=== PATIENT | female | born 1960 | race Caucasian/White ===

== ENCOUNTER 2017-03-23 19:52 | Emergency (ER) | payer SELFPAY ==
[~2017-03-23] VITALS: Ht 170.2 cm; Wt 72.6 kg
[2017-03-23] MEDS ORDERED: KETOROLAC 60 MG/2 ML VIAL IM STA (20:57)
[2017-03-23] MEDS ORDERED: HYDROcodone/APAP 10 MG/325 MG (LORTAB) TAB PO STA (20:57)
[2017-03-23] MEDS ORDERED: RX-NAPROXEN (NAPROSYN) 250 MG TAB PPK#4 PO STA (21:01)
[2017-03-23] MEDS ORDERED: HYDR-87 PO (21:01)
[2017-03-23] MEDS ORDERED: RX-HYDROCODONE/APAP 5/325 MG #4 TAB PK PO PRN (21:15)
[2017-03-23 21:26] VITALS: BP 179/90
== END 2017-03-23 21:26 | disposition home or self-care (01) ==
LOC: ER 19:55
DX: S82.102A Unspecified fracture of upper end of left tibia, initial encounter for closed fracture (principal); F17.210 Nicotine dependence, cigarettes, uncomplicated; W18.30XA Fall on same level, unspecified, initial encounter; X50.0XXA Overexertion from strenuous movement or load, initial encounter; Y92.002 Bathroom of unspecified non-institutional (private) residence as the place of occurrence of the external cause
CPT/HCPCS: 73562; 96372; 99284

== ENCOUNTER → 2018-09-17 | Outpatient (CLI) | payer OTHER ==
[~2018-09-17] MED LIST: HYDR-87 PO
[2018-09-17 09:49] LABS: BASOPHILS # (AUTO) 0.1 10^3/uL (0.0-0.1); BASOPHILS % (AUTO) 1 % (0-10); EOSINOPHILS # (AUTO) 0.7 10^3/uL (0.0-0.3); EOSINOPHILS % (AUTO) 9 % (0-10); HEMATOCRIT 43 % (35-52); HEMOGLOBIN 14.5 G/DL (11.5-16.0); LYMPHOCYTES # (AUTO) 2.9 X 10^3 (1.0-4.0); LYMPHOCYTES % (AUTO) 36 % (12-44); MEAN CORPUSCULAR HEMOGLOBIN 31 PG (25-34); MEAN CORPUSCULAR HGB CONC 34 G/DL (32-36); MEAN CORPUSCULAR VOLUME 91 FL (80-99); MEAN PLATELET VOLUME 10.2 FL (7.4-10.4); MONOCYTES # (AUTO) 0.7 X 10^3 (0.0-1.0); MONOCYTES % (AUTO) 8 % (0-12); NEUTROPHILS # (AUTO) 3.7 X 10^3 (1.8-7.8); NEUTROPHILS % (AUTO) 46 % (42-75); PLATELET COUNT 259 10^3/uL (130-400); RED CELL DISTRIBUTION WIDTH 13.3 % (10.0-14.5)
[2018-09-17 10:12] LABS: ALANINE AMINOTRANSFERASE 28 U/L (0-55); ALBUMIN 4.2 GM/DL (3.2-4.5); ALKALINE PHOSPHATASE 60 U/L (40-136); BILIRUBIN,TOTAL 0.4 MG/DL (0.1-1.0); BUN/CREATININE RATIO 19; CALCIUM 9.1 MG/DL (8.5-10.1); CARBON DIOXIDE 21 MMOL/L (21-32); CHLORIDE 107 MMOL/L (98-107); CHOLESTEROL 179 MG/DL (< 200); CREATININE SERUM 0.67 MG/DL (0.60-1.30); GFR ESTIMATED > 60; GLUCOSE 99 MG/DL (70-105); HDL CHOLESTEROL 46 MG/DL (40-60); POTASSIUM 4.3 MMOL/L (3.6-5.0); SODIUM 137 MMOL/L (135-145); TRIGLYCERIDES 119 MG/DL (<150); VLDL CHOLESTEROL 24 MG/DL (5-40)
== END ==
LOC: LAB 09:26
PROVIDERS: ATTEND Family Medicine
DX: Z00.00 Encounter for general adult medical examination without abnormal findings (principal); R53.83 Other fatigue; N95.1 Menopausal and female climacteric states
CPT/HCPCS: 36415; 80053; 80061; 84443; 85025

== ENCOUNTER 2021-05-07 06:18 | Outpatient (CLI) | payer OTHER ==
[~2021-05-07] VITALS: Ht 167.7 cm; Wt 66.8 kg
[2021-05-07] MEDS ORDERED: ZINC220T3 PO (12:54)
[2021-05-07] MEDS ORDERED: MV-M1TAB57 PO (12:54)
[2021-05-07] MEDS ORDERED: VITA1CAP PO (12:54)
[2021-05-07] MEDS ORDERED: CHOL200059 PO (12:54)
[2021-05-07] MEDS ORDERED: [UNRECOGNIZED DRUG - CODE] PO (12:54)
== END 2021-05-07 13:02 | disposition home or self-care (01) ==
LOC: PREOP 06:18
PROVIDERS: ATTEND Specialist
DX: Z01.818 Encounter for other preprocedural examination (principal)

== ENCOUNTER 2021-05-10 08:39 | Day surgery (SDC) | payer OTHER ==
[~2021-05-10] VITALS: Ht 167.7 cm; Wt 66.8 kg
[~2021-05-10 08:39] MED LIST changes: +CHOL200059 PO; +MV-M1TAB57 PO; +VITA1CAP PO; +ZINC220T3 PO; +[UNRECOGNIZED DRUG - CODE] PO
[2021-05-10] MEDS: TETRACAINE 0.5% OPHTH SOLN 4 ML BTL (SINGLE DOSE ONLY) OU PRN ×4 (08:55→09:15)
[2021-05-10] MEDS ORDERED: LIDOCAINE PF 1% 2 ML VIAL IR PRN (09:00)
[2021-05-10] MEDS ORDERED: MOXIFLOXACIN OPHTH SOLN 5 MG/ML 0.3 ML SYRINGE OP ONE (09:00)
[2021-05-10] MEDS ORDERED: POVIDONE (BETADINE) OPHTH SOLN 5% 30 ML OP ONE (09:00)
[2021-05-10] MEDS ORDERED: TIMOLOL MALEATE 0.5% 5 ML (TIMOPTIC) BTL OU PRN (09:00)
[2021-05-10] MEDS: PHENYLEPHRINE 10% OPHTH (NEO-SYN) 5 ML BTL OU SCH ×3 (09:05→09:15)
[2021-05-10] MEDS: TROPICAMIDE 1% OPH SOLN (MYDRIACYL) 15 ML BTL OP SCH ×3 (09:05→09:15)
[2021-05-10 09:06] VITALS: BP 142/97
[2021-05-10] MEDS ORDERED: MIDAZOLAM 2 MG/2 ML (VERSED) VIAL ONE (09:15)
--- NOTE | 2021-05-10 09:23 | Ophthalmologist Pre-Op Note ---
Pre-Operative Progress Note H&P Reviewed The H&P was reviewed, patient examined and no changes noted. Date H&P Reviewed: May 10, 2021 Time H&P Reviewed: 09:22 Pre-Op Dx Cataract, Left Eye NOMI CHAUHAN MD May 10, 2021 09:22
--- NOTE | 2021-05-10 09:44 | Ophthalmology Operative Report ---
Cataract removal/placement IOL PREOPERATIVE DIAGNOSIS: Cataract Left Eye POSTOPERATIVE DIAGNOSIS: Cataract Left Eye PROCEDURE: Cataract removal and placement of posterior chamber implant, left eye SURGEON: Jimmy Chauhan ANESTHESIA: Topical with sedation COMPLICATIONS: None ESTIMATED BLOOD LOSS: Minimal DESCRIPTION OF PROCEDURE: After proper informed consent was obtained, the patient, a 61 female, was taken to the Operating Room and the left eye was anesthetized with tetracaine. The left eye was then prepped and draped in the usual manner. A wire lid speculum was placed. A paracentesis was made at the left hand position. Preservative free lidocaine was injected into the anterior chamber followed by viscoelastic. A clear corneal incision was made in the temporal position. A capsulorrhexis was preformed and the central nuclear and cortical material were removed. The posterior capsule was polished and an Joni 20.0 AU00T0 was placed into the capsular bag. The residual viscoelastic was aspirated and balanced saline solution was injected into the anterior chamber. Moxifloxacin was injected into the anterior chamber. The wound was checked and found to be water tight. The patient tolerated the procedure well without complications. JIMMY CHAUHAN MD May 10, 2021 09:44
[2021-05-10 09:53] VITALS: BP 156/83
[2021-05-10] MEDS ORDERED: acetaZOLAMIDE ER 500 MG CAP (DIAMOX SEQUELS) PO ONE (10:00)
--- NOTE | 2021-05-10 13:58 | Anesthesia-General Post-Op ---
MAC Patient Condition Mental Status/LOC: Same as Preop Cardiovascular: Satisfactory Nausea/Vomiting: Absent Respiratory: Satisfactory Pain: Controlled Complications: Absent Post Op Complications Complications None Follow Up Care/Instructions Patient Instructions None needed. Anesthesiology Discharge Order Discharge Order Patient was seen after the procedure and she was doing well, no complaints, stable vital signs, no apparent adverse anesthesia problems. KARLOS FONSECA DO May 10, 2021 13:58
== END 2021-05-10 09:54 | disposition home or self-care (01) ==
LOC: SDC 08:39
PROVIDERS: ATTEND Specialist
DX: H25.12 Age-related nuclear cataract, left eye (principal); Z79.899 Other long term (current) drug therapy; F17.200 Nicotine dependence, unspecified, uncomplicated
CPT/HCPCS: 66984; V2632

== ENCOUNTER 2021-05-24 06:00 | Day surgery (SDC) | payer OTHER ==
[~2021-05-24] VITALS: Ht 167.7 cm; Wt 66.8 kg
[2021-05-24 06:12] VITALS: BP 119/62
[2021-05-24] MEDS: TETRACAINE 0.5% OPHTH SOLN 4 ML BTL (SINGLE DOSE ONLY) OU PRN ×4 (06:12→06:34)
[2021-05-24] MEDS ORDERED: POVIDONE (BETADINE) OPHTH SOLN 5% 30 ML OP ONE (06:15)
[2021-05-24] MEDS ORDERED: TIMOLOL MALEATE 0.5% 5 ML (TIMOPTIC) BTL OU PRN (06:15)
[2021-05-24] MEDS ORDERED: LIDOCAINE PF 1% 2 ML VIAL IR PRN (06:15)
[2021-05-24] MEDS ORDERED: MOXIFLOXACIN OPHTH SOLN 5 MG/ML 0.3 ML SYRINGE OP ONE (06:15)
[2021-05-24] MEDS: PHENYLEPHRINE 10% OPHTH (NEO-SYN) 5 ML BTL OU SCH ×3 (06:19→06:34)
[2021-05-24] MEDS: TROPICAMIDE 1% OPH SOLN (MYDRIACYL) 15 ML BTL OP SCH ×3 (06:20→06:34)
--- NOTE | 2021-05-24 07:18 | Ophthalmologist Pre-Op Note ---
Pre-Operative Progress Note H&P Reviewed The H&P was reviewed, patient examined and no changes noted. Date H&P Reviewed: May 24, 2021 Time H&P Reviewed: 07:18 Pre-Op Dx Cataract, Right Eye NOMI CHAUHAN MD May 24, 2021 07:18
[2021-05-24] MEDS ORDERED: MIDAZOLAM 2 MG/2 ML (VERSED) VIAL ONE (07:23)
--- NOTE | 2021-05-24 07:38 | Ophthalmology Operative Report ---
Cataract removal/placement IOL PREOPERATIVE DIAGNOSIS: Cataract Right Eye POSTOPERATIVE DIAGNOSIS: Cataract Right Eye PROCEDURE: Cataract removal and placement of posterior chamber implant, right eye SURGEON: Jimmy Chauhan ANESTHESIA: Topical with sedation COMPLICATIONS: None ESTIMATED BLOOD LOSS: Minimal DESCRIPTION OF PROCEDURE: After proper informed consent was obtained, the patient, a 61 female, was taken to the Operating Room and the right eye was anesthetized with tetracaine. The right eye was then prepped and draped in the usual manner. A wire lid speculum was placed. A paracentesis was made at the left hand position. Preservative free lidocaine was injected into the anterior chamber followed by viscoelastic. A clear corneal incision was made in the temporal position. A capsulorrhexis was preformed and the central nuclear and cortical material were removed. The posterior capsule was polished and Joni 20.0 AU00T0 IOL was placed into the capsular bag. The residual viscoelastic was aspirated and balanced saline solution was injected into the anterior chamber. Moxifloxacin was injected into the anterior chamber. The wound was checked and found to be water tight. The patient tolerated the procedure well without complications. JIMMY CHAUHAN MD May 24, 2021 07:38
[2021-05-24 07:55] VITALS: BP 119/62
[2021-05-24] MEDS ORDERED: acetaZOLAMIDE ER 500 MG CAP (DIAMOX SEQUELS) PO ONE (08:00)
--- NOTE | 2021-05-24 12:29 | Anesthesia-General Post-Op ---
MAC Patient Condition Mental Status/LOC: Same as Preop Cardiovascular: Satisfactory Nausea/Vomiting: Absent Respiratory: Satisfactory Pain: Controlled Complications: Absent Post Op Complications Complications None Follow Up Care/Instructions Patient Instructions None needed. Anesthesiology Discharge Order Discharge Order Patient is doing well, no complaints, stable vital signs, no apparent adverse anesthesia problems. No complications reported per nursing. LEONARD MURPHY CRNA May 24, 2021 12:29
== END 2021-05-24 07:57 | disposition home or self-care (01) ==
LOC: SDC 06:00
PROVIDERS: ATTEND Specialist
DX: H25.9 Unspecified age-related cataract (principal); Z72.0 Tobacco use
CPT/HCPCS: 66984; V2632

== ENCOUNTER 2022-08-27 10:58 | Inpatient (IN) | payer SELFPAY ==
[2022-08-27] VITALS (15 sets, daily range): BP systolic 131–167; BP diastolic 65–107
[~2022-08-27] VITALS: Ht 170 cm; Wt 63.2 kg
[~2022-08-27 10:58] MED LIST changes: +HYDR-4085 PO; -HYDR-87 PO
[2022-08-27] MEDS ORDERED: methylPREDNISolone 125 MG (Solu-MEDROL) VIAL IV STA (11:08)
[2022-08-27] MEDS ORDERED: LORazepam INJ 2 MG/ML (ATIVAN) VIAL ONE (11:09)
[2022-08-27] MEDS ORDERED: methylPREDNISolone 125 MG (Solu-MEDROL) VIAL ONE (11:09)
[2022-08-27] MEDS ORDERED: LORazepam INJ 2 MG/ML (ATIVAN) VIAL IVP ONE (11:15)
[2022-08-27] MEDS ORDERED: NS IV 500 ML 500 ML IV ONE (11:15)
[2022-08-27 11:17] LABS: BASOPHILS # (AUTO) 0.1 10^3/uL (0.0-0.1); BASOPHILS % (AUTO) 1 % (0-10); EOSINOPHILS # (AUTO) 0.3 10^3/uL (0.0-0.3); EOSINOPHILS % (AUTO) 2 % (0-10); HEMATOCRIT 45 % (35-52); HEMOGLOBIN 15.2 g/dL (11.5-16.0); LYMPHOCYTES # (AUTO) 3.7 10^3/uL (1.0-4.0); LYMPHOCYTES % (AUTO) 20 % (12-44); MEAN CORPUSCULAR HEMOGLOBIN 31 pg (25-34); MEAN CORPUSCULAR HGB CONC 34 g/dL (32-36); MEAN CORPUSCULAR VOLUME 93 fL (80-99); MONOCYTES # (AUTO) 1.8 10^3/uL (0.0-1.0); MONOCYTES % (AUTO) 10 % (0-12); NEUTROPHILS # (AUTO) 12.3 10^3/uL (1.8-7.8); NEUTROPHILS % (AUTO) 67 % (42-75); PLATELET COUNT 335 10^3/uL (130-400); WHITE BLOOD COUNT 18.3 10^3/uL (4.3-11.0)
[2022-08-27 11:30] LABS: ALBUMIN 4.2 GM/DL (3.2-4.5)
[2022-08-27 11:31] LABS: BAND NEUTROPHILS 3 %; CALCIUM 8.9 MG/DL (8.5-10.1); EOSINOPHILS % (MANUAL) 2 %; LYMPHOCYTES % (MANUAL) 29 %; MONOCYTES % (MANUAL) 6 %; NEUTROPHILS % (MANUAL) 60 %; PLATELET ESTIMATE ADEQUATE; RBC MORPH NORMAL
[2022-08-27 11:32] LABS: TOTAL PROTEIN 8.8 GM/DL (6.4-8.2)
[2022-08-27 11:34] LABS: BILIRUBIN,TOTAL 0.9 MG/DL (0.1-1.0)
[2022-08-27 11:34] LABS: ABG BASE EXCESS -1.3 MMOL/L (-2.5-2.5); ABG OXYGEN SATURATION 99 % (94-100); ABG PCO2 38 MMHG (35-45); ABG PO2 135 MMHG (79-93); ABG TCO2 23.9 MMOL/L (21.0-31.0)
[2022-08-27 11:35] LABS: ALLENS TEST P; INSPIRED O2 10; PATIENT TEMP 37.3; VENTILATOR NO
[2022-08-27 11:36] LABS: CREATININE SERUM 0.72 MG/DL (0.60-1.30)
[2022-08-27 11:39] LABS: INR 0.9 (0.8-1.4); PROTHROMBIN TIME PATIENT 12.7 SEC (12.2-14.7)
--- NOTE | 2022-08-27 11:42 | Diagnostic Imaging Report ---
Clinical indications: Patient with respiratory distress. EXAM: Portable chest x-ray upright view. COMPARISON: None. FINDINGS: There is blunting of the right costophrenic angle region concerning for small pleural effusion. There is amorphous airspace opacification and curvilinear opacities involving the right lower lobe and right perihilar region which may represent interval infiltrate. There is atelectasis or scarring in the left lung base. Emphysematous lung disease is seen. There is no pneumothorax. Pulmonary vasculature and cardiac silhouette is within normal limits. There are degenerative spurs involving the spine. IMPRESSION: 1: There is a small right pleural effusion and concern for right lung base infiltrate. Superimposed bibasilar atelectasis or scarring is also suspected. Comparison to prior chest x-rays would help better evaluate. 2: Emphysematous lung disease. Dictated by: Dictated on workstation # [id number]
--- NOTE | 2022-08-27 11:54 | ED General ---
General Chief Complaint: Respiratory Problems Stated Complaint: SOB | Nursing Triage Note: patient to room 06 w c/o shortness of breath. Patient denies ever experiencing this before. Source of Information: Patient Exam Limitations: No Limitations History of Present Illness Date Seen by Provider: Aug 27, 2022 Time Seen by Provider: 11:05 Initial Comments Here with report of significant shortness of breath that has been worsening over the last couple of days and may have been going on for up to a week. She states that she does smoke but has not been able to smoke much recently. Reports she may have COPD. She is not on oxygen and has some history of high blood pressure. Denies any previous heart problems. Her main concern now is significant shortness of breath and she is anxious with that. Denies fever or chills or nausea or vomiting. Denies chest pain. Timing/Duration: 2-3 Days, Getting Worse Severity: Moderate, Severe Associated Systoms: No Chest Pain; Cough; No Fever/Chills, No Nausea/Vomiting; Shortness of Air, Weakness Allergies and Home Medications Allergies Coded Allergies: No Known Drug Allergies (Unverified , 03/23/17) Patient Home Medication List Home Medication List Reviewed: Yes Cholecalciferol (Vitamin D3) (Vitamin D3) 50 Mcg Tablet, 50 MCG PO DAILY, (Reported) Entered as Reported by: DELPHINE JOHNSON on 05/07/21 1254 Multivits,Stress Formula (Stress-C) 1 Each Tablet, 1 EACH PO DAILY, (Reported) Entered as Reported by: DELPHINE JOHNSON on 05/07/21 1254 Mv-Mn/Folic Acid/Calcium/Vit K (Women's 50 Plus Multivit Tab) 1 Each Tablet, 1 EACH PO DAILY, (Reported) Entered as Reported by: DELPHINE JOHNSON on 05/07/21 1254 Vitamin B Complex (Vitamin B Complex) 1 Each Capsule, 1 EACH PO DAILY, (Reported) Entered as Reported by: DELPHINE JOHNSON on 05/07/21 1254 Zinc Sulfate (Zinc) 50 Mg Tablet, 50 MG PO DAILY, (Reported) Entered as Reported by: DELPHINE JOHNSON on 05/07/21 1254 Review of Systems Review of Systems Constitutional: see HPI; No chills, No fever EENTM: No nose congestion Respiratory: cough, orthopnea, short of breath Cardiovascular: No chest pain, No edema Gastrointestinal: No nausea, No vomiting Genitourinary: no symptoms reported Musculoskeletal: no symptoms reported Psychiatric/Neurological: Anxiety, Weakness Past Qawpruk-Raonmw-Cosjyf Hx Patient Social History Tobacco Use?: Yes Tobacco type used: Cigarettes Smoking Status: Current Everyday Smoker Substance use?: No Alcohol Use?: Yes Alcohol Frequency: Rarely Immunizations Up To Date COVID19 Vaccine 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 Seasonal Allergies Seasonal Allergies: Yes Past Medical History Surgeries: Yes (LEFT ANKLE) Orthopedic Respiratory: No Cardiac: No 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 oz. 72.248789gh; 21.00 BMI Method:Stated General Appearance: Moderate Distress (Respiratory), Thin HEENT: PERRL/EOMI, Pharynx Normal Neck: Non Tender, Supple Respiratory: No Crackles; Decreased Breath Sounds, Respiratory Distress Cardiovascular: No Murmur, Tachycardia Gastrointestinal: Non Tender, Soft Back: Normal Inspection, No CVA Tenderness, No Vertebral Tenderness Extremity: Normal Range of Motion, Non Tender Neurologic/Psychiatric: Alert, Oriented x3 Skin: normal color, warm/dry Focused Exam Lactate Level 08/27/22 11:09: Lactic Acid Level 1.96 Lactic Acid Level Laboratory Tests Test 08/27/22 11:09 Lactic Acid Level 1.96 MMOL/L (0.50-2.00) Progress/Results/Core Measures Suspected Sepsis SIRS Temperature: Pulse: 113 Respiratory Rate: 33 Laboratory Tests 08/27/22 11:09: White Blood Count 18.3H Blood Pressure 167 /107 Mean: 127 08/27/22 11:09: Lactic Acid Level 1.96 Laboratory Tests 08/27/22 11:09: Creatinine 0.72, INR Comment 0.9, Platelet Count 335, Total Bilirubin 0.9 Results/Orders Lab Results Laboratory Tests Test 08/27/22 11:09 08/27/22 11:15 Range/Units White Blood Count 18.3 H 4.3-11.0 10^3/uL Red Blood Count 4.84 3.80-5.11 10^6/uL Hemoglobin 15.2 11.5-16.0 g/dL Hematocrit 45 35-52 % Mean Corpuscular Volume 93 80-99 fL Mean Corpuscular Hemoglobin 31 25-34 pg Mean Corpuscular Hemoglobin Concent 34 32-36 g/dL Red Cell Distribution Width 13.4 10.0-14.5 % Platelet Count 335 130-400 10^3/uL Mean Platelet Volume 11.0 9.0-12.2 fL Immature Granulocyte % (Auto) 0 % Neutrophils (%) (Auto) 67 42-75 % Lymphocytes (%) (Auto) 20 12-44 % Monocytes (%) (Auto) 10 0-12 % Eosinophils (%) (Auto) 2 0-10 % Basophils (%) (Auto) 1 0-10 % Neutrophils # (Auto) 12.3 H 1.8-7.8 10^3/uL Lymphocytes # (Auto) 3.7 1.0-4.0 10^3/uL Monocytes # (Auto) 1.8 H 0.0-1.0 10^3/uL Eosinophils # (Auto) 0.3 0.0-0.3 10^3/uL Basophils # (Auto) 0.1 0.0-0.1 10^3/uL Immature Granulocyte # (Auto) 0.1 0.0-0.1 10^3/uL Neutrophils % (Manual) 60 % Lymphocytes % (Manual) 29 % Monocytes % (Manual) 6 % Eosinophils % (Manual) 2 % Band Neutrophils 3 % Platelet Estimate ADEQUATE Blood Morphology Comment NORMAL Prothrombin Time 12.7 12.2-14.7 SEC INR Comment 0.9 0.8-1.4 Activated Partial Thromboplast Time 30 24-35 SEC Sodium Level 134 L 135-145 MMOL/L Potassium Level 4.6 3.6-5.0 MMOL/L Chloride Level 104 98-107 MMOL/L Carbon Dioxide Level 19 L 21-32 MMOL/L Anion Gap 11 5-14 MMOL/L Blood Urea Nitrogen 10 7-18 MG/DL Creatinine 0.72 0.60-1.30 MG/DL Estimat Glomerular Filtration Rate 94 BUN/Creatinine Ratio 14 Glucose Level 105 70-105 MG/DL Lactic Acid Level 1.96 0.50-2.00 MMOL/L Calcium Level 8.9 8.5-10.1 MG/DL Corrected Calcium 8.7 8.5-10.1 MG/DL Total Bilirubin 0.9 0.1-1.0 MG/DL Aspartate Amino Transf (AST/SGOT) 62 H 5-34 U/L Alanine Aminotransferase (ALT/SGPT) 44 0-55 U/L Alkaline Phosphatase 73 40-136 U/L Troponin I 0.103 H <0.028 NG/ML C-Reactive Protein High Sensitivity 3.33 H 0.00-0.50 MG/DL B-Type Natriuretic Peptide 840.4 H <100.0 PG/ML Total Protein 8.8 H 6.4-8.2 GM/DL Albumin 4.2 3.2-4.5 GM/DL Blood Gas Puncture Site L RAD Blood Gas Patient Temperature 37.3 Arterial Blood pH 7.40 7.37-7.43 Arterial Blood Partial Pressure CO2 38 35-45 MMHG Arterial Blood Partial Pressure O2 135 H 79-93 MMHG Arterial Blood HCO3 23 23-27 MMOL/L Arterial Blood Total CO2 23.9 21.0-31.0 MMOL/L Arterial Blood Oxygen Saturation 99 94-100 % Arterial Blood Base Excess -1.3 -2.5-2.5 MMOL/L Dino Test P Blood Gas Ventilator Setting NO Blood Gas Inspired Oxygen 10 My Orders Orders - LOUISE HELLER MD Cbc With Automated Diff (08/27/22 11:08) Comprehensive Metabolic Panel (08/27/22 11:08) Blood Culture (08/27/22 11:08) Sputum Culture (08/27/22 11:08) Protime With Inr (08/27/22 11:08) Partial Thromboplastin Time (08/27/22 11:08) Chest 1 View, Ap/Pa Only (08/27/22 11:08) Ed Iv/Invasive Line Start (08/27/22 11:08) Ed Iv/Invasive Line Start (08/27/22 11:08) Ekg Tracing (08/27/22 11:08) Troponin I Genesis (08/27/22 11:08) Vital Signs Adult Sepsis Patie Q15M (08/27/22 11:08) O2 (08/27/22 11:08) Remove Rings In Anticipation O (08/27/22 11:08) Lactic Acid Analyzer (08/27/22 11:08) Arterial Blood Gas (08/27/22 11:08) Bnp Grant (08/27/22 11:08) Hs C Reactive Protein (08/27/22 11:08) Lorazepam Injection (Ativan Injection) (08/27/22 11:15) Methylprednisolone Sod Succ (Solu-Medrol (08/27/22 11:08) Methylprednisolone Sod Succ (Solu-Medrol (08/27/22 11:09) Lorazepam Injection (Ativan Injection) (08/27/22 11:09) Ns Iv 500 Ml (Sodium Chloride 0.9%) (08/27/22 11:15) Manual Differential (08/27/22 11:09) Albuterol Pre-Mix Nebs (Rt) (Proventil (08/27/22 12:16) Albuterol/Ipra Inhalation Soln (Duoneb I (08/27/22 12:30) Svn Small Volume Nebulizer (08/27/22 12:16) Svn Small Volume Nebulizer (08/27/22 12:16) Cefepime Injection (Maxipime Injection) (08/27/22 12:30) Code/Resuscitation (08/27/22 12:26) Ed Admission (Communication) (08/27/22 12:26) Aspirin Chewable Tablet (Baby Aspirin Ch (08/27/22 12:45) Medications Given in ED Current Medications Medications Dose Ordered Sig/Loretta Route Start Time Stop Time Status Last Admin Dose Admin Albuterol/ Ipratropium 3 ml ONCE ONCE INH 08/27/22 12:30 08/27/22 12:31 DC 08/27/22 12:20 3 ML Aspirin 324 mg ONCE ONCE PO 08/27/22 12:45 08/27/22 12:46 DC 08/27/22 12:52 324 MG Cefepime HCl 1000 mg/Sodium Chloride 50 ml @ 100 mls/hr ONCE ONCE IV 08/27/22 12:30 08/27/22 12:59 DC 08/27/22 12:29 100 MLS/HR Lorazepam 0.5 mg ONCE ONCE IVP 08/27/22 11:15 08/27/22 11:16 DC 08/27/22 11:12 0.5 MG Sodium Chloride 500 ml @ 0 mls/hr Q0M ONCE IV 08/27/22 11:15 08/27/22 11:16 DC 08/27/22 11:26 500 MLS/HR Vital Signs/I&O 08/27/22 08/27/22 11:02 11:40 Temp 37.3 Pulse 116 113 Resp 28 33 B/P (MAP) 167/107 (127) Pulse Ox 92 99 O2 Delivery Room Air O2 Flow Rate 60.00 Capillary Refill : Less Than 3 Seconds Blood Pressure Mean: 127 Progress Note : Progress Note Seen and evaluated. Rapid assessment done. Patient has O2 sat low 90s upper 80s high flow nasal cannula and then high flow mask. We did elect to move to BiPAP. Patient is very anxious. She is quite tachypneic with increased work of breathing. Given her anxiety and concerns about anxiety with the mask, we did give Ativan 0.5 mg IV. We will initiate sepsis protocol including checks x-ray and labs to include CBC, CMP, CRP, troponin, BNP, blood cultures and lactic acid. Chest x-ray was ordered. BiPAP initiated at 12/6 and RT did ramp up protocol. We will get ABG. Solu-Medrol 125 mg IV ordered. Monitor patient. Differential includes COPD exacerbation, pneumonia, heart failure, electrolyte abnormality 1135: Chest x-ray does show right pleural effusion and there is increased markings at both bases on my interpretation. 1154: EKG results noted as below. CBC reviewed and shows markedly elevated white count at 18.3 with a left shift. Chemistry reviewed and shows slightly low sodium at 134 and slightly elevated potassium of 5.5. Serum creatinine is normal with LFTs normal with some elevation of AST at 62. Troponin is elevated at 0.103 with elevated CRP and elevated BNP. Coags are overall normal. ABG shows normal pH with PCO2 of 35. 1224: We have added albuterol neb as well as DuoNeb and I will initiate antibiotics with cefepime 1 g IV now. I did discuss the case with Dr. Schwarz, on- call for hospitalist service and she is excepted the patient for admission, inpatient status. Patient is full code. 1233: I did discuss the case with Dr Norman, sales development consultant on-call. We will go ahead and initiate dose of aspirin now and then he will follow-up in consult. Patient does have findings of sepsis without findings of severe sepsis and does not require high-volume fluid resuscitation. Patient will be complicated as she does have findings of acute heart failure with elevated BNP. She has had appropriate evaluation including blood cultures and lactic acid and we have first dose of antibiotics ordered to be administered now. ECG Initial ECG Impression Date: Aug 27, 2022 Initial ECG Impression Time: 11:36 Initial ECG Rate: 100 Initial ECG Rhythm: S.Tach Comment Sinus tachycardia with normal axis. Left atrial abnormality. No evidence of ST elevation OR. Interpreted by me. Diagnostic Imaging Diagonstic Imaging: Xray Plain Films/CT/US/NM/MRI: chest Comments [facility] [place] NAME: ADITYA DEL ANGEL [facility] REC#: [id number] PT STATUS: REG ER : 1960 PHYSICIAN: LOUISE HELLER MD ADMIT DATE: 08/27/22/ER Draft Date of Exam:08/27/22 CHEST 1 VIEW, AP/PA ONLY Clinical indications: Patient with respiratory distress. EXAM: Portable chest x-ray upright view. COMPARISON: None. FINDINGS: There is blunting of the right costophrenic angle region concerning for small pleural effusion. There is amorphous airspace opacification and curvilinear opacities involving the right lower lobe and right perihilar region which may represent interval infiltrate. There is atelectasis or scarring in the left lung base. Emphysematous lung disease is seen. There is no pneumothorax. Pulmonary vasculature and cardiac silhouette is within normal limits. There are degenerative spurs involving the spine. IMPRESSION: 1: There is a small right pleural effusion and concern for right lung base infiltrate. Superimposed bibasilar atelectasis or scarring is also suspected. Comparison to prior chest x-rays would help better evaluate. 2: Emphysematous lung disease. Dictated on workstation # [id number] Dict: 08/27/22 1137 Trans: 08/27/22 1142 [facility] [id number] Interpreted by: JUAN SMITH MD Electronically signed by: Departure Communication (Admissions) Time/Spoke to Admitting Phy: 12:23 Time/Spoke to Consulting Phy: 12:33 Impression Primary Impression: RLL pneumonia Qualified Codes: J18.9 - Pneumonia, unspecified organism Additional Impressions: COPD with acute exacerbation Elevated troponin Elevated brain natriuretic peptide (BNP) level Disposition: ADMITTED INPATIENT Condition: Stable Admissions Decision to Admit Reason: Admit from ER (General) Decision to Admit/Date: Aug 27, 2022 Time/Decision to Admit Time: 12:23 Departure-Patient Inst. Referrals: NARCISA ROSARIO MD (PCP/Family) Primary Care Physician LOUISE HELLER MD Aug 27, 2022 11:54
[2022-08-27 12:02] LABS: POTASSIUM 4.6 MMOL/L (3.6-5.0)
[2022-08-27] MEDS ORDERED: RT-ALBUTEROL SULF 2.5 MG/3 ML PRE-MIX VIAL INH STA (12:16)
[2022-08-27] MEDS ORDERED: CEFEPIME INJECTION 1,000 MG in NS (IVPB) 50 ML IV ONE (12:30)
[2022-08-27] MEDS ORDERED: RT-ALBUTEROL/IPRATROPIUM 3 ML (DUONEB) VIAL INH ONE (12:30)
[2022-08-27] MEDS ORDERED: ASPIRIN 81 MG CHEW (CHILDREN'S ASA) PO ONE (12:45)
--- NOTE | 2022-08-27 13:46 | History & Physical-Hospitalist ---
History of Present Illness Date Seen 08/27/22 Time Seen by a Provider: 13:40 Attending Physician Jose Valencia MD PCP Admitting Physician: Deepa Schwarz MD Attending Physician: Deepa Schwarz MD Referring Physician Date of Admission Aug 27, 2022 at 13:11 Home Medications & Allergies Home Medications Reviewed patient Home Medication Reconciliation performed by pharmacy medication reconciliations medical chief technician and/or nursing. Patients Allergies have been reviewed. 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 oz. 72.771186be; 21.00 BMI Method:Stated Results Results/Procedures Labs Laboratory Tests 08/27/22 11:09 Patient resulted labs reviewed. Assessment/Plan Admission Diagnosis COPD Exacerbation Admission Status: Inpatient Order (span 2 midnights) Reason for Inpatient Admission: respiratory failure on bipap Assessment and Plan COPD Exacerbation Acute Hypoxic Respiratory Failure Sepsis due to RLL PNA Type II PR Cardiology consulted, appreciate recs ASA given in ER Trend troponin Diagnosis/Problems Diagnosis/Problems (1) Sepsis Qualifiers: Sepsis type: sepsis due to unspecified organism Sepsis acute organ dysfunction status: without acute organ dysfunction Qualified Codes: A41.9 - Sepsis, unspecified organism (2) Acute respiratory failure Qualifiers: Respiratory failure complication: hypoxia Qualified Codes: J96.01 - Acute respiratory failure with hypoxia (3) COPD with acute exacerbation Status: Acute (4) RLL pneumonia Status: Acute Qualifiers: Pneumonia type: due to unspecified organism Qualified Codes: J18.9 - Pneumonia, unspecified organism (5) Elevated troponin Status: Acute DEEPA SCHWARZ MD Aug 27, 2022 1:46 pm
[2022-08-27] MEDS ORDERED: AZITHROMYCIN 250 MG TAB (ZITHROMAX) PO NR (14:00)
[2022-08-27] MEDS ORDERED: hydrOXYzine (ATARAX) 10 MG TAB PO PRN (14:15)
--- NOTE | 2022-08-27 14:18 | History & Physical-Hospitalist ---
History of Present Illness HPI/Chief Complaint Pt is a 62yoCF with a PMH of restless leg and asthma who presented to the ER due to SOB. She states this started 2 nights ago and continued to worsen. She complains of a persistent cough as well. She denies a history of COPD but thinks she has asthma and mayhave COPD because of her smoking. She presented to the ER with severe shortness of breath and was placed on BiPAP. Imaging revealed a likely RLL pna and she was admitted for further management. She reports feeling much better already. She was incidentally found to have an elevated troponin but denies any chest pain. She is asking to eat. Source: patient Date Seen 08/27/22 Time Seen by a Provider: 13:55 Attending Physician Jose Valencia MD PCP Admitting Physician: Yue Schwarz MD Attending Physician: Yue Schwarz MD Referring Physician Date of Admission Aug 27, 2022 at 1:11 pm Home Medications & Allergies Home Medications Reviewed patient Home Medication Reconciliation performed by pharmacy medication reconciliations body and frame technician and/or nursing. Patients Allergies have been reviewed. Allergies Allergies Coded Allergies No Known Drug Allergies (Vbnpmykhcp10/2/17) Past Dwjdjaj-Hthulh-Tdjacr Hx Patient Social History Tobacco Use?: Yes Tobacco type used: Cigarettes Smoking Status: Current Everyday Smoker Smokeless Tobacco Frequency: Never a User Use of E-Cig and/or Vaping dev: No Substance use?: No Alcohol Use?: No Alcohol Frequency: Rarely Pt feels they are or have been: No Immunizations Up To Date Date of Influenza Vaccine: Mar 31, 2022 Seasonal Allergies Seasonal Allergies: Yes Current Status status: No status: No Advance Directives: No Communicates: Verbally Primary Language: Irish Preferred Spoken Language: Irish Is interpretation needed?: No Implanted or Applied Medical D: None Past Medical History 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 oz. 72.654199ud; 21.79 BMI Method:Stated General Appearance: No Apparent Distress, WD/WN HEENT: Other (obscured by mask fromBiPAP) Respiratory: No Crackles; Other (minimal air movement, scant wheezing, on BiPAP) Cardiovascular: Regular Rate, Rhythm, No Murmur Gastrointestinal: Normal Bowel Sounds, Non Tender, Soft Extremity: No Calf Tenderness, No Pedal Edema Neurologic/Psychiatric: Alert, Oriented x3, Normal Mood/Affect Results Results/Procedures Labs Laboratory Tests 08/27/22 11:09 08/28/22 04:42 Patient resulted labs reviewed. Imaging: Reviewed Imaging Report Imaging [facility], [place] NAME: ADITYA DEL ANGEL [facility] REC#: [id number] PT STATUS: REG ER : 1960 PHYSICIAN: LOUISE HELLER MD ADMIT DATE: 08/27/22/ER Draft Date of Exam:08/27/22 CHEST 1 VIEW, AP/PA ONLY Clinical indications: Patient with respiratory distress. EXAM: Portable chest x-ray upright view. COMPARISON: None. FINDINGS: There is blunting of the right costophrenic angle region concerning for small pleural effusion. There is amorphous airspace opacification and curvilinear opacities involving the right lower lobe and right perihilar region which may represent interval infiltrate. There is atelectasis or scarring in the left lung base. Emphysematous lung disease is seen. There is no pneumothorax. Pulmonary vasculature and cardiac silhouette is within normal limits. There are degenerative spurs involving the spine. IMPRESSION: 1: There is a small right pleural effusion and concern for right lung base infiltrate. Superimposed bibasilar atelectasis or scarring is also suspected. Comparison to prior chest x-rays would help better evaluate. 2: Emphysematous lung disease. Dictated on workstation # [id number] Dict: 08/27/22 1137 Trans: 08/27/22 1142 [facility] [id number] Interpreted by: JUAN SMITH MD Electronically signed by: Assessment/Plan Admission Diagnosis COPD Exacerbation Admission Status: Inpatient Order (span 2 midnights) Reason for Inpatient Admission: see below Assessment and Plan COPD Exacerbation Acute Hypoxic Respiratory Failure Sepsis due to RLL PNA Currently on BiPAP Doing much better, can trial off for lunch Continue steroids Continue abx Await cultures Does not meet severe sepsis criteria Type II RI Cardiology consulted, appreciate recs ASA given in ER Trend troponin Diagnosis/Problems Diagnosis/Problems (1) Sepsis Qualifiers: Sepsis type: sepsis due to unspecified organism Sepsis acute organ dysfunction status: without acute organ dysfunction Qualified Codes: A41.9 - Sepsis, unspecified organism (2) Acute respiratory failure Qualifiers: Respiratory failure complication: hypoxia Qualified Codes: J96.01 - Acute respiratory failure with hypoxia (3) COPD with acute exacerbation Status: Acute (4) RLL pneumonia Status: Acute Qualifiers: Pneumonia type: due to unspecified organism Qualified Codes: J18.9 - Pneumonia, unspecified organism (5) Elevated troponin Status: Acute (6) Tobacco abuse YUE SCHWARZ MD Aug 27, 2022 14:18
--- NOTE | 2022-08-27 14:36 | Consultation-Cardiology ---
HPI-Cardiology Cardiology Consultation: Date of Consultation 08/27/22 Time Seen by a Provider: 14:00 Date of Admission 08-27-22 Attending Physician Jose Valencia MD Admitting Physician Admitting Physician: Deepa Schwarz MD Attending Physician: Deepa Schwarz MD Consulting Physician Yesenia Norman MD HPI: Chief Complaint: Newly dx CHF Elevated troponin Ms. Moreno is a 62 yr old female admitted to 507 from the ED with c/o increasing SOB over the course of the last several days. She reports abd distension over the last couple days as well. She reports she has had some nausea. No c/o vomiting or diarrhea. No c/o CP. She reports occ he will have a feeling of a fast heartbeat that lasts only a few seconds. No c/o LE swelling. She does smoke cigs. No c/o fever or chills. Review of Systems-Cardiology Review of Systems Constitutional: No chills, No fever, No malaise Eyes: No vision change Ears/Nose/Throat: No recent hearing loss Respiratory: As described under HPI Cardiovascular: As described under HPI Gastrointestinal: As described under HPI Genitourinary: No dysuria, No hematuria Musculoskeletal: no symptoms reported Skin: No rash on exposed areas, No ulcerations on exposed areas Psychiatric/Neurological: No anxiety, No depression, No seizure, No focal weakness, No syncope Hematologic: No bleeding abnormalities AJR-Ytynik-Nberpg Hx Patient Social History Smoking Status: Current Everyday Smoker 2nd Hand Smoke Exposure: Yes Alcohol Use?: No Pt feels they are or have been: No Tobacco type used: Cigarettes Immunizations Up To Date Date of Influenza Vaccine: Mar 31, 2022 Past Medical History PMH As described under Assessment. Family Medical History Family Medical History: She reports her father had CAD. She reports a sister with CAD. Allergies and Home Medications Allergies Coded Allergies: No Known Drug Allergies (Unverified , 03/23/17) Patient Home Medication List Cholecalciferol (Vitamin D3) (Vitamin D3) 50 Mcg Tablet, 50 MCG PO DAILY, (Reported) Entered as Reported by: DELPHINE JOHNSON on 05/07/21 1254 Multivits,Stress Formula (Stress-C) 1 Each Tablet, 1 EACH PO DAILY, (Reported) Entered as Reported by: DELPHINE JOHNSON on 05/07/21 1254 Mv-Mn/Folic Acid/Calcium/Vit K (Women's 50 Plus Multivit Tab) 1 Each Tablet, 1 EACH PO DAILY, (Reported) Entered as Reported by: DELPHINE JOHNSON on 05/07/21 1254 Vitamin B Complex (Vitamin B Complex) 1 Each Capsule, 1 EACH PO DAILY, (Reported) Entered as Reported by: DELPHINE JOHNSON on 05/07/21 1254 Zinc Sulfate (Zinc) 50 Mg Tablet, 50 MG PO DAILY, (Reported) Entered as Reported by: DELPHINE JOHNSON on 05/07/21 1254 Physical Exam-Cardiology Physical Exam Vital Signs/I&O 08/27/22 08/27/22 08/28/22 08/28/22 22:34 23:08 01:00 02:17 Temp 36.4 Pulse 76 67 70 Resp 24 20 B/P (MAP) 136/71 (92) Pulse Ox 95 100 96 O2 Delivery NIV Bilevel High Flow N/C O2 Flow Rate 40.00 40.00 3.00 08/28/22 08/28/22 08/28/22 08/28/22 03:45 06:57 07:00 07:11 Temp 36.2 Pulse 63 82 Resp 20 B/P (MAP) 142/76 (98) Pulse Ox 98 94 97 O2 Delivery High Flow N/C High Flow N/C Room Air O2 Flow Rate 6.00 3.00 08/28/22 08/28/22 08:00 08:00 Temp 36.6 Pulse 85 Resp 22 B/P (MAP) 145/83 (103) Pulse Ox 99 100 O2 Delivery High Flow N/C High Flow N/C O2 Flow Rate 6.00 6.00 08/28/22 00:00 Intake Total 800 ml Balance 800 ml Capillary Refill : Less Than 3 Seconds Constitutional: AAO x 3, well-developed, well-nourished HEENT: PERRL, hearing is well preserved, oral hygience is good Neck: No carotid bruit; carotid pulses are 2 + bilaterally Respiratory: accessory muscle use, chest expansion is symmetric, chest is bilaterally symmetric, rhonchi (scattered), other (diminished breath sounds lower lobes) Cardiovascular: No JVD; tachycardia, S1 and S2 Gastrointestinal: No tender; soft, round; No guarding; audible bowel sounds Extremities: no lower extremity edema bilateral Neurologic/Psychiatric: grossly intact (moves all extremities) Skin: No rash on exposed areas, No ulcerations on exposed areas Data Review Labs Laboratory Tests 08/27/22 11:09: White Blood Count 18.3H, Red Blood Count 4.84, Hemoglobin 15.2, Hematocrit 45, Mean Corpuscular Volume 93, Mean Corpuscular Hemoglobin 31, Mean Corpuscular Hemoglobin Concent 34, Red Cell Distribution Width 13.4, Platelet Count 335, Mean Platelet Volume 11.0, Immature Granulocyte % (Auto) 0, Neutrophils (%) (Auto) 67, Lymphocytes (%) (Auto) 20, Monocytes (%) (Auto) 10, Eosinophils (%) (Auto) 2, Basophils (%) (Auto) 1, Neutrophils # (Auto) 12.3H, Lymphocytes # (Auto) 3.7, Monocytes # (Auto) 1.8H, Eosinophils # (Auto) 0.3, Basophils # (Auto) 0.1, Immature Granulocyte # (Auto) 0.1, Neutrophils % (Manual) 60, Lympho cytes % (Manual) 29, Monocytes % (Manual) 6, Eosinophils % (Manual) 2, Band Neutrophils 3, Platelet Estimate ADEQUATE, Blood Morphology Comment NORMAL, Prothrombin Time 12.7, INR Comment 0.9, Activated Partial Thromboplast Time 30, Sodium Level 134L, Potassium Level 4.6, Chloride Level 104, Carbon Dioxide Level 19L, Anion Gap 11, Blood Urea Nitrogen 10, Creatinine 0.72, Estimat Glomerular Filtration Rate 94, BUN/Creatinine Ratio 14, Glucose Level 105, Lactic Acid Le ana 1.96, Calcium Level 8.9, Corrected Calcium 8.7, Total Bilirubin 0.9, Aspartate Amino Transf (AST/SGOT) 62H, Alanine Aminotransferase (ALT/SGPT) 44, Alkaline Phosphatase 73, Troponin I 0.103H, C-Reactive Protein High Sensitivity 3.33H, B-Type Natriuretic Peptide 840.4H, Total Protein 8.8H, Albumin 4.2 08/27/22 11:15: Blood Gas Puncture Site L RAD, Blood Gas Patient Temperature 37.3, Arterial Blood pH 7.40, Arterial Blood Partial Pressure CO2 38, Arterial Blood Partial Pressure O2 135H, Arterial Blood HCO3 23, Arterial Blood Total CO2 23.9, Arterial Blood Oxygen Saturation 99, Arterial Blood Base Excess -1.3, Dino Test P, Blood Gas Ventilator Setting NO, Blood Gas Inspired Oxygen 10 08/28/22 04:42: White Blood Count 15.2H, Red Blood Count 4.46, Hemoglobin 13.9, Hematocrit 41, Mean Corpuscular Volume 92, Mean Corpuscular Hemoglobin 31, Mean Corpuscular Hemoglobin Concent 34, Red Cell Distribution Width 13.1, Platelet Count 304, Mean Platelet Volume 11.0, Sodium Level 135, Potassium Level 4.1, Chloride Level 105, Carbon Dioxide Level 19L, Anion Gap 11, Blood Urea Nitrogen 18, Creatinine 0.73, Estimat Glomerular Filtration Rate 93, BUN/Creatinine Ratio 25, Glucose Level 138H, Calcium Level 9.1, Troponin I 0.068H, Magnesium Level 2.0 Radiology NAME: ADITYA MORENO [facility] REC#: [id number] PT STATUS: REG ER : 1960 PHYSICIAN: LOUISE HELLER MD ADMIT DATE: 08/27/22/ER Draft Date of Exam:08/27/22 CHEST 1 VIEW, AP/PA ONLY Clinical indications: Patient with respiratory distress. EXAM: Portable chest x-ray upright view. COMPARISON: None. FINDINGS: There is blunting of the right costophrenic angle region concerning for small pleural effusion. There is amorphous airspace opacification and curvilinear opacities involving the right lower lobe and right perihilar region which may represent interval infiltrate. There is atelectasis or scarring in the left lung base. Emphysematous lung disease is seen. There is no pneumothorax. Pulmonary vasculature and cardiac silhouette is within normal limits. There are degenerative spurs involving the spine. IMPRESSION: 1: There is a small right pleural effusion and concern for right lung base infiltrate. Superimposed bibasilar atelectasis or scarring is also suspected. Comparison to prior chest x-rays would help better evaluate. 2: Emphysematous lung disease. Dictated on workstation # [id number] Dict: 08/27/22 1137 Trans: 08/27/22 1142 [facility] [id number] Interpreted by: JUAN SMITH MD Electronically signed by: A/P-Cardiology Assessment/Admission Diagnosis Acute exacerbation of COPD with pneumonia - management per medical services Minimal troponin elevation - NSTEMI vs Type 2 PA d/t hypoxia and tachycardia Sinus tachycardia - likely d/t respiratory CHF - newly dx Elevated AST - undetermined etiology Tobaccoism - cessation advised RLS Discussion and Recomendations Acute exacerbation of COPD with pneumonia - management per medical services - currenlty requiring bi-pap tx Elevated troponin - NSTEMI vs Type 2 d/t hypoxia and tachycardia Tachycardia likely d/t resp exertion - low dose BB Elevated AST - undetermined etiology - management per medical services Newly dx CHF - Echocardiogram today - treat with diuretics Tobaccoism - cessation advised Monitor lab closely Further recs will be based on her hospital course We would like to thank medical services for this consult RADHA HURTADO Aug 27, 2022 14:36
[2022-08-27] MEDS ORDERED: FUROSEMIDE 40 MG/4 ML INJ (LASIX) IVP NR (15:00)
[2022-08-27] MEDS ORDERED: meTOprolol TARTRATE 25 MG (LOPRESSOR) TABLET PO NR (15:00)
[2022-08-27] MEDS: cefTRIAXone 1 GM PRE-MIX 50 ML IV SCH (15:07)
--- NOTE | 2022-08-27 15:54 | Occupational Therapy Eval ---
OT Evaluation-General/PLF Medical Diagnosis Admission Date Aug 27, 2022 at 13:11 Medical Diagnosis: SOA, cough LL pneumonia Onset Date: Aug 27, 2022 Therapy Diagnosis Therapy Diagnosis: weakness Height/Weight Height (Feet): 5 Height (Inches): 7.00 Weight (Pounds): 160 Precautions Precautions/Isolations: Standard Precautions Weight Bear Status Weight Bearing Restriction: Full Weight Bearing Referral Referral Reason: Evaluation/Treatment Medical History Pertinent Medical History: COPD Current History Pt is a 62yoCF with a PMH of restless leg and asthma who presented to the ER due to SOB. She states this started 2 nights ago and continued to worsen. She complains of a persistent cough as well. She denies a history of COPD but thinks she has asthma and mayhave COPD because of her smoking. She presented to the ER with severe shortness of breath and was placed on BiPAP. Imaging revealed a likely RLL pna and she was admitted for further managemen Reviewed History: Yes Social History Home: Single Level Current Living Status: Alone Entry Into Home: Stairs With Railing Steps Into Home: 3 ADL-Prior Level of Function SCALE: Activities may be completed with or without assistive devices. 9-Pbdjcydpip-fpeduff completes the activity by him/herself with no assistance from a helper. 5-Set-up or Clean-up Assistance-helper sets up or cleans up; patient completes activity. [place] assists only prior to or following the activity. 4-Supervision or Touching Assistance-helper provides verbal cues and/or touching/steadying and/or contact guard assistance as patient completes activity. Assistance may be provided throughout the activity or intermittently. 3-Partial/Moderate Assistance-helper does LESS THAN HALF the effort. [place] lifts, holds or supports trunk or limbs, but provides less than half the effort. 2-Substantial/Maximal Assistance-helper does MORE THAN HALF the effort. [place] lifts or holds trunk or limbs and provides more than half the effort. 7-Iqkliedsn-docvtt does ALL the effort. Patient does none of the effort to complete the activity. Or, the assistance of 2 or more helpers is required for the patient to complete the activity. If activity was not attempted, code reason: 7-Patient Refused. 9-Not Applicable-not attempted and the patient did not perform the activity before the current illness, exacerbation or injury. 10-Not Attempted due to Environmental Limitations-(lack of equipment, weather restraints, etc.). 88-Not Attempted due to Medical Conditions or Safety Concerns. 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 Current Status Subjective Upright in bed, eating agrees to therapy Pain Numeric Pain Scale: 0-No Pain Mental Status/Objective Patient Orientation: Person, Place, Time, Situation Attachments: IV, Oxygen (3 liters), Telemetry Current Glasses/Contacts: Yes Upper Extremity ROM BUE ROM/stregnth, FMC and sensation WFLs ADL-Treatment Eating (QC): 6 Oral Hygiene (QC): 5 (sitting ) Shower/Bathe Self (QC): 7 (declined at this time) Upper Body Dressing (QC): 4 Lower Body Dressing (QC): 4 On/Off Footwear (QC): 5 Toileting Hygiene (QC): 5 Education OT Patient Education: Disease process, Energy conservation, Modified ADL te chniques, Progress toward Goal/Update tx plan, Purpose of tx/functional activities, Reviewed precautions, Rehab process, Safety issues, Transfer techniques, Use of adapted equipment Teaching Recipient: Patient, Family Teaching Methods: Demonstration, Discussion Response to Teaching: Verbalize Understanding, Reinforcement Needed 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 2=Patient will verbalize/demonstrate understanding of assistive devices/modifications for ADL. 3=Patient will improve strength/tolerance for activity to enable patient to perform ADL's. OT Education/Plan Problem List/Assessment Assessment: Decreased Activ Tolerance, Impaired Funct Balance, Impaired Self- Care Skills Discharge Recommendations Plan/Recommendations: Continue POC Therapy Discharge Recommendati: Home & Family Treatment Plan/Plan of Care Treatment,Training & Education: Yes Patient would benefit from OT for education, treatment and training to promote independence in ADL's, mobility, safety and/or upper extremity function for ADL's. Plan of Care: ADL Retraining, Functional Mobility, Group Exercise/Act as Ind, UE Funct Exercise/Act Comment Remains up in bed w/ family staying close by, all needs met Treatment Duration: Aug 30, 2022 Frequency: 3 times per week (3-5 times per week) Estimated Hrs Per Day: .25 hour per day Agreement: Yes Rehab Potential: Good Time Start Time: 15:40 Stop Time: 15:55 DATE: Aug 27, 2022 Total Time Billed (hr/min): 15 Billed Treatment Time EVM 15 min PIERRE MCKEON OT Aug 27, 2022 15:54
--- NOTE | 2022-08-27 15:55 | Physical Therapy Evaluation ---
PT Evaluation-General Medical Diagnosis Admission Date Aug 27, 2022 at 13:11 Medical Diagnosis: Shortness of breath, cough, RLL pneumonia Onset Date: Aug 26, 2022 Therapy Diagnosis Therapy Diagnosis: Gait deficit, strength deficit Height/Weight Height (Feet): 5 Height (Inches): 7.00 Weight (Pounds): 160 Precautions Precautions/Isolations: Fall Prevention, Standard Precautions Weight Bear Status Right Lower Extremity: Right Full Weight Bearing Left Lower Extremity: Left Full Weight Bearing Referral Physician: Dr. Schwarz Reason for Referral: Evaluation/Treatment Medical History Reviewed History: Yes Social History Home: Single Level Current Living Status: Alone Entry Into Home: Stairs With Railing PT Steps Into Home: 3 Prior Prior Level of Function SCALE: Activities may be completed with or without assistive devices. 3-Vxalxopvxi-zvfsmmn completes the activity by him/herself with no assistance from a helper. 5-Set-up or Clean-up Assistance-helper sets up or cleans up; patient completes activity. [place] assists only prior to or following the activity. 4-Supervision or Touching Assistance-helper provides verbal cues and/or touching/steadying and/or contact guard assistance as patient completes activity. Assistance may be provided throughout the activity or intermittently. 3-Partial/Moderate Assistance-helper does LESS THAN HALF the effort. [place] lifts, holds or supports trunk or limbs, but provides less than half the effort. 2-Substantial/Maximal Assistance-helper does MORE THAN HALF the effort. [place] lifts or holds trunk or limbs and provides more than half the effort. 0-Indzgwlny-cnzkqg does ALL the effort. Patient does none of the effort to complete the activity. Or, the assistance of 2 or more helpers is required for the patient to complete the activity. If activity was not attempted, code reason: 7-Patient Refused. 9-Not Applicable-not attempted and the patient did not perform the activity before the current illness, exacerbation or injury. 10-Not Attempted due to Environmental Limitations-(lack of equipment, weather restraints, etc.). 88-Not Attempted due to Medical Conditions or Safety Concerns. Bed Mobility: 6 Transfers (B,C,W/C): 6 Gait: 6 Stairs: 6 Indoor Mobility (Ambulation): Independent Stairs: Independent Prior Devices Use: None PT Evaluation-Current Subjective Patient sitting upright in bed upon PT arrival, agreeable to treatment. Patient rates pain at 0/10 currently. Objective Patient Orientation: Person, Place, Time, Situation Attachments: Oxygen, IV ROM/Strength ROM Lower Extremities WFLs bilaterally all planes. Strength Lower Extremities 4/5 bilaterally all planes. Sensory Vision: Functional Hearing: Functional Sensation Right Lower Extremit: Intact Sensation Left Lower Extremity: Intact Transfers Roll Left to Right (QC): 6 Sit to Lying (QC): 6 Lying to Sitting/Side of Bed(Q: 6 Sit to Stand (QC): 4 Chair/Ejp-gi-Fkqbv Xfer(QC): 4 Toilet Transfer (QC): 4 Gait Does the Patient Walk?: Yes Mode of Locomotion: Walk Anticipated Mode of Locomotion: Walk Walk 10 feet (QC): 4 Walk 50 ft with 2 Turns(QC): 4 Distance: 100 feet Gait Assistive Device: None Balance Sitting Static: Normal Sitting Dynamic: Normal Standing Static: Good Standing Dynamic: Fair Assessment/Needs Patient tolerated treatment well. Demonstrates Mar[place] with all bed mobility, SBA with all transfers. Patient impulsive at times and demonstrates mild core control deficit. Patient ambulates 100 feet with no AD, with SBA and verbal cues for posture, safety and conservation of energy. Patient in bed post treatment with all needs met, nursing notified, call light in hand. Rehab Potential: Good PT Jail Goals Jail Goals PT Jail Goals Time Frame: Sep 06, 2022 Roll Left & Right (QC): 6 Sit to Lying (QC): 6 Lying-Sitting on Side/Bed(QC): 6 Sit to Stand (QC): 6 Chair/Iue-id-Mgbnp Xfer(QC): 6 Toilet Transfer (QC): 6 Does the Patient Walk: Yes Walk 10 feet (QC): 6 Walk 50ft with 2 Turns (QC): 6 Walk 150 ft (QC): 6 1 Step (curb) (QC): 6 4 Steps (QC): 6 12 Steps (QC): 6 PT Plan Problem List Problem List: Activity Tolerance, Functional Strength, Safety, Balance, Gait, Transfer, Bed Mobility, ROM Treatment/Plan Treatment Plan: Continue Plan of Care Treatment Plan: Bed Mobility, Education, Functional Activity [place], Functional Strength, Group Therapy, Gait, Safety, Therapeutic Exercise, Transfers Treatment Duration: Sep 19, 2022 Frequency: 6 times per week Estimated Hrs Per Day: .25 hour per day Patient and/or Family Agrees t: Yes Safety Risks/Education Patient Education: Gait Training, Transfer Techniques Teaching Recipient: Patient Teaching Methods: Demonstration, Discussion Response to Teaching: Verbalize Understanding, Return Demonstration Time Time In: 1530 Time Out: 1550 DATE: Aug 27, 2022 Total Billed Treatment Time: 20 Total Billed Treatment Visit, MERVIN ESPINAL PT Aug 27, 2022 15:55
[2022-08-27] MEDS: methylPREDNISolone 125 MG (Solu-MEDROL) VIAL IV SCH ×2 (18:13→23:10)
[2022-08-27] MEDS: RT-ALBUTEROL SULF 2.5 MG/3 ML PRE-MIX VIAL INH SCH ×2 (18:44→22:31)
[2022-08-27] MEDS: RT--FLUTICASONE/SALMETEROL 113-14 (AIRDUO RespiCLICK) IH SCH (18:44)
[2022-08-27] MEDS: RT-ALBUTEROL/IPRATROPIUM 3 ML (DUONEB) VIAL IH SCH ×2 (18:44→22:31)
--- NOTE | 2022-08-27 18:48 | Consultation-Cardiology ---
HPI-Cardiology Cardiology Consultation: Date of Consultation 08/27/22 Time Seen by a Provider: 17:15 Date of Admission Attending Physician Jose Valencia MD Admitting Physician Admitting Physician: Deepa Schwarz MD Attending Physician: Deepa Schwarz MD Consulting Physician CHERIE ROJAS MD, MA, FACP, FACC, FSCAI, CCDS Physician requesting consult: Dr Schwarz HPI: Chief Complaint: Reason for consultation: Shortness of breath, elevated BNP, elevated troponin Ms. Moreno is a 62 yr old female admitted to [facility] from the ED with c/o increasing SOB over the course of the last several days. She reports abd distension over the last couple days as well. She reports she has had some nausea. No c/o vomiting or diarrhea. No c/o CP. She reports occ he will have a feeling of a fast heartbeat that lasts only a few seconds. No c/o LE swelling. She does smoke cigs. No c/o fever or chills. Review of Systems-Cardiology Review of Systems Constitutional: No chills, No fever, No malaise Eyes: No vision change Ears/Nose/Throat: No recent hearing loss Respiratory: As described under HPI Cardiovascular: As described under HPI Gastrointestinal: As described under HPI Genitourinary: No dysuria, No hematuria Musculoskeletal: no symptoms reported Skin: No rash on exposed areas, No ulcerations on exposed areas Psychiatric/Neurological: No anxiety, No depression, No seizure, No focal weakness, No syncope Hematologic: No bleeding abnormalities LVE-Ibsptp-Ikquev Hx Patient Social History Smoking Status: Current Everyday Smoker 2nd Hand Smoke Exposure: Yes Alcohol Use?: No Pt feels they are or have been: No Tobacco type used: Cigarettes Immunizations Up To Date Date of Influenza Vaccine: Mar 31, 2022 Past Medical History PMH As described under Assessment. Family Medical History Family Medical History: She reports her father had CAD. She reports a sister with CAD. Allergies and Home Medications Allergies Coded Allergies: No Known Drug Allergies (Unverified , 03/23/17) Patient Home Medication List Home Medication List Reviewed: Yes Cholecalciferol (Vitamin D3) (Vitamin D3) 50 Mcg Tablet, 50 MCG PO DAILY, (Reported) Entered as Reported by: DELPHINE JOHNSON on 05/07/21 1254 Multivits,Stress Formula (Stress-C) 1 Each Tablet, 1 EACH PO DAILY, (Reported) Entered as Reported by: DELPHINE JOHNSON on 05/07/21 1254 Mv-Mn/Folic Acid/Calcium/Vit K (Women's 50 Plus Multivit Tab) 1 Each Tablet, 1 EACH PO DAILY, (Reported) Entered as Reported by: DELPHINE JOHNSON on 05/07/21 1254 Vitamin B Complex (Vitamin B Complex) 1 Each Capsule, 1 EACH PO DAILY, (Reported) Entered as Reported by: DELPHINE JOHNSON on 05/07/21 1254 Zinc Sulfate (Zinc) 50 Mg Tablet, 50 MG PO DAILY, (Reported) Entered as Reported by: DELPHINE JOHNSON on 05/07/21 1254 Physical Exam-Cardiology Physical Exam Vital Signs/I&O 08/27/22 08/27/22 08/27/22 08/27/22 11:02 11:40 13:35 13:45 Temp 37.3 Pulse 116 113 101 99 Resp 28 33 31 24 B/P (MAP) 167/107 (127) 150/68 142/71 (94) Pulse Ox 92 99 100 98 O2 Delivery Room Air Room Air NIV Bilevel O2 Flow Rate 60.00 40.00 08/27/22 08/27/22 08/27/22 08/27/22 13:54 13:55 14:00 14:00 Temp 36.8 Pulse 96 96 96 Resp 26 24 24 B/P (MAP) 142/71 (94) 134/77 (96) 134/77 (96) Pulse Ox 100 100 98 98 O2 Delivery NIV Bilevel NIV Bilevel NIV Bilevel NIV Bilevel O2 Flow Rate 40.00 40.00 40.00 FiO2 40 08/27/22 08/27/22 08/27/22 08/27/22 14:15 14:15 14:15 14:30 Pulse 101 101 101 92 Resp 33 33 20 B/P (MAP) 135/85 (102) 135/85 (102) 133/95 (108) Pulse Ox 100 100 100 O2 Delivery NIV Bilevel NIV Bilevel NIV Bilevel O2 Flow Rate 40.00 40.00 40.00 08/27/22 08/27/22 08/27/22 08/27/22 14:45 15:00 15:15 15:19 Pulse 98 93 105 Resp 19 20 20 B/P (MAP) 135/95 (108) 132/87 (102) 144/77 (99) Pulse Ox 100 100 100 O2 Delivery NIV Bilevel NIV Bilevel NIV Bilevel High Flow N/C O2 Flow Rate 40.00 40.00 40.00 6.00 08/27/22 08/27/22 08/27/22 15:30 15:40 15:45 Temp 36.6 Pulse 96 100 96 Resp 29 47 34 B/P (MAP) 146/73 (97) 146/73 (97) 133/75 (94) Pulse Ox 100 100 98 O2 Delivery NIV Bilevel Nasal Cannula NIV Bilevel O2 Flow Rate 40.00 40.00 Capillary Refill : Less Than 3 Seconds Constitutional: AAO x 3, well-developed, well-nourished HEENT: PERRL, hearing is well preserved, oral hygience is good Neck: No carotid bruit; carotid pulses are 2 + bilaterally Respiratory: accessory muscle use, chest expansion is symmetric, chest is bilaterally symmetric, rhonchi (scattered), other (diminished breath sounds lower lobes) Cardiovascular: No JVD; tachycardia, S1 and S2 Gastrointestinal: No tender; soft, round; No guarding; audible bowel sounds Extremities: no lower extremity edema bilateral Neurologic/Psychiatric: grossly intact (moves all extremities) Skin: No rash on exposed areas, No ulcerations on exposed areas Data Review Labs Laboratory Tests 08/27/22 11:09: White Blood Count 18.3H, Red Blood Count 4.84, Hemoglobin 15.2, Hematocrit 45, Mean Corpuscular Volume 93, Mean Corpuscular Hemoglobin 31, Mean Corpuscular Hemoglobin Concent 34, Red Cell Distribution Width 13.4, Platelet Count 335, Mean Platelet Volume 11.0, Immature Granulocyte % (Auto) 0, Neutrophils (%) (Auto) 67, Lymphocytes (%) (Auto) 20, Monocytes (%) (Auto) 10, Eosinophils (%) (Auto) 2, Basophils (%) (Auto) 1, Neutrophils # (Auto) 12.3H, Lymphocytes # (Auto) 3.7, Monocytes # (Auto) 1.8H, Eosinophils # (Auto) 0.3, Basophils # (Auto) 0.1, Immature Granulocyte # (Auto) 0.1, Neutrophils % (Manual) 60, Lymphocytes % (Manual) 29, Monocytes % (Manual) 6, Eosinophils % (Manual) 2, Band Neutrophils 3, Platelet Estimate ADEQUATE, Blood Morphology Comment NORMAL, Prothrombin Time 12.7, INR Comment 0.9, Activated Partial Thromboplast Time 30, Sodium Level 134L, Potassium Level 4.6, Chloride Level 104, Carbon Dioxide Level 19L, Anion Gap 11, Blood Urea Nitrogen 10, Creatinine 0.72, Estimat Glomerular Filtration Rate 94, BUN/Creatinine Ratio 14, Glucose Level 105, Lactic Acid Level 1.96, Calcium Level 8.9, Corrected Calcium 8.7, Total Bilirubin 0.9, Aspartate Amino Transf (AST/SGOT) 62H, Alanine Aminotransferase (ALT/SGPT) 44, Alkaline Phosphatase 73, Troponin I 0.103H, C-Reactive Protein High Sensitivity 3.33H, B-Type Natriuretic Peptide 840.4H, Total Protein 8.8H, Albumin 4.2 08/27/22 11:15: Blood Gas Puncture Site L RAD, Blood Gas Patient Temperature 37.3, Arterial Blood pH 7.40, Arterial Blood Partial Pressure CO2 38, Arterial Blood Partial Pressure O2 135H, Arterial Blood HCO3 23, Arterial Blood Total CO2 23.9, Arterial Blood Oxygen Saturation 99, Arterial Blood Base Excess -1.3, Dino Test P, Blood Gas Ventilator Setting NO, Blood Gas Inspired Oxygen 10 A/P-Cardiology Assessment/Admission Diagnosis Multifactorial shortness of breath - COPD due to chronic tobacco use - Ac exac of COPD due to pneumonia - 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 (Echo on 08/27/22: LVEF 45-50%, grade 1 diastolic dysfunction of LV) Minimal troponin elevation - Likely Type 2 [place] d/t hypoxia and CHF Sinus tachycardia - likely d/t respiratory insufficiency Abnormal ECG: clockwise rotation vs old ASMI Elevated AST - undetermined etiology Tobaccoism - cessation advised RLS Discussion and Recomendations * ASA * BB * LUCILA-inhib * Diuretics (furosemide + spironolactone) * Advised to cease smoking immediately and completely * Hosp svce treating COPD and pneumonia * Monitor labs closely CHER[facility] ROJAS MD [facility] Aug 27, 2022 18:48
[2022-08-27] MEDS: meTOprolol TARTRATE 25 MG (LOPRESSOR) TABLET PO SCH (19:45)
[2022-08-27] MEDS: ENOXAPARIN 40 MG/0.4 ML (LOVENOX) SYR SC SCH (19:53)
[2022-08-28] MEDS: RT-ALBUTEROL/IPRATROPIUM 3 ML (DUONEB) VIAL IH SCH ×6 (02:15→22:59)
[2022-08-28] MEDS: RT-ALBUTEROL SULF 2.5 MG/3 ML PRE-MIX VIAL INH SCH ×2 (02:30→06:55)
[2022-08-28 03:45] VITALS: BP 142/76
[2022-08-28 05:10] LABS: HEMATOCRIT 41 % (35-52); HEMOGLOBIN 13.9 g/dL (11.5-16.0); MEAN CORPUSCULAR HEMOGLOBIN 31 pg (25-34); MEAN CORPUSCULAR HGB CONC 34 g/dL (32-36); MEAN CORPUSCULAR VOLUME 92 fL (80-99); PLATELET COUNT 304 10^3/uL (130-400); WHITE BLOOD COUNT 15.2 10^3/uL (4.3-11.0)
[2022-08-28 05:23] LABS: POTASSIUM 4.1 MMOL/L (3.6-5.0)
[2022-08-28 05:25] LABS: CALCIUM 9.1 MG/DL (8.5-10.1)
[2022-08-28 05:29] LABS: CREATININE SERUM 0.73 MG/DL (0.60-1.30)
[2022-08-28] MEDS: methylPREDNISolone 125 MG (Solu-MEDROL) VIAL IV SCH (06:13)
[2022-08-28] MEDS: RT--FLUTICASONE/SALMETEROL 113-14 (AIRDUO RespiCLICK) IH SCH (06:57)
[2022-08-28 08:00] VITALS: BP_SYST 126; BP_SYST 145; BP_DIAS 83
[2022-08-28] MEDS: ASPIRIN 81 MG CHEW (CHILDREN'S ASA) PO SCH (08:25)
[2022-08-28] MEDS: SPIRONOLACTONE 25 MG (ALDACTONE) TAB PO SCH (08:25)
[2022-08-28] MEDS: FUROSEMIDE 40 MG (LASIX) TAB PO SCH (08:25)
[2022-08-28] MEDS: meTOprolol TARTRATE 25 MG (LOPRESSOR) TABLET PO SCH ×2 (08:25→20:58)
[2022-08-28] MEDS: lisINopril 5 MG (PRINIVIL) TABLET PO SCH (08:26)
[2022-08-28] MEDS ORDERED: FUROSEMIDE 40 MG/4 ML INJ (LASIX) IVP SCH (09:00)
--- NOTE | 2022-08-28 10:01 | Physical Therapy Daily Note ---
PT Daily Note-Current Subjective Patient agrees to PT. She states she feels back to "normal" today. Pain Section J - Health Conditions 1. Rarely or not at all 2. Occasionally 3. Frequently 4. Almost constantly 8. Unable to answer Pain Effect on Sleep: 1 Pain Interference with Therapy: 1 Pain Interference w/Day-to-Day: 1 Mental Status Patient Orientation: Normal For Age Transfers SCALE: Activities may be completed with or without assistive devices. 8-Eobdymnsog-egzrnux completes the activity by him/herself with no assistance from a helper. 5-Set-up or Clean-up Assistance-helper sets up or cleans up; patient completes activity. [place] assists only prior to or following the activity. 4-Supervision or Touching Assistance-helper provides verbal cues and/or touching/steadying and/or contact guard assistance as patient completes activity. Assistance may be provided throughout the activity or intermittently. 3-Partial/Moderate Assistance-helper does LESS THAN HALF the effort. [place] lifts, holds or supports trunk or limbs, but provides less than half the effort. 2-Substantial/Maximal Assistance-helper does MORE THAN HALF the effort. [place] lifts or holds trunk or limbs and provides more than half the effort. 9-Kyhinysvj-nlyxyw does ALL the effort. Patient does none of the effort to complete the activity. Or, the assistance of 2 or more helpers is required for the patient to complete the activity. If activity was not attempted, code reason: 7-Patient Refused. 9-Not Applicable-not attempted and the patient did not perform the activity before the current illness, exacerbation or injury. 10-Not Attempted due to Environmental Limitations-(lack of equipment, weather restraints, etc.). 88-Not Attempted due to Medical Conditions or Safety Concerns. Lying to Sitting/Side of Bed(Q: 6 Sit to Stand (QC): 6 Chair/Mzs-pg-Ddtpr Xfer(QC): 6 Weight Bearing Right Lower Extremity: Right Full Weight Bearing Left Lower Extremity: Left Full Weight Bearing Gait Training Distance: 225' Walk 10 feet (QC): 6 Walk 50 ft with 2 Turns(QC): 6 Walk 150 ft (QC): 6 Gait Assistive Device: None safe and functional with no deviation Assessment Patient is currently at independent PLOF with all gross motor skills and no longer requires skilled PT intervention. PT Halfway Goals Halfway Goals PT Sign Hanger Goals Time Frame: Sep 06, 2022 Roll Left & Right (QC): 6 Sit to Lying (QC): 6 Lying-Sitting on Side/Bed(QC): 6 Sit to Stand (QC): 6 Chair/Mao-mg-Umrmt Xfer(QC): 6 Toilet Transfer (QC): 6 Does the Patient Walk: Yes Walk 10 feet (QC): 6 Walk 50ft with 2 Turns (QC): 6 Walk 150 ft (QC): 6 1 Step (curb) (QC): 6 4 Steps (QC): 6 12 Steps (QC): 6 PT Plan Treatment/Plan Treatment Plan: Discontinue PT Treatment Plan: Bed Mobility, Education, Functional Activity [place], Functional Strength, Group Therapy, Gait, Safety, Therapeutic Exercise, Transfers Treatment Duration: Sep 19, 2022 Frequency: 6 times per week Estimated Hrs Per Day: .25 hour per day Patient and/or Family Agrees t: Yes Time Time In: 834 Time Out: 843 DATE: Aug 28, 2022 Total Billed Treatment Time: 9 Total Billed Treatment 1 visit FA 9 min MAYTE TYLER PT Aug 28, 2022 10:01
[2022-08-28] MEDS ORDERED: VIT1CAPS4 PO (10:55)
[2022-08-28] MEDS ORDERED: B&C/1TAB2 PO (10:55)
[2022-08-28] MEDS ORDERED: ASCO500T17 PO (10:55)
[2022-08-28] MEDS ORDERED: ACET-2267 PO (10:55)
[2022-08-28] MEDS ORDERED: CHOL200052 PO (10:55)
[2022-08-28] MEDS ORDERED: IBUP-2473 PO (10:55)
--- NOTE | 2022-08-28 11:40 | Progress Note - Hospitalist ---
Subjective HPI/CC On Admission Date Seen by Provider: Aug 28, 2022 Pt is a 62yoCF with a PMH of restless leg and asthma who presented to the ER due to SOB. She states this started 2 nights ago and continued to worsen. She complains of a persistent cough as well. She denies a history of COPD but thinks she has asthma and mayhave COPD because of her smoking. She presented to the ER with severe shortness of breath and was placed on BiPAP. Imaging revealed a likely RLL pna and she was admitted for further management. She reports feeling much better already. She was incidentally found to have an elevated troponin but denies any chest pain. She is asking to eat. Subjective/Events-last exam Pt reports feeling better today. Breathing is much better. I walked in the hallway with her and PT and she did well. Focused Exam Lactate Level 08/27/22 11:09: Lactic Acid Level 1.96 Objective Exam Vital Signs Vital Signs Date Time Temp Pulse Resp B/P (MAP) Pulse Ox O2 Delivery O2 Flow Rate FiO2 08/28/22 10:59 36.6 08/28/22 10:02 98 Room Air 0.00 08/28/22 08:00 85 22 145/83 (103) 08/27/22 13:55 40 Capillary Refill : Less Than 3 Seconds General Appearance: No Apparent Distress, WD/WN Respiratory: Lungs Clear, No Respiratory Distress Cardiovascular: Regular Rate, Rhythm, No Murmur Neurologic/Psychiatric: Alert, Oriented x3 Results/Procedures Lab Laboratory Tests 08/28/22 04:42 Patient resulted labs reviewed. Imaging: Reviewed Imaging Report Assessment/Plan Assessment and Plan Assess & Plan/Chief Complaint COPD Exacerbation Acute Hypoxic Respiratory Failure Sepsis due to RLL PNA Titrate off of oxygne this AM Continue steroids- switch to oral Continue abx Await cultures Type II SC Cardiology consulted, appreciate recs ASA given in ER Troponin trended down Echo shows EF of 45% Continue heart failure meds per Dr Norman Discussed with Dr Norman this morning DVT ppx: Lovenox Diagnosis/Problems Diagnosis/Problems (1) Sepsis Qualifiers: Sepsis type: sepsis due to unspecified organism Sepsis acute organ dysfunction status: without acute organ dysfunction Qualified Codes: A41.9 - Sepsis, unspecified organism (2) Acute respiratory failure Qualifiers: Respiratory failure complication: hypoxia Qualified Codes: J96.01 - Acute respiratory failure with hypoxia (3) COPD with acute exacerbation Status: Acute (4) RLL pneumonia Status: Acute Qualifiers: Pneumonia type: due to unspecified organism Qualified Codes: J18.9 - Pneumonia, unspecified organism (5) Elevated troponin Status: Acute (6) Tobacco abuse YUE OLIVARES MD Aug 28, 2022 11:40
[2022-08-28 12:00] VITALS: BP 116/56
[2022-08-28] MEDS ORDERED: CATHETER FLUSH 10 ML SYR IV PRN (13:45)
[2022-08-28] MEDS: cefTRIAXone 1 GM PRE-MIX 50 ML IV SCH (14:22)
[2022-08-28] MEDS: CATHETER FLUSH 10 ML SYR IV SCH ×2 (14:25→20:58)
[2022-08-28 16:16] VITALS: BP 129/61
[2022-08-28] MEDS: ENOXAPARIN 40 MG/0.4 ML (LOVENOX) SYR SC SCH (19:55)
[2022-08-28 19:57] VITALS: BP 133/67
--- NOTE | 2022-08-28 20:00 | Progress Note - Cardiology ---
Cardiology SOAP Progress Note Subjective: Shortness of breath and gen weakness are slowly improving No n/v/d No cp or palp or syncope Objective: I&O/Vital Signs 08/28/22 08/28/22 08/28/22 08/28/22 08:00 08:00 10:02 10:59 Temp 36.6 36.6 Pulse 85 Resp 22 B/P (MAP) 126/83 (97) Pulse Ox 99 100 98 O2 Delivery High Flow N/C Room Air Room Air O2 Flow Rate 6.00 0.00 0.00 08/28/22 08/28/22 08/28/22 08/28/22 12:00 12:56 14:29 16:16 Temp 36.9 36.8 Pulse 79 86 90 Resp 22 14 B/P (MAP) 116/56 (76) 129/61 (83) Pulse Ox 96 96 97 O2 Delivery Room Air Room Air Room Air O2 Flow Rate 0.00 08/28/22 00:00 Intake Total 800 ml Balance 800 ml Weight (Pounds): 160 Weight (Calculated Kilograms): [id number] Constitutional: AAO x 3, well-developed, well-nourished Respiratory: accessory muscle use, chest expansion is symmetric, chest is bilaterally symmetric, rhonchi (scattered), other (diminished breath sounds lower lobes) Cardiovascular: No JVD; tachycardia, S1 and S2 Gastrointestional: No tender; soft, round; No guarding; audible bowel sounds Extremities: no lower extremity edema bilateral Neurologic/Psychiatric: grossly intact (moves all extremities) Skin: No rash on exposed areas, No ulcerations on exposed areas Results/Procedures: Labs Laboratory Tests 08/28/22 04:42: White Blood Count 15.2H, Red Blood Count 4.46, Hemoglobin 13.9, Hematocrit 41, Mean Corpuscular Volume 92, Mean Corpuscular Hemoglobin 31, Mean Corpuscular Hemoglobin Concent 34, Red Cell Distribution Width 13.1, Platelet Count 304, Mean Platelet Volume 11.0, Sodium Level 135, Potassium Level 4.1, Chloride Level 105, Carbon Dioxide Level 19L, Anion Gap 11, Blood Urea Nitrogen 18, Creatinine 0.73, Estimat Glomerular Filtration Rate 93, BUN/Creatinine Ratio 25, Glucose Level 138H, Calcium Level 9.1, Magnesium Level 2.0, Troponin I 0.068H Microbiology 08/27/22 Blood Culture - Preliminary, Resulted No growth Laboratory Tests 08/27/22 11:09 08/28/22 04:42 A/P: Assessment: Multifactorial shortness of breath - COPD due to chronic tobacco use - Ac exac of COPD due to pneumonia - 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 Questions answered * I also discussed her case with Dr Schwarz this am CHERIE ROJAS MD FACP FAC CCDS Aug 28, 2022 20:00
[2022-08-29 00:24] VITALS: BP 127/53
[2022-08-29] MEDS: RT-ALBUTEROL/IPRATROPIUM 3 ML (DUONEB) VIAL IH SCH ×3 (02:15→11:15)
[2022-08-29 04:13] VITALS: BP 133/70
[2022-08-29 05:40] LABS: HEMATOCRIT 40 % (35-52); HEMOGLOBIN 13.3 g/dL (11.5-16.0); MEAN CORPUSCULAR HEMOGLOBIN 31 pg (25-34); MEAN CORPUSCULAR HGB CONC 33 g/dL (32-36); MEAN CORPUSCULAR VOLUME 94 fL (80-99); MEAN PLATELET VOLUME 10.8 fL (9.0-12.2); PLATELET COUNT 325 10^3/uL (130-400); WHITE BLOOD COUNT 20.8 10^3/uL (4.3-11.0)
[2022-08-29 05:57] LABS: CALCIUM 8.6 MG/DL (8.5-10.1); CREATININE SERUM 0.8 MG/DL (0.60-1.30); POTASSIUM 4.1 MMOL/L (3.6-5.0)
[2022-08-29] MEDS: CATHETER FLUSH 10 ML SYR IV SCH (06:12)
[2022-08-29] MEDS ORDERED: predniSONE 20 MG TAB PO SCH (07:00)
[2022-08-29] MEDS: RT--FLUTICASONE/SALMETEROL 113-14 (AIRDUO RespiCLICK) IH SCH (07:52)
[2022-08-29 08:00] VITALS: BP 100/85
[2022-08-29] MEDS: lisINopril 5 MG (PRINIVIL) TABLET PO SCH (08:27)
[2022-08-29] MEDS: meTOprolol TARTRATE 25 MG (LOPRESSOR) TABLET PO SCH (08:27)
[2022-08-29] MEDS: ASPIRIN 81 MG CHEW (CHILDREN'S ASA) PO SCH (08:27)
[2022-08-29] MEDS: SPIRONOLACTONE 25 MG (ALDACTONE) TAB PO SCH (08:28)
[2022-08-29] MEDS: FUROSEMIDE 40 MG (LASIX) TAB PO SCH (08:28)
[2022-08-29] MEDS ORDERED: AZITHROMYCIN 250 MG TAB (ZITHROMAX) PO SCH (09:00)
--- NOTE | 2022-08-29 10:06 | Occupational Ther Daily Note ---
OT Current Status-Daily Note Subjective Up in bed reports feeling better Mental Status/Objective Patient Orientation: Normal For Age Attachments: IV ADL-Treatment Therapy Code Descriptions/Definitions Functional [place] Measure: 0=Not Assessed/NA 4=Minimal Assistance 1=Total Assistance 5=Supervision or Setup 2=Maximal Assistance 6=Modified [place] 3=Moderate Assistance 7=Complete IndependenceSCALE: Activities may be completed with or without assistive devices. 0-Tobtpinfyt-pigdhjc completes the activity by him/herself with no assistance from a helper. 5-Set-up or Clean-up Assistance-helper sets up or cleans up; patient completes activity. [place] assists only prior to or following the activity. 4-Supervision or Touching Assistance-helper provides verbal cues and/or touching/steadying and/or contact guard assistance as patient completes activity. Assistance may be provided throughout the activity or intermittently. 3-Partial/Moderate Assistance-helper does LESS THAN HALF the effort. [place] lifts, holds or supports trunk or limbs, but provides less than half the effort. 2-Substantial/Maximal Assistance-helper does MORE THAN HALF the effort. [place] lifts or holds trunk or limbs and provides more than half the effort. 4-Ksvvtnrxk-xshvld does ALL the effort. Patient does none of the effort to comp lete the activity. Or, the assistance of 2 or more helpers is required for the patient to complete the activity. If activity was not attempted, code reason: 7-Patient Refused. 9-Not Applicable-not attempted and the patient did not perform the activity before the current illness, exacerbation or injury. 10-Not Attempted due to Environmental Limitations-(lack of equipment, weather restraints, etc.). 88-Not Attempted due to Medical Conditions or Safety Concerns. Eating (QC): 6 Oral Hygiene (QC): 6 (sitting) Shower/Bathe Self (QC): 7 (declined) Upper Body Dressing (QC): 4 (d/t IV, otherwise independent) Lower Body Dressing (QC): 6 (EOB w/ occassional hand to stabilize balance using bedrail. Patient reports sometimes stabilizes balance at home) On/Off Footwear: 6 Toileting Hygiene (QC): 6 Toilet Transfer (QC): 5 (W/ IV pole otherwize independent w/ ADS) Education OT Patient Education: Energy conservation, Reviewed precautions, Rehab process, Safety issues, Transfer techniques, Use of adapted equipment Teaching Recipient: Patient Teaching Methods: Demonstration, Discussion Response to Teaching: Return Demonstration OT Senior Living Goals Poster Goals Oral Hygiene (QC): 6 Toileting Hygiene (QC): 6 Shower/Bathe Self (QC): 6 Upper Body Dressing (QC): 6 Lower Body Dressing (QC): 6 On/Off Footwear (QC): 6 1=Demonstrate adherence to instructed precautions during ADL tasks. 2=Patient will verbalize/demonstrate understanding of assistive devices/modifications for ADL. 3=Patient will improve strength/tolerance for activity to enable patient to perform ADL's. OT Education/Plan Problem List/Assessment Assessment: No Skilled OT Needs ID'd, Decreased Activ Tolerance Discharge Recommendations Plan/Recommendations: Discharge/Goals Met Treatment Plan/Plan of Care Patient would benefit from OT for education, treatment and training to promote independence in ADL's, mobility, safety and/or upper extremity function for ADL's. Plan of Care: ADL Retraining, Functional Mobility, Group Exercise/Act as Ind, UE Funct Exercise/Act Treatment Duration: Aug 30, 2022 Frequency: 3 times per week (3-5 times per week) Estimated Hrs Per Day: .25 hour per day Agreement: Yes Rehab Potential: Good Returned to bed, daughter present in room, all needs met Time Start Time: 12:06 Stop Time: 12:20 DATE: Aug 28, 2022 Total Time Billed (hr/min): 14 Billed Treatment Time 1 ADL PIERRE MCKEON OT Aug 29, 2022 10:06
[2022-08-29] MEDS ORDERED: ASPI81TA64 PO (10:59)
[2022-08-29] MEDS ORDERED: UMEC1BLS IH (10:59)
[2022-08-29] MEDS ORDERED: LISI5TAB20 PO (10:59)
[2022-08-29] MEDS ORDERED: METO-333 PO (10:59)
[2022-08-29] MEDS ORDERED: CEPH500T PO (10:59)
[2022-08-29] MEDS ORDERED: SPIR25TA5 PO (10:59)
[2022-08-29] MEDS ORDERED: AZIT250T12 PO (10:59)
[2022-08-29] MEDS ORDERED: PRD20T PO (10:59)
[2022-08-29] MEDS ORDERED: FURO40TA4 PO (11:00)
--- NOTE | 2022-08-29 11:01 | Discharge Inst-Simple/Standard ---
Discharge Inst-Standard Discharge Medications New, Converted or Re-Newed RX: Transmitted to Pharmacy Patient Instructions/Follow Up Plan of Care/Instructions/FU: Please continue to take your medications as written. Please follow up with your primary care doctor to follow up this hospital stay. Activity as Tolerated: Yes Discharge Diet: Low Sodium Diet Return to The Hospital For: Chest pain, shortness of breath, fever, weakness, if you feel you are getting worse. YUE OLIVARES MD Aug 29, 2022 11:01
[2022-08-29 12:00] VITALS: BP 137/66
--- NOTE | 2022-08-29 14:02 | Discharge Summary ---
Diagnosis/Chief Complaint Date of Admission Aug 27, 2022 at 13:11 Date of Discharge Discharge Date: Aug 29, 2022 Admission Diagnosis COPD Exacerbation Primary Care Jose Valencia MD Discharge Diagnosis (1) Sepsis (2) Acute respiratory failure (3) COPD with acute exacerbation Status: Acute (4) RLL pneumonia Status: Acute (5) Elevated troponin Status: Acute (6) Tobacco abuse Discharge Summary Discharge Physical Exam Allergies: Coded Allergies: No Known Drug Allergies (Unverified , 03/23/17) Vitals & I&Os Vital Signs Date Time Temp Pulse Resp B/P (MAP) Pulse Ox O2 Delivery O2 Flow Rate FiO2 08/29/22 12:39 79 08/29/22 12:00 36.2 15 137/66 (89) 100 Room Air 08/28/22 23:00 0.00 08/27/22 13:55 40 General Appearance: No Apparent Distress, WD/WN Respiratory: Lungs Clear, No Respiratory Distress Cardiovascular: Regular Rate, Rhythm, No Murmur Gastrointestinal: Normal Bowel Sounds Neurologic/Psychiatric: Alert, Oriented x3 Hospital Course Patient was admitted to the hospital due to acute hypoxic respiratory failure secondary to COPD exacerbation and pneumonia. She was treated with IV antibiotics and steroids and did very well. She is able to be transitioned to oral antibiotics and steroids. Upon work-up she was found to have an elevated BNP and elevated troponin and so cardiology was consulted. Echo did reveal an EF of 45%. She was started on multiple heart failure medications as listed below. She improved and was able to be titrated off of oxygen completely. I did update her primary care physician, Dr. Jose Valencia regarding this hospital stay. She was discharged home in stable improved condition to follow-up with her primary care physician and with a impact retail service merchandiser of her choosing. Labs (last 24 hrs) Laboratory Tests 08/29/22 05:05: White Blood Count 20.8H, Red Blood Count 4.28, Hemoglobin 13.3, Hematocrit 40, Mean Corpuscular Volume 94, Mean Corpuscular Hemoglobin 31, Mean Corpuscular Hemoglobin Concent 33, Red Cell Distribution Width 13.5, Platelet Count 325, Mean Platelet Volume 10.8, Sodium Level 139, Potassium Level 4.1, Chloride Level 107, Carbon Dioxide Level 21, Anion Gap 11, Blood Urea Nitrogen 31H, Creatinine 0.80, Estimat Glomerular Filtration Rate 83, BUN/Creatinine Ratio 39, Glucose Level 99, Calcium Level 8.6 Microbiology 08/27/22 Blood Culture - Preliminary, Resulted No growth Patient resulted labs reviewed. Imaging: Reviewed Imaging Report Discussion & Recommendations Discharge Planning: >30 minutes discharge planning Discharge Home Medications: Active Scripts Active Furosemide 40 Mg Tablet 40 Mg PO DAILY Anoro Ellipta 62.5-25 Mcg INH (Umeclidinium Brm/Vilanterol Tr) 62.5 Mcg-25 Mcg/Actuation Blst.w.dev 1 Each IH BID Cephalexin 500 Mg Tablet 500 Mg PO BID Prednisone 20 Mg Tab 40 Mg PO DAILY@0700 Azithromycin 250 Mg Tablet 250 Mg PO DAILY Metoprolol Tartrate 25 Mg Tablet 25 Mg PO BID Lisinopril 5 Mg Tablet 5 Mg PO DAILY Spironolactone 25 Mg Tablet 25 Mg PO DAILY Children's Aspirin (Aspirin) 81 Mg Tab.chew 81 Mg PO DAILY Reported Tylenol Extra Strength (Acetaminophen) 500 Mg Tablet 1,000 Mg PO Q8H PRN Ibuprofen 200 Mg Tablet 600-800 Mg PO Q8H PRN Tart Trujillo Capsule (Vit C/Trujillo & Celery Ex/Grp E) 30 Mg-250 Mg-75 Mg-75 Mg-20 Mg Capsule 1 Each PO BID Vitamin D3 (Cholecalciferol (Vitamin D3)) 50 Mcg (2000 Unit) Tablet 50 Mcg PO DAILY Vitamin C (Ascorbic Acid) 500 Mg Tablet 500 Mg PO DAILY Stress B-Complex Tablet (B&C/FA/Zinc/Copper Oxide/Vit E) 500-0.4 Mg Tablet 1 Each PO DAILY Women's 50 Plus Multivit Tab (Mv-Mn/Folic Acid/Calcium/Vit K) 1 Each Tablet 1 Each PO DAILY Instructions to patient/family Please see electronic discharge instructions given to patient. Problem Qualifiers (1) Sepsis: Sepsis type: sepsis due to unspecified organism Sepsis acute organ dysfunction status: without acute organ dysfunction Qualified Codes: A41.9 - Sepsis, unspecified organism (2) Acute respiratory failure: Respiratory failure complication: hypoxia Qualified Codes: J96.01 - Acute respiratory failure with hypoxia (3) RLL pneumonia: Pneumonia type: due to unspecified organism Qualified Codes: J18.9 - Pneumonia, unspecified organism YUE OLIVARES MD Aug 29, 2022 14:02
--- NOTE | 2022-08-29 14:46 | Cardiology Progress Note ---
Subjective Date Seen by Provider: Aug 29, 2022 Time Seen by Provider: 12:00 Subjective/Events-last exam No acute events overnight. pt was agitated last night and received Attarax; she states she doesnt like how she feels as the medication is wearing off. Denies cp/sob. Focused Exam Lactate Level 08/27/22 11:09: Lactic Acid Level 1.96 Objective-Cardiology Exam Last Set of Vital Signs Vital Signs 08/27/22 08/28/22 08/29/22 08/29/22 13:55 23:00 12:00 12:39 Temp 36.2 Pulse 79 Resp 15 B/P (MAP) 137/66 (89) Pulse Ox 100 O2 Delivery Room Air O2 Flow Rate 0.00 FiO2 40 I&O Intake and Output 08/29/22 00:00 Intake Total 2595 ml Balance 2595 ml Intake Oral 2595 ml # Voids 8 # Bowel Movements 1 Other physical findings Gen: No acute distress, A+O x 3, sitting comfortably in the bed Neck: soft supple, no cervical LAD Luns: CTA-bilaterally, no wheezing, rales or rhonchi CV: nl s1/s2, no m-g-r, RRR Abd: soft nt nd, no HSM, + BS Ext: wwp, no c-c-e; 2+ DP and femoral pulses skin: no lesions rashes or ecchymoses are noted. Results Lab Laboratory Tests 08/29/22 05:05 A/P-Cardiology Assessment/Plan 62F with hx of presents for evaluation of shortness of breath found to have copd exacerbation and pneumonia. ## PNA -plan per hospitalist - cont anti-infectives ## COPD - plan per hospitalist ## Mildly reduced EF of 45-50% - pt encouraged to follow up with Dr. Norman/cardiology as outpatient - cont asa, lisinopril, aldactone, metop, lasix as per Dr. Norman. ## Troponinemia: Minimal troponin elevation; Likely Type 2 NV d/t hypoxia and CHF - workup as outpt- EKG with ant q waves, chronic ## Hx of tobacco use - cessation advised ## Dispo - pt can be discharged and will follow up with Dr. Norman as an outpatient MOHAN GILLESPIE MD Aug 29, 2022 14:46
== END 2022-08-29 15:13 | disposition home or self-care (01) | DRG 871 ==
LOC: EDUNIT# 10:58 → ER 11:01 → CSD 13:11
PROVIDERS: ADMIT Family Medicine; ATTEND Family Medicine
PROC: 5A09357 Assistance with Respiratory Ventilation, Less than 24 Consecutive Hours, Continuous Positive Airway Pressure (ICD-10-PCS; principal; 2022-08-27)
DX: A41.9 Sepsis, unspecified organism (principal); I21.A1 Myocardial infarction type 2; J18.9 Pneumonia, unspecified organism; J96.01 Acute respiratory failure with hypoxia; I50.43 Acute on chronic combined systolic (congestive) and diastolic (congestive) heart failure; J43.9 Emphysema, unspecified; F17.210 Nicotine dependence, cigarettes, uncomplicated; F41.9 Anxiety disorder, unspecified
CPT/HCPCS: 36415; 36600; 71045; 80048; 80053; 82805; 83605; 83735; 83880; 84484; 85007; 85027; 85610; 85730; 86141; 87040; 93005; 93306; 94640; 94660; 94664

== ENCOUNTER 2023-01-28 10:22 | Inpatient (IN) | payer OTHER ==
[~2023-01-28] VITALS: Ht 170 cm; Wt 57.5 kg
--- NOTE | 2023-01-28 10:17 | PM&R Post Admission Assessment ---
PM&R Date of Visit: Jan 28, 2023 Time of Visit: 10:15 History of Present Illness CC: COPD myopathy HPI: This is a 62yoWF clinic patient of Dr Jose Valencia who presents from [facility] in where she has been for the past 4 weeks due to severe COPD induced respiratory failure.Her respiratory failure was multifactorial which included CABG s/p graft stenosis requiring strenotomy redo with sternal plating with post op PTX and pneumomediastinum requiring chest tubes. She has severe COPD with FEV1 of 35% and WPW with cardiomyopathy who she sees Dr Barrett. She has a non-healing wound of her sternum. She was independent without use of AD and now she is max assist gait 35 feet and sit to stand max assist and has issues with problem solving. Currently she has a visitor and he brought her dog "[place]." Her bowels are moving and she is feeling much better. Past Bpysqll-Cbjfbc-Feqfoe Hx Past Med/Social Hx: Reviewed Nursing Past Med/Soc Hx, Reviewed and Corrections made Patient Social History Marrital Status: single Employed/Student: retired Alcohol Use: Denies Use Smoking Status: Former Smoker Type Used: Cigarettes 2nd Hand Smoke Exposure: Yes Recent Hopitalizations: No Immunizations Up To Date Date of Influenza Vaccine: Mar 31, 2022 Seasonal Allergies Seasonal Allergies: Yes Past Medical History Surgeries: CABG, Orthopedic Respiratory: COPD, Emphysema, Pneumonia Cardiac: Cardiomyopathy, Coronary Artery Disease, High Cholesterol, Hypertension Neurological: Neuropathy Menopausal Gastrointestinal: Gastroesophageal Reflux Musculoskeletal: Degenerate Disk Disease, Arthritis History of Blood Disorders: No Family History No Pertinent Family Hx 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&R Allergy/Meds/Data Review Allergies Coded Allergies: No Known Drug Allergies (Unverified , 03/23/17) Home Medications Scheduled Amiodarone HCl (Amiodarone HCl), 200 MG PO DAILY, (Reported) Amlodipine Besylate (Amlodipine Besylate), 5 MG PO DAILY, (Reported) Budesonide (Budesonide), 0.5 MG IH BID, (Reported) Clopidogrel Bisulfate (Clopidogrel), 75 MG PO DAILY, (Reported) Fluticasone Propionate (Flonase Allergy Relief), 2 SPRAY NSEACH BID, (Reported) Ipratropium/Albuterol Sulfate (Iprat-Albut 0.5-3(2.5) mg/3 ml), 3 ML IH QID, (Reported) Polyethylene Glycol 3350 (Miralax), 17 GM PO DAILY, (Reported) Silver Sulfadiazine (Silver Sulfadiazine), 1 APPLIC TP DAILY, (Reported) Sodium Hypochlorite (Dakin's), 1 APPLIC BID, (Reported) Scheduled PRN Acetaminophen (Tylenol Extra Strength), 1,000 MG PO Q8H PRN for PAIN-MILD (1-4), (Reported) Benzonatate (Tessalon Perles), 100 MG PO TID PRN for COUGH, (Reported) Bisacodyl (Bisacodyl), 10 MG RC DAILY PRN for CONSTIPATION-4TH LINE, (Reported) Calcium Carbonate (Calcium Carbonate), 500 MG PO Q6H PRN for HEARTBURN, (Reported) Cyclobenzaprine HCl (Cyclobenzaprine HCl), 10 MG PO TID PRN for MUSCLE SPASMS, (Reported) Diphenhydramine HCl (Benadryl), 25 MG PO Q6H PRN for RASH/ITCHING, (Reported) Diphenhydramine HCl/Zinc Acet (Benadryl Itch Stopping Crm), 1 APPLIC TP Q6H PRN for ITCHING, (Reported) Ipratropium/Albuterol Sulfate (Iprat-Albut 0.5-3(2.5) mg/3 ml), 3 ML IH Q6H PRN for SHORTNESS OF BREATH, (Reported) Lorazepam (Ativan), 0.5 MG PO Q8H PRN for ANXIETY, (Reported) Meclizine HCl (Meclizine HCl), 25 MG PO TID PRN for DIZZINESS, (Reported) Ondansetron (Ondansetron Odt), 4 MG SL Q4H PRN for NAUSEA/VOMITING-1ST LINE, (Reported) Silver Sulfadiazine (Silver Sulfadiazine), 1 APPLIC TP UD PRN for CLEANSING, (Reported) Sodium Hypochlorite (Dakin's), 1 APPLIC UD PRN for CLEANSING, (Reported) Tramadol HCl (Tramadol HCl), 50 MG PO Q4H PRN for PAIN-MODERATE (5-7), (Reported ) Discontinued Medications Ascorbic Acid (Vitamin C), 500 MG PO DAILY, (Reported) Discontinued Reason: No Longer Taking Aspirin (Children's Aspirin), 81 MG PO DAILY Discontinued Reason: No Longer Taking Azithromycin (Azithromycin), 250 MG PO DAILY Discontinued Reason: No Longer Taking B&C/FA/Zinc/Copper Oxide/Vit E (Stress B-Complex Tablet), 1 EACH PO DAILY, (Reported) Discontinued Reason: No Longer Taking Cephalexin (Cephalexin), 500 MG PO BID Discontinued Reason: No Longer Taking Cholecalciferol (Vitamin D3) (Vitamin D3), 50 MCG PO DAILY, (Reported) Discontinued Reason: No Longer Taking Furosemide (Furosemide), 40 MG PO DAILY Discontinued Reason: No Longer Taking Ibuprofen (Ibuprofen), 600-800 MG PO Q8H PRN for PAIN-MILD (1-4), (Reported) Discontinued Reason: No Longer Taking Lisinopril (Lisinopril), 5 MG PO DAILY Discontinued Reason: No Longer Taking Metoprolol Tartrate (Metoprolol Tartrate), 25 MG PO BID Discontinued Reason: No Longer Taking Mv-Mn/Folic Acid/Calcium/Vit K (Women's 50 Plus Multivit Tab), 1 EACH PO DAILY, (Reported) Discontinued Reason: No Longer Taking Prednisone (Prednisone), 40 MG PO DAILY@0700 Discontinued Reason: No Longer Taking Spironolactone (Spironolactone), 25 MG PO DAILY Discontinued Reason: No Longer Taking Umeclidinium Brm/Vilanterol Tr (Anoro Ellipta 62.5-25 Mcg INH), 1 EACH IH BID Discontinued Reason: No Longer Taking Vit C/Trujillo & Celery Ex/Grp E (Tart Trujillo Capsule), 1 EACH PO BID, (Reported) Discontinued Reason: No Longer Taking Current Medications Current Medications Reviewed Review of Systems Constitutional: see HPI, malaise, weakness EENTM: no symptoms reported Respiratory: dyspnea on exertion, short of breath Cardiovascular: no symptoms reported Gastrointestinal: no symptoms reported Genitourinary: no symptoms reported Musculoskeletal: back pain, joint pain Skin: no symptoms reported Psychiatric/Neurological: Anxiety, Depressed All Other Systems Reviewed Negative Unless Noted: Yes Physical Exam Physical Exam Vital Signs Capillary Refill : Height, Weight, BMI Height: 5'7.00" Weight: 160lbs. oz. [id number]; 21.73 BMI Method:Stated General Appearance: No Apparent Distress, WD/WN, Chronically ill, Thin, Other (frail) Eyes: Bilateral Eye Normal Inspection, Bilateral Eye PERRL HEENT: PERRL/EOMI, Normal ENT Inspection, Pharynx Normal Neck: Full Range of Motion, Normal Inspection, Non Tender, Supple, Carotid Bruit Respiratory: Chest Non Tender, Lungs Clear, No Accessory Muscle Use, No Respiratory Distress, Decreased Breath Sounds Cardiovascular: Regular Rate, Rhythm, No Edema, No Gallop, No JVD, No Murmur, Normal Peripheral Pulses Gastrointestinal: Normal Bowel Sounds, No Organomegaly, No Pulsatile Mass, Non Tender, Soft Back: Normal Inspection, No CVA Tenderness, No Vertebral Tenderness Extremity: Normal Capillary Refill, Normal Inspection, Normal Range of Motion, Non Tender, No Calf Tenderness, No Pedal Edema Neurologic/Psychiatric: Alert, Oriented x3, No Motor/Sensory Deficits, home performance consultant II- XII Norm as Tested, Abnormal Gait, Depressed Affect, Motor Weakness (generalized 3/5) Skin: Normal Color, Warm/Dry Lymphatic: No Adenopathy PM&R Medical Assessment & Plan REHAB/MEDICAL ASSESSMENT AND PLAN: 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 The comorbidities that impact the patients function and/or functional outcome by: severe COPD, recent CABG, frail status, weight loss, O2 dependence REHAB PLAN: The patient is being admitted to our comprehensive inpatient rehabilitation facility and can tolerate the intensity of service consisting of at least: 180 minutes of therapy a day, 5 out of 7 days a week Rehab treatment will consist of: PT OT will focus on regaining function in order to return home to live independently and will use AD to prevent falls and increase stamina The patient/family has a good understanding of our discharge process and will benefit from an interdisciplinary inpatient rehabilitation program. The patient has potential to make improvement and is in need of at least two of the following multidisciplinary therapies including but not limited to physical, occupational, speech, and prosthetics and orthotics. Additionally the patient will need services from respiratory, nutritional services, wound care, psychology, etc. (Customize this to each patient). Given the patients complex condition and risk of further medical complications, rehabilitation services cannot be safely or effectively provided at a lower level of care such as a group home facility. BARRIERS TO DISCHARGE: Severe weakness and O2 dependence ESTIMATED LOS: 10 days DISPOSITION: Home RELEVANT CHANGES SINCE PREADMISSION SCREENING: I have compared the patients medical and functional status at the time of the preadmission screening and there are: no changes PROGNOSIS: Fair to good REHABILITATION GOALS: 1. PT OT will focus on regaining function in order to return home to live independently and will use AD to prevent falls and increase stamina All the above goals were reviewed with the patient and he/she is in agreement. By signing this document, I acknowledge that I have personally performed a full physical examination on this patient within 24 hours of admission to this inpatient rehabilitation facility and have determined the patient to be able to tolerate the above course of treatment at an intensive level for a reasonable period of time. I will be completing a detailed individualized Plan of Care for this patient by day #4 of the patients stay based upon the Preadmission Screen, the Post-Admission Evaluation, and the therapy evaluations. Admission Dx/Comorbidities: (1) Myopathy ICD Codes: G72.9 - Myopathy, unspecified Assessment/Plan Assessment and Plan Assess & Plan/Chief Complaint Assessment: COPD myopathy New O2 dependence CAD recent CABG Sternal and flank pressure wounds Smoker HTN AF? Anemia HLP Plan: Wound care Dietary consult Aggressive PT OT Wean O2 MELIA DAVID DO Jan 28, 2023 10:17
[~2023-01-28 10:22] MED LIST changes: +ACET-2267 PO; +ACETAMINOPHEN 325 MG TABLET PO PRN; +ALPRAZolam 0.25 MG TABLET PO PRN; +AMIO200T65 PO; +AMLO-250 PO; +ASCO500T17 PO; +ASPI81TA64 PO; +AZIT250T12 PO; +B&C/1TAB2 PO; +BENZ100C18 PO; +BISA10SU8 RC; +BISACODYL 10 MG SUPPOSITORY PR PRN; +BUDE0.5A IH; +CALC500T47 PO; +CALCIUM CARBONATE 500 MG CHEW TABLET PO PRN; +CEPH500T PO; +CHOL200052 PO; +CLOP75TA28 PO; +CYCL10TA25 PO; +DEXT37.54 PO; +DEXT4TAB PO; +DEXT50DI2 IV; +DIPH25CA79 PO; +DIPH28.34 TP; +DOCUSATE SODIUM 100 MG CAPSULE PO PRN; +FLUT9.9S NSEACH; +FURO40TA4 PO; +IBUP-2473 PO; +IPRA3AMP31 IH; +LISI5TAB20 PO; +LOPERAMIDE 2 MG CAPSULE PO PRN; +LORA-404 PO; +MECL-149 PO; +MELATONIN 3 MG TABLET PO PRN; +METO-333 PO; +ONDA4TAB11 SL; +ONDANSETRON 4 MG ORAL DISSOLVE TABLET PO PRN; +POLY17PO6 PO; +PRD20T PO; +SILV50CR28 TP; +SODI473S7; +SPIR25TA5 PO; +Sodium Phosphate/Sodium Biphosphate ADULT enema PR PRN; +TRM50T PO; +UMEC1BLS IH; +VIT1CAPS4 PO; +guaiFENesin/CODEINE 10ML UDC PO PRN
[2023-01-28] MEDS ORDERED: NON-FORMULARY MEDICATION 1 EA EA (Diphenhydramine HCl (Benadryl) 25 MG) PO PRN (11:45)
[2023-01-28] MEDS ORDERED: MECLIZINE 25 MG TABLET PO PRN (11:45)
[2023-01-28] MEDS ORDERED: RT-Ipratropium/Albuterol NEB 3 ML VIAL IH PRN (11:45)
[2023-01-28] MEDS ORDERED: CALCIUM CARBONATE 500 MG CHEW TABLET PO PRN (11:45)
[2023-01-28] MEDS ORDERED: DAKIN'S 1/4 STRENGTH (0.125%) 237 ML BTL TOP PRN (11:45)
[2023-01-28] MEDS ORDERED: BISACODYL 10 MG SUPPOSITORY RC PRN (11:45)
[2023-01-28] MEDS ORDERED: BENZONATATE 100 MG CAPSULE PO PRN (11:45)
[2023-01-28] MEDS ORDERED: diphenhydrAMINE 2% CREAM 30 GM TP PRN (11:45)
[2023-01-28] MEDS ORDERED: ACETAMINOPHEN 500 MG TABLET PO PRN (11:45)
[2023-01-28] MEDS: CYCLOBENZAPRINE 10 MG TABLET PO PRN ×2 (11:54→19:55)
[2023-01-28 12:00] VITALS: BP 120/70
--- NOTE | 2023-01-28 12:52 | Occupational Therapy Eval ---
OT Evaluation-General/PLF Medical Diagnosis Admission Date Jan 28, 2023 at 11:23 Medical Diagnosis: COPD, myopathy Onset Date: Dec 01, 2022 Therapy Diagnosis Therapy Diagnosis: debility, weakness, instability Height/Weight Height (Feet): 5 Height (Inches): 7.00 Weight (Pounds): 160 Precautions Precautions/Isolations: Fall Prevention, Standard Precautions Weight Bear Status sternal; precautions Referral Physician: JOANN Referral Reason: Activity Tolerance, Self Care, Evaluation/Treatment Referral Comments admitting diagnosis of debility/post cabg, on 01/28/23 from [facility] in via w/c, accompanied by karan carmichael Medical History Pertinent Medical History: COPD [facility], 3 LNC, s/p CABGx3 w/ sternotomy and plating, pneomothorax/pneumomediastinum w/ resolution and removal of Left Chest tube, COPD, Znxpa-Jaatuxvva-Gezax, tachycardia, cardiomyopathy, left pleural effusion. Current History no repetitive abduction of BUE, no flexion over 90 degrees, no lifting over 5 pounds Reviewed History: Yes Social History Home: Apartment (1 bedroom) Current Living Status: Alone Entry Into Home: Level Entry ADL-Prior Level of Function SCALE: Activities may be completed with or without assistive devices. 0-Tuxrkoqobb-mskkxhn completes the activity by him/herself with no assistance from a helper. 5-Set-up or Clean-up Assistance-helper sets up or cleans up; patient completes activity. [place] assists only prior to or following the activity. 4-Supervision or Touching Assistance-helper provides verbal cues and/or touching/steadying and/or contact guard assistance as patient completes activity. Assistance may be provided throughout the activity or intermittently. 3-Partial/Moderate Assistance-helper does LESS THAN HALF the effort. [place] lifts, holds or supports trunk or limbs, but provides less than half the effort. 2-Substantial/Maximal Assistance-helper does MORE THAN HALF the effort. [place] lifts or holds trunk or limbs and provides more than half the effort. 1-Njvnynhyy-nbfphd does ALL the effort. Patient does none of the effort to complete the activity. Or, the assistance of 2 or more helpers is required for the patient to complete the activity. If activity was not attempted, code reason: 7-Patient Refused. 9-Not Applicable-not attempted and the patient did not perform the activity before the current illness, exacerbation or injury. 10-Not Attempted due to Environmental Limitations-(lack of equipment, weather restraints, etc.). 88-Not Attempted due to Medical Conditions or Safety Concerns. 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 Drive Self: Yes OT Current Status Pain Numeric Pain Scale: 4 Mental Status/Objective Patient Orientation: Person, Place ([facility]), Time (Thu, 2022, Jan), Situation (CABG) Attachments: Oxygen (3NC) Current Glasses/Contacts: Yes Hearing Aids: No Dentures/Partials: Yes Hand Dominance: Right Upper Extremity ROM LIMITED ROM S/P CABG Upper Extremity Coordination INTACT, mild tremors w/ FMC Upper Extremity Sensation INTACT Upper Extremity Strength LIMITED LIFTING, PUSHING, PULLING 5 POUNDS Please cover sternal and left flank wound for bathing ADL-Treatment ADL-Current Min assist transfer on/off recliner w/ "3 count rock forward and stand". moderate assist to sit on commode. Instruction for transfer w/ limited 5 pound WB BUE Eating (QC): 6 Oral Hygiene (QC): 5 Shower/Bathe Self (QC): 88 Upper Body Dressing (QC): 4 Lower Body Dressing (QC): 88 On/Off Footwear (QC): 88 Toileting Hygiene (QC): 4 Education OT Patient Education: Correct positioning, Energy conservation, Exercise program, Modified ADL techniques, Progress toward Goal/Update tx plan, Purpose of tx/functional activities, Reviewed precautions, Rehab process, Safety issues, Transfer techniques, Use of adapted equipment Teaching Recipient: Patient, Family Teaching Methods: Demonstration, Discussion Response to Teaching: Verbalize Understanding, Reinforcement Needed BIMS CAM BIMS Expression of Ideas and Wants: Without Difficulty Understanding Verbal Content: Understands Brief Interview/Mental Status: Yes IRF MITCHELL BIMS: IRF MITCHELL BIMS Response (Comments) Value Recalls Socks Yes, No Cue Required 2 Recalls Blue Yes, No Cue Required 2 Recalls Bed Yes, No Cue Required 2 Year Correct 3 Month Accurate Within 5 Days 2 Day Correct 1 Total 12 Patient Normally Able to Recal: Current Session, Location of own room, Staff Names and faces, That he/she in a hsp Should Staff Asses. Mental St.: No CAM Mental Status Change/Baseline: 0 Inattention: 0 Disorganized thinkin Altered level of consciousness: 0 OT Short Term Goals Short Term Goals Time Frame: Feb 02, 2023 Eatin Oral hygiene: 6 (standing) Toileting hygiene: 6 OT Prison Goals Audit Clerk Goals Time Frame: Feb 06, 2023 Eating (QC): 6 Oral Hygiene (QC): 6 Toileting Hygiene (QC): 6 Shower/Bathe Self (QC): 5 Upper Body Dressing (QC): 6 Lower Body Dressing (QC): 6 On/Off Footwear (QC): 6 1=Demonstrate adherence to instructed precautions during ADL tasks. 2=Patient will verbalize/demonstrate understanding of assistive devices/modifications for ADL. 3=Patient will improve strength/tolerance for activity to enable patient to perform ADL's. OT Education/Plan Problem List/Assessment Assessment: Decreased Activ Tolerance, Decreased UE Strength, Impaired Self- Care Skills, Restricted Funct UE ROM Discharge Recommendations Plan/Recommendations: Continue POC Patient/Family Goals Wanting home health at [place] Treatment Plan/Plan of Care Treatment,Training & Education: Yes Patient would benefit from OT for education, treatment and training to promote independence in ADL's, mobility, safety and/or upper extremity function for ADL's. Plan of Care: ADL Retraining, Concurrent Therapy, Functional Mobility, Group Exercise/Act as Ind, UE Funct Exercise/Act Treatment Duration: Feb 06, 2023 Frequency: At least 5 of 7 days/Wk (IRF) Estimated Hrs Per Day: 1 hour per day Agreement: Yes Rehab Potential: Good Time Start Time: 12:45 Stop Time: 13:15 DATE: Jan 28, 2023 Total Time Billed (hr/min): 30 Billed Treatment Time EVM 30 min PIERRE MCKEON OT Jan 28, 2023 12:52
[2023-01-28] MEDS ORDERED: RT-Ipratropium/Albuterol NEB 3 ML VIAL IH SCH (13:00)
--- NOTE | 2023-01-28 13:12 | Wound Care Assessment ---
Wound Care Assessment Date Seen by Provider: Jan 28, 2023 Time Seen by Provider: 13:04 Chief Complaint Incision care HPI This pleasant 62 year old is admitted to our facility in transfer following CABG. Request for incisional care. She comes with instructions from her surgeon which we will implement. She does continue with cable tie closure devices in place. She was to follow up with surgeon tomorrow which has been post-poned due to admission for rehab. We will need to clarify on removal of these ties with the surgeon. She does also have chest tube wound as well. No signs of obvious infection on exam. Past Medical History: Admits Heart Disease COPD/emphysema, recent RLL pneumonia with sepsis Smoking Status: Current Everyday Smoker Recreational Drug Use: No Exam Vital Signs Date Time Temp Pulse Resp B/P (MAP) Pulse Ox O2 Delivery O2 Flow Rate FiO2 01/28/23 12:46 93 Nasal Cannula 3.00 Capillary Refill : General Appearance: WD/WN, no apparent distress, thin HEENT: other (normal hearing) Neck: full range of motion Cardiovascular: no edema Respiratory: no respiratory distress, no accessory muscle use Extremities: no pedal edema Neurologic/Psychiatric: alert, normal mood/affect, oriented x 3 Skin: normal color, warm/dry Wound assessment: 1. Sternotomy incision: Clean, Dry, intact with cable-tie cutaneous closure. No surrounding erythema or dehiscence 2. Chest tube incision: The epithelialization is none. There is no tunneling or undermining. Drainage is large and serous. Granulation is none. Necrotic is large and slough. Margins flat Assessment/Plan/Dx Assessment: 1. S/p CABG with need for sternotomy care 2. Chest tube wound 3. COPD 4. Tobaccoism Plan: 1. Cleanse daily with vashe and leave open to air. Cover when showering. Clarify with surgeon on tie removal and follow up 2. Cleanse daily with vashe. Apply silvadene to wound, xeroform atop and bordered foam daily 3. Defer to primary 4. Defer to primary NASREEN YA MD Jan 28, 2023 13:12
--- NOTE | 2023-01-28 14:54 | Occupational Ther Daily Note ---
OT Current Status-Daily Note Subjective Pt alert, sitting in w/c. Pt working with PT. Co-treat with PT([id number]), skills of 2 clinicians required to decrease fall risk, monitor O2 levels, maintain sternal and O2 precautions throughout treatment and modify treatments based on precautions and increase activity tolerance for daily functional tasks. PT focusing on ambulation, transfers, increasing activity tolerance while OT focusing on ADLs, functional mobility and increasing activity tolerance. Mental Status/Objective Patient Orientation: Person, Place, Time, Situation Attachments: IV, Oxygen (2L) ADL-Treatment Pt agrees to shower. Pt takes increased time to complete all tasks due to significantly decreased activity tolerance requiring multiple lengthy recovery breaks. Pt requires modification to B UE tasks and exercises due to sternal precautions and modifications to functional tasks due to O2 precautions. Pt will need AE for some lower body tasks for energy conservation. Min A for bathing to dry B lower legs/feet due to decreased stamina. Min A for UBD due to assist for sternal precautions and education. Mod A for LBD and footwear due to decreased stamina. Independent with oral care. SBA for EOB to supine. After therapy, pt lying in bed with call light/phone in reach. All needs met in room. Therapy Code Descriptions/Definitions Functional [place] Measure: 0=Not Assessed/NA 4=Minimal Assistance 1=Total Assistance 5=Supervision or Setup 2=Maximal Assistance 6=Modified [place] 3=Moderate Assistance 7=Complete IndependenceSCALE: Activities may be completed with or without assistive devices. 5-Dvrxtyfnam-oeulqgl completes the activity by him/herself with no assistance from a helper. 5-Set-up or Clean-up Assistance-helper sets up or cleans up; patient completes activity. [place] assists only prior to or following the activity. 4-Supervision or Touching Assistance-helper provides verbal cues and/or touching/steadying and/or contact guard assistance as patient completes activity. Assistance may be provided throughout the activity or intermittently. 3-Partial/Moderate Assistance-helper does LESS THAN HALF the effort. [place] lifts, holds or supports trunk or limbs, but provides less than half the effort. 2-Substantial/Maximal Assistance-helper does MORE THAN HALF the effort. [place] lifts or holds trunk or limbs and provides more than half the effort. 3-Nkbjzkgqz-eltysh does ALL the effort. Patient does none of the effort to complete the activity. Or, the assistance of 2 or more helpers is required for the patient to complete the activity. If activity was not attempted, code reason: 7-Patient Refused. 9-Not Applicable-not attempted and the patient did not perform the activity before the current illness, exacerbation or injury. 10-Not Attempted due to Environmental Limitations-(lack of equipment, weather restraints, etc.). 88-Not Attempted due to Medical Conditions or Safety Concerns. Oral Hygiene (QC): 6 Shower/Bathe Self (QC): 3 Upper Body Dressing (QC): 3 Lower Body Dressing (QC): 3 On/Off Footwear: 3 Education OT Patient Education: Modified ADL techniques Teaching Recipient: Patient Teaching Methods: Demonstration, Discussion Response to Teaching: Verbalize Understanding, Return Demonstration, Rein forcement Needed OT Short Term Goals Short Term Goals Time Frame: Feb 02, 2023 Eatin Oral hygiene: 6 (standing) Toileting hygiene: 6 OT Long-Term Goals Long-Term Goals Time Frame: Feb 06, 2023 Acute change in mental status: 0 Inattention: 0 Disorganized thinkin Altered level of consciousness: 0 Eating (QC): 6 Oral Hygiene (QC): 6 Toileting Hygiene (QC): 6 Shower/Bathe Self (QC): 5 Upper Body Dressing (QC): 6 Lower Body Dressing (QC): 6 On/Off Footwear (QC): 6 1=Demonstrate adherence to instructed precautions during ADL tasks. 2=Patient will verbalize/demonstrate understanding of assistive devices/modifications for ADL. 3=Patient will improve strength/tolerance for activity to enable patient to perform ADL's. OT Education/Plan Problem List/Assessment Assessment: Decreased Activ Tolerance, Decreased UE Strength, Impaired Bed Mobility, Impaired Funct Balance, Impaired Self-Care Skills, Restricted Funct UE ROM Discharge Recommendations Plan/Recommendations: Continue POC Treatment Plan/Plan of Care Patient would benefit from OT for education, treatment and training to promote independence in ADL's, mobility, safety and/or upper extremity function for ADL's. Plan of Care: ADL Retraining, Concurrent Therapy, Functional Mobility, Group Exercise/Act as Ind, UE Funct Exercise/Act Treatment Duration: Feb 06, 2023 Frequency: At least 5 of 7 days/Wk (IRF) Estimated Hrs Per Day: 1 hour per day Agreement: Yes Rehab Potential: Good Time Start Time: 13:30 Stop Time: 14:38 DATE: Jan 28, 2023 Total Time Billed (hr/min): 68 Billed Treatment Time 1 visit-ADL 5 (68 min) co-treat with PT 68 min ANETA ORELLANA Jan 28, 2023 14:54
[2023-01-28] MEDS: RT-Ipratropium/Albuterol NEB 3 ML VIAL IH SCH ×2 (15:30→19:10)
--- NOTE | 2023-01-28 15:30 | Physical Therapy Evaluation ---
PT Evaluation-General Medical Diagnosis Admission Date Jan 28, 2023 at 11:23 Medical Diagnosis: COPD Myopathy Onset Date: Dec 01, 2022 Therapy Diagnosis Therapy Diagnosis: Proximal weakness; Decreased functional activity tolerance Height/Weight Height (Feet): 5 Height (Inches): 6 Weight (Pounds): 128 Weight (Ounces): 8 Precautions Precautions/Isolations: Fall Prevention, Standard Precautions, Pressure Ulcer Sternal precautions; No repetitive abduction of BUE, no flexion over 90 degrees, no lifting over 5 pounds Weight Bear Status Right Lower Extremity: Right Full Weight Bearing Left Lower Extremity: Left Full Weight Bearing Referral Physician: Violeta Reason for Referral: Evaluation/Treatment Medical History Pertinent Medical History: CAD, COPD, HTN Additional Medical History Acute on chronic respiratory failure, [place] Parkinson White Syndrome, COPD, Cardiomegaly, CAD, HTN Current History 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 Handicap accessible walk-in shower, GB, regular toilet Prior Prior Level of Function SCALE: Activities may be completed with or without assistive devices. 8-Yayvqwybeh-ghvofjc completes the activity by him/herself with no assistance from a helper. 5-Set-up or Clean-up Assistance-helper sets up or cleans up; patient completes activity. [place] assists only prior to or following the activity. 4-Supervision or Touching Assistance-helper provides verbal cues and/or touching/steadying and/or contact guard assistance as patient completes activity. Assistance may be provided throughout the activity or intermittently. 3-Partial/Moderate Assistance-helper does LESS THAN HALF the effort. [place] lifts, holds or supports trunk or limbs, but provides less than half the effort. 2-Substantial/Maximal Assistance-helper does MORE THAN HALF the effort. [place] lifts or holds trunk or limbs and provides more than half the effort. 7-Twgbsuqga-xsmenh does ALL the effort. Patient does none of the effort to complete the activity. Or, the assistance of 2 or more helpers is required for the patient to complete the activity. If activity was not attempted, code reason: 7-Patient Refused. 9-Not Applicable-not attempted and the patient did not perform the activity before the current illness, exacerbation or injury. 10-Not Attempted due to Environmental Limitations-(lack of equipment, weather restraints, etc.). 88-Not Attempted due to Medical Conditions or Safety Concerns. 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 PT Evaluation-Current Subjective Pt is agreeable to PT. Pt reported sternal pain at 4/10. Pain Numeric Pain Scale: 4 Location: Incisional (Sternum ) Section J - Health Conditions 1. Rarely or not at all 2. Occasionally 3. Frequently 4. Almost constantly 8. Unable to answer Pain Effect on Sleep: 3 Pain Interference with Therapy: 3 Pain Interference w/Day-to-Day: 3 Pt/Family Goals Safely return home Objective Patient Orientation: Person, Place, Time, Situation Attachments: Oxygen (2L ), IV ROM/Strength ROM Upper Extremities See OT eval ROM Lower Extremities WFL Strength Upper Extremities See OT eval Strength Lower Extremities B LE MMT = 3+/5 grossly Integumentary/Posture Integumentary See nurses note Bowel Incontinence: No Bladder Incontinence: No Sensory Vision: contacts Hearing: Functional Hand Dominance: Right Sensation Right Upper Extremit: Intact Sensation Left Upper Extremity: Intact Sensation Right Lower Extremit: Intact Sensation Left Lower Extremity: Intact Transfers Roll Left & Right (QC): 4 (SBA ) Sit to Lying (QC): 4 (SBA ) Lying to Sitting/Side of Bed(Q: 4 (SBA ) Sit to Stand (QC): 3 (Min A ) Chair/Sok-ld-Comrv Xfer(QC): 3 (Min A ) Toilet Transfer (QC): 3 (Min A ) Car Transfer (QC): 3 (Min A ) Gait Does the Patient Walk?: Yes Mode of Locomotion: Both Anticipated Mode of Locomotion: Walk Walk 10 feet (QC): 3 (Min A ) Walk 50 ft with 2 Turns(QC): 3 (Min A ) Walk 150 ft (QC): 88 (SOB) Walking 10ft/uneven surface-QC: 3 (Min A ) Distance: 50ft Gait Assistive Device: FWW Wheelchair Training Does the Pt Use a Wheelchair?: Yes Distance: 150ft Wheel 50 ft with 2 turns (QC): 4 (SBA ) Wheel 150 ft (QC): 4 (SBA ) Type of Wheelchair: Manual Stairs 1 Step (curb) (QC): 88 (SOB) 4 Steps (QC): 88 (SOB) 12 Steps (QC): 88 (SOB ) Walking Assistive Device: Walker Balance Sitting Static: Good Sitting Dynamic: Good Standing Static: Fair Standing Dynamic: Fair Picking up an Object (QC): 3 (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 Co-tx with OT from [id number], skills of 2 clinicians required to decrease fall risk, monitor O2 levels, maintain sternal and O2 precautions throughout treatment and modify treatments based on precautions and increase activity tolerance for daily functional tasks. PT focusing on ambulation, transfers, increasing activity tolerance, while OT focusing on ADLs, functional mobility and increasing activity tolerance. Pt agrees to shower. Pt takes increased time to complete all tasks due to significantly decreased activity tolerance requiring multiple lengthy recovery breaks. Pt requires modification to B UE tasks and exercises due to sternal precautions and modifications to functional tasks due to O2 precautions. Pt will need AE for some lower body tasks for energy conservation. Min A for bathing to dry B lower legs/feet due to decreased stamina. Min A for UBD due to assist for sternal precautions and education. Mod A for LBD and footwear due to decreased stamina. Independent with oral care. Min A for functional transfers. SBA for sit to supine. After therapy, pt lying in bed with call light/phone in reach. All needs met in room. Assessment/Needs Pt tolerated PT well with good effort; O2 levels stayed above 95% on 2L throughout treatment session Rehab Potential: Good Post Rehab Potential-Barriers: SOB; Pain Equipment Needs FWW PT Correction Goals Correction Goals PT Director Of Event Sales Goals Time Frame: Feb 11, 2023 Roll Left to Right (QC): 6 (Pt will be Mod I with all aspects of functional mobility, with the least restrictive AD, in order to safely d/c home. ) Sit to Lying (QC): 6 (Pt will be Mod I with all aspects of functional mobility, with the least restrictive AD, in order to safely d/c home. ) Lying-Sitting on Side/Bed(QC): 6 (Pt will be Mod I with all aspects of fu nctional mobility, with the least restrictive AD, in order to safely d/c home. ) Sit to Stand (QC): 6 (Pt will be Mod I with all aspects of functional mobility, with the least restrictive AD, in order to safely d/c home. ) Chair/Dne-he-Uncix Xfer(QC): 6 (Pt will be Mod I with all aspects of functional mobility, with the least restrictive AD, in order to safely d/c home. ) Toilet/Commode Transfer (QC): 6 (Pt will be Mod I with all aspects of f unctional mobility, with the least restrictive AD, in order to safely d/c home. ) Car Transfer (QC): 6 (Pt will be Mod I with all aspects of functional mobility, with the least restrictive AD, in order to safely d/c home. ) Does the Patient Walk: Yes Walk 10 feet (QC): 6 (Pt will be Mod I with all aspects of functional mobility, with the least restrictive AD, in order to safely d/c home. ) Walk 10ft-Uneven Surface(QC): 6 (Pt will be Mod I with all aspects of functional mobility, with the least restrictive AD, in order to safely d/c home. ) Walk 50ft with 2 Turns (QC): 6 (Pt will be Mod I with all aspects of functional mobility, with the least restrictive AD, in order to safely d/c home. ) Walk 150 ft (QC): 6 (Pt will be Mod I with all aspects of functional mobility, with the least restrictive AD, in order to safely d/c home. ) Does the Pt use WC or Scooter?: Yes Wheel 50 feet with 2 turns (QC: 6 (Pt will be Mod I with all aspects of functional mobility, with the least restrictive AD, in order to safely d/c home. ) Type: Manual Wheel 150 feet: 6 (Pt will be Mod I with all aspects of functional mobility, with the least restrictive AD, in order to safely d/c home. ) Type: Manual 1 Step (curb) (QC): 6 (Pt will be Mod I with all aspects of functional mobili ty, with the least restrictive AD, in order to safely d/c home. ) 4 Steps (QC): 6 (Pt will be Mod I with all aspects of functional mobility, with the least restrictive AD, in order to safely d/c home. ) 12 Steps (QC): 6 (Pt will be Mod I with all aspects of functional mobility, with the least restrictive AD, in order to safely d/c home. ) Picking up an Object (QC): 6 (Pt will be Mod I with all aspects of functional mobility, with the least restrictive AD, in order to safely d/c home. ) KU standing balance goal = 4+/5 PT Plan Problem List Problem List: Activity Tolerance, Functional Strength, Safety, Balance, Gait, Transfer, Bed Mobility Treatment/Plan Treatment Plan: Continue Plan of Care Treatment Plan: Bed Mobility, Concurrent Therapy, Education, Functional Activity [place], Functional Strength, Group Therapy, Gait, Safety, Therapeutic Exercise, Transfers Treatment Duration: Feb 11, 2023 Frequency: At least 5 of 7 days/Wk (IRF) Estimated Hrs Per Day: 2 hours per day Patient and/or Family Agrees t: Yes Safety Risks/Education Patient Education: Gait Training, Transfer Techniques, Reviewed Precautions, C orrect Positioning, W/C Management, Safety Issues Teaching Recipient: Patient Teaching Methods: Demonstration Response to Teaching: Verbalize Understanding, Return Demonstration, Reinforcement Needed Discharge Recommendations Therapy Discharge Recommendati: Home & Family Equpiment Recommendations-D/C: Front Wheeled Walker Discharge Status/Home Program Cont per POC Barriers to Progress Proximal weakness, core weakness, SOB/endurance Target Placement Home with family assistance Time Time In: 1314 Time Out: 1438 DATE: Jan 28, 2023 Total Billed Treatment Time: 83 Total Billed Treatment 83 min total from 2439-8120; 15 min indivicual time from [id number] (eval); co-tx for 68 min from [id number] 1 visit EVM GT x 2 FA X 3 CHNIA ZAFAR PT Jan 28, 2023 15:30
[2023-01-28] MEDS: ONDANSETRON 4 MG ORAL DISSOLVE TABLET SL PRN (18:54)
[2023-01-28] MEDS: RT-BUDESONIDE NEBS 0.5 MG/2ML VIAL IH SCH (19:09)
[2023-01-28] MEDS: LORazepam 0.5 MG TABLET PO PRN (19:55)
[2023-01-28] MEDS: SENNA W/DOCUSATE (SENOKOT S) TABLET PO SCH (19:55)
[2023-01-28] MEDS: diphenhydrAMINE 25 MG TABLET PO PRN (19:55)
[2023-01-28] MEDS: FLUTICASONE NASAL SPRAY (120 SPRAYS) NS SCH (19:56)
[2023-01-28 20:00] VITALS: BP 112/59
[2023-01-28] MEDS: DOCUSATE SODIUM 100 MG CAPSULE PO SCH (20:00)
[2023-01-28] MEDS: DAKIN'S 1/4 STRENGTH (0.125%) 237 ML BTL TOP SCH (20:16)
[2023-01-28] MEDS ORDERED: polyethylene glycoL POWDER 17 GM (MIRALAX) PACK PO SCH (21:00)
[2023-01-29 05:35] LABS: BASOPHILS # (AUTO) 0.2 10^3/uL (0.0-0.1); BASOPHILS % (AUTO) 2 % (0-10); EOSINOPHILS # (AUTO) 0.6 10^3/uL (0.0-0.3); EOSINOPHILS % (AUTO) 6 % (0-10); HEMATOCRIT 33 % (35-52); HEMOGLOBIN 10.4 g/dL (11.5-16.0); LYMPHOCYTES # (AUTO) 2.9 10^3/uL (1.0-4.0); LYMPHOCYTES % (AUTO) 28 % (12-44); MEAN CORPUSCULAR HEMOGLOBIN 30 pg (25-34); MEAN CORPUSCULAR HGB CONC 32 g/dL (32-36); MEAN CORPUSCULAR VOLUME 95 fL (80-99); MEAN PLATELET VOLUME 9.3 fL (9.0-12.2); MONOCYTES # (AUTO) 1.3 10^3/uL (0.0-1.0); MONOCYTES % (AUTO) 13 % (0-12); NEUTROPHILS % (AUTO) 48 % (42-75); PLATELET COUNT 445 10^3/uL (130-400); WHITE BLOOD COUNT 10.3 10^3/uL (4.3-11.0)
--- NOTE | 2023-01-29 05:48 | Individualized Plan of Care ---
Individualized Plan of Care Rehab Nursing IPOC Order Admission Date Jan 28, 2023 at 11:23 Current Orders Orders Dietary Consult (01/28/23 09:52) Sodium 2g (2000 Mg) (01/28/23 Lunch) Code/Resuscitation (01/28/23 09:52) Oxygen Delivery Set Up (01/28/23 09:52) Oxygen-Administer 07,19 (01/28/23 09:52) Admission Order(Inpt,Obs,Sdc) (01/28/23 10:11) Vital Signs: Per Unit Policy ( 08,16,00 (01/28/23 10:11) Hnuter Gerarde , (01/28/23 10:11) Sequential Compression Device [id number] (01/28/23 10:11) General Assignment Reporter-Inpt Rehab Con (01/28/23 10:11) Rehab Nursing Orders-Ipoc (01/28/23 10:11) Physical Therapy Rehab Orders (01/28/23 10:11) Occupational Therapy Rehab Ord (01/28/23 10:11) Speech Therapy Rehab Orders (01/28/23 10:11) Cbc With Automated Diff (01/29/23 06:00) Comprehensive Metabolic Panel (01/29/23 06:00) Precautions (Aru) (01/28/23 10:11) Weekly Weight WEEK (01/28/23 10:11) Rehab-Intensity Of Therapy (01/28/23 10:11) Initiate Admission Nursing Pro .admission (01/28/23 10:11) Alprazolam Tablet (Alprazolam Tablet) (01/28/23 10:15) Calcium Carbonate Chew Tablet (Calcium C (01/28/23 10:15) Diphenhydramine Tablet (Diphenhydramine (01/28/23 10:15) Docusate Sodium Capsule (Docusate Sodium (01/28/23 21:00) Docusate Sodium Capsule (Docusate Sodium (01/28/23 10:15) Bisacodyl Suppository (Bisacodyl Supposi (01/28/23 10:15) Lactulose Oral Solution (Lactulose Oral (01/28/23 10:15) Na Phos/Na Biphos Adult Enema (Na Phos/N (01/28/23 10:15) Guaifenesin/Codeine Syrup (Guaifenesin/C (01/28/23 10:15) Loperamide Tablet (Imodium Tablet) (01/28/23 10:15) Melatonin Tablet (Melatonin Tablet) (01/28/23 10:15) Polyethylene Glycol Powder Pkt (Miralax (01/28/23 21:00) Ondansetron Oral Dissolve Tab (Zofran (01/28/23 10:15) Senna S Tablet (Senokot S Tablet) (01/28/23 21:00) Acetaminophen Tablet (Acetaminophen Ta (01/28/23 10:15) Initiate Admission Nursing Pro .admission (01/28/23 10:11) Admission Arrival Bed Request (01/28/23 11:23) Acetaminophen Tablet (Acetaminophen Ta (01/28/23 11:45) Amiodarone Tablet (Amiodarone Tablet) (01/29/23 09:00) Amlodipine Tablet (Amlodipine Tablet) (01/29/23 09:00) Benzonatate Capsule (Benzonatate Capsule (01/28/23 11:45) Bisacodyl Suppository (Bisacodyl Supposi (01/28/23 11:45) Budesonide Inhalation Solution (Budesoni (01/28/23 21:00) Calcium Carbonate Chew Tablet (Calcium C (01/28/23 11:45) Clopidogrel Tablet (Clopidogrel Tablet) (01/29/23 09:00) Diphenhydramine 2% Cream (Diphenhydramin (01/28/23 11:45) Ipratropium/Albuterol Inh Soln (Ipratrop (01/28/23 11:45) Ipratropium/Albuterol Inh Soln (Ipratrop (01/28/23 13:00) Lorazepam Tablet (Ativan Tablet) (01/28/23 11:45) Meclizine Tablet (Antivert Tablet) (01/28/23 11:45) Ondansetron Oral Dissolve Tab (Zofran (01/28/23 11:45) Polyethylene Glycol Powder Pkt (Miralax (01/29/23 09:00) Silver Sulfadiazine 400 Gm (Ssd 1% 400 G (01/29/23 09:00) Silver Sulfadiazine 400 Gm (Ssd 1% 400 G (01/28/23 11:45) Sod Hypochlorite 0.125% 237 Ml (Dakin's (01/28/23 21:00) Sod Hypochlorite 0.125% 237 Ml (Dakin's (01/28/23 11:45) Tramadol Tablet (Ultram Tablet) (01/28/23 11:45) (Nf) Diphenhydramine Hcl (Benadryl) (01/28/23 11:45) Fluticasone Nasal [place] (Fluticasone Will (01/28/23 21:00) Ipratropium/Albuterol Inh Soln (Ipratrop (01/28/23 13:00) Cyclobenzaprine Tablet (Cyclobenzaprine (01/28/23 12:00) Consult Wound Care Physician (01/28/23 12:27) Pet Pass (01/28/23 12:27) Dressing Order (Intervention) DAILY (01/28/23 12:59) Dressing Order (Intervention) DAILY (01/28/23 12:59) Nursing Communication (Order) ONCE (01/28/23 12:59) Hypochlorous Acid/Sod Chloride (Vashe Wo (01/28/23 13:00) Silver Sulfadiazine 50 Gm (Ssd 1% 50 Gm) (01/29/23 09:00) Bipap (Bilevel) Set Up (01/28/23 13:53) Patient Visit (01/28/23 ) Pt Eval Moderate Complexity (01/28/23 ) Patient Visit (01/28/23 ) Functional Activities, Ea 15 (01/28/23 ) Gait Training, Ea 15 Min (01/28/23 ) Chest 1 View, Ap/Pa Only (01/29/23 08:00) Consult Cardiology (01/29/23 05:42) Ekg Tracing (01/29/23 07:30) Patient Visit (01/29/23 ) Functional Activities, Ea 15 (01/29/23 ) Gait Training, Ea 15 Min (01/29/23 ) Exercise Therap, Ea 15 Min (01/29/23 ) Apixaban Tablet (Apixaban Tablet) (01/29/23 12:30) Oxycodone Immediate Rel Tablet (Oxycodon (01/29/23 12:30) Ensure Hi Pro Vanilla BID (01/29/23 13:50) Telemetry (01/29/23 17:46) Telemetry Nursing Assessment ( (01/29/23 17:46) Obtain Records From (Order) (01/29/23 17:46) Rehab Nursing Orders: Ongoing Assess. of Function Status, Bladder Management, Bladder Scan, Bladder Training, Bowel Management, Bowel Training, Disease Management & Educaiton, DVT Prophylaxis, Fall Prevention, Fluid/Electrolyte/Nutrition Mgmt, Infection Prevention, Medication Management & Education, Management of Risks & Complications, Management of Skin Intergrity, Nutrition Management, Pain Management, Patient/Family Support, Safety Management, Weight Bearing Precaution, Wound Management Intensity of Therapy to be met Patient to be seen: Min.3h per day/5 of 7d PT IPOC Problem List: Activity Tolerance, Functional Strength, Safety, Balance, Gait, Transfer, Bed Mobility Treatment Plan: Continue Plan of Care Bed Mobility, Concurrent Therapy, Education, Functional Activity [place], Functional Strength, Group Therapy, Gait, Safety, Therapeutic Exercise, Transfers Treatment Duration: Feb 11, 2023 Frequency: At least 5 of 7 days/Wk (IRF) Estimated Hrs Per Day: 2 hours per day OT IPOC Problems: Decreased Activ Tolerance, Decreased UE Strength, Impaired Bed Mobility, Impaired Funct Balance, Impaired Self-Care Skills, Restricted Funct UE ROM OT Treatment, Training and Edu: Yes Plan of Care: ADL Retraining, Concurrent Therapy, Functional Mobility, Group Exercise/Act as Ind, UE Funct Exercise/Act Treatment Duration: Feb 06, 2023 Frequency: At least 5 of 7 days/Wk (IRF) Estimated Hrs Per Day: [address] IPOC Speech Therapy Treatment Plan: Discontinue ST Treatment Duration: Jan 29, 2023 Frequency: Modified Program (IRF) Estimated Hrs Per Day: Other General Assignment Reporter/Case Mgmt General Assignment Reporter/Case Managemen: Discharge Planning Dietitian/V Belt Builder Dietitian/V Belt Builder to monitor nutritional status and make changes and/or recommendations as needed and work with speech pathology on dietary upgrades as the occur. Physician IPOC Medical Issues being managed closely and that require the 24 hour availability of a physician: Recent bypass surgery with significant complications with acute respiratory failure now oxygen dependent due to severe COPD with FEV1 of less than 35%. Patient will require close monitoring for any respiratory decompensation and maintain BiPAP at night. Medical Issues: Bowel/Bladder Function, DVT Prophylaxis, Falls Precautions, Fluid/Electrolyte/Nutrition Balance, Infection Protection, Pain Management Brief Synthesis of Preadmission Screen, Post-Admission Evaluation, and Therapy Evaluations: PT and OT will focus on regaining function with use of assistive devices in order to wean oxygen and increase stamina of ambulation along with prevention of fall risk in order to return back home to independent living Medical Prognosis: Good Anticipated Length of Stay: 10 days MELIA DAVID DO Jan 29, 2023 05:48
--- NOTE | 2023-01-29 05:48 | PM&R Progress Note ---
Subjective HPI/CC On Admission Date Seen by Provider: Jan 29, 2023 Time Seen by Provider: 12:00 Subjective/Events-last exam 01/29/2023: Patient doing pretty well Working with therapy Oxygen is maintained BiPAP maintained at night Daughter at the bedside Labs remained stable Cardiology consult Review of Systems General: Fatigue, Malaise Objective Exam Vital Signs Vital Signs Date Time Temp Pulse Resp B/P (MAP) Pulse Ox O2 Delivery O2 Flow Rate FiO2 01/29/23 19:29 36.3 95 22 114/68 (83) 92 Nasal Cannula 2.00 Capillary Refill : General Appearance: No Apparent Distress, WD/WN, Chronically ill, Thin, Other (frail) HEENT: PERRL/EOMI, Normal ENT Inspection, Pharynx Normal Neck: Full Range of Motion, Normal Inspection, Non Tender, Supple, Carotid Bruit Respiratory: Chest Non Tender, Lungs Clear, No Accessory Muscle Use, No Respiratory Distress, Decreased Breath Sounds Cardiovascular: Regular Rate, Rhythm, No Edema, No Gallop, No JVD, No Murmur, Normal Peripheral Pulses Gastrointestinal: Normal Bowel Sounds, No Organomegaly, No Pulsatile Mass, Non Tender, Soft Back: Normal Inspection, No CVA Tenderness, No Vertebral Tenderness Extremity: Normal Capillary Refill, Normal Inspection, Normal Range of Motion, Non Tender, No Calf Tenderness, No Pedal Edema Neurologic/Psychiatric: Alert, Oriented x3, No Motor/Sensory Deficits, customer service technician II- XII Norm as Tested, Abnormal Gait, Depressed Affect, Motor Weakness (generalized 3/5) Skin: Normal Color, Warm/Dry Lymphatic: No Adenopathy Results/Procedures Lab Laboratory Tests 01/29/23 05:20 Patient resulted labs reviewed. FIM Transfers Therapy Code Descriptions/Definitions Functional [place] Measure: 0=Not Assessed/NA 4=Minimal Assistance 1=Total Assistance 5=Supervision or Setup 2=Maximal Assistance 6=Modified [place] 3=Moderate Assistance 7=Complete IndependenceSCALE: Activities may be completed with or without assistive devices. 2-Ttzhgauifw-beqfuls completes the activity by him/herself with no assistance from a helper. 5-Set-up or Clean-up Assistance-helper sets up or cleans up; patient completes activity. [place] assists only prior to or following the activity. 4-Supervision or Touching Assistance-helper provides verbal cues and/or touching/steadying and/or contact guard assistance as patient completes activity. Assistance may be provided throughout the activity or intermittently. 3-Partial/Moderate Assistance-helper does LESS THAN HALF the effort. [place] lifts, holds or supports trunk or limbs, but provides less than half the effort. 2-Substantial/Maximal Assistance-helper does MORE THAN HALF the effort. [place] lifts or holds trunk or limbs and provides more than half the effort. 8-Tijwgyzwc-kaxcii does ALL the effort. Patient does none of the effort to complete the activity. Or, the assistance of 2 or more helpers is required for the patient to complete the activity. If activity was not attempted, code reason: 7-Patient Refused. 9-Not Applicable-not attempted and the patient did not perform the activity before the current illness, exacerbation or injury. 10-Not Attempted due to Environmental Limitations-(lack of equipment, weather restraints, etc.). 88-Not Attempted due to Medical Conditions or Safety Concerns. Roll Left to Right (QC): 4 (SBA ) Sit to Lying (QC): 4 (SBA ) Sit to Stand (QC): 3 (Min A ) Chair/Vre-hi-Eydoh Xfer(QC): 3 (Min A ) Car Transfer (QC): 3 (Min A ) Gait Training Does the Patient Walk?: Yes Walk 10 feet (QC): 3 (Min A ) Walk 50 ft with 2 Turns(QC): 3 (Min A ) Walk 150 ft (QC): 88 (SOB) Walking 10ft/uneven surface-QC: 3 (Min A ) Gait Assistive Device: FWW Wheelchair Training Does the Pt Use a Wheelchair?: Yes Distance: 150ft Wheel 50 ft with 2 turns (QC): 4 (SBA ) Wheel 150 ft (QC): 4 (SBA ) Type of Wheelchair: Manual Stair Training 1 Step (curb) (QC): 88 (SOB) 4 Steps (QC): 88 (SOB) 12 Steps (QC): 88 (SOB ) Balance Picking up an Object (QC): 3 (Min A with vertical mill operator ) ADL-Treatment Eating (QC): 6 Oral Hygiene (QC): 6 Shower/Bathe Self (QC): 3 Upper Body Dressing (QC): 3 Lower Body Dressing (QC): 3 On/Off Footwear (QC): 3 Toileting Hygiene (QC): 4 Assessment/Plan Assessment and Plan Assess & Plan/Chief Complaint Assessment: COPD myopathy New O2 dependence CAD recent CABG Sternal and flank pressure wounds Smoker HTN AF? Anemia HLP Plan: Wound care Dietary consult Aggressive PT OT Wean O2 01/29/2023: Placed back on oral anticoagulation Supportive care (1) Myopathy MELIA DAVID DO Jan 29, 2023 05:48
[2023-01-29 05:52] LABS: ALBUMIN 3.1 GM/DL (3.2-4.5); BILIRUBIN,TOTAL 0.2 MG/DL (0.1-1.0); CALCIUM 8.9 MG/DL (8.5-10.1); CREATININE SERUM 0.74 MG/DL (0.60-1.30); POTASSIUM 4.5 MMOL/L (3.6-5.0); TOTAL PROTEIN 6.4 GM/DL (6.4-8.2)
[2023-01-29] MEDS: CYCLOBENZAPRINE 10 MG TABLET PO PRN ×2 (06:24→20:55)
[2023-01-29] MEDS: LORazepam 0.5 MG TABLET PO PRN ×2 (06:24→20:55)
[2023-01-29] MEDS: RT-Ipratropium/Albuterol NEB 3 ML VIAL IH SCH ×4 (07:02→19:19)
[2023-01-29] MEDS: RT-BUDESONIDE NEBS 0.5 MG/2ML VIAL IH SCH ×2 (07:02→23:05)
[2023-01-29 07:19] VITALS: BP 126/63
[2023-01-29] MEDS: CLOPIDOGREL 75 MG TABLET PO SCH (08:18)
[2023-01-29] MEDS: SENNA W/DOCUSATE (SENOKOT S) TABLET PO SCH ×2 (08:18→20:43)
[2023-01-29] MEDS: amLODIPine 5 MG TABLET PO SCH (08:18)
[2023-01-29] MEDS: FLUTICASONE NASAL SPRAY (120 SPRAYS) NS SCH ×2 (08:18→20:42)
[2023-01-29] MEDS: DOCUSATE SODIUM 100 MG CAPSULE PO SCH ×2 (08:18→20:43)
[2023-01-29] MEDS: AMIODARONE 200 MG TABLET PO SCH (08:19)
[2023-01-29] MEDS: polyethylene glycoL POWDER 17 GM (MIRALAX) PACK PO SCH (08:21)
[2023-01-29] MEDS ORDERED: SILVER SULFADIAZINE 50 GM CREAM TOP SCH (09:00)
[2023-01-29] MEDS: DAKIN'S 1/4 STRENGTH (0.125%) 237 ML BTL TOP SCH ×2 (09:00→21:00)
--- NOTE | 2023-01-29 09:52 | Occupational Ther Daily Note ---
OT Current Status-Daily Note Subjective Pt alert, lying in bed. Pt agrees to therapy. No c/o pain. Mental Status/Objective Patient Orientation: Person, Place, Time, Situation Attachments: IV, Oxygen (3L) ADL-Treatment Pt declines shower or sponge bath. Education on donning/doffing pullover shirt to maintain sternal precautions. CGA for UBD. Set up for footwear. SBA for LBD. SBA for toileting/toilet transfer. Independent with oral care sitting at sink. Pt takes increased time to complete all tasks due to decreased activity tolerance and frequent recovery breaks. Pt sitting in w/c with call light in reach. Visitors present in room. All needs met. Therapy Code Descriptions/Definitions Functional [place] Measure: 0=Not Assessed/NA 4=Minimal Assistance 1=Total Assistance 5=Supervision or Setup 2=Maximal Assistance 6=Modified [place] 3=Moderate Assistance 7=Complete IndependenceSCALE: Activities may be completed with or without assistive devices. 6-Jayhsuxyad-ngzckyd completes the activity by him/herself with no assistance from a helper. 5-Set-up or Clean-up Assistance-helper sets up or cleans up; patient completes activity. [place] assists only prior to or following the activity. 4-Supervision or Touching Assistance-helper provides verbal cues and/or touching/steadying and/or contact guard assistance as patient completes activity. Assistance may be provided throughout the activity or intermittently. 3-Partial/Moderate Assistance-helper does LESS THAN HALF the effort. [place] lifts, holds or supports trunk or limbs, but provides less than half the effort. 2-Substantial/Maximal Assistance-helper does MORE THAN HALF the effort. [place] lifts or holds trunk or limbs and provides more than half the effort. 0-Ctfcbrtea-fdgcuj does ALL the effort. Patient does none of the effort to comp lete the activity. Or, the assistance of 2 or more helpers is required for the patient to complete the activity. If activity was not attempted, code reason: 7-Patient Refused. 9-Not Applicable-not attempted and the patient did not perform the activity before the current illness, exacerbation or injury. 10-Not Attempted due to Environmental Limitations-(lack of equipment, weather restraints, etc.). 88-Not Attempted due to Medical Conditions or Safety Concerns. Oral Hygiene (QC): 6 Upper Body Dressing (QC): 4 Lower Body Dressing (QC): 4 On/Off Footwear: 5 Toileting Hygiene (QC): 4 Toilet Transfer (QC): 4 Education OT Patient Education: Modified ADL techniques Teaching Recipient: Patient Teaching Methods: Demonstration, Discussion Response to Teaching: Verbalize Understanding, Return Demonstration OT Short Term Goals Short Term Goals Time Frame: Feb 02, 2023 Eatin Oral hygiene: 6 (standing) Toileting hygiene: 6 OT Automobile Service Station Manager Goals Automobile Service Station Manager Goals Time Frame: Feb 06, 2023 Acute change in mental status: 0 Inattention: 0 Disorganized thinkin Altered level of consciousness: 0 Eating (QC): 6 Oral Hygiene (QC): 6 Toileting Hygiene (QC): 6 Shower/Bathe Self (QC): 5 Upper Body Dressing (QC): 6 Lower Body Dressing (QC): 6 On/Off Footwear (QC): 6 1=Demonstrate adherence to instructed precautions during ADL tasks. 2=Patient will verbalize/demonstrate understanding of assistive devices/modifications for ADL. 3=Patient will improve strength/tolerance for activity to enable patient to perform ADL's. OT Education/Plan Problem List/Assessment Assessment: Decreased Activ Tolerance, Decreased UE Strength, Impaired Funct Balance, Impaired Self-Care Skills, Restricted Funct UE ROM Discharge Recommendations Plan/Recommendations: Continue POC Treatment Plan/Plan of Care Patient would benefit from OT for education, treatment and training to promote independence in ADL's, mobility, safety and/or upper extremity function for ADL's. Plan of Care: ADL Retraining, Concurrent Therapy, Functional Mobility, Group Exercise/Act as Ind, UE Funct Exercise/Act Treatment Duration: Feb 06, 2023 Frequency: At least 5 of 7 days/Wk (IRF) Estimated Hrs Per Day: 1 hour per day Agreement: Yes Rehab Potential: Good Time Start Time: 09:00 Stop Time: 09:40 DATE: Jan 29, 2023 Total Time Billed (hr/min): 40 Billed Treatment Time 1 visit-ADL 3 (40 min) ANETA ORELLANA Jan 29, 2023 09:52
--- NOTE | 2023-01-29 10:21 | Diagnostic Imaging Report ---
CHEST 1 VIEW, AP/PA ONLY Indication: PICC placement. Comparison: 08/27/2022 Findings: Left PICC has tip terminating in the region of the right atrium. Unchanged hyperinflated lungs with chronic scar and architectural distortion associated with the severe emphysema. No pneumothorax. There is now a left-sided pleural effusion with left basilar heterogeneous consolidations. Sternotomy has been performed since prior examination CABG. Impression: 1. Left PICC has tip terminating in the region of the upper right atrium. 2. New left-sided pleural effusion and associated pulmonary consolidations that may be due to atelectasis. Superimposed infection or aspiration could be present. Dictated by: Dictated on workstation # [id number]
[2023-01-29] MEDS: ONDANSETRON 4 MG ORAL DISSOLVE TABLET SL PRN (10:56)
--- NOTE | 2023-01-29 11:11 | Occupational Ther Daily Note ---
OT Current Status-Daily Note Subjective Pt alert, sitting in w/c. Pt agrees to therapy. C/o fatigue. Co-treat with PT([id number]), skills of 2 clinicians required to decrease fall risk, monitor O2 levels, maintain sternal and O2 precautions throughout treatment and modify treatments based on precautions and increase activity tolerance for daily fu nctional tasks. PT focusing on ambulation, transfers, increasing activity tolerance while OT focusing on ADLs, functional mobility and increasing activity tolerance. Mental Status/Objective Patient Orientation: Person, Place, Time, Situation Attachments: IV, Oxygen (3L) ADL-Treatment Therapy Code Descriptions/Definitions Functional [place] Measure: 0=Not Assessed/NA 4=Minimal Assistance 1=Total Assistance 5=Supervision or Setup 2=Maximal Assistance 6=Modified [place] 3=Moderate Assistance 7=Complete IndependenceSCALE: Activities may be completed with or without assistive devices. 7-Layfrhejgb-ryrwvsl completes the activity by him/herself with no assistance from a helper. 5-Set-up or Clean-up Assistance-helper sets up or cleans up; patient completes activity. [place] assists only prior to or following the activity. 4-Supervision or Touching Assistance-helper provides verbal cues and/or touching/steadying and/or contact guard assistance as patient completes activity. Assistance may be provided throughout the activity or intermittently. 3-Partial/Moderate Assistance-helper does LESS THAN HALF the effort. [place] lifts, holds or supports trunk or limbs, but provides less than half the effort. 2-Substantial/Maximal Assistance-helper does MORE THAN HALF the effort. [place] lifts or holds trunk or limbs and provides more than half the effort. 8-Xeomvqktk-xlmxtn does ALL the effort. Patient does none of the effort to complete the activity. Or, the assistance of 2 or more helpers is required for the patient to complete the activity. If activity was not attempted, code reason: 7-Patient Refused. 9-Not Applicable-not attempted and the patient did not perform the activity before the current illness, exacerbation or injury. 10-Not Attempted due to Environmental Limitations-(lack of equipment, weather restraints, etc.). 88-Not Attempted due to Medical Conditions or Safety Concerns. Other Treatment Pt able to maintain 95% and above throughout co-treat session. Pt working on increasing activity tolerance in standing while completing fine/gross motor tasks for 2-4 min standing then lengthy recovery break between each stand. Pt tolerated activities with B UE while adhering to precautions. See PT notes for ambulation distance and amount of assistance, [place] assist with w/c behind for safety. After session, pt left in care of PT. All needs met. OT Short Term Goals Short Term Goals Time Frame: Feb 02, 2023 Eatin Oral hygiene: 6 (standing) Toileting hygiene: 6 OT Senior Market Research Analyst Goals Senior Living Goals Time Frame: Feb 06, 2023 Acute change in mental status: 0 Inattention: 0 Disorganized thinkin Altered level of consciousness: 0 Eating (QC): 6 Oral Hygiene (QC): 6 Toileting Hygiene (QC): 6 Shower/Bathe Self (QC): 5 Upper Body Dressing (QC): 6 Lower Body Dressing (QC): 6 On/Off Footwear (QC): 6 1=Demonstrate adherence to instructed precautions during ADL tasks. 2=Patient will verbalize/demonstrate understanding of assistive devices/m odifications for ADL. 3=Patient will improve strength/tolerance for activity to enable patient to perform ADL's. OT Education/Plan Problem List/Assessment Assessment: Decreased Activ Tolerance, Decreased UE Strength, Impaired Self- Care Skills Discharge Recommendations Plan/Recommendations: Continue POC Treatment Plan/Plan of Care Patient would benefit from OT for education, treatment and training to promote independence in ADL's, mobility, safety and/or upper extremity function for ADL's. Plan of Care: ADL Retraining, Concurrent Therapy, Functional Mobility, Group Exercise/Act as Ind, UE Funct Exercise/Act Treatment Duration: Feb 06, 2023 Frequency: At least 5 of 7 days/Wk (IRF) Estimated Hrs Per Day: 1 hour per day Agreement: Yes Rehab Potential: Good Time Start Time: 10:00 Stop Time: 11:00 DATE: Jan 29, 2023 Total Time Billed (hr/min): 60 Billed Treatment Time 1 visit-FA 4 (60 min) co-treat with PT 60 min ANETA ORELLANA Jan 29, 2023 11:11
--- NOTE | 2023-01-29 11:53 | Physical Therapy Daily Note ---
PT Daily Note-Current Subjective Pt alert, sitting in w/c. Pt agrees to therapy. C/o fatigue and sternal pain at 6/10. Co-tx with OT ([id number]), skills of 2 clinicians required to decrease fall risk, monitor O2 levels, maintain sternal and O2 precautions throughout treatment and modify treatments based on precautions and increase activity malathi champion for daily functional tasks. PT focusing on ambulation, transfers, increasing activity tolerance, and balance, while OT focusing on ADLs, functional mobility and increasing activity tolerance. Pain Numeric Pain Scale: 6 Location: Incisional (Sternum ) Section J - Health Conditions 1. Rarely or not at all 2. Occasionally 3. Frequently 4. Almost constantly 8. Unable to answer Pain Effect on Sleep: 2 Pain Interference with Therapy: 3 Pain Interference w/Day-to-Day: 2 Mental Status Attachments: Oxygen (2L ), IV Transfers SCALE: Activities may be completed with or without assistive devices. 5-Hucnnyqxje-wpykluj completes the activity by him/herself with no assistance from a helper. 5-Set-up or Clean-up Assistance-helper sets up or cleans up; patient completes activity. [place] assists only prior to or following the activity. 4-Supervision or Touching Assistance-helper provides verbal cues and/or touching/steadying and/or contact guard assistance as patient completes activity. Assistance may be provided throughout the activity or intermittently. 3-Partial/Moderate Assistance-helper does LESS THAN HALF the effort. [place] lifts, holds or supports trunk or limbs, but provides less than half the effort. 2-Substantial/Maximal Assistance-helper does MORE THAN HALF the effort. [place] lifts or holds trunk or limbs and provides more than half the effort. 4-Wjcmzcvoe-wtkorl does ALL the effort. Patient does none of the effort to co mplete the activity. Or, the assistance of 2 or more helpers is required for the patient to complete the activity. If activity was not attempted, code reason: 7-Patient Refused. 9-Not Applicable-not attempted and the patient did not perform the activity before the current illness, exacerbation or injury. 10-Not Attempted due to Environmental Limitations-(lack of equipment, weather restraints, etc.). 88-Not Attempted due to Medical Conditions or Safety Concerns. Sit to Lying (QC): 4 Sit to Stand (QC): 3 Chair/Hlu-sl-Tuwkw Xfer(QC): 3 Weight Bearing Right Lower Extremity: Right Full Weight Bearing Left Lower Extremity: Left Full Weight Bearing Gait Training Does the Patient Walk?: Yes Distance: 90ft Walk 10 feet (QC): 4 Walk 50 ft with 2 Turns(QC): 4 Walk 150 ft (QC): 88 Walking 10ft/uneven surface-QC: 88 Gait Persons Needed: 1 Gait Assistive Device: FWW Wheelchair Training Does the Pt Use a Wheelchair?: Yes Wheel 50 ft with 2 turns (QC): 4 Wheel 150 ft (QC): 4 Type of Wheelchair: Manual Treatments Co-tx with OT ([id number]), skills of 2 clinicians required to decrease fall risk, monitor O2 levels, maintain sternal and O2 precautions throughout treatment and modify treatments based on precautions and increase activity tolerance for daily functional tasks. PT focusing on ambulation, transfers, increasing activity tolerance, and balance, while OT focusing on ADLs, functional mobility and increasing activity tolerance. Pt able to maintain O2 at 95% and above throughout treatment session, on 2L. Pt working on increasing activity tolerance in standing while completing fine/gross motor tasks for 2-4 min standing then lengthy recovery break between each stand. Pt tolerated activities with B UE while adhering to precautions. Pt completed functional transfers with Min A and Min v/c. Pt completed w/c mobility x 200ft with SBA. Pt ambulated 90ft and 75ft with the FWW and CGA (w/c follow and assistance for O2 tank). Pt completed seated B LE Ther Ex x 15 reps each with the red Tband. Pt pushed back to room. Min A sit to stand from w/c; pt ambulated 5ft to the bed with the FWW and CGA. Pt completed sit to supine with SBA. Wound care in room taking care of pts incision. Pt supine in bed after treatment session with call light in hand, all needs met, and daughter present. Assessment Current Status: Good Progress Pt tolerated PT well with good effort; Pt required extended seated RBs throughout entire treatment session, secondary to low endurance, proximal weakness, and exhaustion PT Assistant Printer Floor Covering Goals Assistant Printer Floor Covering Goals PT Group Home Goals Time Frame: Feb 11, 2023 Roll Left & Right (QC): 6 (Pt will be Mod I with all aspects of functional mobility, with the least restrictive AD, in order to safely d/c home. ) Sit to Lying (QC): 6 (Pt will be Mod I with all aspects of functional mobility, with the least restrictive AD, in order to safely d/c home. ) Lying-Sitting on Side/Bed(QC): 6 (Pt will be Mod I with all aspects of functional mobility, with the least restrictive AD, in order to safely d/c home. ) Sit to Stand (QC): 6 (Pt will be Mod I with all aspects of functional mobility, with the least restrictive AD, in order to safely d/c home. ) Chair/Fbl-kb-Wixcd Xfer(QC): 6 (Pt will be Mod I with all aspects of functional mobility, with the least restrictive AD, in order to safely d/c home. ) Toilet Transfer (QC): 6 (Pt will be Mod I with all aspects of functional mobility, with the least restrictive AD, in order to safely d/c home. ) Car Transfer (QC): 6 (Pt will be Mod I with all aspects of functional mobility, with the least restrictive AD, in order to safely d/c home. ) Does the Patient Walk: Yes Walk 10 feet (QC): 6 (Pt will be Mod I with all aspects of functional mobility, with the least restrictive AD, in order to safely d/c home. ) Walk 50ft with 2 Turns (QC): 6 (Pt will be Mod I with all aspects of functional mobility, with the least restrictive AD, in order to safely d/c home. ) Walk 150 ft (QC): 6 (Pt will be Mod I with all aspects of functional mobility, with the least restrictive AD, in order to safely d/c home. ) Walking 10ft on Uneven Surface: 6 (Pt will be Mod I with all aspects of functional mobility, with the least restrictive AD, in order to safely d/c home. ) 1 Step (curb) (QC): 6 (Pt will be Mod I with all aspects of functional mobility, with the least restrictive AD, in order to safely d/c home. ) 4 Steps (QC): 6 (Pt will be Mod I with all aspects of functional mobility, with the least restrictive AD, in order to safely d/c home. ) 12 Steps (QC): 6 (Pt will be Mod I with all aspects of functional mobility, with the least restrictive AD, in order to safely d/c home. ) Picking up an Object (QC): 6 (Pt will be Mod I with all aspects of functional mobility, with the least restrictive AD, in order to safely d/c home. ) Does the Pt use WC or Scooter?: Yes Wheel 50 feet with 2 turns (QC: 6 (Pt will be Mod I with all aspects of functional mobility, with the least restrictive AD, in order to safely d/c home. ) Type: Manual Wheel 150 feet: 6 (Pt will be Mod I with all aspects of functional mobility, with the least restrictive AD, in order to safely d/c home. ) Type: Manual PT Plan Problem List Problem List: Activity Tolerance, Functional Strength, Safety, Balance, Gait, Transfer, Bed Mobility Treatment/Plan Treatment Plan: Continue Plan of Care Treatment Plan: Bed Mobility, Concurrent Therapy, Education, Functional Activity [place], Functional Strength, Group Therapy, Gait, Safety, Therapeutic Exercise, Transfers Treatment Duration: Feb 11, 2023 Frequency: At least 5 of 7 days/Wk (IRF) Estimated Hrs Per Day: 2 hours per day Patient and/or Family Agrees t: Yes Safety Risks/Education Patient Education: Gait Training, Transfer Techniques, Reviewed Precautions, Correct Positioning, W/C Management, Safety Issues Teaching Recipient: Patient Teaching Methods: Demonstration, Discussion Response to Teaching: Verbalize Understanding, Return Demonstration, Reinforcement Needed Discharge Recommendations Therapy Discharge Recommendati: Home & Family Equpiment Recommendations-D/C: Front Wheeled Walker Discharge Status/Home Program Cont per POC Barriers to Progress Proximal weakness, core weakness, SOB/endurance Target Placement Home with family assistance Time Time In: 1000 Time Out: 1130 DATE: Jan 29, 2023 Total Billed Treatment Time: 90 Total Billed Treatment 90 min total from [id number]; 60 min co-tx from [id number] 1 visit FA x 3 GT x 2 EX x 1 CHINA ZAFAR PT Jan 29, 2023 11:53
[2023-01-29] MEDS: APIXABAN 5 MG TABLET PO SCH ×2 (12:44→20:42)
[2023-01-29] MEDS: SILVER SULFADIAZINE 400 GM CREAM TP SCH (13:39)
[2023-01-29] MEDS: HYPOCHLOROUS ACID/NaCl WOUND SOLN 250 ML IR SCH (13:39)
[2023-01-29] MEDS: oxyCODONE IMMEDIATE RELEASE 5 MG TABLET PO PRN (13:42)
--- NOTE | 2023-01-29 17:33 | Consultation-Cardiology ---
HPI-Cardiology Cardiology Consultation: Date of Consultation 01/29/23 Time Seen by a Provider: 17:15 Date of Admission Attending Physician Jose Valencia MD Admitting Physician Admitting Physician: Beryl Mcdaniel DO Attending Physician: Beryl Mcdaniel DO Consulting Physician CHERIE ROJAS MD, MA, FACP, FACC, [facility], CCDS Physician requesting consult: Dr Mcdaniel HPI: Chief Complaint: Reason for consultation. CABG in November 2022 associated with complications 62 yo woman with CABG x 3 in mid November 2022 at [facility]. Needed resternotomy of a graft failure a few days later. A few days after that she needed repeat sternal surgery for wound dehiscence. During these procedures, she also ended up with a chest tube on the left side that remained in place for several weeks. This information is gathered from patient's daughter who is by patient's bedside. The patient spent a month at [facility] and was then transferred to a fdc care facility at [place] where she spent nearly another month. The patient's daughter report some rhythm issues but is not sure if they were during hosp at [place] or during the one in . She was apparently placed on blood thinners and amiodarone. Shas now been admitted by Dr Mcdnaiel to her rehab service at this hospital. The patient does not currently report cp or palp or syncope. She has chronic shortness of breath with mild activity. She does not report shortness of breath at rest. She does not report leg swelling. Review of Systems-Cardiology Review of Systems Constitutional: malaise, tiredness; No weight loss, No weight gain Eyes: No vision change Ears/Nose/Throat: No ear discharge, No nasal drainage, No recent hearing loss Respiratory: As described under HPI Cardiovascular: As described under HPI Gastrointestinal: No diarrhea, No nausea, No vomiting Genitourinary: No dysuria, No hematuria Musculoskeletal: No back pain, No joint pain Skin: No rash, No ulcerations Psychiatric/Neurological: No seizure, No focal weakness Hematologic: No bleeding abnormalities All Other Systems Reviewed Negative Unless Noted: Yes DAW-Jnnsgd-Safgyx Hx Patient Social History Marrital Status: single Employed/Student: retired Smoking Status: Former Smoker 2nd Hand Smoke Exposure: Yes Alcohol Use?: No Pt feels they are or have been: No Tobacco type used: Cigarettes Immunizations Up To Date Date of Influenza Vaccine: Mar 31, 2022 Past Medical History PMH As described under Assessment. Family Medical History Family Medical History: She reports her father had CAD. She reports a sister with CAD. Allergies and Home Medications Allergies Coded Allergies: No Known Drug Allergies (Unverified , 03/23/17) Patient Home Medication List Home Medication List Reviewed: Yes Acetaminophen (Tylenol Extra Strength) 500 Mg Tablet, 1,000 MG PO Q8H PRN for PAIN-MILD (1-4), (Reported) Entered as Reported by: EMILIE HENRIQUEZ on 08/28/22 105 Last Action: Continued Amiodarone HCl (Amiodarone HCl) 200 Mg Tablet, 200 MG PO DAILY, (Reported) Entered as Reported by: EMILIE HENRIQUEZ on 01/27/231428 Last Action: Continued Amlodipine Besylate (Amlodipine Besylate) 5 Mg Tablet, 5 MG PO DAILY, (Reported) Entered as Reported by: EMILIE HENRIQUEZ on 01/27/231428 Last Action: Continued Benzonatate (Tessalon Perles) 100 Mg Capsule, 100 MG PO TID PRN for COUGH, (Reported) Entered as Reported by: EMILIE HENRIQUEZ on 01/27/231428 Last Action: Continued Bisacodyl (Bisacodyl) 10 Mg Supp.rect, 10 MG RC DAILY PRN for CONSTIPATION-4TH LINE, (Reported) Entered as Reported by: EMILIE HENRIQUEZ on 01/27/231428 Last Action: Continued Budesonide (Budesonide) 0.5 Mg/2 Ml Ampul.neb, 0.5 MG IH BID, (Reported) Entered as Reported by: EMILIE HENRIQUEZ on 01/27/231428 Last Action: Continued Calcium Carbonate (Calcium Carbonate) 200 Mg Calcium (500 Mg) Tab.chew, 500 MG P O Q6H PRN for HEARTBURN, (Reported) Entered as Reported by: EMILIE HENRIQUEZ on 01/27/231428 Last Action: Continued Clopidogrel Bisulfate (Clopidogrel) 75 Mg Tablet, 75 MG PO DAILY, (Reported) Entered as Reported by: EMILIE HENRIQUEZ on 01/27/231428 Last Action: Continued Cyclobenzaprine HCl (Cyclobenzaprine HCl) 10 Mg Tablet, 10 MG PO TID PRN for MUSCLE SPASMS, (Reported) Entered as Reported by: EMILIE HENRIQUEZ on 01/27/231428 Last Action: Continued Diphenhydramine HCl (Benadryl) 25 Mg Capsule, 25 MG PO Q6H PRN for RASH/ITCHING, (Reported) Entered as Reported by: EMILIE HENRIQUEZ on 01/27/231428 Last Action: Converted Diphenhydramine HCl/Zinc Acet (Benadryl Itch Stopping Crm) 2 %-0.1 % Cream..g., 1 APPLIC TP Q6H PRN for ITCHING, (Reported) Entered as Reported by: EMILIE HENRIQUEZ on 01/27/231428 Last Action: Continued Fluticasone Propionate (Flonase Allergy Relief) 50 Mcg/Actuation [place].susp, 2 SPRAY NSEACH BID, (Reported) Entered as Reported by: EMILIE HENRIQUEZ on 01/27/231428 Last Action: Converted Ipratropium/Albuterol Sulfate (Iprat-Albut 0.5-3(2.5) mg/3 ml) 0.5 Mg-3 Mg (2.5 Mg Base)/3 Ml Ampul.neb, 3 ML IH Q6H PRN for SHORTNESS OF BREATH, (Reported) Entered as Reported by: EMILIE HENRIQUEZ on 01/27/231428 Last Action: Continued Ipratropium/Albuterol Sulfate (Iprat-Albut 0.5-3(2.5) mg/3 ml) 0.5 Mg-3 Mg (2.5 Mg Base)/3 Ml Ampul.neb, 3 ML IH QID, (Reported) Entered as Reported by: EMILIE HENRIQUEZ on 01/27/231428 Last Action: Continued Lorazepam (Ativan) 0.5 Mg Tablet, 0.5 MG PO Q8H PRN for ANXIETY, (Reported) Entered as Reported by: EMILIE HENRIQUEZ on 01/27/231428 Last Action: Continued Meclizine HCl (Meclizine HCl) 25 Mg Tablet, 25 MG PO TID PRN for DIZZINESS, (Reported) Entered as Reported by: EMILIE HENRIQUEZ on 01/27/231428 Last Action: Continued Ondansetron (Ondansetron Odt) 4 Mg Tab.rapdis, 4 MG SL Q4H PRN for NAUSEA/VOMITING-1ST LINE, (Reported) Entered as Reported by: EMILIE HENRIQUEZ on 01/27/231428 Last Action: Continued Polyethylene Glycol 3350 (Miralax) 17 Gram Powd.pack, 17 GM PO DAILY, (Reported) Entered as Reported by: EMILIE HENRIQUEZ on 01/27/231428 Last Action: Continued Silver Sulfadiazine (Silver Sulfadiazine) 1 % Cream..g., 1 APPLIC TP UD PRN for CLEANSING, (Reported) Entered as Reported by: EMILIE HENRIQUEZ on 01/27/231428 Last Action: Continued Silver Sulfadiazine (Silver Sulfadiazine) 1 % Cream..g., 1 APPLIC TP DAILY, (Reported) Entered as Reported by: EMILIE HENRIQUEZ on 01/27/231428 Last Action: Continued Sodium Hypochlorite (Dakin's) 0.125 % Solution, 1 APPLIC UD PRN for CLEANSING, (Reported) Entered as Reported by: EMILIE HENRIQUEZ on 01/27/231428 Last Action: Continued Sodium Hypochlorite (Dakin's) 0.125 % Solution, 1 APPLIC BID, (Reported) Entered as Reported by: EMILIE HENRIQUEZ on 01/27/231428 Last Action: Continued Tramadol HCl (Tramadol HCl) 50 Mg Tablet, 50 MG PO Q4H PRN for PAIN-MODERATE (5- 7), (Reported) Entered as Reported by: EMILIE HENRIQUEZ on 01/27/231428 Last Action: Continued Discontinued Medications Ascorbic Acid (Vitamin C) 500 Mg Tablet, 500 MG PO DAILY, (Reported) Discontinued Reason: No Longer Taking Entered as Reported by: EMILIE HNERIQUEZ on 08/28/221054 Last Action: Discontinued Aspirin (Children's Aspirin) 81 Mg Tab.chew, 81 MG PO DAILY Discontinued Reason: No Longer Taking Prescribed by: YUE OLIVARES on 08/29/221058 Last Action: Discontinued Azithromycin (Azithromycin) 250 Mg Tablet, 250 MG PO DAILY Discontinued Reason: No Longer Taking Prescribed by: YUE OLIVARES on 08/29/221058 Last Action: Discontinued B&C/FA/Zinc/Copper Oxide/Vit E (Stress B-Complex Tablet) 500-0.4 Mg Tablet, 1 EACH PO DAILY, (Reported) Discontinued Reason: No Longer Taking Entered as Reported by: EMILIE HENRIQUEZ on 08/28/221054 Last Action: Discontinued Cephalexin (Cephalexin) 500 Mg Tablet, 500 MG PO BID Discontinued Reason: No Longer Taking Prescribed by: YUE OLIVARES on 08/29/221058 Last Action: Discontinued Cholecalciferol (Vitamin D3) (Vitamin D3) 50 Mcg (2000 Unit) Tablet, 50 MCG PO DAILY, (Reported) Discontinued Reason: No Longer Taking Entered as Reported by: EMILIE HENRIQUEZ on 08/28/221054 Last Action: Discontinued Furosemide (Furosemide) 40 Mg Tablet, 40 MG PO DAILY Discontinued Reason: No Longer Taking Prescribed by: YUE OLIVARES on 08/29/22 1100 Last Action: Discontinued Ibuprofen (Ibuprofen) 200 Mg Tablet, 600-800 MG PO Q8H PRN for PAIN-MILD (1-4), (Reported) Discontinued Reason: No Longer Taking Entered as Reported by: EMILIE HENRIQUEZ on 08/28/221054 Last Action: Discontinued Lisinopril (Lisinopril) 5 Mg Tablet, 5 MG PO DAILY Discontinued Reason: No Longer Taking Prescribed by: YUE OLIVARES on 08/29/221058 Last Action: Discontinued Metoprolol Tartrate (Metoprolol Tartrate) 25 Mg Tablet, 25 MG PO BID Discontinued Reason: No Longer Taking Prescribed by: YUE OLIVARES on 08/29/221058 Last Action: Discontinued Mv-Mn/Folic Acid/Calcium/Vit K (Women's 50 Plus Multivit Tab) 1 Each Tablet, 1 EACH PO DAILY, (Reported) Discontinued Reason: No Longer Taking Entered as Reported by: DELPHINE JOHNSON on 05/07/21 1254 Last Action: Discontinued Prednisone (Prednisone) 20 Mg Tab, 40 MG PO DAILY@0700 Discontinued Reason: No Longer Taking Prescribed by: YUE OLIVARES on 08/29/221058 Last Action: Discontinued Spironolactone (Spironolactone) 25 Mg Tablet, 25 MG PO DAILY Discontinued Reason: No Longer Taking Prescribed by: YUE OLIVARES on 08/29/221058 Last Action: Discontinued Umeclidinium Brm/Vilanterol Tr (Anoro Ellipta 62.5-25 Mcg INH) 62.5 Mcg-25 Mcg/Actuation Blst.w.dev, 1 EACH IH BID Discontinued Reason: No Longer Taking Prescribed by: YUE OLIVARES on 08/29/22 1059 Last Action: Discontinued Vit C/[place] & Celery Ex/Grp E (Tart [place] Capsule) 30 Mg-250 Mg-75 Mg-75 Mg-20 Mg Capsule, 1 EACH PO BID, (Reported) Discontinued Reason: No Longer Taking Entered as Reported by: EMILIE HENRIQUEZ on 08/28/22 1055 Last Action: Discontinued Physical Exam-Cardiology Physical Exam Vital Signs/I&O 01/29/23 01/29/23 01/29/23 01/29/23 07:02 07:19 08:50 14:59 Temp 35.8 Pulse 88 Resp 18 B/P (MAP) 126/63 (84) Pulse Ox 96 96 96 O2 Delivery Nasal Cannula Nasal Cannula Nasal Cannula Nasal Cannula O2 Flow Rate 3.00 3.00 3.00 2.00 01/29/23 18:03 Pulse 92 01/28/23 23:59 Intake Total 500 ml Balance 500 ml Capillary Refill : Constitutional: AAO x 3, well-developed, well-nourished HEENT: PERRL, EOMI; No xanthelasmas are seen Neck: carotid pulses are 2 + bilaterally Respiratory: No accessory muscle use; chest expansion is symmetric, chest is bilaterally symmetric, other (diminished air entry at the bases, more so on the L side; prolonged exp) Cardiovascular: regular rate-rhythm, S1 and S2, systolic murmur (soft JOSÉ at card base) Gastrointestinal: No tender; soft; No guarding, No rebound; audible bowel sounds Extremities: No clubbing, No cyanosis, No significant edema Neurologic/Psychiatric: oriented x 3, other (moves all limbs equally) Skin: normal color, warm/dry; No cyanosis, No cool; diaphoresis; No rash on exposed areas, No ulcerations on exposed areas; other (part of L lateral chest under dressing that was not removed) Data Review Labs Laboratory Tests 01/29/23 05:20: White Blood Count 10.3, Red Blood Count 3.46L, Hemoglobin 10.4L, Hematocrit 33L, Mean Corpuscular Volume 95, Mean Corpuscular Hemoglobin 30, Mean Corpuscular Hemoglobin Concent 32, Red Cell Distribution Width 16.4H, Platelet Count 445H, Mean Platelet Volume 9.3, Immature Granulocyte % (Auto) 3, Neutrophils (%) (Auto) 48, Lymphocytes (%) (Auto) 28, Monocytes (%) (Auto) 13H, Eosinophils (%) (Auto) 6, Basophils (%) (Auto) 2, Neutrophils # (Auto) 5.0, Lymphocytes # (Auto) 2.9, Monocytes # (Auto) 1.3H, Eosinophils # (Auto) 0.6H, Basophils # (Auto) 0.2H , Immature Granulocyte # (Auto) 0.3H, Sodium Level 134L, Potassium Level 4.5, Chloride Level 100, Carbon Dioxide Level 28, Anion Gap 6, Blood Urea Nitrogen 11, Creatinine 0.74, Estimat Glomerular Filtration Rate 91, BUN/Creatinine Ratio 15, Glucose Level 97, Calcium Level 8.9, Corrected Calcium 9.6, Total Bilirubin 0.2, Aspartate Amino Transf (AST/SGOT) 15, Alanine Aminotransferase (ALT/SGPT) 13, Alkaline Phosphatase 91, Total Protein 6.4, Albumin 3.1L A/P-Cardiology Assessment/Admission Diagnosis CAD - s/p CABG at [facility] in November 2022 complicated by graft closure requiring another sternotomy and wound dehiscence requiring yet another sternotomy - s/p L-sided chest tube for several week following above surgery COPD ?A Fib sindy-op (following CABG) Tobaccoism - cessation advised Discussion and Recomendations * Given probable periop PAF, continue amiodarone and OAC * Try to obtain records from [facility] * Records from [facility] reviewed * Keep on tele * Monitor labs HCERIE ROJAS MD FACP [facility] Jan 29, 2023 17:32
[2023-01-29 19:29] VITALS: BP 114/68
[2023-01-30] MEDS: CYCLOBENZAPRINE 10 MG TABLET PO PRN ×3 (05:24→19:29)
[2023-01-30 07:19] VITALS: BP 138/78
[2023-01-30] MEDS: AMIODARONE 200 MG TABLET PO SCH (07:25)
[2023-01-30] MEDS: CLOPIDOGREL 75 MG TABLET PO SCH (07:25)
[2023-01-30] MEDS: APIXABAN 5 MG TABLET PO SCH ×2 (07:25→19:29)
[2023-01-30] MEDS: amLODIPine 5 MG TABLET PO SCH (07:25)
[2023-01-30] MEDS: FLUTICASONE NASAL SPRAY (120 SPRAYS) NS SCH ×2 (07:26→19:29)
[2023-01-30] MEDS: HYPOCHLOROUS ACID/NaCl WOUND SOLN 250 ML IR SCH (07:26)
[2023-01-30] MEDS: SILVER SULFADIAZINE 400 GM CREAM TP PRN (07:27)
[2023-01-30] MEDS: RT-BUDESONIDE NEBS 0.5 MG/2ML VIAL IH SCH ×2 (07:30→20:40)
[2023-01-30] MEDS: RT-Ipratropium/Albuterol NEB 3 ML VIAL IH SCH ×4 (07:30→20:39)
[2023-01-30] MEDS: LORazepam 0.5 MG TABLET PO PRN ×2 (07:31→22:30)
[2023-01-30] MEDS: DOCUSATE SODIUM 100 MG CAPSULE PO SCH ×2 (09:10→19:29)
[2023-01-30] MEDS: SENNA W/DOCUSATE (SENOKOT S) TABLET PO SCH ×2 (09:10→19:29)
[2023-01-30] MEDS: polyethylene glycoL POWDER 17 GM (MIRALAX) PACK PO SCH (09:11)
[2023-01-30] MEDS: SILVER SULFADIAZINE 400 GM CREAM TP SCH (09:12)
[2023-01-30] MEDS: DAKIN'S 1/4 STRENGTH (0.125%) 237 ML BTL TOP SCH ×2 (09:13→19:14)
--- NOTE | 2023-01-30 10:26 | PM&R Progress Note ---
Subjective HPI/CC On Admission Date Seen by Provider: Jan 30, 2023 Time Seen by Provider: 11:00 Subjective/Events-last exam 01/30/2023: No pain reported Improved ambulation Weaning O2 to 2L/min No falls 01/29/2023: Patient doing pretty well Working with therapy Oxygen is maintained BiPAP maintained at night Daughter at the bedside Labs remained stable Cardiology consult Review of Systems General: Fatigue, Malaise Objective Exam Vital Signs Vital Signs Date Time Temp Pulse Resp B/P (MAP) Pulse Ox O2 Delivery O2 Flow Rate FiO2 01/30/23 12:34 98 01/30/23 09:17 Nasal Cannula 2.00 01/30/23 07:30 95 01/30/23 07:19 36.2 16 138/78 (98) Capillary Refill : General Appearance: No Apparent Distress, WD/WN, Chronically ill, Thin, Other (frail) HEENT: PERRL/EOMI, Normal ENT Inspection, Pharynx Normal Neck: Full Range of Motion, Normal Inspection, Non Tender, Supple, Carotid Bruit Respiratory: Chest Non Tender, Lungs Clear, No Accessory Muscle Use, No Respiratory Distress, Decreased Breath Sounds Cardiovascular: Regular Rate, Rhythm, No Edema, No Gallop, No JVD, No Murmur, Normal Peripheral Pulses Gastrointestinal: Normal Bowel Sounds, No Organomegaly, No Pulsatile Mass, Non Tender, Soft Back: Normal Inspection, No CVA Tenderness, No Vertebral Tenderness Extremity: Normal Capillary Refill, Normal Inspection, Normal Range of Motion, Non Tender, No Calf Tenderness, No Pedal Edema Neurologic/Psychiatric: Alert, Oriented x3, No Motor/Sensory Deficits, coil cutter II- XII Norm as Tested, Abnormal Gait, Depressed Affect, Motor Weakness (generalized 3/5) Skin: Normal Color, Warm/Dry Lymphatic: No Adenopathy Results/Procedures Lab Patient resulted labs reviewed. FIM Transfers Therapy Code Descriptions/Definitions Functional [place] Measure: 0=Not Assessed/NA 4=Minimal Assistance 1=Total Assistance 5=Supervision or Setup 2=Maximal Assistance 6=Modified [place] 3=Moderate Assistance 7=Complete IndependenceSCALE: Activities may be completed with or without assistive devices. 7-Xtvturidel-ojaabsg completes the activity by him/herself with no assistance from a helper. 5-Set-up or Clean-up Assistance-helper sets up or cleans up; patient completes activity. [place] assists only prior to or following the activity. 4-Supervision or Touching Assistance-helper provides verbal cues and/or touching/steadying and/or contact guard assistance as patient completes activity. Assistance may be provided throughout the activity or intermittently. 3-Partial/Moderate Assistance-helper does LESS THAN HALF the effort. [place] lifts, holds or supports trunk or limbs, but provides less than half the effort. 2-Substantial/Maximal Assistance-helper does MORE THAN HALF the effort. [place] lifts or holds trunk or limbs and provides more than half the effort. 7-Sdqleatcp-vnntoi does ALL the effort. Patient does none of the effort to complete the activity. Or, the assistance of 2 or more helpers is required for the patient to complete the activity. If activity was not attempted, code reason: 7-Patient Refused. 9-Not Applicable-not attempted and the patient did not perform the activity before the current illness, exacerbation or injury. 10-Not Attempted due to Environmental Limitations-(lack of equipment, weather restraints, etc.). 88-Not Attempted due to Medical Conditions or Safety Concerns. Roll Left to Right (QC): 4 (SBA ) Sit to Lying (QC): 4 Sit to Stand (QC): 3 Chair/Ufp-le-Amrtv Xfer(QC): 3 Car Transfer (QC): 3 (Min A ) Gait Training Does the Patient Walk?: Yes Distance: 90ft Walk 10 feet (QC): 4 Walk 50 ft with 2 Turns(QC): 4 Walk 150 ft (QC): 88 Walking 10ft/uneven surface-QC: 88 Gait Persons Needed: 1 Gait Assistive Device: FWW Wheelchair Training Does the Pt Use a Wheelchair?: Yes Distance: 150ft Wheel 50 ft with 2 turns (QC): 4 Wheel 150 ft (QC): 4 Type of Wheelchair: Manual Stair Training 1 Step (curb) (QC): 88 (SOB) 4 Steps (QC): 88 (SOB) 12 Steps (QC): 88 (SOB ) Balance Picking up an Object (QC): 3 (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 Anemia HLP Plan: Wound care Dietary consult Aggressive PT OT Wean O2 01/29/2023: Placed back on oral anticoagulation Supportive care 01/30/2023: Monitor O2 (1) Myopathy MELIA DAVID DO Jan 30, 2023 10:26
--- NOTE | 2023-01-30 10:58 | Occupational Ther Daily Note ---
OT Current Status-Daily Note Subjective Pt alert, sitting in recliner. Pt agrees to therapy. No c/o pain at this time. Mental Status/Objective Patient Orientation: Person, Place, Time, Situation Attachments: IV, Oxygen (2L), Telemetry ADL-Treatment Pt agrees to shower. Pt takes increased time to complete tasks due to significant decrease in activity tolerance that requires frequent and lengthy r ecovery breaks. Pt is able to maintain sternal precautions independently. Supervision for toileting. Independent oral care in sitting. Using grabbars, hand held shower and shower bench, pt able to complete shower after set up due to covering wound sites and IV. Pt fatigued quickly during shower and required lengthy recovery break. Min A for UBD. SBA for LBD. Set up for footwear (socks). Independent for EOB to supine. After session, pt lying in bed with call light/phone in reach. Nrsg present in room. All needs met in room. Therapy Code Descriptions/Definitions Functional [place] Measure: 0=Not Assessed/NA 4=Minimal Assistance 1=Total Assistance 5=Supervision or Setup 2=Maximal Assistance 6=Modified [place] 3=Moderate Assistance 7=Complete IndependenceSCALE: Activities may be completed with or without assistive devices. 2-Aoksuretsv-pttzrne completes the activity by him/herself with no assistance from a helper. 5-Set-up or Clean-up Assistance-helper sets up or cleans up; patient completes activity. [place] assists only prior to or following the activity. 4-Supervision or Touching Assistance-helper provides verbal cues and/or touching/steadying and/or contact guard assistance as patient completes activity. Assistance may be provided throughout the activity or intermittently. 3-Partial/Moderate Assistance-helper does LESS THAN HALF the effort. [place] lifts, holds or supports trunk or limbs, but provides less than half the effort. 2-Substantial/Maximal Assistance-helper does MORE THAN HALF the effort. [place] lifts or holds trunk or limbs and provides more than half the effort. 1-Jveunscsl-bdezha does ALL the effort. Patient does none of the effort to complete the activity. Or, the assistance of 2 or more helpers is required for the patient to complete the activity. If activity was not attempted, code reason: 7-Patient Refused. 9-Not Applicable-not attempted and the patient did not perform the activity before the current illness, exacerbation or injury. 10-Not Attempted due to Environmental Limitations-(lack of equipment, weather restraints, etc.). 88-Not Attempted due to Medical Conditions or Safety Concerns. Oral Hygiene (QC): 6 Shower/Bathe Self (QC): 5 Upper Body Dressing (QC): 5 Lower Body Dressing (QC): 4 On/Off Footwear: 5 Toileting Hygiene (QC): 4 Toilet Transfer (QC): 4 OT Short Term Goals Short Term Goals Time Frame: Feb 02, 2023 Eatin Oral hygiene: 6 (standing) Toileting hygiene: 6 OT Longterm Goals [employer] Engineer Goals Time Frame: Feb 06, 2023 Acute change in mental status: 0 Inattention: 0 Disorganized thinkin Altered level of consciousness: 0 Eating (QC): 6 Oral Hygiene (QC): 6 Toileting Hygiene (QC): 6 Shower/Bathe Self (QC): 5 Upper Body Dressing (QC): 6 Lower Body Dressing (QC): 6 On/Off Footwear (QC): 6 1=Demonstrate adherence to instructed precautions during ADL tasks. 2=Patient will verbalize/demonstrate understanding of assistive devices/modifications for ADL. 3=Patient will improve strength/tolerance for activity to enable patient to perform ADL's. OT Education/Plan Problem List/Assessment Assessment: Decreased Activ Tolerance, Decreased UE Strength, Impaired Self- Care Skills Discharge Recommendations Plan/Recommendations: Continue POC Treatment Plan/Plan of Care Patient would benefit from OT for education, treatment and training to promote independence in ADL's, mobility, safety and/or upper extremity function for ADL's. Plan of Care: ADL Retraining, Concurrent Therapy, Functional Mobility, Group Exercise/Act as Ind, UE Funct Exercise/Act Treatment Duration: Feb 06, 2023 Frequency: At least 5 of 7 days/Wk (IRF) Estimated Hrs Per Day: 1 hour per day Agreement: Yes Rehab Potential: Good Time Start Time: 10:30 Stop Time: 12:00 DATE: Jan 30, 2023 Total Time Billed (hr/min): 90 Billed Treatment Time 1 visit-ADL 6 (90 min) ANETA ORELLANA Jan 30, 2023 10:58
[2023-01-30] MEDS: oxyCODONE IMMEDIATE RELEASE 5 MG TABLET PO PRN (11:24)
--- NOTE | 2023-01-30 13:44 | Physical Therapy Daily Note ---
PT Daily Note-Current Subjective Pt reports she is doing well this morning and agreeable to PT. Pt reported sternal pain at 5/10. Pain Numeric Pain Scale: 5-Moderate Pain Location: Incisional (Sternum ) Section J - Health Conditions 1. Rarely or not at all 2. Occasionally 3. Frequently 4. Almost constantly 8. Unable to answer Pain Effect on Sleep: 2 Pain Interference with Therapy: 3 Pain Interference w/Day-to-Day: 2 Mental Status Attachments: Oxygen (2L ), IV Transfers SCALE: Activities may be completed with or without assistive devices. 3-Ozybdqzidd-zkeqvkn completes the activity by him/herself with no assistance from a helper. 5-Set-up or Clean-up Assistance-helper sets up or cleans up; patient completes activity. [place] assists only prior to or following the activity. 4-Supervision or Touching Assistance-helper provides verbal cues and/or touching/steadying and/or contact guard assistance as patient completes activity. Assistance may be provided throughout the activity or intermittently. 3-Partial/Moderate Assistance-helper does LESS THAN HALF the effort. [place] lifts, holds or supports trunk or limbs, but provides less than half the effort. 2-Substantial/Maximal Assistance-helper does MORE THAN HALF the effort. [place] lifts or holds trunk or limbs and provides more than half the effort. 9-Cdxiktoyd-xdwsuz does ALL the effort. Patient does none of the effort to complete the activity. Or, the assistance of 2 or more helpers is required for the patient to complete the activity. If activity was not attempted, code reason: 7-Patient Refused. 9-Not Applicable-not attempted and the patient did not perform the activity before the current illness, exacerbation or injury. 10-Not Attempted due to Environmental Limitations-(lack of equipment, weather restraints, etc.). 88-Not Attempted due to Medical Conditions or Safety Concerns. Sit to Stand (QC): 3 Chair/Jkh-yo-Uyfau Xfer(QC): 3 Toilet Transfer (QC): 3 Weight Bearing Right Lower Extremity: Right Full Weight Bearing Left Lower Extremity: Left Full Weight Bearing Gait Training Does the Patient Walk?: Yes Distance: 80ft x 2 Walk 10 feet (QC): 4 Walk 50 ft with 2 Turns(QC): 4 Walk 150 ft (QC): 88 Walking 10ft/uneven surface-QC: 88 Gait Persons Needed: 1 Gait Assistive Device: FWW Wheelchair Training Does the Pt Use a Wheelchair?: Yes Wheel 50 ft with 2 turns (QC): 4 Wheel 150 ft (QC): 4 Type of Wheelchair: Manual Treatments Pt edu on HEP, with handouts provided. Pt completed long-sitting B LE Ther Ex x 15 reps each. Pt completed functional transfers, including toilet transfer, with Min A. Pt ambulated 80ft x 2 with the FWW and CGA (pts O2 dropped to 88% after first bout of walking (pt reports holding her breath), and rebounded quickly after seated rest). Pt edu about proper breathing techniques. Pts O2 stayed above 95% throughout the rest of treatment session. Pt completed seated B LE Ther Ex x 15 reps each with the red Tband. Pt completed 10 min on the nu-step on level 1. Pt completed w/c mobility with SBA. Pt sitting in the recliner upon completion of PT, with call light in reach, all needs met, and family present. Assessment Current Status: Good Progress Pt tolerated PT well with good effort PT Diplomatic Interpreter Goals Diplomatic Interpreter Goals PT Senior Care Goals Time Frame: Feb 11, 2023 Roll Left & Right (QC): 6 (Pt will be Mod I with all aspects of functional mobility, with the least restrictive AD, in order to safely d/c home. ) Sit to Lying (QC): 6 (Pt will be Mod I with all aspects of functional mobility, with the least restrictive AD, in order to safely d/c home. ) Lying-Sitting on Side/Bed(QC): 6 (Pt will be Mod I with all aspects of functional mobility, with the least restrictive AD, in order to safely d/c home. ) Sit to Stand (QC): 6 (Pt will be Mod I with all aspects of functional mobility, with the least restrictive AD, in order to safely d/c home. ) Chair/Lcv-md-Dsriy Xfer(QC): 6 (Pt will be Mod I with all aspects of functional mobility, with the least restrictive AD, in order to safely d/c home. ) Toilet Transfer (QC): 6 (Pt will be Mod I with all aspects of functional mobili ty, with the least restrictive AD, in order to safely d/c home. ) Car Transfer (QC): 6 (Pt will be Mod I with all aspects of functional mobility, with the least restrictive AD, in order to safely d/c home. ) Does the Patient Walk: Yes Walk 10 feet (QC): 6 (Pt will be Mod I with all aspects of functional mobility, with the least restrictive AD, in order to safely d/c home. ) Walk 50ft with 2 Turns (QC): 6 (Pt will be Mod I with all aspects of functional mobility, with the least restrictive AD, in order to safely d/c home. ) Walk 150 ft (QC): 6 (Pt will be Mod I with all aspects of functional mobility, with the least restrictive AD, in order to safely d/c home. ) Walking 10ft on Uneven Surface: 6 (Pt will be Mod I with all aspects of functional mobility, with the least restrictive AD, in order to safely d/c home. ) 1 Step (curb) (QC): 6 (Pt will be Mod I with all aspects of functional mobility, with the least restrictive AD, in order to safely d/c home. ) 4 Steps (QC): 6 (Pt will be Mod I with all aspects of functional mobility, with the least restrictive AD, in order to safely d/c home. ) 12 Steps (QC): 6 (Pt will be Mod I with all aspects of functional mobility, with the least restrictive AD, in order to safely d/c home. ) Picking up an Object (QC): 6 (Pt will be Mod I with all aspects of functional mobility, with the least restrictive AD, in order to safely d/c home. ) Does the Pt use WC or Scooter?: Yes Wheel 50 feet with 2 turns (QC: 6 (Pt will be Mod I with all aspects of functional mobility, with the least restrictive AD, in order to safely d/c home. ) Type: Manual Wheel 150 feet: 6 (Pt will be Mod I with all aspects of functional mobility, with the least restrictive AD, in order to safely d/c home. ) Type: Manual PT Plan Problem List Problem List: Activity Tolerance, Functional Strength, Safety, Balance, Gait, Transfer, Bed Mobility Treatment/Plan Treatment Plan: Continue Plan of Care Treatment Plan: Bed Mobility, Concurrent Therapy, Education, Functional Acti vity [place], Functional Strength, Group Therapy, Gait, Safety, Therapeutic Exercise, Transfers Treatment Duration: Feb 11, 2023 Frequency: At least 5 of 7 days/Wk (IRF) Estimated Hrs Per Day: 2 hours per day Patient and/or Family Agrees t: Yes Safety Risks/Education Patient Education: Gait Training, Transfer Techniques, Issued Written HEP, Reviewed Precautions, W/C Management, Safety Issues Teaching Recipient: Patient Teaching Methods: Demonstration, Discussion Response to Teaching: Verbalize Understanding, Return Demonstration, Reinforcement Needed Discharge Recommendations Therapy Discharge Recommendati: Home & Family Equpiment Recommendations-D/C: Front Wheeled Walker Discharge Status/Home Program Cont per POC Barriers to Progress Weakness; SOB/endurance Target Placement Home with family assistance Time Time In: 830 Time Out: 1000 DATE: Jan 30, 2023 Total Billed Treatment Time: 90 Total Billed Treatment 90 min 1 visit EX x 2 GT x 2 FA x 2 CHINA ZAFAR PT Jan 30, 2023 13:44
--- NOTE | 2023-01-30 16:03 | Progress Note - Cardiology ---
Cardiology SOAP Progress Note Subjective: No cp or palp or syncope Gen weakness No focal weakness Shortness of breath with mild activity (chronic) No swelling No n/v/d Objective: I&O/Vital Signs 01/30/23 01/30/23 01/30/23 01/30/23 07:00 07:19 07:30 07:30 Temp 36.2 Pulse 94 91 Resp 16 B/P (MAP) 138/78 (98) Pulse Ox 95 95 O2 Delivery Nasal Cannula Nasal Cannula Nasal Cannula O2 Flow Rate 3.00 2.00 2.00 01/30/23 01/30/23 09:17 12:34 Pulse 98 O2 Delivery Nasal Cannula O2 Flow Rate 2.00 01/30/23 00:00 Intake Total 810 ml Balance 810 ml Weight (Pounds): 128 Weight (Ounces): 8 Weight (Calculated Kilograms): [id number] Constitutional: AAO x 3, well-developed, well-nourished Respiratory: No accessory muscle use; chest expansion is symmetric, chest is bilaterally symmetric, other (diminished air entry at the bases, more so on the L side; prolonged exp) Cardiovascular: regular rate-rhythm, S1 and S2, systolic murmur (soft JOSÉ at card base) Gastrointestional: No tender; soft; No guarding, No rebound; audible bowel sounds Extremities: No clubbing, No cyanosis, No significant edema Neurologic/Psychiatric: oriented x 3, other (moves all limbs equally) Skin: normal color, warm/dry; No cyanosis, No cool; diaphoresis; No rash on exposed areas, No ulcerations on exposed areas; other (part of L lateral chest under dressing that was not removed) A/P: Assessment: CAD - s/p CABG (ANN to LAD, SVG to OM1, SVG to PDA) at [facility] in November 2022. Post-operative complications noted below - CABG complicated by ANN closure at anastomotic site during the same hospitalization: treated with PCI consisting of Papyrus 2.5 x 20 covered stent to cover perf at anastomotic site and Papyrus 3.0 x 20 in prox/mid LAD to cover another perf. Yet another perp in a diagonal treated with balloon tamponade and requiring another sternotomy - Subsequently, during the same hospitalization wound dehiscence required yet another sternotomy - s/p L-sided chest tube for several weeks following above surgery COPD ?A Fib sindy-op (following CABG) Tobaccoism - cessation advised Plan: * Complex management due to multiple comorbidities. We obtained and reviewed r ecords from [facility] and the LTC facility in [place] * Given CABG and coronary stenting, Plavix needs to be continued * Also continue apixaban. It could not be determined from the records when and why apixaban was initiated but patient was on it at the time of transfer to the [facility] and we are continuing it. Same is the reason for continuation of amiodarone * Keep on tele * Monitor labs CHERIE ROJAS [facility] Jan 30, 2023 16:03
[2023-01-30 19:33] VITALS: BP 127/75
[2023-01-30] MEDS: diphenhydrAMINE 25 MG TABLET PO PRN (22:30)
[2023-01-31] MEDS: oxyCODONE IMMEDIATE RELEASE 5 MG TABLET PO PRN ×2 (01:11→21:00)
--- NOTE | 2023-01-31 06:41 | PM&R Progress Note ---
Subjective HPI/CC On Admission Date Seen by Provider: Jan 31, 2023 Time Seen by Provider: 11:00 Subjective/Events-last exam 01/31/2023: Patient having no new problems Reviewed meds Slept pretty well last night Maintain on oxygen 01/30/2023: No pain reported Improved ambulation Weaning O2 to 2L/min No falls 01/29/2023: Patient doing pretty well Working with therapy Oxygen is maintained BiPAP maintained at night Daughter at the bedside Labs remained stable Cardiology consult Review of Systems General: Fatigue, Malaise Objective Exam Vital Signs Vital Signs Date Time Temp Pulse Resp B/P (MAP) Pulse Ox O2 Delivery O2 Flow Rate FiO2 01/31/23 13:00 96 01/31/23 08:16 94 Nasal Cannula 2.00 01/31/23 07:18 36.3 20 131/71 (91) Capillary Refill : General Appearance: No Apparent Distress, WD/WN, Chronically ill, Thin, Other (frail) HEENT: PERRL/EOMI, Normal ENT Inspection, Pharynx Normal Neck: Full Range of Motion, Normal Inspection, Non Tender, Supple, Carotid Bruit Respiratory: Chest Non Tender, Lungs Clear, No Accessory Muscle Use, No Respiratory Distress, Decreased Breath Sounds Cardiovascular: Regular Rate, Rhythm, No Edema, No Gallop, No JVD, No Murmur, Normal Peripheral Pulses Gastrointestinal: Normal Bowel Sounds, No Organomegaly, No Pulsatile Mass, Non Tender, Soft Back: Normal Inspection, No CVA Tenderness, No Vertebral Tenderness Extremity: Normal Capillary Refill, Normal Inspection, Normal Range of Motion, Non Tender, No Calf Tenderness, No Pedal Edema Neurologic/Psychiatric: Alert, Oriented x3, No Motor/Sensory Deficits, shake splitter II- XII Norm as Tested, Abnormal Gait, Depressed Affect, Motor Weakness (generalized 3/5) Skin: Normal Color, Warm/Dry Lymphatic: No Adenopathy Results/Procedures Lab Patient resulted labs reviewed. FIM Transfers Therapy Code Descriptions/Definitions Functional [place] Measure: 0=Not Assessed/NA 4=Minimal Assistance 1=Total Assistance 5=Supervision or Setup 2=Maximal Assistance 6=Modified [place] 3=Moderate Assistance 7=Complete IndependenceSCALE: Activities may be completed with or without assistive devices. 7-Afkbymzint-gjsxbqy completes the activity by him/herself with no assistance from a helper. 5-Set-up or Clean-up Assistance-helper sets up or cleans up; patient completes activity. [place] assists only prior to or following the activity. 4-Supervision or Touching Assistance-helper provides verbal cues and/or touching/steadying and/or contact guard assistance as patient completes a ctivity. Assistance may be provided throughout the activity or intermittently. 3-Partial/Moderate Assistance-helper does LESS THAN HALF the effort. [place] lifts, holds or supports trunk or limbs, but provides less than half the effort. 2-Substantial/Maximal Assistance-helper does MORE THAN HALF the effort. [place] lifts or holds trunk or limbs and provides more than half the effort. 6-Hdeuvsqeh-ojjnxv does ALL the effort. Patient does none of the effort to complete the activity. Or, the assistance of 2 or more helpers is required for the patient to complete the activity. If activity was not attempted, code reason: 7-Patient Refused. 9-Not Applicable-not attempted and the patient did not perform the activity before the current illness, exacerbation or injury. 10-Not Attempted due to Environmental Limitations-(lack of equipment, weather restraints, etc.). 88-Not Attempted due to Medical Conditions or Safety Concerns. Roll Left to Right (QC): 4 (SBA ) Sit to Lying (QC): 4 Sit to Stand (QC): 3 Chair/Otk-xr-Ojnrf Xfer(QC): 3 Car Transfer (QC): 3 (Min A ) Gait Training Does the Patient Walk?: Yes Distance: 80ft x 2 Walk 10 feet (QC): 4 Walk 50 ft with 2 Turns(QC): 4 Walk 150 ft (QC): 88 Walking 10ft/uneven surface-QC: 88 Gait Persons Needed: 1 Gait Assistive Device: FWW Wheelchair Training Does the Pt Use a Wheelchair?: Yes Distance: 150ft Wheel 50 ft with 2 turns (QC): 4 Wheel 150 ft (QC): 4 Type of Wheelchair: Manual Stair Training 1 Step (curb) (QC): 88 (SOB) 4 Steps (QC): 88 (SOB) 12 Steps (QC): 88 (SOB ) Balance Picking up an Object (QC): 3 (Min A with senior receptionist ) ADL-Treatment Eating (QC): 6 Oral Hygiene (QC): 6 Shower/Bathe Self (QC): 5 Upper Body Dressing (QC): 5 Lower Body Dressing (QC): 4 On/Off Footwear (QC): 5 Toileting Hygiene (QC): 4 Toilet Transfer (QC): 4 Assessment/Plan Assessment and Plan Assess & Plan/Chief Complaint Assessment: COPD myopathy New O2 dependence CAD recent CABG Sternal and flank pressure wounds Smoker HTN AF? Anemia HLP Plan: Wound care Dietary consult Aggressive PT OT Wean O2 01/29/2023: Placed back on oral anticoagulation Supportive care 01/30/2023: Monitor O2 01/31/2023: Supportive care (1) Myopathy MELIA DAVID DO Jan 31, 2023 06:41
[2023-01-31 07:18] VITALS: BP 131/71
[2023-01-31] MEDS: CYCLOBENZAPRINE 10 MG TABLET PO PRN ×2 (07:25→15:17)
[2023-01-31] MEDS: RT-Ipratropium/Albuterol NEB 3 ML VIAL IH SCH ×4 (07:51→21:25)
[2023-01-31] MEDS: RT-BUDESONIDE NEBS 0.5 MG/2ML VIAL IH SCH ×2 (07:51→21:25)
[2023-01-31] MEDS: LORazepam 0.5 MG TABLET PO PRN ×2 (07:55→20:59)
[2023-01-31] MEDS: amLODIPine 5 MG TABLET PO SCH (07:56)
[2023-01-31] MEDS: CLOPIDOGREL 75 MG TABLET PO SCH (07:56)
[2023-01-31] MEDS: polyethylene glycoL POWDER 17 GM (MIRALAX) PACK PO SCH (07:56)
[2023-01-31] MEDS: AMIODARONE 200 MG TABLET PO SCH (07:56)
[2023-01-31] MEDS: SENNA W/DOCUSATE (SENOKOT S) TABLET PO SCH ×2 (07:56→20:59)
[2023-01-31] MEDS: DOCUSATE SODIUM 100 MG CAPSULE PO SCH ×2 (07:56→20:59)
[2023-01-31] MEDS: APIXABAN 5 MG TABLET PO SCH ×2 (07:56→21:00)
[2023-01-31] MEDS: FLUTICASONE NASAL SPRAY (120 SPRAYS) NS SCH ×2 (07:58→21:00)
[2023-01-31] MEDS: SILVER SULFADIAZINE 400 GM CREAM TP PRN (08:00)
[2023-01-31] MEDS: HYPOCHLOROUS ACID/NaCl WOUND SOLN 250 ML IR SCH (08:00)
[2023-01-31] MEDS: DAKIN'S 1/4 STRENGTH (0.125%) 237 ML BTL TOP SCH ×2 (08:01→20:48)
[2023-01-31] MEDS: SILVER SULFADIAZINE 400 GM CREAM TP SCH (08:02)
[2023-01-31] MEDS: ONDANSETRON 4 MG ORAL DISSOLVE TABLET SL PRN (10:08)
[2023-01-31] MEDS: LACTULOSE SYRUP 10GM/15ML 30ML UDC PO PRN (10:12)
[2023-01-31 19:31] VITALS: BP 101/59
[2023-02-01 07:16] VITALS: BP 114/62
[2023-02-01] MEDS: RT-BUDESONIDE NEBS 0.5 MG/2ML VIAL IH SCH ×2 (07:59→20:14)
[2023-02-01] MEDS: RT-Ipratropium/Albuterol NEB 3 ML VIAL IH SCH ×4 (07:59→20:14)
--- NOTE | 2023-02-01 08:01 | PM&R Progress Note ---
Subjective HPI/CC On Admission Date Seen by Provider: Feb 01, 2023 Time Seen by Provider: 12:00 Subjective/Events-last exam 02/01/2023: Improved overall No BM yet so giving more laxatives No pain reported O2 maintained 01/31/2023: Patient having no new problems Reviewed meds Slept pretty well last night Maintain on oxygen 01/30/2023: No pain reported Improved ambulation Weaning O2 to 2L/min No falls 01/29/2023: Patient doing pretty well Working with therapy Oxygen is maintained BiPAP maintained at night Daughter at the bedside Labs remained stable Cardiology consult Review of Systems General: Fatigue, Malaise Objective Exam Vital Signs Vital Signs Date Time Temp Pulse Resp B/P (MAP) Pulse Ox O2 Delivery O2 Flow Rate FiO2 02/01/23 12:22 98 02/01/23 11:10 94 Nasal Cannula 2.00 02/01/23 07:16 36.1 18 114/62 (79) Capillary Refill : General Appearance: No Apparent Distress, WD/WN, Chronically ill, Thin, Other (frail) HEENT: PERRL/EOMI, Normal ENT Inspection, Pharynx Normal Neck: Full Range of Motion, Normal Inspection, Non Tender, Supple, Carotid Bruit Respiratory: Chest Non Tender, Lungs Clear, No Accessory Muscle Use, No Respiratory Distress, Decreased Breath Sounds Cardiovascular: Regular Rate, Rhythm, No Edema, No Gallop, No JVD, No Murmur, Normal Peripheral Pulses Gastrointestinal: Normal Bowel Sounds, No Organomegaly, No Pulsatile Mass, Non Tender, Soft Back: Normal Inspection, No CVA Tenderness, No Vertebral Tenderness Extremity: Normal Capillary Refill, Normal Inspection, Normal Range of Motion, Non Tender, No Calf Tenderness, No Pedal Edema Neurologic/Psychiatric: Alert, Oriented x3, No Motor/Sensory Deficits, log preparer II- XII Norm as Tested, Abnormal Gait, Depressed Affect, Motor Weakness (generalized 3/5) Skin: Normal Color, Warm/Dry Lymphatic: No Adenopathy Results/Procedures Lab Patient resulted labs reviewed. FIM Transfers Therapy Code Descriptions/Definitions Functional [place] Measure: 0=Not Assessed/NA 4=Minimal Assistance 1=Total Assistance 5=Supervision or Setup 2=Maximal Assistance 6=Modified [place] 3=Moderate Assistance 7=Complete IndependenceSCALE: Activities may be completed with or without assistive devices. 2-Dtxnjsgpdi-eyccmbb completes the activity by him/herself with no assistance from a helper. 5-Set-up or Clean-up Assistance-helper sets up or cleans up; patient completes activity. [place] assists only prior to or following the activity. 4-Supervision or Touching Assistance-helper provides verbal cues and/or touching/steadying and/or contact guard assistance as patient completes activity. Assistance may be provided throughout the activity or intermittently. 3-Partial/Moderate Assistance-helper does LESS THAN HALF the effort. [place] lifts, holds or supports trunk or limbs, but provides less than half the effort. 2-Substantial/Maximal Assistance-helper does MORE THAN HALF the effort. [place] lifts or holds trunk or limbs and provides more than half the effort. 7-Nmadodknz-dornni does ALL the effort. Patient does none of the effort to complete the activity. Or, the assistance of 2 or more helpers is required for the patient to complete the activity. If activity was not attempted, code reason: 7-Patient Refused. 9-Not Applicable-not attempted and the patient did not perform the activity before the current illness, exacerbation or injury. 10-Not Attempted due to Environmental Limitations-(lack of equipment, weather restraints, etc.). 88-Not Attempted due to Medical Conditions or Safety Concerns. Roll Left to Right (QC): 4 (SBA ) Sit to Lying (QC): 4 Sit to Stand (QC): 3 Chair/Wma-hj-Uxnzf Xfer(QC): 3 Car Transfer (QC): 3 (Min A ) Gait Training Does the Patient Walk?: Yes Distance: 80ft x 2 Walk 10 feet (QC): 4 Walk 50 ft with 2 Turns(QC): 4 Walk 150 ft (QC): 88 Walking 10ft/uneven surface-QC: 88 Gait Persons Needed: 1 Gait Assistive Device: FWW Wheelchair Training Does the Pt Use a Wheelchair?: Yes Distance: 150ft Wheel 50 ft with 2 turns (QC): 4 Wheel 150 ft (QC): 4 Type of Wheelchair: Manual Stair Training 1 Step (curb) (QC): 88 (SOB) 4 Steps (QC): 88 (SOB) 12 Steps (QC): 88 (SOB ) Balance Picking up an Object (QC): 3 (Min A with purse framer ) ADL-Treatment Eating (QC): 6 Oral Hygiene (QC): 6 Shower/Bathe Self (QC): 5 Upper Body Dressing (QC): 5 Lower Body Dressing (QC): 4 On/Off Footwear (QC): 5 Toileting Hygiene (QC): 4 Toilet Transfer (QC): 4 Assessment/Plan Assessment and Plan Assess & Plan/Chief Complaint Assessment: COPD myopathy New O2 dependence CAD recent CABG Sternal and flank pressure wounds Smoker HTN AF? Anemia HLP Plan: Wound care Dietary consult Aggressive PT OT Wean O2 01/29/2023: Placed back on oral anticoagulation Supportive care 01/30/2023: Monitor O2 01/31/2023: Supportive care 02/01/2023: Monitor O2 (1) Myopathy MELIA DAVID DO Feb 01, 2023 08:01
[2023-02-01] MEDS: DOCUSATE SODIUM 100 MG CAPSULE PO SCH ×2 (09:00→20:39)
[2023-02-01] MEDS: FLUTICASONE NASAL SPRAY (120 SPRAYS) NS SCH ×2 (09:00→20:34)
[2023-02-01] MEDS: CLOPIDOGREL 75 MG TABLET PO SCH (09:00)
[2023-02-01] MEDS: polyethylene glycoL POWDER 17 GM (MIRALAX) PACK PO SCH (09:00)
[2023-02-01] MEDS: APIXABAN 5 MG TABLET PO SCH ×2 (09:00→20:33)
[2023-02-01] MEDS: amLODIPine 5 MG TABLET PO SCH (09:00)
[2023-02-01] MEDS: AMIODARONE 200 MG TABLET PO SCH (09:00)
[2023-02-01] MEDS: SILVER SULFADIAZINE 400 GM CREAM TP SCH (09:02)
[2023-02-01] MEDS: DAKIN'S 1/4 STRENGTH (0.125%) 237 ML BTL TOP SCH ×2 (09:02→19:28)
[2023-02-01] MEDS: HYPOCHLOROUS ACID/NaCl WOUND SOLN 250 ML IR SCH (09:02)
[2023-02-01] MEDS: LACTULOSE SYRUP 10GM/15ML 30ML UDC PO PRN (09:06)
[2023-02-01] MEDS: SENNA W/DOCUSATE (SENOKOT S) TABLET PO SCH ×2 (09:06→20:39)
[2023-02-01] MEDS: LORazepam 0.5 MG TABLET PO PRN ×2 (09:21→20:33)
[2023-02-01] MEDS: CYCLOBENZAPRINE 10 MG TABLET PO PRN (17:34)
[2023-02-01 19:29] VITALS: BP 129/62
[2023-02-01] MEDS: oxyCODONE IMMEDIATE RELEASE 5 MG TABLET PO PRN (20:33)
[2023-02-02] MEDS: CYCLOBENZAPRINE 10 MG TABLET PO PRN ×2 (02:19→16:04)
[2023-02-02] MEDS: LORazepam 0.5 MG TABLET PO PRN ×2 (05:35→22:31)
--- NOTE | 2023-02-02 06:01 | PM&R Progress Note ---
Subjective HPI/CC On Admission Date Seen by Provider: Feb 02, 2023 Time Seen by Provider: 09:00 Subjective/Events-last exam 02/02/2023: No major issues Breathing well No falls Improved strength 02/01/2023: Improved overall No BM yet so giving more laxatives No pain reported O2 maintained 01/31/2023: Patient having no new problems Reviewed meds Slept pretty well last night Maintain on oxygen 01/30/2023: No pain reported Improved ambulation Weaning O2 to 2L/min No falls 01/29/2023: Patient doing pretty well Working with therapy Oxygen is maintained BiPAP maintained at night Daughter at the bedside Labs remained stable Cardiology consult Review of Systems General: Fatigue, Malaise Objective Exam Vital Signs Vital Signs Date Time Temp Pulse Resp B/P (MAP) Pulse Ox O2 Delivery O2 Flow Rate FiO2 02/02/23 19:55 36.5 98 16 111/59 (76) 94 Nasal Cannula 2.00 Capillary Refill : General Appearance: No Apparent Distress, WD/WN, Chronically ill, Thin, Other (frail) HEENT: PERRL/EOMI, Normal ENT Inspection, Pharynx Normal Neck: Full Range of Motion, Normal Inspection, Non Tender, Supple, Carotid Bruit Respiratory: Chest Non Tender, Lungs Clear, No Accessory Muscle Use, No Respiratory Distress, Decreased Breath Sounds Cardiovascular: Regular Rate, Rhythm, No Edema, No Gallop, No JVD, No Murmur, Normal Peripheral Pulses Gastrointestinal: Normal Bowel Sounds, No Organomegaly, No Pulsatile Mass, Non Tender, Soft Back: Normal Inspection, No CVA Tenderness, No Vertebral Tenderness Extremity: Normal Capillary Refill, Normal Inspection, Normal Range of Motion, Non Tender, No Calf Tenderness, No Pedal Edema Neurologic/Psychiatric: Alert, Oriented x3, No Motor/Sensory Deficits, 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 FIM Transfers Therapy Code Descriptions/Definitions Functional [place] Measure: 0=Not Assessed/NA 4=Minimal Assistance 1=Total Assistance 5=Supervision or Setup 2=Maximal Assistance 6=Modified [place] 3=Moderate Assistance 7=Complete IndependenceSCALE: Activities may be completed with or without assistive devices. 3-Yslfgeqjwn-hrqwbjc completes the activity by him/herself with no assistance from a helper. 5-Set-up or Clean-up Assistance-helper sets up or cleans up; patient completes activity. [place] assists only prior to or following the activity. 4-Supervision or Touching Assistance-helper provides verbal cues and/or touching/steadying and/or contact guard assistance as patient completes activity. Assistance may be provided throughout the activity or intermittently. 3-Partial/Moderate Assistance-helper does LESS THAN HALF the effort. [place] lifts, holds or supports trunk or limbs, but provides less than half the effort. 2-Substantial/Maximal Assistance-helper does MORE THAN HALF the effort. [place] lifts or holds trunk or limbs and provides more than half the effort. 0-Qccvssdek-mymqiw does ALL the effort. Patient does none of the effort to complete the activity. Or, the assistance of 2 or more helpers is required for the patient to complete the activity. If activity was not attempted, code reason: 7-Patient Refused. 9-Not Applicable-not attempted and the patient did not perform the activity before the current illness, exacerbation or injury. 10-Not Attempted due to Environmental Limitations-(lack of equipment, weather restraints, etc.). 88-Not Attempted due to Medical Conditions or Safety Concerns. Roll Left to Right (QC): 4 (SBA ) Sit to Lying (QC): 4 Sit to Stand (QC): 3 Chair/Jxh-pa-Fjoxd Xfer(QC): 3 Car Transfer (QC): 3 (Min A ) Gait Training Does the Patient Walk?: Yes Distance: 80ft x 2 Walk 10 feet (QC): 4 Walk 50 ft with 2 Turns(QC): 4 Walk 150 ft (QC): 88 Walking 10ft/uneven surface-QC: 88 Gait Persons Needed: 1 Gait Assistive Device: FWW Wheelchair Training Does the Pt Use a Wheelchair?: Yes Distance: 150ft Wheel 50 ft with 2 turns (QC): 4 Wheel 150 ft (QC): 4 Type of Wheelchair: Manual Stair Training 1 Step (curb) (QC): 88 (SOB) 4 Steps (QC): 88 (SOB) 12 Steps (QC): 88 (SOB ) Balance Picking up an Object (QC): 3 (Min A with arnp ) ADL-Treatment Eating (QC): 6 Oral Hygiene (QC): 6 Shower/Bathe Self (QC): 5 Upper Body Dressing (QC): 5 Lower Body Dressing (QC): 4 On/Off Footwear (QC): 5 Toileting Hygiene (QC): 4 Toilet Transfer (QC): 4 Assessment/Plan Assessment and Plan Assess & Plan/Chief Complaint Assessment: COPD myopathy New O2 dependence CAD recent CABG Sternal and flank pressure wounds Smoker HTN AF? Anemia HLP Plan: Wound care Dietary consult Aggressive PT OT Wean O2 01/29/2023: Placed back on oral anticoagulation Supportive care 01/30/2023: Monitor O2 01/31/2023: Supportive care 02/01/2023: Monitor O2 02/02/2023: Aggressive therapy (1) Myopathy MELIA DAVID DO Feb 02, 2023 06:01
[2023-02-02 06:29] VITALS: BP 131/62
[2023-02-02] MEDS: RT-BUDESONIDE NEBS 0.5 MG/2ML VIAL IH SCH ×2 (07:20→18:29)
[2023-02-02] MEDS: RT-Ipratropium/Albuterol NEB 3 ML VIAL IH SCH ×4 (07:20→18:29)
[2023-02-02 07:44] VITALS: BP 131/62
[2023-02-02] MEDS: AMIODARONE 200 MG TABLET PO SCH (07:51)
[2023-02-02] MEDS: APIXABAN 5 MG TABLET PO SCH ×2 (07:51→20:07)
[2023-02-02] MEDS: CLOPIDOGREL 75 MG TABLET PO SCH (07:51)
[2023-02-02] MEDS: amLODIPine 5 MG TABLET PO SCH (07:51)
[2023-02-02] MEDS: DOCUSATE SODIUM 100 MG CAPSULE PO SCH ×2 (07:51→20:07)
[2023-02-02] MEDS: FLUTICASONE NASAL SPRAY (120 SPRAYS) NS SCH (07:52)
[2023-02-02] MEDS: polyethylene glycoL POWDER 17 GM (MIRALAX) PACK PO SCH (07:52)
[2023-02-02] MEDS: SENNA W/DOCUSATE (SENOKOT S) TABLET PO SCH ×2 (07:52→20:07)
[2023-02-02] MEDS: DAKIN'S 1/4 STRENGTH (0.125%) 237 ML BTL TOP SCH ×2 (07:53→20:08)
[2023-02-02] MEDS: ONDANSETRON 4 MG ORAL DISSOLVE TABLET SL PRN ×2 (09:38→21:44)
--- NOTE | 2023-02-02 10:01 | Occupational Ther Daily Note ---
OT Current Status-Daily Note Subjective Pt dozing lying in bed, woke easily to name. Pt agrees to therapy. Pt does not c/o pain only discomfort. Co-treat with PT ([id number]), skills of 2 clinicians required to decrease fall risk, significantly decreased activity tolerance, increase stamina and overall strength for daily functional tasks. PT focusing on transfers, ambulation and increasing activity tolerance for daily functional tasks while OT focusing on functional mobility, ADLs and increasing activity tolerance for daily functional tasks. OT able to complete 30 minutes more this date to equal 90 min overall. Mental Status/Objective Patient Orientation: Person, Place, Time, Situation Attachments: IV (midline), Oxygen (2L) ADL-Treatment Therapy Code Descriptions/Definitions Functional [place] Measure: 0=Not Assessed/NA 4=Minimal Assistance 1=Total Assistance 5=Supervision or Setup 2=Maximal Assistance 6=Modified [place] 3=Moderate Assistance 7=Complete IndependenceSCALE: Activities may be completed with or without assistive devices. 4-Lloqwvrxwf-nztkjxt completes the activity by him/herself with no assistance from a helper. 5-Set-up or Clean-up Assistance-helper sets up or cleans up; patient completes activity. [place] assists only prior to or following the activity. 4-Supervision or Touching Assistance-helper provides verbal cues and/or touching/steadying and/or contact guard assistance as patient completes activity. Assistance may be provided throughout the activity or intermittently. 3-Partial/Moderate Assistance-helper does LESS THAN HALF the effort. [place] lifts, holds or supports trunk or limbs, but provides less than half the effort. 2-Substantial/Maximal Assistance-helper does MORE THAN HALF the effort. [place] lifts or holds trunk or limbs and provides more than half the effort. 4-Lyfdujbhj-vaxkxf does ALL the effort. Patient does none of the effort to complete the activity. Or, the assistance of 2 or more helpers is required for the patient to complete the activity. If activity was not attempted, code reason: 7-Patient Refused. 9-Not Applicable-not attempted and the patient did not perform the activity before the current illness, exacerbation or injury. 10-Not Attempted due to Environmental Limitations-(lack of equipment, weather restraints, etc.). 88-Not Attempted due to Medical Conditions or Safety Concerns. Oral Hygiene (QC): 6 (Completed in shower while sitting on shower bench, indepedently.) Bathing Location: L Arm, R Arm, L Upper Leg, R Upper Leg, L Lower Leg (including foot), R Lower Leg (including foot), Chest, Abdomen, Buttocks, Perineal Area Shower/Bathe Self (QC): 5 (Set up to cover IV and surgical site. Sitting 100% of the time, pt completes showering using grabbars, hand held shower, LH sponge by self.) Upper Body Dressing (QC): 3 (Verbal cue to adhere to sternal precaution then assist to chain puller shoulder due to fatigue.) Lower Body Dressing (QC): 4 (Pt able to complete dressing, SBA while standing to hike pants over hips.) On/Off Footwear: 5 (Set up, pt donned/doffed socks by self.) Toileting Hygiene (QC): 6 (Using grabbars, BSC and FWW to complete toileting independently.) Toilet Transfer (QC): 6 (Using grabbars, BSC and FWW to complete toileting independently.) Monitored O2 sat levels during session, 94% and up throughout session. Pt took increased time to complete tasks due to decreased activity tolerance requiring frequent and lengthy recovery breaks. Pt left in care of PT. All needs met. Other Treatment Pt completed standing balance activity to increase dynamic balance and activity tolerance for daily functional tasks. Pt stood ~2 min 3x's each then required lengthy recovery break between each stance. OT Short Term Goals Short Term Goals Time Frame: Feb 02, 2023 Eatin Oral hygiene: 6 (standing) Toileting hygiene: 6 OT Salesperson Meats Goals Care Home Goals Time Frame: Feb 06, 2023 Acute change in mental status: 0 Inattention: 0 Disorganized thinkin Altered level of consciousness: 0 Eating (QC): 6 Oral Hygiene (QC): 6 Toileting Hygiene (QC): 6 Shower/Bathe Self (QC): 5 Upper Body Dressing (QC): 6 Lower Body Dressing (QC): 6 On/Off Footwear (QC): 6 1=Demonstrate adherence to instructed precautions during ADL tasks. 2=Patient will verbalize/demonstrate understanding of assistive devices/modifications for ADL. 3=Patient will improve strength/tolerance for activity to enable patient to perform ADL's. OT Education/Plan Problem List/Assessment Assessment: Decreased Activ Tolerance, Decreased UE Strength, Impaired Self- Care Skills Discharge Recommendations Plan/Recommendations: Continue POC Treatment Plan/Plan of Care Patient would benefit from OT for education, treatment and training to promote independence in ADL's, mobility, safety and/or upper extremity function for ADL's. Plan of Care: ADL Retraining, Concurrent Therapy, Functional Mobility, Group Exercise/Act as Ind, UE Funct Exercise/Act Treatment Duration: Feb 06, 2023 Frequency: At least 5 of 7 days/Wk (IRF) Estimated Hrs Per Day: 1 hour per day Agreement: Yes Rehab Potential: Good Time Start Time: 08:15 Stop Time: 09:45 DATE: Feb 02, 2023 Total Time Billed (hr/min): 90 Billed Treatment Time 1 visit-ADL 4 (60 min) FA 2 (30 min) co-treat with PT [id number], individual [id number] ANETA ORELLANA Feb 02, 2023 10:01
[2023-02-02] MEDS: oxyCODONE IMMEDIATE RELEASE 5 MG TABLET PO PRN ×2 (10:51→22:31)
--- NOTE | 2023-02-02 11:28 | Physical Therapy Daily Note ---
PT Daily Note-Current Subjective Pt finishing up a shower with OT upon arrival. Pt reports she is doing fine this morning and is agreeable to PT. Pt reported sternal pain at 4-5/10. Co-tx with OT ([id number]), skills of 2 clinicians required to decrease fall risk, for significantly decreased activity tolerance, to increase stamina and overall strength for daily functional tasks. PT focusing on transfers, ambulation, standing, endurance, and w/c mobility, while OT focusing on functional mobility, ADLs, and increasing activity tolerance for daily functional tasks. OT able to complete 30 minutes more this date to equal 90 min overall. Pain Numeric Pain Scale: 5-Moderate Pain Location: Incisional Section J - Health Conditions 1. Rarely or not at all 2. Occasionally 3. Frequently 4. Almost constantly 8. Unable to answer Pain Effect on Sleep: 2 Pain Interference with Therapy: 3 Pain Interference w/Day-to-Day: 2 Mental Status Attachments: Oxygen (2L ), IV Transfers SCALE: Activities may be completed with or without assistive devices. 0-Onwtxqneos-tfkiliq completes the activity by him/herself with no assistance from a helper. 5-Set-up or Clean-up Assistance-helper sets up or cleans up; patient completes activity. [place] assists only prior to or following the activity. 4-Supervision or Touching Assistance-helper provides verbal cues and/or touching/steadying and/or contact guard assistance as patient completes activity. Assistance may be provided throughout the activity or intermittently. 3-Partial/Moderate Assistance-helper does LESS THAN HALF the effort. [place] lifts, holds or supports trunk or limbs, but provides less than half the effort. 2-Substantial/Maximal Assistance-helper does MORE THAN HALF the effort. [place] lifts or holds trunk or limbs and provides more than half the effort. 9-Efbplgdrz-xvqfbj does ALL the effort. Patient does none of the effort to complete the activity. Or, the assistance of 2 or more helpers is required for the patient to complete the activity. If activity was not attempted, code reason: 7-Patient Refused. 9-Not Applicable-not attempted and the patient did not perform the activity before the current illness, exacerbation or injury. 10-Not Attempted due to Environmental Limitations-(lack of equipment, weather restraints, etc.). 88-Not Attempted due to Medical Conditions or Safety Concerns. Sit to Lying (QC): 4 Sit to Stand (QC): 4 Chair/Alo-hi-Cplzm Xfer(QC): 4 Weight Bearing Right Lower Extremity: Right Full Weight Bearing Left Lower Extremity: Left Full Weight Bearing Gait Training Does the Patient Walk?: Yes Distance: 70ft Walk 10 feet (QC): 4 Walk 50 ft with 2 Turns(QC): 4 Walk 150 ft (QC): 88 Walking 10ft/uneven surface-QC: 88 Gait Persons Needed: 1 Gait Assistive Device: FWW Wheelchair Training Does the Pt Use a Wheelchair?: Yes Wheel 50 ft with 2 turns (QC): 4 Wheel 150 ft (QC): 4 Type of Wheelchair: Manual Treatments Pt completed functional transfers with CGA/SBA. Pt ambulated 70ft and 60ft with the FWW and CGA (w/c follow for decreased endurance). Pt completed standing balance activity to increase dynamic balance and activity tolerance for daily functional tasks. Pt stood ~2 min 4x's each then required lengthy recovery break between each stance. Pt completed seated B LE Ther Ex x 15 reps each with the red Tband. Pt completed w/c mobility x 150ft with SBA. Pt completed sit to supine with SBA. Pt lying in bed upon completion of PT with call light in reach and all needs met. Assessment Current Status: Good Progress Pt tolerated PT well with good effort; O2 stayed above 95% during the entire treatment session on 2L PT Residential Goals Residential Goals PT Residential Goals Time Frame: Feb 11, 2023 Roll Left & Right (QC): 6 (Pt will be Mod I with all aspects of functional mobility, with the least restrictive AD, in order to safely d/c home. ) Sit to Lying (QC): 6 (Pt will be Mod I with all aspects of functional mobility, with the least restrictive AD, in order to safely d/c home. ) Lying-Sitting on Side/Bed(QC): 6 (Pt will be Mod I with all aspects of functional mobility, with the least restrictive AD, in order to safely d/c home. ) Sit to Stand (QC): 6 (Pt will be Mod I with all aspects of functional mobility, with the least restrictive AD, in order to safely d/c home. ) Chair/Erp-ev-Tzrxo Xfer(QC): 6 (Pt will be Mod I with all aspects of functional mobility, with the least restrictive AD, in order to safely d/c home. ) Toilet Transfer (QC): 6 (Pt will be Mod I with all aspects of functional mobility, with the least restrictive AD, in order to safely d/c home. ) Car Transfer (QC): 6 (Pt will be Mod I with all aspects of functional mobility, with the least restrictive AD, in order to safely d/c home. ) Does the Patient Walk: Yes Walk 10 feet (QC): 6 (Pt will be Mod I with all aspects of functional mobility, with the least restrictive AD, in order to safely d/c home. ) Walk 50ft with 2 Turns (QC): 6 (Pt will be Mod I with all aspects of functional mobility, with the least restrictive AD, in order to safely d/c home. ) Walk 150 ft (QC): 6 (Pt will be Mod I with all aspects of functional mobility, with the least restrictive AD, in order to safely d/c home. ) Walking 10ft on Uneven Surface: 6 (Pt will be Mod I with all aspects of functional mobility, with the least restrictive AD, in order to safely d/c home. ) 1 Step (curb) (QC): 6 (Pt will be Mod I with all aspects of functional mobility, with the least restrictive AD, in order to safely d/c home. ) 4 Steps (QC): 6 (Pt will be Mod I with all aspects of functional mobility, with the least restrictive AD, in order to safely d/c home. ) 12 Steps (QC): 6 (Pt will be Mod I with all aspects of functional mobility, with the least restrictive AD, in order to safely d/c home. ) Picking up an Object (QC): 6 (Pt will be Mod I with all aspects of functional mobility, with the least restrictive AD, in order to safely d/c home. ) Does the Pt use WC or Scooter?: Yes Wheel 50 feet with 2 turns (QC: 6 (Pt will be Mod I with all aspects of functional mobility, with the least restrictive AD, in order to safely d/c home. ) Type: Manual Wheel 150 feet: 6 (Pt will be Mod I with all aspects of functional mobility, with the least restrictive AD, in order to safely d/c home. ) Type: Manual PT Plan Problem List Problem List: Activity Tolerance, Functional Strength, Safety, Balance, Gait, Transfer, Bed Mobility Treatment/Plan Treatment Plan: Continue Plan of Care Treatment Plan: Bed Mobility, Concurrent Therapy, Education, Functional Activity [place], Functional Strength, Group Therapy, Gait, Safety, Therapeutic Exercise, Transfers Treatment Duration: Feb 11, 2023 Frequency: At least 5 of 7 days/Wk (IRF) Estimated Hrs Per Day: 2 hours per day Patient and/or Family Agrees t: Yes Safety Risks/Education Patient Education: Gait Training, Transfer Techniques, Reviewed Precautions, W/C Management, Safety Issues Teaching Recipient: Patient Teaching Methods: Demonstration, Discussion Response to Teaching: Verbalize Understanding, Return Demonstration, Reinforcem ent Needed Discharge Recommendations Therapy Discharge Recommendati: Home & Family Equpiment Recommendations-D/C: Front Wheeled Walker Discharge Status/Home Program Cont per POC Barriers to Progress Weakness; endurance Target Placement Home with family assistance Time Time In: 845 Time Out: 1015 DATE: Feb 02, 2023 Total Billed Treatment Time: 90 Total Billed Treatment 90 min total from [id number]; 60 min co-tx with OT from [id number] 1 visit GT x 1 EX x 1 FA x 4 [place] ZAFAR PT Feb 02, 2023 11:28
[2023-02-02] MEDS: SILVER SULFADIAZINE 400 GM CREAM TP SCH (11:36)
[2023-02-02 19:55] VITALS: BP 111/59
[2023-02-03] MEDS: RT-BUDESONIDE NEBS 0.5 MG/2ML VIAL IH SCH ×2 (06:58→22:13)
[2023-02-03] MEDS: RT-Ipratropium/Albuterol NEB 3 ML VIAL IH SCH ×3 (06:58→22:13)
[2023-02-03 07:00] VITALS: BP 123/63
[2023-02-03] MEDS: SENNA W/DOCUSATE (SENOKOT S) TABLET PO SCH ×2 (08:17→20:51)
[2023-02-03] MEDS: APIXABAN 5 MG TABLET PO SCH ×2 (08:17→20:51)
[2023-02-03] MEDS: CLOPIDOGREL 75 MG TABLET PO SCH (08:17)
[2023-02-03] MEDS: amLODIPine 5 MG TABLET PO SCH (08:17)
[2023-02-03] MEDS: DOCUSATE SODIUM 100 MG CAPSULE PO SCH ×2 (08:17→20:51)
[2023-02-03] MEDS: AMIODARONE 200 MG TABLET PO SCH (08:17)
[2023-02-03] MEDS: CYCLOBENZAPRINE 10 MG TABLET PO PRN ×2 (08:17→18:44)
[2023-02-03] MEDS: polyethylene glycoL POWDER 17 GM (MIRALAX) PACK PO SCH (08:17)
[2023-02-03] MEDS: DAKIN'S 1/4 STRENGTH (0.125%) 237 ML BTL TOP SCH ×2 (09:15→19:43)
--- NOTE | 2023-02-03 09:24 | Occupational Ther Daily Note ---
OT Current Status-Daily Note Subjective Pt alert and lying in bed upon arrival, Pt refused shower on this date. No pain mentioned at this time. Mental Status/Objective Patient Orientation: Person, Place, Time, Situation ADL-Treatment Pt sat EOB independently, as well as sit to stand independently. Pt ambulated to toilet in bathroom, using FWW, supervision, for safety. Pt completes toileting independently. Pt then completes upper and lower body dressing with set up assist while seated on toilet. Pt educated on ways to stay within sternal precautions during dressing. Pt able to doff and gege socks on her own with set up assist. Pt then ambulated to sink in bathroom using FWW, supervision for safety. Pt demonstrates ability to manipulate oxygen tubing during ambulation. pt completed grooming and oral care at sink, independently. Pt required multiple recovery breaks, fatigues easily. CAMPA checked o2 states throughout session, pt stated above 95% o2 during session. Pt sat in recliner and took a lengthy recovery break before completing functional standing activity. Pt working on increasing activity tolerance in standing while completing fine/gross motor tasks for 2-4 min standing then lengthy recovery break between each stand. Pt tolerated activities with B UE while adhering to precautions. Pt was left s itting in recliner, call light in hand, all needs met at this time. Therapy Code Descriptions/Definitions Functional [place] Measure: 0=Not Assessed/NA 4=Minimal Assistance 1=Total Assistance 5=Supervision or Setup 2=Maximal Assistance 6=Modified [place] 3=Moderate Assistance 7=Complete IndependenceSCALE: Activities may be completed with or without assistive devices. 5-Gymxtqznrl-qzqnmww completes the activity by him/herself with no assistance from a helper. 5-Set-up or Clean-up Assistance-helper sets up or cleans up; patient completes activity. [place] assists only prior to or following the activity. 4-Supervision or Touching Assistance-helper provides verbal cues and/or touching/steadying and/or contact guard assistance as patient completes activity. Assistance may be provided throughout the activity or intermittently. 3-Partial/Moderate Assistance-helper does LESS THAN HALF the effort. [place] lifts, holds or supports trunk or limbs, but provides less than half the effort. 2-Substantial/Maximal Assistance-helper does MORE THAN HALF the effort. [place] lifts or holds trunk or limbs and provides more than half the effort. 2-Htlrcvvti-uhydad does ALL the effort. Patient does none of the effort to complete the activity. Or, the assistance of 2 or more helpers is required for the patient to complete the activity. If activity was not attempted, code reason: 7-Patient Refused. 9-Not Applicable-not attempted and the patient did not perform the activity before the current illness, exacerbation or injury. 10-Not Attempted due to Environmental Limitations-(lack of equipment, weather restraints, etc.). 88-Not Attempted due to Medical Conditions or Safety Concerns. Eating (QC): 6 Oral Hygiene (QC): 6 Upper Body Dressing (QC): 5 Lower Body Dressing (QC): 5 On/Off Footwear: 5 Toileting Hygiene (QC): 6 Education OT Patient Education: Correct positioning, Energy conservation, Home exercise program, Progress toward Goal/Update tx plan, Purpose of tx/functional activities, Reviewed precautions, Transfer techniques Teaching Recipient: Patient Teaching Methods: Demonstration Response to Teaching: Verbalize Understanding OT Short Term Goals Short Term Goals Time Frame: Feb 02, 2023 Eatin Oral hygiene: 6 (standing) Toileting hygiene: 6 OT Half-Way Goals Half-Way Goals Time Frame: Feb 06, 2023 Acute change in mental status: 0 Inattention: 0 Disorganized thinkin Altered level of consciousness: 0 Eating (QC): 6 Oral Hygiene (QC): 6 Toileting Hygiene (QC): 6 Shower/Bathe Self (QC): 5 Upper Body Dressing (QC): 6 Lower Body Dressing (QC): 6 On/Off Footwear (QC): 6 1=Demonstrate adherence to instructed precautions during ADL tasks. 2=Patient will verbalize/demonstrate understanding of assistive devices/modifications for ADL. 3=Patient will improve strength/tolerance for activity to enable patient to perform ADL's. OT Education/Plan Problem List/Assessment Assessment: Decreased Activ Tolerance, Decreased UE Strength Discharge Recommendations Plan/Recommendations: Continue POC Treatment Plan/Plan of Care Patient would benefit from OT for education, treatment and training to promote independence in ADL's, mobility, safety and/or upper extremity function for ADL's. Plan of Care: ADL Retraining, Concurrent Therapy, Functional Mobility, Group Exercise/Act as Ind, UE Funct Exercise/Act Treatment Duration: Feb 06, 2023 Frequency: At least 5 of 7 days/Wk (IRF) Estimated Hrs Per Day: 1 hour per day Agreement: Yes Rehab Potential: Good Time Start Time: 08:00 Stop Time: 09:30 DATE: Feb 03, 2023 Total Time Billed (hr/min): 90 Billed Treatment Time 1 visit ADL 3 (40) FA 2 (30) Ex 1 (20) Celia Ann COTA Feb 03, 2023 09:24
[2023-02-03] MEDS: SILVER SULFADIAZINE 400 GM CREAM TP PRN (09:44)
[2023-02-03] MEDS: SILVER SULFADIAZINE 400 GM CREAM TP SCH (09:45)
--- NOTE | 2023-02-03 10:34 | Progress Note - Cardiology ---
Cardiology SOAP Progress Note Subjective: Gen weakness STEVENSON No c/o CP, palpitations, syncope or near syncope Objective: I&O/Vital Signs 02/04/23 02/05/23 02/05/23 02/05/23 21:00 01:00 06:55 07:34 Pulse 85 86 Pulse Ox 93 98 O2 Delivery Nasal Cannula Nasal Cannula O2 Flow Rate 3.00 3.00 02/05/23 02/05/23 08:00 08:40 Temp 35.6 Pulse 86 Resp 16 B/P (MAP) 146/79 (101) Pulse Ox 98 98 O2 Delivery Nasal Cannula Nasal Cannula O2 Flow Rate 2.00 3.00 02/05/23 00:00 Intake Total 1262 ml Balance 1262 ml Weight (Pounds): 128 Weight (Ounces): 8 Weight (Calculated Kilograms): 72.819381 Constitutional: AAO x 3, well-developed, well-nourished Respiratory: No accessory muscle use; chest expansion is symmetric, chest is bilaterally symmetric, other (diminished air entry at the bases, more so on the L side; prolonged exp) Cardiovascular: regular rate-rhythm, S1 and S2, systolic murmur (soft JOSÉ at card base) Gastrointestional: No tender; soft; No guarding, No rebound; audible bowel sounds Extremities: No clubbing, No cyanosis, No significant edema Neurologic/Psychiatric: oriented x 3, other (moves all limbs equally) Skin: normal color, warm/dry; No cyanosis, No cool, No diaphoresis, No rash on exposed areas, No ulcerations on exposed areas; other (part of L lateral chest under dressing that was not removed) A/P: Assessment: CAD - s/p CABG (ANN to LAD, SVG to OM1, SVG to PDA) at [facility] in November 2022. Post-operative complications noted below - CABG complicated by ANN closure at anastomotic site during the same hospitalization: treated with PCI consisting of Papyrus 2.5 x 20 covered stent to cover perf at anastomotic site and Papyrus 3.0 x 20 in prox/mid LAD to cover another perf. Yet another perp in a diagonal treated with balloon tamponade and requiring another sternotomy - Subsequently, during the same hospitalization wound dehiscence required yet another sternotomy - s/p L-sided chest tube for several weeks following above surgery COPD ?A Fib sindy-op (following CABG) Tobaccoism - cessation advised Plan: * Complex management due to multiple comorbidities. We obtained and reviewed records from [facility] and the LTC facility in [place] * Given CABG and coronary stenting, Plavix needs to be continued * Continue apixaban. It could not be determined from the records when and why apixaban was initiated but patient was on it at the time of transfer to the [facility] and we are continuing it. Same is the reason for continuation of amiodarone * Keep on tele * Monitor labs RADHA HURTADO Feb 03, 2023 10:34
[2023-02-03] MEDS: LORazepam 0.5 MG TABLET PO PRN ×2 (11:55→20:56)
[2023-02-03] MEDS: oxyCODONE IMMEDIATE RELEASE 5 MG TABLET PO PRN (11:55)
--- NOTE | 2023-02-03 12:19 | Physical Therapy Daily Note ---
PT Daily Note-Current Subjective Pt sitting in recliner upon arrival. Pt agrees to PT. Pt is teary when discussing w/[employer] MANAGER ARCHITECT about frustration of progress. [employer] MANAGER ARCHITECT reassured pt that progress is being made & only need to keep working hard. Pain Section J - Health Conditions 1. Rarely or not at all 2. Occasionally 3. Frequently 4. Almost constantly 8. Unable to answer Pain Effect on Sleep: 2 Pain Interference with Therapy: 2 Pain Interference w/Day-to-Day: 2 Mental Status Patient Orientation: Person, Place, Time, Situation Attachments: Oxygen (2L) Transfers SCALE: Activities may be completed with or without assistive devices. 8-Gwabwiwuya-kspikbe completes the activity by him/herself with no assistance from a helper. 5-Set-up or Clean-up Assistance-helper sets up or cleans up; patient completes activity. [place] assists only prior to or following the activity. 4-Supervision or Touching Assistance-helper provides verbal cues and/or touching/steadying and/or contact guard assistance as patient completes activity. Assistance may be provided throughout the activity or intermittently. 3-Partial/Moderate Assistance-helper does LESS THAN HALF the effort. [place] lifts, holds or supports trunk or limbs, but provides less than half the effort. 2-Substantial/Maximal Assistance-helper does MORE THAN HALF the effort. [place] lifts or holds trunk or limbs and provides more than half the effort. 5-Nzrngmoii-wmqpgf does ALL the effort. Patient does none of the effort to complete the activity. Or, the assistance of 2 or more helpers is required for the patient to complete the activity. If activity was not attempted, code reason: 7-Patient Refused. 9-Not Applicable-not attempted and the patient did not perform the activity before the current illness, exacerbation or injury. 10-Not Attempted due to Environmental Limitations-(lack of equipment, weather restraints, etc.). 88-Not Attempted due to Medical Conditions or Safety Concerns. Sit to Stand (QC): 5 Toilet Transfer (QC): 5 Weight Bearing Right Lower Extremity: Right Full Weight Bearing Left Lower Extremity: Left Full Weight Bearing Gait Training Does the Patient Walk?: Yes Distance: 110', 50' x2, 75' Walk 10 feet (QC): 4 Walk 50 ft with 2 Turns(QC): 4 Gait Persons Needed: 1 Gait Assistive Device: FWW Exercises Seated Therapy Exercises: Ankle pumps, Long arc quads, Hip flexion, Hamstring Curls, Hip abd/add, Glut set Seated Reps: 10 (Red Tband used in all but Glut set for resistance) Treatments TF to standing and amb to BR. Pt is able to toilet and complete pericare then wash hands before resting in w/c. Tara w/Dr Norman's Office visited w/pt upon resting. Pt becomes teary after visit. Pt & [employer] MANAGER ARCHITECT discuss progress then pt TF to standing. Pt amb in hallway, resting in w/c as needed. Pt completes Se ated Ex at EOM using red Tband for resistance. After RB, pt amb in hallway and returns to room. Pt rests in recliner w/O2 on, all needs met, call light in hand. Assessment Current Status: Fair Progress Pt fatigues easily and needs frequent rest breaks although pt walked farther today before needing rest break. O2 is monitored during tx. Only one time briefly did O2 drop below 90 and then it was only 89%. PT Director Of Restaurants Goals Custodial Goals PT Director Of Restaurants Goals Time Frame: Feb 11, 2023 Roll Left & Right (QC): 6 (Pt will be Mod I with all aspects of functional mobility, with the least restrictive AD, in order to safely d/c home. ) Sit to Lying (QC): 6 (Pt will be Mod I with all aspects of functional mobility, with the least restrictive AD, in order to safely d/c home. ) Lying-Sitting on Side/Bed(QC): 6 (Pt will be Mod I with all aspects of functional mobility, with the least restrictive AD, in order to safely d/c home. ) Sit to Stand (QC): 6 (Pt will be Mod I with all aspects of functional mobility, with the least restrictive AD, in order to safely d/c home. ) Chair/Zyx-ok-Vbgyn Xfer(QC): 6 (Pt will be Mod I with all aspects of functional mobility, with the least restrictive AD, in order to safely d/c home. ) Toilet Transfer (QC): 6 (Pt will be Mod I with all aspects of functional mobility, with the least restrictive AD, in order to safely d/c home. ) Car Transfer (QC): 6 (Pt will be Mod I with all aspects of functional mobility, with the least restrictive AD, in order to safely d/c home. ) Does the Patient Walk: Yes Walk 10 feet (QC): 6 (Pt will be Mod I with all aspects of functional mobility, with the least restrictive AD, in order to safely d/c home. ) Walk 50ft with 2 Turns (QC): 6 (Pt will be Mod I with all aspects of functional mobility, with the least restrictive AD, in order to safely d/c home. ) Walk 150 ft (QC): 6 (Pt will be Mod I with all aspects of functional mobility, with the least restrictive AD, in order to safely d/c home. ) Walking 10ft on Uneven Surface: 6 (Pt will be Mod I with all aspects of functional mobility, with the least restrictive AD, in order to safely d/c home. ) 1 Step (curb) (QC): 6 (Pt will be Mod I with all aspects of functional mobility, with the least restrictive AD, in order to safely d/c home. ) 4 Steps (QC): 6 (Pt will be Mod I with all aspects of functional mobility, with the least restrictive AD, in order to safely d/c home. ) 12 Steps (QC): 6 (Pt will be Mod I with all aspects of functional mobility, with the least restrictive AD, in order to safely d/c home. ) Picking up an Object (QC): 6 (Pt will be Mod I with all aspects of functional mobility, with the least restrictive AD, in order to safely d/c home. ) Does the Pt use WC or Scooter?: Yes Wheel 50 feet with 2 turns (QC: 6 (Pt will be Mod I with all aspects of functional mobility, with the least restrictive AD, in order to safely d/c home. ) Type: Manual Wheel 150 feet: 6 (Pt will be Mod I with all aspects of functional mobility, with the least restrictive AD, in order to safely d/c home. ) Type: Manual PT Plan Problem List Problem List: Activity Tolerance Treatment/Plan Treatment Plan: Continue Plan of Care Treatment Plan: Bed Mobility, Concurrent Therapy, Education, Functional Activity [place], Functional Strength, Group Therapy, Gait, Safety, Therapeutic Exercise, Transfers Treatment Duration: Feb 11, 2023 Frequency: At least 5 of 7 days/Wk (IRF) Estimated Hrs Per Day: 2 hours per day Patient and/or Family Agrees t: Yes Time Time In: 1030 Time Out: 1200 DATE: Feb 03, 2023 Total Billed Treatment Time: 90 Total Billed Treatment 1, Ex x2 (30m), GT x2 (30m) & FA x2 (30m) JENNIFER HENDERSON [employer] MANAGER ARCHITECT Feb 03, 2023 12:18
--- NOTE | 2023-02-03 13:38 | Diagnostic Imaging Report ---
EXAMINATION: Chest 2 view HISTORY: Dyspnea on exertion. COMPARISON: 01/29/2023. FINDINGS: Lungs are severely emphysematous with scarring in the lung bases. Median sternotomy wires are aligned. Left upper extremity peripherally inserted central venous catheter tip terminates in the superior vena cava. Left hemidiaphragm is elevated. IMPRESSION: 1. Severely emphysematous lungs with scarring in the lung bases. Dictated by: Dictated on workstation # [id number]
--- NOTE | 2023-02-03 15:56 | Progress Note - Cardiology ---
Cardiology SOAP Progress Note Subjective: No cp or palp or syncope Chronic exertional shortness of breath, unchanged Gen weakness No focal weakness No n/v/d Objective: I&O/Vital Signs 02/03/23 02/03/23 02/03/23 02/03/23 06:58 07:00 07:26 09:29 Temp 36.4 Pulse 91 96 Resp 18 B/P (MAP) 123/63 (83) Pulse Ox 93 95 O2 Delivery Nasal Cannula Nasal Cannula Nasal Cannula O2 Flow Rate 2.00 3.00 2.00 02/03/23 12:28 Pulse 91 02/03/23 00:00 Intake Total 500 ml Balance 500 ml Weight (Pounds): 128 Weight (Ounces): 8 Weight (Calculated Kilograms): 72.758291 Constitutional: AAO x 3, well-developed, well-nourished Respiratory: No accessory muscle use; chest expansion is symmetric, chest is bilaterally symmetric, other (diminished air entry at the bases, more so on the L side; prolonged exp) Cardiovascular: regular rate-rhythm, S1 and S2, systolic murmur (soft JOSÉ at card base) Gastrointestional: No tender; soft; No guarding, No rebound; audible bowel sounds Extremities: No clubbing, No cyanosis, No significant edema Neurologic/Psychiatric: oriented x 3, other (moves all limbs equally) Skin: normal color, warm/dry; No cyanosis, No cool, No diaphoresis, No rash on exposed areas, No ulcerations on exposed areas; other (part of L lateral chest under dressing that was not removed) A/P: Assessment: CAD - s/p CABG (ANN to LAD, SVG to OM1, SVG to PDA) at [facility] in November 2022. Post-operative complications noted below - CABG complicated by ANN closure at anastomotic site during the same hospitalization: treated with PCI consisting of Papyrus 2.5 x 20 covered stent to cover perf at anastomotic site and Papyrus 3.0 x 20 in prox/mid LAD to cover another perf. Yet another perf in a diagonal treated with balloon tamponade and requiring another sternotomy Subsequently, during the same hospitalization wound dehiscence required yet another sternotomy - s/p L-sided chest tube for several weeks following above surgery Advanced COPD ?A Fib sindy-op (following CABG) Tobaccoism - cessation advised Plan: * Complex management due to multiple comorbidities. We obtained and reviewed records from [facility] and the LTC facility in [place] * Given CABG and coronary stenting, Plavix needs to be continued * Continue apixaban. It could not be determined from the records when and why apixaban was initiated but patient was on it at the time of transfer to the [facility] and we are continuing it. Same is the reason for continuation of amiodarone * Keep on tele * Monitor labs CHERIE ROJAS MD FACP FAC CCDS Feb 03, 2023 15:56
[2023-02-03 19:41] VITALS: BP 119/66
--- NOTE | 2023-02-03 19:59 | PM&R Progress Note ---
Subjective HPI/CC On Admission Date Seen by Provider: Feb 03, 2023 Time Seen by Provider: 11:00 Subjective/Events-last exam 02/03/2023: Patient doing a lot better Bowels are moving slowly Maintaining oxygen We will wean off BiPAP tonight 02/02/2023: No major issues Breathing well No falls Improved strength 02/01/2023: Improved overall No BM yet so giving more laxatives No pain reported O2 maintained 01/31/2023: Patient having no new problems Reviewed meds Slept pretty well last night Maintain on oxygen 01/30/2023: No pain reported Improved ambulation Weaning O2 to 2L/min No falls 01/29/2023: Patient doing pretty well Working with therapy Oxygen is maintained BiPAP maintained at night Daughter at the bedside Labs remained stable Cardiology consult Review of Systems General: Fatigue, Malaise Objective Exam Vital Signs Vital Signs Date Time Temp Pulse Resp B/P (MAP) Pulse Ox O2 Delivery O2 Flow Rate FiO2 02/04/23 01:00 90 02/03/23 22:13 95 Nasal Cannula 2.00 02/03/23 19:41 36.3 20 119/66 (83) Capillary Refill : General Appearance: No Apparent Distress, WD/WN, Chronically ill, Thin, Other (frail) HEENT: PERRL/EOMI, Normal ENT Inspection, Pharynx Normal Neck: Full Range of Motion, Normal Inspection, Non Tender, Supple, Carotid Bruit Respiratory: Chest Non Tender, Lungs Clear, No Accessory Muscle Use, No Respiratory Distress, Decreased Breath Sounds Cardiovascular: Regular Rate, Rhythm, No Edema, No Gallop, No JVD, No Murmur, Normal Peripheral Pulses Gastrointestinal: Normal Bowel Sounds, No Organomegaly, No Pulsatile Mass, Non Tender, Soft Back: Normal Inspection, No CVA Tenderness, No Vertebral Tenderness Extremity: Normal Capillary Refill, Normal Inspection, Normal Range of Motion, Non Tender, No Calf Tenderness, No Pedal Edema Neurologic/Psychiatric: Alert, Oriented x3, No Motor/Sensory Deficits, guitar maker hand II- XII Norm as Tested, Abnormal Gait, Depressed Affect, Motor Weakness (generalized 3/5) Skin: Normal Color, Warm/Dry Lymphatic: No Adenopathy Results/Procedures Lab Patient resulted labs reviewed. FIM Transfers Therapy Code Descriptions/Definitions Functional [place] Measure: 0=Not Assessed/NA 4=Minimal Assistance 1=Total Assistance 5=Supervision or Setup 2=Maximal Assistance 6=Modified [place] 3=Moderate Assistance 7=Complete IndependenceSCALE: Activities may be completed with or without assistive devices. 0-Dgqavknmgq-vihwlur completes the activity by him/herself with no assistance from a helper. 5-Set-up or Clean-up Assistance-helper sets up or cleans up; patient completes activity. [place] assists only prior to or following the activity. 4-Supervision or Touching Assistance-helper provides verbal cues and/or touching/steadying and/or contact guard assistance as patient completes activity. Assistance may be provided throughout the activity or intermittently. 3-Partial/Moderate Assistance-helper does LESS THAN HALF the effort. [place] lifts, holds or supports trunk or limbs, but provides less than half the effort. 2-Substantial/Maximal Assistance-helper does MORE THAN HALF the effort. [place] lifts or holds trunk or limbs and provides more than half the effort. 7-Bncksddtq-bewvcp does ALL the effort. Patient does none of the effort to complete the activity. Or, the assistance of 2 or more helpers is required for the patient to complete the activity. If activity was not attempted, code reason: 7-Patient Refused. 9-Not Applicable-not attempted and the patient did not perform the activity before the current illness, exacerbation or injury. 10-Not Attempted due to Environmental Limitations-(lack of equipment, weather restraints, etc.). 88-Not Attempted due to Medical Conditions or Safety Concerns. Roll Left to Right (QC): 4 (SBA ) Sit to Lying (QC): 4 Sit to Stand (QC): 5 Chair/Ale-ye-Guqwz Xfer(QC): 4 Car Transfer (QC): 3 (Min A ) Gait Training Does the Patient Walk?: Yes Distance: 110', 50' x2, 75' Walk 10 feet (QC): 4 Walk 50 ft with 2 Turns(QC): 4 Walk 150 ft (QC): 88 Walking 10ft/uneven surface-QC: 88 Gait Persons Needed: 1 Gait Assistive Device: FWW Wheelchair Training Does the Pt Use a Wheelchair?: Yes Distance: 150ft Wheel 50 ft with 2 turns (QC): 4 Wheel 150 ft (QC): 4 Type of Wheelchair: Manual Stair Training 1 Step (curb) (QC): 88 (SOB) 4 Steps (QC): 88 (SOB) 12 Steps (QC): 88 (SOB ) Balance Picking up an Object (QC): 3 (Min A with vegetable washing machine operator ) ADL-Treatment Eating (QC): 6 Oral Hygiene (QC): 6 Bathing Location: L Arm, R Arm, L Upper Leg, R Upper Leg, L Lower Leg (including foot), R Lower Leg (including foot), Chest, Abdomen, Buttocks, Perineal Area Shower/Bathe Self (QC): 5 (Set up to cover IV and surgical site. Sitting 100% of the time, pt completes showering using grabbars, hand held shower, LH sponge by self.) Upper Body Dressing (QC): 5 Lower Body Dressing (QC): 5 On/Off Footwear (QC): 5 Toileting Hygiene (QC): 6 Toilet Transfer (QC): 6 (Using grabbars, BSC and FWW to complete toileting independently.) Assessment/Plan Assessment and Plan Assess & Plan/Chief Complaint Assessment: COPD myopathy New O2 dependence CAD recent CABG Sternal and flank pressure wounds Smoker HTN AF? Anemia HLP Plan: Wound care Dietary consult Aggressive PT OT Wean O2 01/29/2023: Placed back on oral anticoagulation Supportive care 01/30/2023: Monitor O2 01/31/2023: Supportive care 02/01/2023: Monitor O2 02/02/2023: Aggressive therapy 02/03/2023: DC BiPAP (1) Myopathy MELIA DAVID DO Feb 03, 2023 19:59
[2023-02-03] MEDS: LACTULOSE SYRUP 10GM/15ML 30ML UDC PO PRN (20:52)
[2023-02-03] MEDS: diphenhydrAMINE 25 MG TABLET PO PRN (20:57)
[2023-02-03] MEDS: ONDANSETRON 4 MG ORAL DISSOLVE TABLET SL PRN (22:05)
[2023-02-04 07:01] LABS: BASOPHILS # (AUTO) 0.1 10^3/uL (0.0-0.1); BASOPHILS % (AUTO) 1 % (0-10); EOSINOPHILS # (AUTO) 0.7 10^3/uL (0.0-0.3); EOSINOPHILS % (AUTO) 7 % (0-10); HEMATOCRIT 32 % (35-52); HEMOGLOBIN 9.9 g/dL (11.5-16.0); LYMPHOCYTES % (AUTO) 22 % (12-44); MEAN CORPUSCULAR HEMOGLOBIN 30 pg (25-34); MEAN CORPUSCULAR HGB CONC 31 g/dL (32-36); MEAN CORPUSCULAR VOLUME 96 fL (80-99); MEAN PLATELET VOLUME 9.3 fL (9.0-12.2); MONOCYTES # (AUTO) 1.1 10^3/uL (0.0-1.0); MONOCYTES % (AUTO) 13 % (0-12); NEUTROPHILS # (AUTO) 5.1 10^3/uL (1.8-7.8); NEUTROPHILS % (AUTO) 56 % (42-75); PLATELET COUNT 451 10^3/uL (130-400); WHITE BLOOD COUNT 9.2 10^3/uL (4.3-11.0)
[2023-02-04 07:04] LABS: ALBUMIN 3.1 GM/DL (3.2-4.5); POTASSIUM 4.1 MMOL/L (3.6-5.0)
[2023-02-04 07:05] LABS: CALCIUM 8.7 MG/DL (8.5-10.1)
[2023-02-04 07:07] LABS: TOTAL PROTEIN 6.6 GM/DL (6.4-8.2)
[2023-02-04 07:08] LABS: BILIRUBIN,TOTAL 0.3 MG/DL (0.1-1.0)
[2023-02-04 07:10] LABS: CREATININE SERUM 0.77 MG/DL (0.60-1.30)
[2023-02-04] MEDS: RT-BUDESONIDE NEBS 0.5 MG/2ML VIAL IH SCH ×2 (07:30→19:42)
[2023-02-04] MEDS: RT-Ipratropium/Albuterol NEB 3 ML VIAL IH SCH ×3 (07:30→19:42)
[2023-02-04] MEDS: LORazepam 0.5 MG TABLET PO PRN ×2 (07:36→21:06)
[2023-02-04] MEDS: ONDANSETRON 4 MG ORAL DISSOLVE TABLET SL PRN ×2 (07:36→19:00)
[2023-02-04] MEDS: CYCLOBENZAPRINE 10 MG TABLET PO PRN ×2 (07:36→17:47)
[2023-02-04 08:00] VITALS: BP 128/59
--- NOTE | 2023-02-04 08:11 | PM&R Progress Note ---
Subjective HPI/CC On Admission Date Seen by Provider: Feb 04, 2023 Time Seen by Provider: 12:00 Subjective/Events-last exam 02/04/2023: Patient doing really well Did fine without the BiPAP last night No concerns at this point Plans to go home soon 02/03/2023: Patient doing a lot better Bowels are moving slowly Maintaining oxygen We will wean off BiPAP tonight 02/02/2023: No major issues Breathing well No falls Improved strength 02/01/2023: Improved overall No BM yet so giving more laxatives No pain reported O2 maintained 01/31/2023: Patient having no new problems Reviewed meds Slept pretty well last night Maintain on oxygen 01/30/2023: No pain reported Improved ambulation Weaning O2 to 2L/min No falls 01/29/2023: Patient doing pretty well Working with therapy Oxygen is maintained BiPAP maintained at night Daughter at the bedside Labs remained stable Cardiology consult Review of Systems General: Fatigue, Malaise Objective Exam Vital Signs Vital Signs Date Time Temp Pulse Resp B/P (MAP) Pulse Ox O2 Delivery O2 Flow Rate FiO2 02/04/23 19:43 89 Nasal Cannula 4.00 02/04/23 12:58 89 02/04/23 08:00 36.2 18 128/59 (82) Capillary Refill : General Appearance: No Apparent Distress, WD/WN, Chronically ill, Thin, Other (frail) HEENT: PERRL/EOMI, Normal ENT Inspection, Pharynx Normal Neck: Full Range of Motion, Normal Inspection, Non Tender, Supple, Carotid Bruit Respiratory: Chest Non Tender, Lungs Clear, No Accessory Muscle Use, No Respiratory Distress, Decreased Breath Sounds Cardiovascular: Regular Rate, Rhythm, No Edema, No Gallop, No JVD, No Murmur, Normal Peripheral Pulses Gastrointestinal: Normal Bowel Sounds, No Organomegaly, No Pulsatile Mass, Non Tender, Soft Back: Normal Inspection, No CVA Tenderness, No Vertebral Tenderness Extremity: Normal Capillary Refill, Normal Inspection, Normal Range of Motion, Non Tender, No Calf Tenderness, No Pedal Edema Neurologic/Psychiatric: Alert, Oriented x3, No Motor/Sensory Deficits, dust box tender II- XII Norm as Tested, Abnormal Gait, Depressed Affect, Motor Weakness (generalized 3/5) Skin: Normal Color, Warm/Dry Lymphatic: No Adenopathy Results/Procedures Lab Laboratory Tests 02/04/23 06:42 Patient resulted labs reviewed. FIM Transfers Therapy Code Descriptions/Definitions Functional [place] Measure: 0=Not Assessed/NA 4=Minimal Assistance 1=Total Assistance 5=Supervision or Setup 2=Maximal Assistance 6=Modified [place] 3=Moderate Assistance 7=Complete IndependenceSCALE: Activities may be completed with or without assistive devices. 5-Rmcqwarybc-gytlczp completes the activity by him/herself with no assistance from a helper. 5-Set-up or Clean-up Assistance-helper sets up or cleans up; patient completes activity. [place] assists only prior to or following the activity. 4-Supervision or Touching Assistance-helper provides verbal cues and/or touching/steadying and/or contact guard assistance as patient completes activity. Assistance may be provided throughout the activity or intermittently. 3-Partial/Moderate Assistance-helper does LESS THAN HALF the effort. [place] lifts, holds or supports trunk or limbs, but provides less than half the effort. 2-Substantial/Maximal Assistance-helper does MORE THAN HALF the effort. [place] lifts or holds trunk or limbs and provides more than half the effort. 1-Hdhsuklmh-wrzbha does ALL the effort. Patient does none of the effort to complete the activity. Or, the assistance of 2 or more helpers is required for the patient to complete the activity. If activity was not attempted, code reason: 7-Patient Refused. 9-Not Applicable-not attempted and the patient did not perform the activity before the current illness, exacerbation or injury. 10-Not Attempted due to Environmental Limitations-(lack of equipment, weather restraints, etc.). 88-Not Attempted due to Medical Conditions or Safety Concerns. Roll Left to Right (QC): 4 (SBA ) Sit to Lying (QC): 4 Sit to Stand (QC): 5 Chair/Zrd-xj-Njmmc Xfer(QC): 4 Car Transfer (QC): 3 (Min A ) Gait Training Does the Patient Walk?: Yes Distance: 110', 50' x2, 75' Walk 10 feet (QC): 4 Walk 50 ft with 2 Turns(QC): 4 Walk 150 ft (QC): 88 Walking 10ft/uneven surface-QC: 88 Gait Persons Needed: 1 Gait Assistive Device: FWW Wheelchair Training Does the Pt Use a Wheelchair?: Yes Distance: 150ft Wheel 50 ft with 2 turns (QC): 4 Wheel 150 ft (QC): 4 Type of Wheelchair: Manual Stair Training 1 Step (curb) (QC): 88 (SOB) 4 Steps (QC): 88 (SOB) 12 Steps (QC): 88 (SOB ) Balance Picking up an Object (QC): 3 (Min A with spray gunner ) ADL-Treatment Eating (QC): 6 Oral Hygiene (QC): 6 Bathing Location: L Arm, R Arm, L Upper Leg, R Upper Leg, L Lower Leg (including foot), R Lower Leg (including foot), Chest, Abdomen, Buttocks, Perineal Area Shower/Bathe Self (QC): 5 (Set up to cover IV and surgical site. Sitting 100% of the time, pt completes showering using grabbars, hand held shower, LH sponge by self.) Upper Body Dressing (QC): 5 Lower Body Dressing (QC): 5 On/Off Footwear (QC): 5 Toileting Hygiene (QC): 6 Toilet Transfer (QC): 6 (Using grabbars, BSC and FWW to complete toileting independently.) Assessment/Plan Assessment and Plan Assess & Plan/Chief Complaint Assessment: COPD myopathy New O2 dependence CAD recent CABG Sternal and flank pressure wounds Smoker HTN AF? Anemia chronic disease HLP Plan: Wound care Dietary consult Aggressive PT OT Wean O2 01/29/2023: Placed back on oral anticoagulation Supportive care 01/30/2023: Monitor O2 01/31/2023: Supportive care 02/01/2023: Monitor O2 02/02/2023: Aggressive therapy 02/03/2023: DC BiPAP 02/04/2023: Supportive care Monitor closely (1) Myopathy MELIA DAVID DO Feb 04, 2023 08:11
[2023-02-04] MEDS: APIXABAN 5 MG TABLET PO SCH ×2 (09:21→21:06)
[2023-02-04] MEDS: polyethylene glycoL POWDER 17 GM (MIRALAX) PACK PO SCH (09:21)
[2023-02-04] MEDS: DOCUSATE SODIUM 100 MG CAPSULE PO SCH ×2 (09:21→21:00)
[2023-02-04] MEDS: amLODIPine 5 MG TABLET PO SCH (09:22)
[2023-02-04] MEDS: AMIODARONE 200 MG TABLET PO SCH (09:22)
[2023-02-04] MEDS: CLOPIDOGREL 75 MG TABLET PO SCH (09:22)
[2023-02-04] MEDS: SENNA W/DOCUSATE (SENOKOT S) TABLET PO SCH ×2 (09:22→21:00)
[2023-02-04] MEDS: HYPOCHLOROUS ACID/NaCl WOUND SOLN 250 ML IR SCH (09:24)
[2023-02-04] MEDS: DAKIN'S 1/4 STRENGTH (0.125%) 237 ML BTL TOP SCH ×2 (09:25→21:00)
[2023-02-04] MEDS: SILVER SULFADIAZINE 400 GM CREAM TP PRN (09:25)
[2023-02-04] MEDS: SILVER SULFADIAZINE 400 GM CREAM TP SCH (09:25)
--- NOTE | 2023-02-04 09:55 | Occupational Ther Daily Note ---
OT Current Status-Daily Note Subjective Pt alert, lying in bed. Pt agrees to therapy. No c/o pain though nrsg stated that she had pain meds prior to therapy. Mental Status/Objective Patient Orientation: Person, Place, Time, Situation Attachments: IV, Oxygen (2L), Telemetry ADL-Treatment Pt agrees shower. Pt utilizes FWW to ambulate to toilet. Independent for toilet transfer and toileting. Using shower bench, grabbars and hand held shower pt able to complete shower by self, set up for covering IV and surgical site. Set up for UBD, LBD and footwear due to low activity tolerance which hinders the amount of ambulation pt completes during one task. Independent with oral care in sitting. Therapy Code Descriptions/Definitions Functional [place] Measure: 0=Not Assessed/NA 4=Minimal Assistance 1=Total Assistance 5=Supervision or Setup 2=Maximal Assistance 6=Modified [place] 3=Moderate Assistance 7=Complete IndependenceSCALE: Activities may be completed with or without assistive devices. 2-Smfiiwtczn-nyoeaoi completes the activity by him/herself with no assistance from a helper. 5-Set-up or Clean-up Assistance-helper sets up or cleans up; patient completes activity. [place] assists only prior to or following the activity. 4-Supervision or Touching Assistance-helper provides verbal cues and/or touching/steadying and/or contact guard assistance as patient completes activity. Assistance may be provided throughout the activity or intermittently. 3-Partial/Moderate Assistance-helper does LESS THAN HALF the effort. [place] lifts, holds or supports trunk or limbs, but provides less than half the effort. 2-Substantial/Maximal Assistance-helper does MORE THAN HALF the effort. [place] lifts or holds trunk or limbs and provides more than half the effort. 2-Bovzdhwyc-gkvblf does ALL the effort. Patient does none of the effort to complete the activity. Or, the assistance of 2 or more helpers is required for the patient to complete the activity. If activity was not attempted, code reason: 7-Patient Refused. 9-Not Applicable-not attempted and the patient did not perform the activity before the current illness, exacerbation or injury. 10-Not Attempted due to Environmental Limitations-(lack of equipment, weather restraints, etc.). 88-Not Attempted due to Medical Conditions or Safety Concerns. Eating (QC): 6 Oral Hygiene (QC): 6 Shower/Bathe Self (QC): 5 Upper Body Dressing (QC): 5 Lower Body Dressing (QC): 5 On/Off Footwear: 5 Toileting Hygiene (QC): 6 Toilet Transfer (QC): 6 Pt takes increased time to complete all tasks due to requiring lengthy recovery breaks. Other Treatment Pt completed bed mobility independently. Pt transported to therapy gym via w/c. Completed arm bike for 6 min without resistance with 1 recovery break to incre ase activity tolerance for daily functional tasks. Monitored O2 levels during session and remained 96% and above with 2L of O2. Pt then propelled w/c back to room by self. After session, pt lying in bed with call light/phone in reach. All needs met in room. OT Short Term Goals Short Term Goals Time Frame: Feb 02, 2023 Eatin Oral hygiene: 6 (standing) Toileting hygiene: 6 OT Activity Therapy Teacher Goals Activity Therapy Teacher Goals Time Frame: Feb 06, 2023 Acute change in mental status: 0 Inattention: 0 Disorganized thinkin Altered level of consciousness: 0 Eating (QC): 6 Oral Hygiene (QC): 6 Toileting Hygiene (QC): 6 Shower/Bathe Self (QC): 5 Upper Body Dressing (QC): 6 Lower Body Dressing (QC): 6 On/Off Footwear (QC): 6 1=Demonstrate adherence to instructed precautions during ADL tasks. 2=Patient will verbalize/demonstrate understanding of assistive devices/modifications for ADL. 3=Patient will improve strength/tolerance for activity to enable patient to perform ADL's. OT Education/Plan Problem List/Assessment Assessment: Decreased Activ Tolerance, Decreased UE Strength Discharge Recommendations Plan/Recommendations: Continue POC Treatment Plan/Plan of Care Patient would benefit from OT for education, treatment and training to promote independence in ADL's, mobility, safety and/or upper extremity function for ADL's. Plan of Care: ADL Retraining, Concurrent Therapy, Functional Mobility, Group Exercise/Act as Ind, UE Funct Exercise/Act Treatment Duration: Feb 06, 2023 Frequency: At least 5 of 7 days/Wk (IRF) Estimated Hrs Per Day: 1 hour per day Agreement: Yes Rehab Potential: Good Time Start Time: 08:30 Stop Time: 10:00 DATE: Feb 04, 2023 Total Time Billed (hr/min): 90 Billed Treatment Time 1 visit-ADL 4 (60 min) FA 1 (20 min) EX 1 (10 min) ANETA ORELLANA Feb 04, 2023 09:55
--- NOTE | 2023-02-04 12:23 | Physical Therapy Daily Note ---
PT Daily Note-Current Subjective Pt laying supine in bed upon arrival. Pt agrees to PT but reports abd. discomfort. Pt reports receiving med. already. Pain Numeric Pain Scale: 4 Location Body Site: Abdomen Pain Description: Cramping Section J - Health Conditions 1. Rarely or not at all 2. Occasionally 3. Frequently 4. Almost constantly 8. Unable to answer Pain Effect on Sleep: 2 Pain Interference with Therapy: 2 Pain Interference w/Day-to-Day: 2 Mental Status Patient Orientation: Person, Place, Situation Attachments: Oxygen (2L) Transfers SCALE: Activities may be completed with or without assistive devices. 2-Uxxwoydpql-agvhbgf completes the activity by him/herself with no assistance from a helper. 5-Set-up or Clean-up Assistance-helper sets up or cleans up; patient completes activity. [place] assists only prior to or following the activity. 4-Supervision or Touching Assistance-helper provides verbal cues and/or touching/steadying and/or contact guard assistance as patient completes activity. Assistance may be provided throughout the activity or intermittently. 3-Partial/Moderate Assistance-helper does LESS THAN HALF the effort. [place] lifts, holds or supports trunk or limbs, but provides less than half the effort. 2-Substantial/Maximal Assistance-helper does MORE THAN HALF the effort. [place] lifts or holds trunk or limbs and provides more than half the effort. 4-Erevljiik-wniqyg does ALL the effort. Patient does none of the effort to complete the activity. Or, the assistance of 2 or more helpers is required for the patient to complete the activity. If activity was not attempted, code reason: 7-Patient Refused. 9-Not Applicable-not attempted and the patient did not perform the activity before the current illness, exacerbation or injury. 10-Not Attempted due to Environmental Limitations-(lack of equipment, weather restraints, etc.). 88-Not Attempted due to Medical Conditions or Safety Concerns. Sit to Stand (QC): 4 Toilet Transfer (QC): 4 Weight Bearing Right Lower Extremity: Right Full Weight Bearing Left Lower Extremity: Left Full Weight Bearing Gait Training Does the Patient Walk?: Yes Distance: 100', 75' Walk 10 feet (QC): 4 Walk 50 ft with 2 Turns(QC): 4 Gait Persons Needed: 1 Gait Assistive Device: FWW Wheelchair Training Does the Pt Use a Wheelchair?: Yes Type of Wheelchair: Manual Exercises Supine Ex: Ankle pumps, Quad Set, Glut sets, Heel Slides, Short Arc Quads, Straight leg raise, Hip abd/add Supine Reps: 15 Seated Therapy Exercises: Ankle pumps, Long arc quads, Hip flexion, Hamstring Curls, Hip abd/add, Glut set Seated Reps: 15 Treatments Pt TF to EOB and reports discomfort abd. and asks to use BR. Pt amb to BR. Pt is not able to have BM and rests in recliner. Pt completes Seated & Supine EX at recliner then family arrives. Pt demonstrates improved health after family arrives. NEW PRODUCT TRAINER takes pt via w/c & family to outside hospital garden area to work on varying surface that pt will have to maneuver at home. Pt returns to room at end of tx via w/c to rest in recliner via SPT as lunch arrives. All needs needs met, call light in hand. Assessment Current Status: Fair Progress Pt's O2 is monitored during tx and stays above 90% during tx. Pt is limited by abdominal discomfort today. Fatigue also limits distance of amb. PT Nursing Home Goals Projection Printer Goals PT Projection Printer Goals Time Frame: Feb 11, 2023 Roll Left & Right (QC): 6 (Pt will be Mod I with all aspects of functional mobility, with the least restrictive AD, in order to safely d/c home. ) Sit to Lying (QC): 6 (Pt will be Mod I with all aspects of functional mobility, with the least restrictive AD, in order to safely d/c home. ) Lying-Sitting on Side/Bed(QC): 6 (Pt will be Mod I with all aspects of functio nal mobility, with the least restrictive AD, in order to safely d/c home. ) Sit to Stand (QC): 6 (Pt will be Mod I with all aspects of functional mobility, with the least restrictive AD, in order to safely d/c home. ) Chair/Kmu-gi-Yybst Xfer(QC): 6 (Pt will be Mod I with all aspects of functional mobility, with the least restrictive AD, in order to safely d/c home. ) Toilet Transfer (QC): 6 (Pt will be Mod I with all aspects of functional mob ility, with the least restrictive AD, in order to safely d/c home. ) Car Transfer (QC): 6 (Pt will be Mod I with all aspects of functional mobility, with the least restrictive AD, in order to safely d/c home. ) Does the Patient Walk: Yes Walk 10 feet (QC): 6 (Pt will be Mod I with all aspects of functional mobility, with the least restrictive AD, in order to safely d/c home. ) Walk 50ft with 2 Turns (QC): 6 (Pt will be Mod I with all aspects of functional mobility, with the least restrictive AD, in order to safely d/c home. ) Walk 150 ft (QC): 6 (Pt will be Mod I with all aspects of functional mobility, with the least restrictive AD, in order to safely d/c home. ) Walking 10ft on Uneven Surface: 6 (Pt will be Mod I with all aspects of functional mobility, with the least restrictive AD, in order to safely d/c home. ) 1 Step (curb) (QC): 6 (Pt will be Mod I with all aspects of functional mobility, with the least restrictive AD, in order to safely d/c home. ) 4 Steps (QC): 6 (Pt will be Mod I with all aspects of functional mobility, with the least restrictive AD, in order to safely d/c home. ) 12 Steps (QC): 6 (Pt will be Mod I with all aspects of functional mobility, with the least restrictive AD, in order to safely d/c home. ) Picking up an Object (QC): 6 (Pt will be Mod I with all aspects of functional mobility, with the least restrictive AD, in order to safely d/c home. ) Does the Pt use WC or Scooter?: Yes Wheel 50 feet with 2 turns (QC: 6 (Pt will be Mod I with all aspects of functional mobility, with the least restrictive AD, in order to safely d/c home. ) Type: Manual Wheel 150 feet: 6 (Pt will be Mod I with all aspects of functional mobility, with the least restrictive AD, in order to safely d/c home. ) Type: Manual PT Plan Problem List Problem List: Activity Tolerance Treatment/Plan Treatment Plan: Continue Plan of Care Treatment Plan: Bed Mobility, Concurrent Therapy, Education, Functional Activity [place], Functional Strength, Group Therapy, Gait, Safety, Therapeutic Exercise, Transfers Treatment Duration: Feb 11, 2023 Frequency: At least 5 of 7 days/Wk (IRF) Estimated Hrs Per Day: 2 hours per day Patient and/or Family Agrees t: Yes Safety Risks/Education Patient Education: Gait Training, Correct Positioning, Safety Issues Teaching Recipient: Patient, Family Teaching Methods: Discussion Response to Teaching: Verbalize Understanding Time Time In: 1030 Time Out: 1200 DATE: Feb 04, 2023 Total Billed Treatment Time: 90 Total Billed Treatment 1, [facility] (20m), EX x2 (30m), FA x2 (25m) & GT (15m) JENNIFER HENDERSON NEW PRODUCT TRAINER Feb 04, 2023 12:23
[2023-02-04 20:20] VITALS: BP 123/58
[2023-02-04] MEDS: diphenhydrAMINE 25 MG TABLET PO PRN (21:06)
[2023-02-04] MEDS: oxyCODONE IMMEDIATE RELEASE 5 MG TABLET PO PRN (21:07)
--- NOTE | 2023-02-05 05:17 | PM&R Progress Note ---
Subjective HPI/CC On Admission Date Seen by Provider: Feb 05, 2023 Time Seen by Provider: 12:00 Subjective/Events-last exam 02/05/2023: Improved overall No pain Home O2 study to be performed 02/04/2023: Patient doing really well Did fine without the BiPAP last night No concerns at this point Plans to go home soon 02/03/2023: Patient doing a lot better Bowels are moving slowly Maintaining oxygen We will wean off BiPAP tonight 02/02/2023: No major issues Breathing well No falls Improved strength 02/01/2023: Improved overall No BM yet so giving more laxatives No pain reported O2 maintained 01/31/2023: Patient having no new problems Reviewed meds Slept pretty well last night Maintain on oxygen 01/30/2023: No pain reported Improved ambulation Weaning O2 to 2L/min No falls 01/29/2023: Patient doing pretty well Working with therapy Oxygen is maintained BiPAP maintained at night Daughter at the bedside Labs remained stable Cardiology consult Review of Systems General: Fatigue, Malaise Objective Exam Vital Signs Vital Signs Date Time Temp Pulse Resp B/P (MAP) Pulse Ox O2 Delivery O2 Flow Rate FiO2 02/05/23 20:19 Nasal Cannula 3.00 5 02/05/23 19:00 90 02/05/23 09:07 35.6 98 02/05/23 08:00 16 146/79 (101) Capillary Refill : General Appearance: No Apparent Distress, WD/WN, Chronically ill, Thin, Other (frail) HEENT: PERRL/EOMI, Normal ENT Inspection, Pharynx Normal Neck: Full Range of Motion, Normal Inspection, Non Tender, Supple, Carotid Bruit Respiratory: Chest Non Tender, Lungs Clear, No Accessory Muscle Use, No Respiratory Distress, Decreased Breath Sounds Cardiovascular: Regular Rate, Rhythm, No Edema, No Gallop, No JVD, No Murmur, Normal Peripheral Pulses Gastrointestinal: Normal Bowel Sounds, No Organomegaly, No Pulsatile Mass, Non Tender, Soft Back: Normal Inspection, No CVA Tenderness, No Vertebral Tenderness Extremity: Normal Capillary Refill, Normal Inspection, Normal Range of Motion, Non Tender, No Calf Tenderness, No Pedal Edema Neurologic/Psychiatric: Alert, Oriented x3, No Motor/Sensory Deficits, interior paneler II- XII Norm as Tested, Abnormal Gait, Depressed Affect, Motor Weakness (generalized 3/5) Skin: Normal Color, Warm/Dry Lymphatic: No Adenopathy Results/Procedures Lab Patient resulted labs reviewed. FIM Transfers Therapy Code Descriptions/Definitions Functional [place] Measure: 0=Not Assessed/NA 4=Minimal Assistance 1=Total Assistance 5=Supervision or Setup 2=Maximal Assistance 6=Modified [place] 3=Moderate Assistance 7=Complete IndependenceSCALE: Activities may be completed with or without assistive devices. 9-Onlxyokxmw-udhjhgf completes the activity by him/herself with no assistance from a helper. 5-Set-up or Clean-up Assistance-helper sets up or cleans up; patient completes activity. [place] assists only prior to or following the activity. 4-Supervision or Touching Assistance-helper provides verbal cues and/or touching/steadying and/or contact guard assistance as patient completes activity. Assistance may be provided throughout the activity or intermittently. 3-Partial/Moderate Assistance-helper does LESS THAN HALF the effort. [place] lifts, holds or supports trunk or limbs, but provides less than half the effort. 2-Substantial/Maximal Assistance-helper does MORE THAN HALF the effort. [place] lifts or holds trunk or limbs and provides more than half the effort. 5-Tuxefqwwd-vraocv does ALL the effort. Patient does none of the effort to complete the activity. Or, the assistance of 2 or more helpers is required for the patient to complete the activity. If activity was not attempted, code reason: 7-Patient Refused. 9-Not Applicable-not attempted and the patient did not perform the activity before the current illness, exacerbation or injury. 10-Not Attempted due to Environmental Limitations-(lack of equipment, weather restraints, etc.). 88-Not Attempted due to Medical Conditions or Safety Concerns. Roll Left to Right (QC): 4 (SBA ) Sit to Lying (QC): 4 Sit to Stand (QC): 4 Chair/Eiw-kx-Ewqmh Xfer(QC): 4 Car Transfer (QC): 3 (Min A ) Gait Training Does the Patient Walk?: Yes Distance: 100', 75' Walk 10 feet (QC): 4 Walk 50 ft with 2 Turns(QC): 4 Walk 150 ft (QC): 88 Walking 10ft/uneven surface-QC: 88 Gait Persons Needed: 1 Gait Assistive Device: FWW Wheelchair Training Does the Pt Use a Wheelchair?: Yes Distance: 150ft Wheel 50 ft with 2 turns (QC): 4 Wheel 150 ft (QC): 4 Type of Wheelchair: Manual Stair Training 1 Step (curb) (QC): 88 (SOB) 4 Steps (QC): 88 (SOB) 12 Steps (QC): 88 (SOB ) Balance Picking up an Object (QC): 3 (Min A with primary care provider ) ADL-Treatment Eating (QC): 6 Oral Hygiene (QC): 6 Bathing Location: L Arm, R Arm, L Upper Leg, R Upper Leg, L Lower Leg (including foot), R Lower Leg (including foot), Chest, Abdomen, Buttocks, Perineal Area Shower/Bathe Self (QC): 5 Upper Body Dressing (QC): 5 Lower Body Dressing (QC): 5 On/Off Footwear (QC): 5 Toileting Hygiene (QC): 6 Toilet Transfer (QC): 6 Assessment/Plan Assessment and Plan Assess & Plan/Chief Complaint Assessment: COPD myopathy New O2 dependence CAD recent CABG Sternal and flank pressure wounds Smoker HTN AF? Anemia chronic disease HLP Plan: Wound care Dietary consult Aggressive PT OT Wean O2 01/29/2023: Placed back on oral anticoagulation Supportive care 01/30/2023: Monitor O2 01/31/2023: Supportive care 02/01/2023: Monitor O2 02/02/2023: Aggressive therapy 02/03/2023: DC BiPAP 02/04/2023: Supportive care Monitor closely 02/05/2023: DC Sat Home O2 study (1) MELIA Ptety DO Feb 05, 2023 05:17
[2023-02-05] MEDS: RT-Ipratropium/Albuterol NEB 3 ML VIAL IH SCH ×2 (07:34→20:19)
[2023-02-05] MEDS: RT-BUDESONIDE NEBS 0.5 MG/2ML VIAL IH SCH ×2 (07:34→20:19)
[2023-02-05] MEDS: SENNA W/DOCUSATE (SENOKOT S) TABLET PO SCH ×2 (07:56→21:00)
[2023-02-05] MEDS: DOCUSATE SODIUM 100 MG CAPSULE PO SCH ×2 (07:56→20:55)
[2023-02-05] MEDS: APIXABAN 5 MG TABLET PO SCH ×2 (07:57→20:55)
[2023-02-05] MEDS: CLOPIDOGREL 75 MG TABLET PO SCH (07:57)
[2023-02-05] MEDS: AMIODARONE 200 MG TABLET PO SCH (07:57)
[2023-02-05] MEDS: CYCLOBENZAPRINE 10 MG TABLET PO PRN ×2 (07:58→20:55)
[2023-02-05] MEDS: amLODIPine 5 MG TABLET PO SCH (07:58)
[2023-02-05 08:00] VITALS: BP 146/79
[2023-02-05] MEDS: LORazepam 0.5 MG TABLET PO PRN ×2 (08:02→20:55)
--- NOTE | 2023-02-05 08:55 | Occupational Ther Daily Note ---
OT Current Status-Daily Note Subjective Pt alert and cooperative, lying in bed upon arrival. Pain about 4/10 on this date, requested nurse for medication. Mental Status/Objective Patient Orientation: Person, Place, Time, Situation ADL-Treatment Pt completed bed mobility independently, and donned socks, and ambulated to toilet in bathroom, independently, and completed toilet hygiene, and grooming at sink using FWW, independently. Pt transferred to wheelchair to conserve energy, therapist propelled self to therapy gym. Pt competed 6 minutes on arm bike with no resistance, and required multiple recovery breaks during that time. Pt also participated in a functional endurance/ functional balance activity requiring pt to stand for a few minutes at a time, involving BUE reaching and fine motor coordination as well. Pt required recovery breaks every 2-3 mins. Pt was propelled back to room in wheelchair and transferred to recliner in room using fww. CAMPA monitored o2 during session on 2L continuously, pts o2 was 95-99% throughout session. Pt was left sitting in recliner in room, all needs met at this time, call light in hand. Therapy Code Descriptions/Definitions Functional [place] Measure: 0=Not Assessed/NA 4=Minimal Assistance 1=Total Assistance 5=Supervision or Setup 2=Maximal Assistance 6=Modified [place] 3=Moderate Assistance 7=Complete IndependenceSCALE: Activities may be completed with or without assistive devices. 5-Vajyceiqle-xgxdfiu completes the activity by him/herself with no assistance from a helper. 5-Set-up or Clean-up Assistance-helper sets up or cleans up; patient completes activity. [place] assists only prior to or following the activity. 4-Supervision or Touching Assistance-helper provides verbal cues and/or touching/steadying and/or contact guard assistance as patient completes activity. Assistance may be provided throughout the activity or intermittently. 3-Partial/Moderate Assistance-helper does LESS THAN HALF the effort. [place] lifts, holds or supports trunk or limbs, but provides less than half the effort. 2-Substantial/Maximal Assistance-helper does MORE THAN HALF the effort. [place] lifts or holds trunk or limbs and provides more than half the effort. 1-Nbuvcwtva-rdbptv does ALL the effort. Patient does none of the effort to complete the activity. Or, the assistance of 2 or more helpers is required for the patient to complete the activity. If activity was not attempted, code reason: 7-Patient Refused. 9-Not Applicable-not attempted and the patient did not perform the activity before the current illness, exacerbation or injury. 10-Not Attempted due to Environmental Limitations-(lack of equipment, weather restraints, etc.). 88-Not Attempted due to Medical Conditions or Safety Concerns. Education OT Patient Education: Energy conservation, Progress toward Goal/Update tx plan, Purpose of tx/functional activities Teaching Recipient: Patient Teaching Methods: Discussion Response to Teaching: Verbalize Understanding OT Short Term Goals Short Term Goals Time Frame: Feb 02, 2023 Eatin Oral hygiene: 6 (standing) Toileting hygiene: 6 OT Senior Care Goals Senior Care Goals Time Frame: Feb 06, 2023 Acute change in mental status: 0 Inattention: 0 Disorganized thinkin Altered level of consciousness: 0 Eating (QC): 6 Oral Hygiene (QC): 6 Toileting Hygiene (QC): 6 Shower/Bathe Self (QC): 5 Upper Body Dressing (QC): 6 Lower Body Dressing (QC): 6 On/Off Footwear (QC): 6 1=Demonstrate adherence to instructed precautions during ADL tasks. 2=Patient will verbalize/demonstrate understanding of assistive devices/modifications for ADL. 3=Patient will improve strength/tolerance for activity to enable patient to perform ADL's. OT Education/Plan Problem List/Assessment Assessment: Decreased Activ Tolerance, Decreased Safety Aware, Decreased UE Strength Discharge Recommendations Plan/Recommendations: Continue POC Treatment Plan/Plan of Care Patient would benefit from OT for education, treatment and training to promote independence in ADL's, mobility, safety and/or upper extremity function for ADL's. Plan of Care: ADL Retraining, Concurrent Therapy, Functional Mobility, Group Exercise/Act as Ind, UE Funct Exercise/Act Treatment Duration: Feb 06, 2023 Frequency: At least 5 of 7 days/Wk (IRF) Estimated Hrs Per Day: 1 hour per day Agreement: Yes Rehab Potential: Good Time Start Time: 07:45 Stop Time: 09:15 DATE: Feb 05, 2023 Total Time Billed (hr/min): 90 Billed Treatment Time 1 visit ADL 2 (30) Ex 2 (30) FA 2 (30) Celia Ann COTA Feb 05, 2023 08:55
[2023-02-05] MEDS: polyethylene glycoL POWDER 17 GM (MIRALAX) PACK PO SCH (09:00)
[2023-02-05] MEDS: DAKIN'S 1/4 STRENGTH (0.125%) 237 ML BTL TOP SCH ×2 (09:00→21:00)
[2023-02-05 09:07] VITALS: BP 146/79
[2023-02-05] MEDS: SILVER SULFADIAZINE 400 GM CREAM TP SCH (10:38)
--- NOTE | 2023-02-05 11:46 | Progress Note - Cardiology ---
Cardiology SOAP Progress Note Subjective: No new c/o Objective: I&O/Vital Signs 02/05/23 02/06/23 02/06/23 21:00 01:00 07:00 Pulse 90 88 Pulse Ox 93 O2 Delivery Nasal Cannula O2 Flow Rate 2.00 02/06/23 00:00 Intake Total 360 ml Balance 360 ml Weight (Pounds): 128 Weight (Ounces): 8 Weight (Calculated Kilograms): [id number] Constitutional: AAO x 3, well-developed, well-nourished Respiratory: No accessory muscle use; chest expansion is symmetric, chest is bilaterally symmetric, other (diminished air entry at the bases, more so on the L side; prolonged exp) Cardiovascular: regular rate-rhythm, S1 and S2, systolic murmur (soft JOSÉ at card base) Gastrointestional: No tender; soft; No guarding, No rebound; audible bowel sounds Extremities: No clubbing, No cyanosis, No significant edema Neurologic/Psychiatric: oriented x 3, other (moves all limbs equally) Skin: normal color, warm/dry; No cyanosis, No cool, No diaphoresis, No rash on exposed areas, No ulcerations on exposed areas; other (part of L lateral chest under dressing that was not removed) A/P: Assessment: CAD - s/p CABG (ANN to LAD, SVG to OM1, SVG to PDA) at [facility] in November 2022. Post-operative complications noted below - CABG complicated by ANN closure at anastomotic site during the same hospitalization: treated with PCI consisting of Papyrus 2.5 x 20 covered stent to cover perf at anastomotic site and Papyrus 3.0 x 20 in prox/mid LAD to cover another perf. Yet another perf in a diagonal treated with balloon tamponade and requiring another sternotomy Subsequently, during the same hospitalization wound dehiscence required yet another sternotomy - s/p L-sided chest tube for several weeks following above surgery Advanced COPD ?A Fib sindy-op (following CABG) Tobaccoism - cessation advised Plan: * Complex management due to multiple comorbidities * Continue current medication regimen * Keep on tele * Monitor labs RADHA HURTADO Feb 05, 2023 11:46
[2023-02-05] MEDS ORDERED: FURO40TA4 PO (15:20)
[2023-02-05] MEDS ORDERED: B&C/1TAB2 PO (15:20)
[2023-02-05] MEDS ORDERED: UMEC1BLS IH (15:20)
[2023-02-05] MEDS ORDERED: IBUP-2473 PO (15:20)
[2023-02-05] MEDS ORDERED: METO-333 PO (15:20)
[2023-02-05] MEDS ORDERED: ASCO-262 PO (15:20)
[2023-02-05] MEDS ORDERED: VIT1CAPS4 PO (15:20)
[2023-02-05] MEDS ORDERED: ASPI-999 PO (15:20)
[2023-02-05] MEDS ORDERED: THIA100T68 PO (15:20)
[2023-02-05] MEDS ORDERED: LISI5TAB20 PO (15:20)
[2023-02-05] MEDS ORDERED: SPIR25TA5 PO (15:20)
[2023-02-05] MEDS ORDERED: CHOL20002 PO (15:20)
[2023-02-05] MEDS ORDERED: MV-M1TAB57 PO (15:20)
--- NOTE | 2023-02-05 16:08 | Physical Therapy Daily Note ---
PT Daily Note-Current Subjective Pt laying Supine in bed upon arrival. Pt agrees to PT. Pain Location: No Pain Reported Section J - Health Conditions 1. Rarely or not at all 2. Occasionally 3. Frequently 4. Almost constantly 8. Unable to answer Pain Effect on Sleep: 2 Pain Interference with Therapy: 2 Pain Interference w/Day-to-Day: 2 Transfers SCALE: Activities may be completed with or without assistive devices. 0-Wufwpusthp-jgiyxal completes the activity by him/herself with no assistance from a helper. 5-Set-up or Clean-up Assistance-helper sets up or cleans up; patient completes activity. [place] assists only prior to or following the activity. 4-Supervision or Touching Assistance-helper provides verbal cues and/or touching/steadying and/or contact guard assistance as patient completes activity. Assistance may be provided throughout the activity or intermittently. 3-Partial/Moderate Assistance-helper does LESS THAN HALF the effort. [place] li fts, holds or supports trunk or limbs, but provides less than half the effort. 2-Substantial/Maximal Assistance-helper does MORE THAN HALF the effort. [place] lifts or holds trunk or limbs and provides more than half the effort. 5-Tgfakcgfb-xpeuyt does ALL the effort. Patient does none of the effort to complete the activity. Or, the assistance of 2 or more helpers is required for the patient to complete the activity. If activity was not attempted, code reason: 7-Patient Refused. 9-Not Applicable-not attempted and the patient did not perform the activity before the current illness, exacerbation or injury. 10-Not Attempted due to Environmental Limitations-(lack of equipment, weather restraints, etc.). 88-Not Attempted due to Medical Conditions or Safety Concerns. Lying to Sitting/Side of Bed(Q: 5 Sit to Stand (QC): 5 Toilet Transfer (QC): 5 Weight Bearing Right Lower Extremity: Right Full Weight Bearing Left Lower Extremity: Left Full Weight Bearing Gait Training Does the Patient Walk?: Yes Distance: 150' Walk 10 feet (QC): 5 Walk 50 ft with 2 Turns(QC): 5 Walk 150 ft (QC): 5 Gait Assistive Device: FWW Wheelchair Training Does the Pt Use a Wheelchair?: No Exercises Supine Ex: Ankle pumps, Quad Set, Heel Slides, Hip abd/add Supine Reps: 15 Seated Therapy Exercises: Ankle pumps, Long arc quads, Hip flexion, Hamstring Curls (Red Tband ), Hip abd/add, Glut set Seated Reps: 15 Treatments Pt completes Supine EX in bed before TF to EOB then stands. Pt toilets, completes pericare and washes hands before amb in hallway. Pt completes Seated Ex in Therapy Gym and takes short RB before amb back to room. Pt resting in recliner w/all needs met, call light in hand & lunch tray in front of her at end of tx. Assessment Current Status: Good Progress Pt takes a couple short RB to recover feeling SOA. O2 stayed at or above 90% th roughout tx. PT Fdc Goals Fdc Goals PT Inspector Returned Materials Goals Time Frame: Feb 11, 2023 Roll Left & Right (QC): 6 (Pt will be Mod I with all aspects of functional mobility, with the least restrictive AD, in order to safely d/c home. ) Sit to Lying (QC): 6 (Pt will be Mod I with all aspects of functional mobility, with the least restrictive AD, in order to safely d/c home. ) Lying-Sitting on Side/Bed(QC): 6 (Pt will be Mod I with all aspects of functional mobility, with the least restrictive AD, in order to safely d/c home. ) Sit to Stand (QC): 6 (Pt will be Mod I with all aspects of functional mobility, with the least restrictive AD, in order to safely d/c home. ) Chair/Als-nz-Rgoyq Xfer(QC): 6 (Pt will be Mod I with all aspects of functional mobility, with the least restrictive AD, in order to safely d/c home. ) Toilet Transfer (QC): 6 (Pt will be Mod I with all aspects of functional mobility, with the least restrictive AD, in order to safely d/c home. ) Car Transfer (QC): 6 (Pt will be Mod I with all aspects of functional mobility, with the least restrictive AD, in order to safely d/c home. ) Does the Patient Walk: Yes Walk 10 feet (QC): 6 (Pt will be Mod I with all aspects of functional mobility, with the least restrictive AD, in order to safely d/c home. ) Walk 50ft with 2 Turns (QC): 6 (Pt will be Mod I with all aspects of functional mobility, with the least restrictive AD, in order to safely d/c home. ) Walk 150 ft (QC): 6 (Pt will be Mod I with all aspects of functional mobility, with the least restrictive AD, in order to safely d/c home. ) Walking 10ft on Uneven Surface: 6 (Pt will be Mod I with all aspects of functional mobility, with the least restrictive AD, in order to safely d/c home. ) 1 Step (curb) (QC): 6 (Pt will be Mod I with all aspects of functional mobility, with the least restrictive AD, in order to safely d/c home. ) 4 Steps (QC): 6 (Pt will be Mod I with all aspects of functional mobility, with the least restrictive AD, in order to safely d/c home. ) 12 Steps (QC): 6 (Pt will be Mod I with all aspects of functional mobility, with the least restrictive AD, in order to safely d/c home. ) Picking up an Object (QC): 6 (Pt will be Mod I with all aspects of functional mobility, with the least restrictive AD, in order to safely d/c home. ) Does the Pt use WC or Scooter?: Yes Wheel 50 feet with 2 turns (QC: 6 (Pt will be Mod I with all aspects of functional mobility, with the least restrictive AD, in order to safely d/c home. ) Type: Manual Wheel 150 feet: 6 (Pt will be Mod I with all aspects of functional mobility, with the least restrictive AD, in order to safely d/c home. ) Type: Manual PT Plan Problem List Problem List: Activity Tolerance Treatment/Plan Treatment Plan: Continue Plan of Care Treatment Plan: Bed Mobility, Concurrent Therapy, Education, Functional Activity [place], Functional Strength, Group Therapy, Gait, Safety, Therapeutic Exercise, Transfers Treatment Duration: Feb 11, 2023 Frequency: At least 5 of 7 days/Wk (IRF) Estimated Hrs Per Day: 2 hours per day Patient and/or Family Agrees t: Yes Time Time In: 1100 Time Out: 1200 DATE: Feb 05, 2023 Total Billed Treatment Time: 60 Total Billed Treatment 1,GT (20m), FA (15m) & EX x2 (25m) JENNIFER HENDERSON HAND ROUTER OPERATOR Feb 05, 2023 16:08
--- NOTE | 2023-02-05 16:22 | Physical Therapy Daily Note ---
PT Daily Note-Current Subjective Pt laying Supine in bed upon arrival. Pt agrees to PT but more reluctantly than previous tx to start after tx. Pt reports just wanting to d/c. Pain Location: No Pain Reported Section J - Health Conditions 1. Rarely or not at all 2. Occasionally 3. Frequently 4. Almost constantly 8. Unable to answer Pain Effect on Sleep: 2 Pain Interference with Therapy: 2 Pain Interference w/Day-to-Day: 2 Mental Status Patient Orientation: Person, Place, Time, Situation Attachments: Oxygen (2L) Transfers SCALE: Activities may be completed with or without assistive devices. 5-Hcpdggojhi-bxvteye completes the activity by him/herself with no assistance from a helper. 5-Set-up or Clean-up Assistance-helper sets up or cleans up; patient completes activity. [place] assists only prior to or following the activity. 4-Supervision or Touching Assistance-helper provides verbal cues and/or t ouching/steadying and/or contact guard assistance as patient completes activity. Assistance may be provided throughout the activity or intermittently. 3-Partial/Moderate Assistance-helper does LESS THAN HALF the effort. [place] lifts, holds or supports trunk or limbs, but provides less than half the effort. 2-Substantial/Maximal Assistance-helper does MORE THAN HALF the effort. [place] lifts or holds trunk or limbs and provides more than half the effort. 4-Ovpsfudka-bgyriy does ALL the effort. Patient does none of the effort to complete the activity. Or, the assistance of 2 or more helpers is required for the patient to complete the activity. If activity was not attempted, code reason: 7-Patient Refused. 9-Not Applicable-not attempted and the patient did not perform the activity before the current illness, exacerbation or injury. 10-Not Attempted due to Environmental Limitations-(lack of equipment, weather restraints, etc.). 88-Not Attempted due to Medical Conditions or Safety Concerns. Weight Bearing Right Lower Extremity: Right Full Weight Bearing Left Lower Extremity: Left Full Weight Bearing Exercises Supine Ex: Ankle pumps, Quad Set, Glut sets, Heel Slides, Short Arc Quads, Straight leg raise (10 reps), Hip abd/add Supine Reps: 15 Treatments Pt completes Supine EX then asks to use BR so TF to EOB and stands. Pt amb to BR using FWW. Pt toilets and completes pericare. Assessment Current Status: Good Progress Pt demonstrates good ROM and improved strength. PT Usp Goals Operating System Programmer Goals PT Operating System Programmer Goals Time Frame: Feb 11, 2023 Roll Left & Right (QC): 6 (Pt will be Mod I with all aspects of functional mobility, with the least restrictive AD, in order to safely d/c home. ) Sit to Lying (QC): 6 (Pt will be Mod I with all aspects of functional mobility, with the least restrictive AD, in order to safely d/c home. ) Lying-Sitting on Side/Bed(QC): 6 (Pt will be Mod I with all aspects of functional mobility, with the least restrictive AD, in order to safely d/c home. ) Sit to Stand (QC): 6 (Pt will be Mod I with all aspects of functional mobility, with the least restrictive AD, in order to safely d/c home. ) Chair/Avb-gc-Quatz Xfer(QC): 6 (Pt will be Mod I with all aspects of functional mobility, with the least restrictive AD, in order to safely d/c home. ) Toilet Transfer (QC): 6 (Pt will be Mod I with all aspects of functional mobility, with the least restrictive AD, in order to safely d/c home. ) Car Transfer (QC): 6 (Pt will be Mod I with all aspects of functional mobility, with the least restrictive AD, in order to safely d/c home. ) Does the Patient Walk: Yes Walk 10 feet (QC): 6 (Pt will be Mod I with all aspects of functional mobility, with the least restrictive AD, in order to safely d/c home. ) Walk 50ft with 2 Turns (QC): 6 (Pt will be Mod I with all aspects of functional mobility, with the least restrictive AD, in order to safely d/c home. ) Walk 150 ft (QC): 6 (Pt will be Mod I with all aspects of functional mobility, with the least restrictive AD, in order to safely d/c home. ) Walking 10ft on Uneven Surface: 6 (Pt will be Mod I with all aspects of functional mobility, with the least restrictive AD, in order to safely d/c home. ) 1 Step (curb) (QC): 6 (Pt will be Mod I with all aspects of functional mobility, with the least restrictive AD, in order to safely d/c home. ) 4 Steps (QC): 6 (Pt will be Mod I with all aspects of functional mobility, with the least restrictive AD, in order to safely d/c home. ) 12 Steps (QC): 6 (Pt will be Mod I with all aspects of functional mobility, with the least restrictive AD, in order to safely d/c home. ) Picking up an Object (QC): 6 (Pt will be Mod I with all aspects of functional mobility, with the least restrictive AD, in order to safely d/c home. ) Does the Pt use WC or Scooter?: Yes Wheel 50 feet with 2 turns (QC: 6 (Pt will be Mod I with all aspects of functional mobility, with the least restrictive AD, in order to safely d/c home. ) Type: Manual Wheel 150 feet: 6 (Pt will be Mod I with all aspects of functional mobility, with the least restrictive AD, in order to safely d/c home. ) Type: Manual PT Plan Treatment/Plan Treatment Plan: Continue Plan of Care Treatment Plan: Bed Mobility, Concurrent Therapy, Education, Functional Activity [place], Functional Strength, Group Therapy, Gait, Safety, Therapeutic Exercise, Transfers Treatment Duration: Feb 11, 2023 Frequency: At least 5 of 7 days/Wk (IRF) Estimated Hrs Per Day: 2 hours per day Patient and/or Family Agrees t: Yes Safety Risks/Education Patient Education: Correct Positioning, Safety Issues Teaching Recipient: Patient Teaching Methods: Discussion Response to Teaching: Verbalize Understanding Time Time In: 1400 Time Out: 1430 DATE: Feb 05, 2023 Total Billed Treatment Time: 30 Total Billed Treatment 1, EX (20m) & FA (10m) JENNIFER HENDERSON PTA Feb 05, 2023 16:22
[2023-02-05] MEDS: oxyCODONE IMMEDIATE RELEASE 5 MG TABLET PO PRN (17:36)
[2023-02-05 20:15] VITALS: BP 123/63
[2023-02-05] MEDS: diphenhydrAMINE 25 MG TABLET PO PRN (20:55)
--- NOTE | 2023-02-06 05:23 | PM&R Progress Note ---
Subjective HPI/CC On Admission Date Seen by Provider: Feb 06, 2023 Time Seen by Provider: 12:00 Subjective/Events-last exam 02/06/2023: Improved DC tomorrow No falls O2 2L/min cont 02/05/2023: Improved overall No pain Home O2 study to be performed 02/04/2023: Patient doing really well Did fine without the BiPAP last night No concerns at this point Plans to go home soon 02/03/2023: Patient doing a lot better Bowels are moving slowly Maintaining oxygen We will wean off BiPAP tonight 02/02/2023: No major issues Breathing well No falls Improved strength 02/01/2023: Improved overall No BM yet so giving more laxatives No pain reported O2 maintained 01/31/2023: Patient having no new problems Reviewed meds Slept pretty well last night Maintain on oxygen 01/30/2023: No pain reported Improved ambulation Weaning O2 to 2L/min No falls 01/29/2023: Patient doing pretty well Working with therapy Oxygen is maintained BiPAP maintained at night Daughter at the bedside Labs remained stable Cardiology consult Review of Systems General: Fatigue, Malaise Objective Exam Vital Signs Vital Signs Date Time Temp Pulse Resp B/P (MAP) Pulse Ox O2 Delivery O2 Flow Rate FiO2 02/07/23 01:00 88 02/06/23 21:15 91 Nasal Cannula 2.00 02/06/23 20:15 36.3 20 129/61 (83) 02/05/23 20:19 5 Capillary Refill : General Appearance: No Apparent Distress, WD/WN, Chronically ill, Thin, Other (frail) HEENT: PERRL/EOMI, Normal ENT Inspection, Pharynx Normal Neck: Full Range of Motion, Normal Inspection, Non Tender, Supple, Carotid Bruit Respiratory: Chest Non Tender, Lungs Clear, No Accessory Muscle Use, No Respiratory Distress, Decreased Breath Sounds Cardiovascular: Regular Rate, Rhythm, No Edema, No Gallop, No JVD, No Murmur, Normal Peripheral Pulses Gastrointestinal: Normal Bowel Sounds, No Organomegaly, No Pulsatile Mass, Non Tender, Soft Back: Normal Inspection, No CVA Tenderness, No Vertebral Tenderness Extremity: Normal Capillary Refill, Normal Inspection, Normal Range of Motion, Non Tender, No Calf Tenderness, No Pedal Edema Neurologic/Psychiatric: Alert, Oriented x3, No Motor/Sensory Deficits, 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 FIM Transfers Therapy Code Descriptions/Definitions Functional [place] Measure: 0=Not Assessed/NA 4=Minimal Assistance 1=Total Assistance 5=Supervision or Setup 2=Maximal Assistance 6=Modified [place] 3=Moderate Assistance 7=Complete IndependenceSCALE: Activities may be completed with or without assistive devices. 7-Hcfolvmobb-dbzxkdy completes the activity by him/herself with no assistance from a helper. 5-Set-up or Clean-up Assistance-helper sets up or cleans up; patient completes activity. [place] assists only prior to or following the activity. 4-Supervision or Touching Assistance-helper provides verbal cues and/or touching/steadying and/or contact guard assistance as patient completes activity. Assistance may be provided throughout the activity or intermittently. 3-Partial/Moderate Assistance-helper does LESS THAN HALF the effort. [place] lifts, holds or supports trunk or limbs, but provides less than half the effort. 2-Substantial/Maximal Assistance-helper does MORE THAN HALF the effort. [place] lifts or holds trunk or limbs and provides more than half the effort. 5-Uplhsloht-dntahn does ALL the effort. Patient does none of the effort to complete the activity. Or, the assistance of 2 or more helpers is required for the patient to complete the activity. If activity was not attempted, code reason: 7-Patient Refused. 9-Not Applicable-not attempted and the patient did not perform the activity before the current illness, exacerbation or injury. 10-Not Attempted due to Environmental Limitations-(lack of equipment, weather restraints, etc.). 88-Not Attempted due to Medical Conditions or Safety Concerns. Roll Left to Right (QC): 4 (SBA ) Sit to Lying (QC): 4 Sit to Stand (QC): 5 Chair/Ery-ml-Vjxyz Xfer(QC): 4 Car Transfer (QC): 3 (Min A ) Gait Training Does the Patient Walk?: Yes Distance: 150' Walk 10 feet (QC): 5 Walk 50 ft with 2 Turns(QC): 5 Walk 150 ft (QC): 5 Walking 10ft/uneven surface-QC: 88 Gait Persons Needed: 1 Gait Assistive Device: FWW Wheelchair Training Does the Pt Use a Wheelchair?: No Distance: 150ft Wheel 50 ft with 2 turns (QC): 4 Wheel 150 ft (QC): 4 Type of Wheelchair: Manual Stair Training 1 Step (curb) (QC): 88 (SOB) 4 Steps (QC): 88 (SOB) 12 Steps (QC): 88 (SOB ) Balance Picking up an Object (QC): 3 (Min A with analyst market intelligence ) ADL-Treatment Eating (QC): 6 Oral Hygiene (QC): 6 Bathing Location: L Arm, R Arm, L Upper Leg, R Upper Leg, L Lower Leg (including foot), R Lower Leg (including foot), Chest, Abdomen, Buttocks, Perineal Area Shower/Bathe Self (QC): 5 Upper Body Dressing (QC): 5 Lower Body Dressing (QC): 5 On/Off Footwear (QC): 5 Toileting Hygiene (QC): 6 Toilet Transfer (QC): 6 Assessment/Plan Assessment and Plan Assess & Plan/Chief Complaint Assessment: COPD myopathy New O2 dependence CAD recent CABG Sternal and flank pressure wounds Smoker HTN AF? Anemia chronic disease HLP Plan: Wound care Dietary consult Aggressive PT OT Wean O2 01/29/2023: Placed back on oral anticoagulation Supportive care 01/30/2023: Monitor O2 01/31/2023: Supportive care 02/01/2023: Monitor O2 02/02/2023: Aggressive therapy 02/03/2023: DC BiPAP 02/04/2023: Supportive care Monitor closely 02/05/2023: DC Sat Home O2 study 02/06/2023: DC tomorrow (1) MELIA Petty DO Feb 06, 2023 05:23
[2023-02-06] MEDS: CYCLOBENZAPRINE 10 MG TABLET PO PRN ×2 (06:43→22:06)
[2023-02-06] MEDS: amLODIPine 5 MG TABLET PO SCH (07:32)
[2023-02-06] MEDS: polyethylene glycoL POWDER 17 GM (MIRALAX) PACK PO SCH (07:32)
[2023-02-06] MEDS: LORazepam 0.5 MG TABLET PO PRN ×2 (07:32→21:18)
[2023-02-06] MEDS: APIXABAN 5 MG TABLET PO SCH ×2 (07:32→21:18)
[2023-02-06] MEDS: SENNA W/DOCUSATE (SENOKOT S) TABLET PO SCH ×2 (07:32→21:20)
[2023-02-06] MEDS: DAKIN'S 1/4 STRENGTH (0.125%) 237 ML BTL TOP SCH ×2 (07:32→21:20)
[2023-02-06] MEDS: AMIODARONE 200 MG TABLET PO SCH (07:32)
[2023-02-06] MEDS: DOCUSATE SODIUM 100 MG CAPSULE PO SCH ×2 (07:32→21:19)
[2023-02-06] MEDS: CLOPIDOGREL 75 MG TABLET PO SCH (07:32)
[2023-02-06] MEDS: SILVER SULFADIAZINE 400 GM CREAM TP PRN (07:33)
[2023-02-06] MEDS: HYPOCHLOROUS ACID/NaCl WOUND SOLN 250 ML IR SCH (07:34)
[2023-02-06] MEDS: SILVER SULFADIAZINE 400 GM CREAM TP SCH (07:34)
[2023-02-06 08:00] VITALS: BP 130/60
[2023-02-06] MEDS: RT-Ipratropium/Albuterol NEB 3 ML VIAL IH SCH ×2 (08:25→20:01)
[2023-02-06] MEDS: RT-BUDESONIDE NEBS 0.5 MG/2ML VIAL IH SCH ×2 (08:25→20:01)
--- NOTE | 2023-02-06 09:37 | Physical Therapy Daily Note ---
PT Daily Note-Current Subjective Pt is agreeable to PT. Denies pain Pain Numeric Pain Scale: 0-No Pain Location: No Pain Reported Section J - Health Conditions 1. Rarely or not at all 2. Occasionally 3. Frequently 4. Almost constantly 8. Unable to answer Pain Effect on Sleep: 1 Pain Interference with Therapy: 1 Pain Interference w/Day-to-Day: 1 Mental Status Attachments: Oxygen (2L) Transfers SCALE: Activities may be completed with or without assistive devices. 5-Tttyrubvtg-kxnbmmc completes the activity by him/herself with no assistance from a helper. 5-Set-up or Clean-up Assistance-helper sets up or cleans up; patient completes activity. [place] assists only prior to or following the activity. 4-Supervision or Touching Assistance-helper provides verbal cues and/or to uching/steadying and/or contact guard assistance as patient completes activity. Assistance may be provided throughout the activity or intermittently. 3-Partial/Moderate Assistance-helper does LESS THAN HALF the effort. [place] lifts, holds or supports trunk or limbs, but provides less than half the effort. 2-Substantial/Maximal Assistance-helper does MORE THAN HALF the effort. [place] lifts or holds trunk or limbs and provides more than half the effort. 4-Pndwngnic-bvanix does ALL the effort. Patient does none of the effort to complete the activity. Or, the assistance of 2 or more helpers is required for the patient to complete the activity. If activity was not attempted, code reason: 7-Patient Refused. 9-Not Applicable-not attempted and the patient did not perform the activity before the current illness, exacerbation or injury. 10-Not Attempted due to Environmental Limitations-(lack of equipment, weather restraints, etc.). 88-Not Attempted due to Medical Conditions or Safety Concerns. Roll Left & Right (QC): 6 Sit to Lying (QC): 6 Lying to Sitting/Side of Bed(Q: 6 Sit to Stand (QC): 6 Chair/Rsl-wb-Nahpj Xfer(QC): 6 Toilet Transfer (QC): 6 Car Transfer (QC): 6 Weight Bearing Right Lower Extremity: Right Full Weight Bearing Left Lower Extremity: Left Full Weight Bearing Gait Training Does the Patient Walk?: Yes Distance: 150ft Walk 10 feet (QC): 6 Walk 50 ft with 2 Turns(QC): 6 Walk 150 ft (QC): 6 Walking 10ft/uneven surface-QC: 6 Gait Assistive Device: FWW Wheelchair Training Does the Pt Use a Wheelchair?: Yes Wheel 50 ft with 2 turns (QC): 6 Wheel 150 ft (QC): 6 Type of Wheelchair: Manual Stair Training Stair Training: Handrails/: 2 handrails #of Steps: 12 1 Step (curb) (QC): 6 4 Steps (QC): 6 12 Steps (QC): 6 Stairs: Pattern: Step to Balance Picking up an Object (QC): 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 PT/OT working on family training for the pts d/c tomorrow (02/07/23). Pt completed bed mobility tasks with Mod I. Pt completed functional transfers with Mod I. Pt ambulated 150ft with the FWW and Mod I. Pt completed 12 steps with B HR and Mod I. Pt is Mod I with w/c mobility. PT/OT answered family questions and concerns and edu pt about d/c, safety, and HHC. Pt and family report feeling comfortable about d/c and deny any questions or concerns. Pt left with OT for a shower. All needs met. Assessment Current Status: Good Progress Pt tolerated PT well with good effort. O2 stayed above 95% on 2L throughout entire treatment session. Pt has progressed well with PT, pt is Mod I with all aspects of functional mobility with the FWW, and pt has met all set goals. D/C to home with family assistance and HHC on 02/07/23. Pt will require a FWW at d/c. Pt has a mobility limitation that significantly impairs her ability to complete functional mobility and ADLs. Without a FWW, the pt is at an increased risk for falls and injury. Pt can safely utilize the FWW and is Ind with it. The pts functional mobility deficit can be resolved with the FWW. 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 ) Sit to Lying (QC): 6 (Pt will be Mod I with all aspects of functional mobility, with the least restrictive AD, in order to safely d/c home. ) Lying-Sitting on Side/Bed(QC): 6 (Pt will be Mod I with all aspects of functional mobility, with the least restrictive AD, in order to safely d/c home. ) Sit to Stand (QC): 6 (Pt will be Mod I with all aspects of functional mobility, with the least restrictive AD, in order to safely d/c home. ) Chair/Xfi-lg-Atrfu Xfer(QC): 6 (Pt will be Mod I with all aspects of functional mobility, with the least restrictive AD, in order to safely d/c home. ) Toilet Transfer (QC): 6 (Pt will be Mod I with all aspects of functional mobility, with the least restrictive AD, in order to safely d/c home. ) Car Transfer (QC): 6 (Pt will be Mod I with all aspects of functional mobility, with the least restrictive AD, in order to safely d/c home. ) Does the Patient Walk: Yes Walk 10 feet (QC): 6 (Pt will be Mod I with all aspects of functional mobility, with the least restrictive AD, in order to safely d/c home. ) Walk 50ft with 2 Turns (QC): 6 (Pt will be Mod I with all aspects of functional mobility, with the least restrictive AD, in order to safely d/c home. ) Walk 150 ft (QC): 6 (Pt will be Mod I with all aspects of functional mobility, with the least restrictive AD, in order to safely d/c home. ) Walking 10ft on Uneven Surface: 6 (Pt will be Mod I with all aspects of functional mobility, with the least restrictive AD, in order to safely d/c home. ) 1 Step (curb) (QC): 6 (Pt will be Mod I with all aspects of functional mobility, with the least restrictive AD, in order to safely d/c home. ) 4 Steps (QC): 6 (Pt will be Mod I with all aspects of functional mobility, with the least restrictive AD, in order to safely d/c home. ) 12 Steps (QC): 6 (Pt will be Mod I with all aspects of functional mobility, with the least restrictive AD, in order to safely d/c home. ) Picking up an Object (QC): 6 (Pt will be Mod I with all aspects of functional mobility, with the least restrictive AD, in order to safely d/c home. ) Does the Pt use WC or Scooter?: Yes Wheel 50 feet with 2 turns (QC: 6 (Pt will be Mod I with all aspects of functional mobility, with the least restrictive AD, in order to safely d/c home. ) Type: Manual Wheel 150 feet: 6 (Pt will be Mod I with all aspects of functional mobility, with the least restrictive AD, in order to safely d/c home. ) Type: Manual PT Plan Problem List Problem List: Activity Tolerance Treatment/Plan Treatment Plan: Continue Plan of Care Treatment Plan: Bed Mobility, Concurrent Therapy, Education, Functional Activity [place], Functional Strength, Group Therapy, Gait, Safety, Therapeutic Exercise, Transfers Treatment Duration: Feb 11, 2023 Frequency: At least 5 of 7 days/Wk (IRF) Estimated Hrs Per Day: 2 hours per day Patient and/or Family Agrees t: Yes Safety Risks/Education Patient Education: Gait Training, Transfer Techniques, Steps, Issued Written HEP (reviewed ), Correct Positioning, W/C Management, Safety Issues Teaching Recipient: Patient, Family Teaching Methods: Demonstration, Discussion Response to Teaching: Verbalize Understanding, Return Demonstration Discharge Recommendations Therapy Discharge Recommendati: Home & Family Equpiment Recommendations-D/C: Front Wheeled Walker Discharge Status/Home Program Cont per POC Barriers to Progress Endurance Target Placement Home with family assistance Time Time In: 930 Time Out: 1030 DATE: Feb 06, 2023 Total Billed Treatment Time: 60 Total Billed Treatment 60 min total from [id number]; co-tx for 30 min from [id number] 1 visit GT x 1 FA x 3 CHINA ZAFAR PT Feb 06, 2023 09:36
[2023-02-06] MEDS ORDERED: CYCL10TA25 PO (10:54)
[2023-02-06] MEDS ORDERED: ONDA4TAB11 SL (10:54)
[2023-02-06] MEDS ORDERED: SENN-271 PO (10:54)
[2023-02-06] MEDS ORDERED: IPRA3AMP31 IH (10:54)
[2023-02-06] MEDS ORDERED: OXC5T PO (10:54)
[2023-02-06] MEDS ORDERED: AMIO200T65 PO (10:54)
[2023-02-06] MEDS ORDERED: BUDE0.5A IH (10:54)
[2023-02-06] MEDS ORDERED: LORA-404 PO (10:54)
[2023-02-06] MEDS ORDERED: CLOP75TA28 PO (10:54)
[2023-02-06] MEDS ORDERED: APIX5TAB PO (10:54)
[2023-02-06] MEDS ORDERED: MECL-149 PO (10:54)
[2023-02-06] MEDS ORDERED: BENZ100C18 PO (10:54)
[2023-02-06] MEDS ORDERED: AMLO-250 PO (10:54)
[2023-02-06] MEDS ORDERED: TRM50T PO (10:54)
--- NOTE | 2023-02-06 10:57 | D/C HH Face to Face Order ---
D/C Face to Face Orders Reconcile Patient Problems Problems Reviewed?: Yes Instructions [place] [facility] Instructions/FollowUp: PCP 1 week Physician to follow Patient: PCP Discharge Diet for Home: No Restrictions Patient Problems: CAD COPD Patient Data-Allergies,Ht & Wt Patient Allergies: Coded Allergies: No Known Drug Allergies (Unverified , 03/23/17) Height (Feet): 5 Height (Inches): 6 Weight (Pounds): 128 Weight (Ounces): 8 Home Health Need/Face to Face Date of Face to Face: Feb 06, 2023 Clinical Findings: Generalized weakness and fatigue, Instability, Muscle weakness, Shortness of breath I have seen Pt fsic-fo-yzph: Yes Discharged To: Home Diagnosis/Conditions: COPD Patient is Homebound due to: Saul fall risk due to instabilty, Muscle weakness, Shortness of breath/distress Homebound Status Due to the above stated illness, injury or surgical procedure (medical condition or diagnosis) and associated clinical findings, the patient is homebound because of his/her inability to leave home except with aid of a supportive device and/or person AND leaving the home requires a considerable and taxing effort or is medically contraindicated. Pt req the following assistanc: Walker Home Health Nursing Orders Home Health Services Order: Nursing Services, Physician Locums Urgent Care-Evaluate & Treat, Physical Therapy-Evaluate & Treat Certify Stmt I certify that this patient is under my care and that I, a nurse practitioner or a physician; a assistant professor of life sciences working with me, had a face to face encounter that - meets the physician face to face encounter requirements with this patient as dated. MELIA DAVID DO Feb 06, 2023 10:57
--- NOTE | 2023-02-06 11:00 | Occupational Ther Daily Note ---
OT Current Status-Daily Note Subjective Pt alert, working with PT. Co-treat with PT ([id number]) for family training/education to promote a successful discharge to home and pt's continued independence. PT focusing on transfers, ambulation and B LE HEP while OT focusing on B UE HEP, IADLs/ADLs with energy conservation. Mental Status/Objective Patient Orientation: Person, Place, Time, Situation Attachments: Oxygen (2L) ADL-Treatment Pt and family educated on energy conservation strategies when completing IADLs and ADLs when pt discharges to home. Pt and family acknowledged understanding of energy conservation and the benefits of using this. Pt is anxious, but ready to go home. Pt agrees to shower. Pt uses energy conservation strategies to gather supplies for ADLs utilizing FWW and rest breaks as needed. Independent with toileting. Independent with shower using grabbars, hand held shower and shower bench. Independent with UBD, LBD and footwear with recovery breaks when needed. Independent with eating and oral care (in sitting). After session, pt lying in bed with call light/phone in reach. All needs met in room. Therapy Code Descriptions/Definitions Functional [place] Measure: 0=Not Assessed/NA 4=Minimal Assistance 1=Total Assistance 5=Supervision or Setup 2=Maximal Assistance 6=Modified [place] 3=Moderate Assistance 7=Complete IndependenceSCALE: Activities may be completed with or without assistive devices. 9-Byiepabvpu-lrrdjfv completes the activity by him/herself with no assistance from a helper. 5-Set-up or Clean-up Assistance-helper sets up or cleans up; patient completes activity. [place] assists only prior to or following the activity. 4-Supervision or Touching Assistance-helper provides verbal cues and/or touching/steadying and/or contact guard assistance as patient completes activity. Assistance may be provided throughout the activity or intermittently. 3-Partial/Moderate Assistance-helper does LESS THAN HALF the effort. [place] lifts, holds or supports trunk or limbs, but provides less than half the effort. 2-Substantial/Maximal Assistance-helper does MORE THAN HALF the effort. [place] lifts or holds trunk or limbs and provides more than half the effort. 1-Ammlrofvl-pitinu does ALL the effort. Patient does none of the effort to complete the activity. Or, the assistance of 2 or more helpers is required for the patient to complete the activity. If activity was not attempted, code reason: 7-Patient Refused. 9-Not Applicable-not attempted and the patient did not perform the activity before the current illness, exacerbation or injury. 10-Not Attempted due to Environmental Limitations-(lack of equipment, weather restraints, etc.). 88-Not Attempted due to Medical Conditions or Safety Concerns. Eating (QC): 6 Oral Hygiene (QC): 6 Shower/Bathe Self (QC): 6 Upper Body Dressing (QC): 6 Lower Body Dressing (QC): 6 On/Off Footwear: 6 Toileting Hygiene (QC): 6 Toilet Transfer (QC): 6 BIMS CAM BIMS Expression of Ideas and Wants: Without Difficulty Understanding Verbal Content: Understands Brief Interview/Mental Status: Yes IRF [place]CHELL BIMS: IRF [place] BIMS Response (Comments) Value Repitition of Three Words Three 3 Recalls Socks Yes, No Cue Required 2 Recalls Blue Yes, No Cue Required 2 Recalls Bed Yes, No Cue Required 2 Year Correct 3 Month Accurate Within 5 Days 2 Day Correct 1 Total 15 Patient Normally Able to Recal: Current Session, Location of own room, Staff Names and faces, That he/she in a hsp CAM Mental Status Change/Baseline: 0 Inattention: 0 Disorganized thinkin Altered level of consciousness: 0 OT Short Term Goals Short Term Goals Time Frame: Feb 02, 2023 Eatin Oral hygiene: 6 (standing) Toileting hygiene: 6 OT Paper Supervisor Goals Retirement Goals Time Frame: Feb 06, 2023 Acute change in mental status: 0 Inattention: 0 Disorganized thinkin Altered level of consciousness: 0 Eating (QC): 6 (met) Oral Hygiene (QC): 6 (emt) Toileting Hygiene (QC): 6 (met) Shower/Bathe Self (QC): 5 (met) Upper Body Dressing (QC): 6 (met) Lower Body Dressing (QC): 6 (met) On/Off Footwear (QC): 6 (met) 1=Demonstrate adherence to instructed precautions during ADL tasks. 2=Patient will verbalize/demonstrate understanding of assistive devices/modifications for ADL. 3=Patient will improve strength/tolerance for activity to enable patient to perform ADL's. OT Education/Plan Problem List/Assessment Assessment: Decreased Activ Tolerance, Decreased UE Strength, Impaired Self- Care Skills Discharge Recommendations Plan/Recommendations: Continue POC Treatment Plan/Plan of Care Patient would benefit from OT for education, treatment and training to promote independence in ADL's, mobility, safety and/or upper extremity function for ADL's. Plan of Care: ADL Retraining, Concurrent Therapy, Functional Mobility, Group Exercise/Act as Ind, UE Funct Exercise/Act Treatment Duration: Feb 06, 2023 Frequency: At least 5 of 7 days/Wk (IRF) Estimated Hrs Per Day: 1 hour per day Agreement: Yes Rehab Potential: Good Time Start Time: 10:00 Stop Time: 11:00 DATE: Feb 06, 2023 Total Time Billed (hr/min): 60 Billed Treatment Time 1 visit-FA 2 (30 min) ADL 2 (30 min) co-treat with PT [id number], individual [id number] ANETA ORELLANA Feb 06, 2023 11:00
--- NOTE | 2023-02-06 11:58 | Progress Note - Cardiology ---
Cardiology SOAP Progress Note Subjective: No cp or palp or syncope Exertional shortness of breath at chronic baseline Gen weakness improving No focal weakness No n/v/d Objective: I&O/Vital Signs 02/06/23 02/06/23 02/06/23 02/06/23 01:00 07:00 08:00 08:25 Temp 36.1 Pulse 90 88 89 Resp 18 B/P (MAP) 130/60 (83) Pulse Ox 18 97 O2 Delivery Nasal Cannula Nasal Cannula O2 Flow Rate 2.00 2.00 02/06/23 02/06/23 08:31 10:08 O2 Delivery Nasal Cannula Nasal Cannula O2 Flow Rate 2.00 2.00 02/06/23 00:00 Intake Total 360 ml Balance 360 ml Weight (Pounds): 128 Weight (Ounces): 8 Weight (Calculated Kilograms): [id number] Constitutional: AAO x 3, well-developed, well-nourished Respiratory: No accessory muscle use; chest expansion is symmetric, chest is bilaterally symmetric, other (diminished air entry at the bases, more so on the L side; prolonged exp) Cardiovascular: regular rate-rhythm, S1 and S2, systolic murmur (soft JOSÉ at card base) Gastrointestional: No tender; soft; No guarding, No rebound; audible bowel sounds Extremities: No clubbing, No cyanosis, No significant edema Neurologic/Psychiatric: oriented x 3, other (moves all limbs equally) Skin: normal color, warm/dry; No cyanosis, No cool, No diaphoresis, No rash on exposed areas, No ulcerations on exposed areas; other (part of L lateral chest under dressing that was not removed) A/P: Assessment: CAD - s/p CABG (ANN to LAD, SVG to OM1, SVG to PDA) at [facility] in November 2022. Post-operative complications noted below - CABG complicated by ANN closure at anastomotic site during the same hospitalization: treated with PCI consisting of Papyrus 2.5 x 20 covered stent to cover perf at anastomotic site and Papyrus 3.0 x 20 in prox/mid LAD to cover another perf. Yet another perf in a diagonal treated with balloon tamponade and requiring another sternotomy Subsequently, during the same hospitalization wound dehiscence required yet another sternotomy - s/p L-sided chest tube for several weeks following above surgery Advanced COPD ?A Fib sindy-op (following CABG) Tobaccoism - cessation advised Plan: * Complex management due to multiple comorbidities * Continue current medication regimen * Monitor labs [facility] Feb 06, 2023 11:58
[2023-02-06] MEDS: oxyCODONE IMMEDIATE RELEASE 5 MG TABLET PO PRN (14:13)
--- NOTE | 2023-02-06 15:25 | Therapy Group Daily Note ---
Therapy Daily Group Note Patient Education Topic Home Safety, Exercises Exercises LE Seated Exercise, UE Exercise Session Ratio (pt:therapist): 7:2 Goal of Session: Home Safety Strategies, UE/LE Strengthing Goal Met for this Session: Yes Pt Benefit of Group: Contributions to Others, F/U Use of Strategies @Home, Increased Functional Safety, Increased Functional Strength, Improved Cognition, Recognition of Peers, Socialization Other/Notes Pt ambulated to [facility] for OT/PT group with Mandeep Hammonds PTA. Group consisted of introductions (name, place living, dx), socialization, B UE/LE exercises with HEP and education on safety devices for home environment in case of falls. Pt introduced self appropriately and actively listened to peers. Pt completed B UE/LE HEP with skilled instruction and modifications when needed. Pt's have HEP and medium resistance theraband for B UE given. Pt's acknowledged understanding of educational topic and gave personal stories that were appropriate to topic. After therapy, pt sitting in recliner with call light/phone in reach. All needs met in room. Start Time: 13:00 Stop Time: 14:15 Total Billed Treatment Time: 75 Total Billed Treatment 1-GRP ANETA ORELLANA Feb 06, 2023 15:25
[2023-02-06] MEDS: ONDANSETRON 4 MG ORAL DISSOLVE TABLET SL PRN (19:29)
[2023-02-06 20:15] VITALS: BP 129/61
[2023-02-06] MEDS: diphenhydrAMINE 25 MG TABLET PO PRN (21:18)
--- NOTE | 2023-02-07 07:04 | Discharge Summary ---
Diagnosis/Chief Complaint Date of Admission Jan 28, 2023 at 11:23 Date of Discharge Discharge Date: Feb 07, 2023 Discharge Diagnosis Assessment: COPD myopathy New O2 dependence CAD recent CABG Sternal and flank pressure wounds Smoker HTN AF? Anemia chronic disease HLP Plan: Wound care Dietary consult Aggressive PT OT Wean O2 01/29/2023: Placed back on oral anticoagulation Supportive care 01/30/2023: Monitor O2 01/31/2023: Supportive care 02/01/2023: Monitor O2 02/02/2023: Aggressive therapy 02/03/2023: DC BiPAP 02/04/2023: Supportive care Monitor closely 02/05/2023: DC Sat Home O2 study 02/06/2023: DC tomorrow (1) Myopathy Discharge Summary Discharge Physical Examination Allergies: Coded Allergies: No Known Drug Allergies (Unverified , 03/23/17) Vitals & I&Os Vital Signs Date Time Temp Pulse Resp B/P (MAP) Pulse Ox O2 Delivery O2 Flow Rate FiO2 02/07/23 12:31 93 02/07/23 09:37 111/68 (82) 02/07/23 08:24 95 Nasal Cannula 2.00 02/07/23 07:53 36.4 20 02/05/23 20:19 5 General Appearance: Alert, Oriented X3, Cooperative Respiratory: Clear to Auscultation Cardiovascular: Regular Rate Psych/Mental Status: Mental Status NL Hospital Course Was the Problem List Reviewed?: Yes Standard course after she was admitted following a stay at [facility] in [place]. Patient had a slow course. O2 maintained and weaned during the stay and ultimately required 2L/min continuous. Meds restarted per Cardiology consultatio n. Overall she improved back to near baseline. She was deemed stable for DC. Labs (last 24 hrs) Laboratory Tests 01/29/23 05:20: White Blood Count 10.3, Red Blood Count 3.46L, Hemoglobin 10.4L, Hematocrit 33L, Mean Corpuscular Volume 95, Mean Corpuscular Hemoglobin 30, Mean Corpuscular Hemoglobin Concent 32, Red Cell Distribution Width 16.4H, Platelet Count 445H, Mean Platelet Volume 9.3, Immature Granulocyte % (Auto) 3, Neutrophils (%) (Auto) 48, Lymphocytes (%) (Auto) 28, Monocytes (%) (Auto) 13H, Eosinophils (%) (Auto) 6, Basophils (%) (Auto) 2, Neutrophils # (Auto) 5.0, Lymphocytes # (Auto) 2.9, Monocytes # (Auto) 1.3H, Eosinophils # (Auto) 0.6H, Basophils # (Auto) 0.2H , Immature Granulocyte # (Auto) 0.3H, Sodium Level 134L, Potassium Level 4.5, Chloride Level 100, Carbon Dioxide Level 28, Anion Gap 6, Blood Urea Nitrogen 11, Creatinine 0.74, Estimat Glomerular Filtration Rate 91, BUN/Creatinine Ratio 15, Glucose Level 97, Calcium Level 8.9, Corrected Calcium 9.6, Total Bilirubin 0.2, Aspartate Amino Transf (AST/SGOT) 15, Alanine Aminotransferase (ALT/SGPT) 13, Alkaline Phosphatase 91, Total Protein 6.4, Albumin 3.1L 02/04/23 06:42: White Blood Count 9.2, Red Blood Count 3.32L, Hemoglobin 9.9L, Hematocrit 32L, Mean Corpuscular Volume 96, Mean Corpuscular Hemoglobin 30, Mean Corpuscular Hemoglobin Concent 31L, Red Cell Distribution Width 16.0H, Platelet Count 451H, Mean Platelet Volume 9.3, Immature Granulocyte % (Auto) 1, Neutrophils (%) (Auto) 56, Lymphocytes (%) (Auto) 22, Monocytes (%) (Auto) 13H, Eosinophils (%) (Auto) 7, Basophils (%) (Auto) 1, Neutrophils # (Auto) 5.1, Lymphocytes # (Auto) 2.0, Monocytes # (Auto) 1.1H, Eosinophils # (Auto) 0.7H, Basophils # (Auto) 0.1, Immature Granulocyte # (Auto) 0.1, Sodium Level 136, Potassium Level 4.1, Chloride Level 100, Carbon Dioxide Level 28, Anion Gap 8, Blood Urea Nitrogen 7, Creatinine 0.77, Estimat Glomerular Filtration Rate 87, BUN/Creatinine Ratio 9, Glucose Level 99, Calcium Level 8.7, Corrected Calcium 9.4, Total Bilirubin 0.3, Aspartate Amino Transf (AST/SGOT) 15, Alanine Aminotransferase (ALT/SGPT) 13, Alkaline Phosphatase 75, Total Protein 6.6, Albumin 3.1L Pending Labs Laboratory Tests 01/29/23 05:20: White Blood Count 10.3, Red Blood Count 3.46, Hemoglobin 10.4, Hematocrit 33, Mean Corpuscular Volume 95, Mean Corpuscular Hemoglobin 30, Mean Corpuscular Hemoglobin Concent 32, Red Cell Distribution Width 16.4, Platelet Count 445, Mean Platelet Volume 9.3, Immature Granulocyte % (Auto) 3, Neutrophils (%) (Auto) 48, Lymphocytes (%) (Auto) 28, Monocytes (%) (Auto) 13, Eosinophils (%) (Auto) 6, Basophils (%) (Auto) 2, Neutrophils # (Auto) 5.0, Lymphocytes # (Auto) 2.9, Monocytes # (Auto) 1.3, Eosinophils # (Auto) 0.6, Basophils # (Auto) 0.2, Immature Granulocyte # (Auto) 0.3, Sodium Level 134, Potassium Level 4.5, Chloride Level 100, Carbon Dioxide Level 28, Anion Gap 6, Blood Urea Nitrogen 11, Creatinine 0.74, Estimat Glomerular Filtration Rate 91, BUN/Creatinine Ratio 15, Glucose Level 97, Calcium Level 8.9, Corrected Calcium 9.6, Total Bilirubin 0.2, Aspartate Amino Transf (AST/SGOT) 15, Alanine Aminotransferase (ALT/SGPT) 13, Alkaline Phosphatase 91, Total Protein 6.4, Albumin 3.1 02/04/23 06:42: White Blood Count 9.2, Red Blood Count 3.32, Hemoglobin 9.9, Hematocrit 32, Mean Corpuscular Volume 96, Mean Corpuscular Hemoglobin 30, Mean Corpuscular Hemoglobin Concent 31, Red Cell Distribution Width 16.0, Platelet Count 451, Mean Platelet Volume 9.3, Immature Granulocyte % (Auto) 1, Neutrophils (%) (Auto) 56, Lymphocytes (%) (Auto) 22, Monocytes (%) (Auto) 13, Eosinophils (%) (Auto) 7, Basophils (%) (Auto) 1, Neutrophils # (Auto) 5.1, Lymphocytes # (Auto) 2.0, Monocytes # (Auto) 1.1, Eosinophils # (Auto) 0.7, Basophils # (Auto) 0.1, Immature Granulocyte # (Auto) 0.1, Sodium Level 136, Potassium Level 4.1, Chloride Level 100, Carbon Dioxide Level 28, Anion Gap 8, Blood Urea Nitrogen 7, Creatinine 0.77, Estimat Glomerular Filtration Rate 87, BUN/Creatinine Ratio 9, Glucose Level 99, Calcium Level 8.7, Corrected Calcium 9.4, Total Bilirubin 0.3, Aspartate Amino Transf (AST/SGOT) 15, Alanine Aminotransferase (ALT/SGPT) 13, Alkaline Phosphatase 75, Total Protein 6.6, Albumin 3.1 Discharge Home Medications: Active Scripts Active Ativan (Lorazepam) 0.5 Mg Tablet 0.5 Mg PO TID PRN Iprat-Albut 0.5-3(2.5) mg/3 ml (Ipratropium/Albuterol Sulfate) 0.5 Mg-3 Mg (2.5 Mg Base)/3 Ml Ampul.neb 3 Ml IH Q6H PRN Ondansetron Odt (Ondansetron) 4 Mg Tab.rapdis 4 Mg SL Q4H PRN Meclizine HCl 25 Mg Tablet 25 Mg PO TID PRN Stool Softener-Laxative Tablet (Sennosides/Docusate Sodium) 8.6 Mg-50 Mg Tablet 1 Ea PO BID Budesonide 0.5 Mg/2 Ml Ampul.neb 0.5 Mg IH RTBID Tessalon Perles (Benzonatate) 100 Mg Capsule 100 Mg PO TID PRN Tramadol HCl 50 Mg Tablet 50 Mg PO Q4H PRN Oxyir Tablet (Oxycodone HCl) 5 Mg Tab 5 Mg PO Q12HR PRN Amlodipine Besylate 5 Mg Tablet 5 Mg PO DAILY Amiodarone HCl 200 Mg Tablet 200 Mg PO DAILY Clopidogrel (Clopidogrel Bisulfate) 75 Mg Tablet 75 Mg PO DAILY Eliquis (Apixaban) 5 Mg Tablet 5 Mg PO BID Cyclobenzaprine HCl 10 Mg Tablet 10 Mg PO TID PRN Reported Anoro Ellipta 62.5-25 Mcg INH (Umeclidinium Brm/Vilanterol Tr) 62.5 Mcg-25 Mcg/Actuation Blst.w.dev 1 Each IH BID Vitamin B-1 (Thiamine Mononitrate) 100 Mg Tablet 100 Mg PO DAILY Tart [place] Capsule (Vit C/[place] & Celery Ex/Grp E) 30 Mg-250 Mg-75 Mg-75 Mg-20 Mg Capsule 1 Each PO BID Women's 50 Plus Multivit Tab (Mv-Mn/Folic Acid/Calcium/Vit K) 400 Mcg-500 Mg Calcium-20 Mcg Tablet 1 Each PO DAILY Vitamin D3 (Cholecalciferol (Vitamin D3)) 50 Mcg (2000 Unit) Capsule 50 Mcg PO DAILY Stress B-Complex Tablet (B&C/FA/Zinc/Copper Oxide/Vit E) 500-0.4 Mg Tablet 1 Each PO DAILY Vitamin C (Ascorbate Calcium) 500 Mg Tablet 500 Mg PO DAILY Instructions to patient/family Please see electronic discharge instructions given to patient. Diagnosis/Problems Diagnosis/Problems (1) Myopathy MELIA DAVID DO Feb 07, 2023 07:04
[2023-02-07 07:53] VITALS: BP 96/55
[2023-02-07] MEDS: RT-BUDESONIDE NEBS 0.5 MG/2ML VIAL IH SCH (08:23)
[2023-02-07] MEDS: RT-Ipratropium/Albuterol NEB 3 ML VIAL IH SCH (08:23)
[2023-02-07 09:37] VITALS: BP 111/68
[2023-02-07] MEDS: amLODIPine 5 MG TABLET PO SCH (09:39)
[2023-02-07] MEDS: APIXABAN 5 MG TABLET PO SCH (09:39)
[2023-02-07] MEDS: SILVER SULFADIAZINE 400 GM CREAM TP SCH (09:39)
[2023-02-07] MEDS: AMIODARONE 200 MG TABLET PO SCH (09:39)
[2023-02-07] MEDS: CLOPIDOGREL 75 MG TABLET PO SCH (09:39)
[2023-02-07] MEDS: HYPOCHLOROUS ACID/NaCl WOUND SOLN 250 ML IR SCH (09:40)
[2023-02-07] MEDS: LORazepam 0.5 MG TABLET PO PRN (09:44)
[2023-02-07] MEDS: CYCLOBENZAPRINE 10 MG TABLET PO PRN (09:44)
[2023-02-07] MEDS: SENNA W/DOCUSATE (SENOKOT S) TABLET PO SCH (11:17)
[2023-02-07] MEDS: polyethylene glycoL POWDER 17 GM (MIRALAX) PACK PO SCH (11:17)
[2023-02-07] MEDS: DOCUSATE SODIUM 100 MG CAPSULE PO SCH (11:17)
[2023-02-07] MEDS: DAKIN'S 1/4 STRENGTH (0.125%) 237 ML BTL TOP SCH (11:18)
--- NOTE | 2023-02-09 15:37 | Therapy Team Discharge Summary ---
Therapy Discharge Summary Discharge Recommendations Date of Discharge Feb 07, 2023 at 15:30 Therapy D/C Recommendations: Home w/ Family Support, Physical Therapy Home Care Physical Therapy Pt is a 62 y/o female s/p CABG x 3 c/p graft stenosis and redo sternotomy, s/p sternal plating; Admitted to ARU On 01/28/23. At 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 Upon PT eval, pt was SBA for bed mobility, Min A for functional transfers, and Min A for walking 50ft. Pt was SBA for w/c mobility, and unable to complete steps, secondary to SOB. PT focused on functional activity tolerance, energy conservation, B LE strength, walking tolerance, balance, safety, and Ind. Pt progressed well with PT and met all set goals. Pt d/c to home with family assistance and HHC on 02/07/23; D/C from PT at this time. Roll Left to Right (QC): 6 Sit to Lying (QC): 6 Lying to Sitting/Side of Bed(Q: 6 Sit to Stand (QC): 6 Chair/Fae-cv-Bdoff Xfer(QC): 6 Toilet Transfer (QC): 6 Car Transfer (QC): 6 Does the Patient Walk: Yes Mode of Locomotion: Both Anticipated Mode of Locomotion: Both Walk 10 feet (QC): 6 Walk 50 ft with 2 Turns(QC): 6 Walk 150 ft (QC): 6 Walking 10ft on uneven surface: 6 Distance: 150ft Gait Assistive Device: FWW Does the Pt Use a Wheelchair: Yes Wheelchair Distance: 150ft Wheel 50 ft with 2 turns (QC): 6 Wheel 150 ft (QC): 6 Type of Wheelchair: Manual #of Steps: 12 1 Step (curb) (QC): 6 4 Steps (QC): 6 12 Steps (QC): 6 Walking Assistive Device: Walker Balance Sitting Static: Good Balance Sitting Dynamic: Good Balance-Standing Static: Fair Picking up an Object (QC): 6 (with information technology assistant ) Occupational Therapy Decreased Activ Tolerance, Decreased UE Strength, Impaired Self-Care Skills Eating (QC): 6 Oral Hygiene (QC): 6 Shower/Bathe Self (QC): 6 Upper Body Dressing (QC): 6 Lower Body Dressing (QC): 6 On/Off Footwear (QC): 6 Toileting Hygiene (QC): 6 PT Snf Goals Tour Conductor Goals PT Snf Goals Time Frame: Feb 11, 2023 Roll Left to Right (QC): 6 (Pt will be Mod I with all aspects of functional mobility, with the least restrictive AD, in order to safely d/c home. ) Sit to Lying (QC): 6 (Pt will be Mod I with all aspects of functional mobility, with the least restrictive AD, in order to safely d/c home. ) Lying-Sitting on Side/Bed(QC): 6 (Pt will be Mod I with all aspects of functional mobility, with the least restrictive AD, in order to safely d/c home. ) Sit to Stand (QC): 6 (Pt will be Mod I with all aspects of functional mobility, with the least restrictive AD, in order to safely d/c home. ) Chair/Ulv-sm-Yhgpl Xfer(QC): 6 (Pt will be Mod I with all aspects of functional mobility, with the least restrictive AD, in order to safely d/c home. ) Toilet/Commode Transfer (QC): 6 (Pt will be Mod I with all aspects of functional mobility, with the least restrictive AD, in order to safely d/c home. ) Car Transfer (QC): 6 (Pt will be Mod I with all aspects of functional mobility, with the least restrictive AD, in order to safely d/c home. ) Does the Patient Walk: Yes Walk 10 feet (QC): 6 (Pt will be Mod I with all aspects of functional mobility, with the least restrictive AD, in order to safely d/c home. ) Walk 10ft-Uneven Surface(QC): 6 (Pt will be Mod I with all aspects of functional mobility, with the least restrictive AD, in order to safely d/c home. ) Walk 50ft with 2 Turns (QC): 6 (Pt will be Mod I with all aspects of functional mobility, with the least restrictive AD, in order to safely d/c home. ) Walk 150 ft (QC): 6 (Pt will be Mod I with all aspects of functional mobility, with the least restrictive AD, in order to safely d/c home. ) Does the Pt use WC or Scooter?: Yes Wheel 50 feet with 2 turns (QC: 6 (Pt will be Mod I with all aspects of functional mobility, with the least restrictive AD, in order to safely d/c home. ) Type: Manual Wheel 150 feet: 6 (Pt will be Mod I with all aspects of functional mobility, with the least restrictive AD, in order to safely d/c home. ) Type: Manual 1 Step (curb) (QC): 6 (Pt will be Mod I with all aspects of functional mobility, with the least restrictive AD, in order to safely d/c home. ) 4 Steps (QC): 6 (Pt will be Mod I with all aspects of functional mobility, with the least restrictive AD, in order to safely d/c home. ) 12 Steps (QC): 6 (Pt will be Mod I with all aspects of functional mobility, with the least restrictive AD, in order to safely d/c home. ) Picking up an Object (QC): 6 (Pt will be Mod I with all aspects of functional mobility, with the least restrictive AD, in order to safely d/c home. ) OT Snf Goals Tour Conductor Goals Time Frame: Feb 06, 2023 Acute change in mental status: 0 Inattention: 0 Disorganized thinkin Altered level of consciousness: 0 Eating (QC): 6 (met) Oral Hygiene (QC): 6 (emt) Toileting Hygiene (QC): 6 (met) Shower/Bathe Self (QC): 5 (met) Upper Body Dressing (QC): 6 (met) Lower Body Dressing (QC): 6 (met) On/Off Footwear (QC): 6 (met) 1=Demonstrate adherence to instructed precautions during ADL tasks. 2=Patient will verbalize/demonstrate understanding of assistive de vices/modifications for ADL. 3=Patient will improve strength/tolerance for activity to enable patient to perform ADL's. CHINA ZAFAR PT Feb 09, 2023 15:37
== END 2023-02-07 15:30 | disposition home health service (06) | DRG 92 ==
PROVIDERS: ADMIT Internal Medicine; ATTEND Internal Medicine
DX: G72.89 Other specified myopathies (principal); I42.9 Cardiomyopathy, unspecified; J43.9 Emphysema, unspecified; I25.10 Atherosclerotic heart disease of native coronary artery without angina pectoris; E78.00 Pure hypercholesterolemia, unspecified; I10 Essential (primary) hypertension; G62.9 Polyneuropathy, unspecified; K21.9 Gastro-esophageal reflux disease without esophagitis; M19.90 Unspecified osteoarthritis, unspecified site; D64.9 Anemia, unspecified; R54 Age-related physical debility; Z99.81 Dependence on supplemental oxygen; Z95.1 Presence of aortocoronary bypass graft; Z87.891 Personal history of nicotine dependence; Z79.899 Other long term (current) drug therapy; Z79.01 Long term (current) use of anticoagulants
CPT/HCPCS: 36415; 71045; 71046; 80053; 85025; 93005; 94640; 94660; 94760; 94761

== ENCOUNTER 2023-02-09 18:25 | Inpatient (IN) | payer OTHER ==
[~2023-02-09] VITALS: Ht 167.7 cm; Wt 56.6 kg
[~2023-02-09 18:25] MED LIST changes: -ACETAMINOPHEN 325 MG TABLET PO PRN; -ALPRAZolam 0.25 MG TABLET PO PRN; +APIX5TAB PO; +ASCO-262 PO; +ASPI-999 PO; -BISACODYL 10 MG SUPPOSITORY PR PRN; -CALCIUM CARBONATE 500 MG CHEW TABLET PO PRN; +CHOL20002 PO; -DOCUSATE SODIUM 100 MG CAPSULE PO PRN; -LOPERAMIDE 2 MG CAPSULE PO PRN; -MELATONIN 3 MG TABLET PO PRN; -ONDANSETRON 4 MG ORAL DISSOLVE TABLET PO PRN; +OXC5T PO; +SENN-271 PO; -Sodium Phosphate/Sodium Biphosphate ADULT enema PR PRN; +THIA100T68 PO; -guaiFENesin/CODEINE 10ML UDC PO PRN
[2023-02-09] MEDS ORDERED: ACETAMINOPHEN 325 MG TABLET PO PRN (19:00)
[2023-02-09] MEDS ORDERED: NS IV 1000 ML 1,000 ML IV SCH (19:00)
[2023-02-09] MEDS ORDERED: ONDANSETRON 4 MG ORAL DISSOLVE TABLET PO PRN (19:00)
[2023-02-09] MEDS ORDERED: MILK OF MAGNESIA 400 MG/5 ML 30 ML UDC PO PRN (19:00)
[2023-02-09] MEDS ORDERED: BISACODYL 10 MG SUPPOSITORY PR PRN (19:00)
[2023-02-09] MEDS ORDERED: CALCIUM CARBONATE 500 MG CHEW TABLET PO PRN (19:00)
[2023-02-09] MEDS ORDERED: ANTACID SUSPENSION 30 ML UDC PO PRN (19:00)
[2023-02-09] MEDS ORDERED: diphenhydrAMINE 25 MG TABLET PO PRN (19:00)
[2023-02-09] MEDS ORDERED: MELATONIN 3 MG TABLET PO PRN (19:00)
[2023-02-09] MEDS ORDERED: LACTULOSE SYRUP 10GM/15ML 30ML UDC PO PRN (19:00)
[2023-02-09] MEDS ORDERED: diphenhydrAMINE INJ 50 MG/ML VIAL IVP PRN (19:00)
--- NOTE | 2023-02-09 21:07 | History & Physical ---
History of Present Illness HPI/Chief Complaint CC: Fall at home sustaining pelvic fracture HPI: This is a 62yoWF who was just DC'ed from ARU following slow recovery following CABG and respiratory failure who fell at home and sustained a pelvic fracture. Gabriel cath in place due to pain when moving. [facility] stabilized the patient and was moved to [facility] per patient preference. Source: patient Exam Limitations: no limitations Date Seen 02/09/23 Time Seen by a Provider: 19:00 Attending Physician Jose Valencia MD PCP Admitting Physician: Beryl Mcdaniel DO Attending Physician: Beryl Mcdaniel DO Referring Physician Date of Admission Feb 09, 2023 at 21:00 Home Medications & Allergies Home Medications Reviewed patient Home Medication Reconciliation performed by pharmacy medication reconciliations central supply technician supervisor and/or nursing. Patients Allergies have been reviewed. Allergies Allergies Coded Allergies No Known Drug Allergies (Kykwnrzukn46/2/17) Past Kxjrmey-Fbicnr-Enrlaz Hx Past Med/Social Hx: Reviewed Nursing Past Med/Soc Hx, Reviewed and Corrections made Patient Social History Marrital Status: cohabiting Employed/Student: employed Alcohol Use: Denies Use Smoking Status: Former Smoker Type Used: Cigarettes 2nd Hand Smoke Exposure: Yes Recent Hopitalizations: No Immunizations Up To Date Date of Influenza Vaccine: Mar 31, 2022 Seasonal Allergies Seasonal Allergies: Yes Past Medical History Surgeries: CABG, Orthopedic Respiratory: COPD, Emphysema, Pneumonia Cardiac: Cardiomyopathy, Coronary Artery Disease, High Cholesterol, Hypertension Neurological: Neuropathy Menopausal Gastrointestinal: Gastroesophageal Reflux Musculoskeletal: Degenerate Disk Disease, Arthritis History of Blood Disorders: No Family History No Pertinent Family Hx Review of Systems Constitutional: see HPI, malaise, weakness Musculoskeletal: back pain, joint pain, muscle pain, muscle stiffness, muscle cramps Physical Exam Physical Exam Vital Signs Vital Signs - First Documented 02/09/23 22:08 FiO2 36 Capillary Refill : Height, Weight, BMI Height: 5'6" Weight: 128lbs. 8oz. [id number]; 19.93 BMI Method:Stated General Appearance: No Apparent Distress, WD/WN, Chronically ill, Thin Eyes: Bilateral Eye Normal Inspection, Bilateral Eye PERRL HEENT: PERRL/EOMI, Normal ENT Inspection, Pharynx Normal Neck: Full Range of Motion, Normal Inspection, Non Tender, Supple, Carotid Bruit Respiratory: Chest Non Tender, Lungs Clear, Normal Breath Sounds, No Accessory Muscle Use, No Respiratory Distress Cardiovascular: Regular Rate, Rhythm, No Edema, No Gallop, No JVD, No Murmur, Normal Peripheral Pulses Gastrointestinal: Normal Bowel Sounds, No Organomegaly, No Pulsatile Mass, Non Tender, Soft Back: Normal Inspection, No CVA Tenderness, No Vertebral Tenderness Extremity: Normal Capillary Refill, Normal Inspection, Normal Range of Motion (except legs due to pain), Non Tender, No Calf Tenderness, No Pedal Edema Neurologic/Psychiatric: Alert, Oriented x3, No Motor/Sensory Deficits, Normal Mood/Affect Skin: Normal Color, Warm/Dry Lymphatic: No Adenopathy Results Results/Procedures Labs Patient resulted labs reviewed. Assessment/Plan Admission Diagnosis Assessment: Pelvic fracture sustained in a fall at home 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 CAD recent CABG Sternal and flank pressure wounds Smoker HTN AF on OAC Anemia chronic disease HLP Plan: Pain control ARU PT OT Harvey Admission Status: Inpatient Order (span 2 midnights) Reason for Inpatient Admission: pelvic fracture BERYL MCDANIEL DO Feb 09, 2023 21:07
[2023-02-09 21:15] VITALS: BP 142/63
[2023-02-09] MEDS ORDERED: BENZONATATE 100 MG CAPSULE PO PRN (21:30)
[2023-02-09] MEDS ORDERED: MECLIZINE 25 MG TABLET PO PRN (21:30)
[2023-02-09] MEDS ORDERED: ONDANSETRON 4 MG ORAL DISSOLVE TABLET SL PRN (21:30)
[2023-02-09] MEDS ORDERED: oxyCODONE IMMEDIATE RELEASE 5 MG TABLET PO PRN (21:30)
[2023-02-09 22:08] VITALS: BP 142/63
[2023-02-09] MEDS: DOCUSATE SODIUM 100 MG CAPSULE PO SCH (22:31)
[2023-02-09] MEDS: APIXABAN 5 MG TABLET PO SCH (22:31)
[2023-02-09] MEDS: HYDROmorphone INJECTION 2 MG/ML VIAL IV PRN (22:32)
[2023-02-09 23:55] VITALS: BP 116/56
[2023-02-10] MEDS: oxyCODONE IMMEDIATE RELEASE 5 MG TABLET PO PRN ×3 (02:57→16:42)
[2023-02-10 03:07] VITALS: BP 120/55
[2023-02-10] MEDS: HYDROmorphone INJECTION 2 MG/ML VIAL IV PRN ×6 (04:36→23:49)
[2023-02-10] MEDS: THERAPEUTIC MULTIVITAMIN W/MINERALS TABLET PO SCH (05:23)
[2023-02-10] MEDS: THIAMINE 100 MG (VITAMIN B-1) TAB PO SCH (05:23)
[2023-02-10 06:15] LABS: BASOPHILS # (AUTO) 0.1 10^3/uL (0.0-0.1); BASOPHILS % (AUTO) 1 % (0-10); EOSINOPHILS # (AUTO) 0.4 10^3/uL (0.0-0.3); EOSINOPHILS % (AUTO) 3 % (0-10); HEMATOCRIT 32 % (35-52); HEMOGLOBIN 10.1 g/dL (11.5-16.0); LYMPHOCYTES % (AUTO) 17 % (12-44); MEAN CORPUSCULAR HEMOGLOBIN 31 pg (25-34); MEAN CORPUSCULAR HGB CONC 32 g/dL (32-36); MEAN CORPUSCULAR VOLUME 96 fL (80-99); MEAN PLATELET VOLUME 9.6 fL (9.0-12.2); MONOCYTES # (AUTO) 1.6 10^3/uL (0.0-1.0); MONOCYTES % (AUTO) 14 % (0-12); NEUTROPHILS # (AUTO) 7.5 10^3/uL (1.8-7.8); NEUTROPHILS % (AUTO) 65 % (42-75); PLATELET COUNT 389 10^3/uL (130-400); WHITE BLOOD COUNT 11.6 10^3/uL (4.3-11.0)
[2023-02-10] MEDS: LORazepam 0.5 MG TABLET PO PRN ×2 (06:17→11:58)
[2023-02-10 06:22] LABS: ALBUMIN 3.2 GM/DL (3.2-4.5); POTASSIUM 4.4 MMOL/L (3.6-5.0)
[2023-02-10 06:24] LABS: CALCIUM 8.6 MG/DL (8.5-10.1)
[2023-02-10 06:25] LABS: TOTAL PROTEIN 6.4 GM/DL (6.4-8.2)
[2023-02-10 06:27] LABS: BILIRUBIN,TOTAL 0.3 MG/DL (0.1-1.0)
[2023-02-10 06:28] LABS: CREATININE SERUM 0.83 MG/DL (0.60-1.30)
[2023-02-10] MEDS: ONDANSETRON INJECTION 4 MG/2 ML (SDV) IV PRN (07:43)
[2023-02-10] MEDS: RT-Ipratropium/Albuterol NEB 3 ML VIAL IH PRN (07:45)
[2023-02-10] MEDS: RT-BUDESONIDE NEBS 0.5 MG/2ML VIAL IH SCH ×2 (07:46→21:29)
[2023-02-10 08:03] VITALS: BP 131/71
[2023-02-10] MEDS ORDERED: GRP E PO SCH (09:00)
[2023-02-10] MEDS ORDERED: VIT C PO SCH (09:00)
[2023-02-10] MEDS ORDERED: CHERRY PO SCH (09:00)
[2023-02-10] MEDS ORDERED: [UNRECOGNIZED DRUG - OTHER] PO SCH (09:00)
[2023-02-10] MEDS ORDERED: [UNRECOGNIZED DRUG - OTHER] PO SCH (09:00)
--- NOTE | 2023-02-10 09:00 | Diagnostic Imaging Report ---
EXAMINATION: Pelvis and bilateral hips three view. HISTORY: Pelvic fracture. COMPARISON: None available. FINDINGS: There is a left inferior pubic ramus fracture. There is a left superior pubic ramus fracture extending into the medial wall of the acetabulum. No hip fracture. No dislocation. IMPRESSION: 1. Left inferior pubic ramus fracture. 2. Left superior pubic ramus fracture extending into the medial wall of the acetabulum. Dictated by: Dictated on workstation # [id number]
--- NOTE | 2023-02-10 09:05 | Physical Therapy Evaluation ---
PT Evaluation-General Medical Diagnosis Admission Date Feb 09, 2023 at 21:00 Medical Diagnosis: pelvic fracture Onset Date: Feb 09, 2023 Therapy Diagnosis Therapy Diagnosis: debility/weakness Height/Weight Height (Feet): 5 Height (Inches): 6 Weight (Pounds): 128 Weight (Ounces): 8 Precautions Precautions/Isolations: Fall Prevention, Standard Precautions Weight Bear Status Right Lower Extremity: Right Full Weight Bearing Left Lower Extremity: Left Weight Bearing/Tolerated Referral Physician: Violeta Reason for Referral: Evaluation/Treatment Medical History Pertinent Medical History: CAD, COPD, HTN, Neuropathy Current History DC from ARU 2 days prior to fall at home resulting in pelvic fracture Reviewed History: Yes Social History Home: Apartment Current Living Status: Alone Entry Into Home: Level Entry Prior Prior Level of Function SCALE: Activities may be completed with or without assistive devices. 5-Kjfldidujo-kajompp completes the activity by him/herself with no assistance from a helper. 5-Set-up or Clean-up Assistance-helper sets up or cleans up; patient completes activity. Homer assists only prior to or following the activity. 4-Supervision or Touching Assistance-helper provides verbal cues and/or touching/steadying and/or contact guard assistance as patient completes activity. Assistance may be provided throughout the activity or intermittently. 3-Partial/Moderate Assistance-helper does LESS THAN HALF the effort. Homer lifts, holds or supports trunk or limbs, but provides less than half the effort. 2-Substantial/Maximal Assistance-helper does MORE THAN HALF the effort. Homer lifts or holds trunk or limbs and provides more than half the effort. 7-Xqqnbbohk-cxvnoh does ALL the effort. Patient does none of the effort to complete the activity. Or, the assistance of 2 or more helpers is required for the patient to complete the activity. If activity was not attempted, code reason: 7-Patient Refused. 9-Not Applicable-not attempted and the patient did not perform the activity before the current illness, exacerbation or injury. 10-Not Attempted due to Environmental Limitations-(lack of equipment, weather restraints, etc.). 88-Not Attempted due to Medical Conditions or Safety Concerns. Bed Mobility: 6 Transfers (B,C,W/C): 6 Gait: 6 Indoor Mobility (Ambulation): Independent Prior Devices Use: Walker PT Evaluation-Current Subjective Patient is very reluctant to participate with PT due to pain 10/10 left pelvic region Pain Numeric Pain Scale: 10-Worst Possible Pain Location: Left Location Body Site: Pelvic Pain Description: Acute Comment: meds issued Objective Patient Orientation: Normal For Age Attachments: Oxygen, Gabriel Catheter, IV ROM/Strength ROM Lower Extremities left limited due to pain/right LE WFL Strength Lower Extremities right LE 3+/5 grossly/left LE 3-/5 grossly Integumentary/Posture Bladder Incontinence: Gabriel Cath Posture WFL Neuromuscular (Tone, Coordination, Reflexes) diminished coordination due to pain Sensory Vision: Functional Hearing: Functional Transfers Lying to Sitting/Side of Bed(Q: 2 Sit to Stand (QC): 2 Chair/Nit-ae-Binby Xfer(QC): 2 Gait Does the Patient Walk?: No and Walking Goal IS indicated Gait Assistive Device: FWW Comments/Gait Description unable to take steps due to left LE/pelvic pain Balance Sitting Static: Fair Sitting Dynamic: Fair Standing Static: Poor Standing Dynamic: Poor Assessment/Needs Patient will benefit from skilled PT to address functional strength and mobility to improve current LOF to safely return to home at maximum LOF. Rehab Potential: Fair PT Resolution Rep Goals Jail Goals PT Resolution Rep Goals Time Frame: Feb 28, 2023 Roll Left & Right (QC): 3 Sit to Lying (QC): 3 Lying-Sitting on Side/Bed(QC): 3 Sit to Stand (QC): 3 Chair/Xiu-qj-Tlcwp Xfer(QC): 3 Toilet Transfer (QC): 3 Walk 10 feet (QC): 3 Walk 50ft with 2 Turns (QC): 3 Walk 150 ft (QC): 3 PT Plan Problem List Problem List: Activity Tolerance, Functional Strength, Safety, Balance, Gait, Transfer, Bed Mobility Treatment/Plan Treatment Plan: Continue Plan of Care Treatment Plan: Bed Mobility, Education, Functional Activity Luz Marina, Functional Strength, Gait, Safety, Therapeutic Exercise, Transfers Treatment Duration: Feb 28, 2023 Frequency: 6 times per week Estimated Hrs Per Day: .25 hour per day Patient and/or Family Agrees t: Yes Time Time In: 710 Time Out: 733 DATE: Feb 10, 2023 Total Billed Treatment Time: 23 Total Billed Treatment 1 visit EVModC 10 min FA 13 min MAYTE TYLER PT Feb 10, 2023 09:05
[2023-02-10] MEDS: AMIODARONE 200 MG TABLET PO SCH (09:09)
[2023-02-10] MEDS: APIXABAN 5 MG TABLET PO SCH ×2 (09:09→21:03)
[2023-02-10] MEDS: CLOPIDOGREL 75 MG TABLET PO SCH (09:09)
[2023-02-10] MEDS: DOCUSATE SODIUM 100 MG CAPSULE PO SCH ×2 (09:10→21:03)
[2023-02-10] MEDS: amLODIPine 5 MG TABLET PO SCH (09:10)
[2023-02-10] MEDS: SENNA W/DOCUSATE TABLET PO SCH ×2 (09:10→21:03)
[2023-02-10] MEDS: VITAMIN D3 25 MCG (1,000 UNITS) TABLET PO SCH (09:10)
[2023-02-10] MEDS: SENNOSIDES 8.6 MG TABLET PO SCH ×2 (09:10→21:04)
--- NOTE | 2023-02-10 09:38 | Occupational Therapy Eval ---
OT Evaluation-General/PLF Medical Diagnosis Admission Date Feb 09, 2023 at 21:00 Medical Diagnosis: pelvic fracture Onset Date: Feb 09, 2023 Therapy Diagnosis Therapy Diagnosis: decr self care, decr funct mob, decr act dandre, weakness Height/Weight Height (Feet): 5 Height (Inches): 6 Weight (Pounds): 128 Weight (Ounces): 8 Precautions Precautions/Isolations: Fall Prevention, Standard Precautions Weight Bear Status Weight Bearing Restriction: Weight Bearing/Tolerated Location Restriction: L LE Referral Physician: Violeta Referral Reason: Evaluation/Treatment Medical History Pertinent Medical History: Atrial Fib, Arthritis, CABG, CAD, COPD, GERD, HTN, Neuropathy, Smoking Additional Medical History Emphysema, pneumonia. Cardiomegaly. Hyperlipidemia. Degenerative disk disease. Chronic anemia Current History Recent stay on IRF following CABG and respiratory failure. Discharged to apartment on 02-07-23. Pt reported that she tripped and has pelvic fx, with pain in L LE. Has sternal and flank wounds, per chart. Reviewed History: Yes Social History Home: Apartment Current Living Status: Alone Entry Into Home: Level Entry ADL-Prior Level of Function SCALE: Activities may be completed with or without assistive devices. 5-Lrocazoofi-xnrtjxr completes the activity by him/herself with no assistance from a helper. 5-Set-up or Clean-up Assistance-helper sets up or cleans up; patient completes activity. [place] assists only prior to or following the activity. 4-Supervision or Touching Assistance-helper provides verbal cues and/or touching/steadying and/or contact guard assistance as patient completes activity. Assistance may be provided throughout the activity or intermittently. 3-Partial/Moderate Assistance-helper does LESS THAN HALF the effort. [place] lifts, holds or supports trunk or limbs, but provides less than half the effort. 2-Substantial/Maximal Assistance-helper does MORE THAN HALF the effort. [place] lifts or holds trunk or limbs and provides more than half the effort. 8-Nqqzotiyh-bwazgg does ALL the effort. Patient does none of the effort to complete the activity. Or, the assistance of 2 or more helpers is required for the patient to complete the activity. If activity was not attempted, code reason: 7-Patient Refused. 9-Not Applicable-not attempted and the patient did not perform the activity before the current illness, exacerbation or injury. 10-Not Attempted due to Environmental Limitations-(lack of equipment, weather restraints, etc.). 88-Not Attempted due to Medical Conditions or Safety Concerns. 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 She moved into a new apartment prior to DC from IRF. Was discharged from IRF at Indep level for all basic ADLs and ambulation with FWW. Self Care: Independent Functional Cognition: Independent OT Current Status Subjective Pt seen in room, up in rcliner, agreeable to OT but did not want to get up. Pain reported 5-6 in L hip, not described. She also reported occasional aching in sternum from CABG Appearance Alert, cooperative. breathing hard, uncomfortable Mental Status/Objective Attachments: Gabriel Catheter, IV, Oxygen Current Glasses/Contacts: Yes (contacts) Hearing Aids: No Dentures/Partials: Yes Hand Dominance: Right Upper Extremity ROM AROM to 90 degrees shoulder flex due to limitations from CABG. Other UE ROM grossly WFL Upper Extremity Sensation Pt reported no problems Upper Extremity Strength Not tested due to recent CABG and sternal limitations ADL-Treatment ADL-Current Pt was able to feed herself breakfast. Transfer from bed to recliner with PT reported max assist, FWW. Pt declined other ADLs including brushing dentures and bath with bath pack. Eating (QC): 6 Education OT Patient Education: Purpose of tx/functional activities, Rehab process Teaching Recipient: Patient Teaching Methods: Discussion Response to Teaching: Verbalize Understanding OT Short Term Goals Short Term Goals Time Frame: Feb 17, 2023 Oral hygiene: 5 Toileting hygiene: 3 Shower/bathe self: 3 Upper body dressin Lower body dressin Putting on/taking off footwear: 3 OT Stun[employer] Animal Goals Longterm Goals Time Frame: Mar 03, 2023 Eating (QC): 6 Oral Hygiene (QC): 6 Toileting Hygiene (QC): 6 Shower/Bathe Self (QC): 6 Upper Body Dressing (QC): 6 Lower Body Dressing (QC): 6 On/Off Footwear (QC): 6 Additional Goals: 1-Demonstrate ADL Tasks, 2-Verbalize Understanding, 3-ImproveStrength/[place]uz [place] 1=Demonstrate adherence to instructed precautions during ADL tasks. 2=Patient will verbalize/demonstrate understanding of assistive devices/modifications for ADL. 3=Patient will improve strength/tolerance for activity to enable patient to perform ADL's. OT Education/Plan Problem List/Assessment Assessment: Decreased Activ Tolerance, Decreased UE Strength, Dependent Transfers, Impaired Bed Mobility, Impaired Self-Care Skills Discharge Recommendations Plan Pt would benefit from skilled OT to increase her independence in basic self care and decrease caregiver burden. Plan/Recommendations: Continue POC Treatment Plan/Plan of Care Treatment,Training & Education: Yes Patient would benefit from OT for education, treatment and training to promote independence in ADL's, mobility, safety and/or upper extremity function for ADL's. Plan of Care: ADL Retraining, Functional Mobility, UE Funct Exercise/Act, UE Neuromus Re-Ed/Coord Treatment Duration: Mar 03, 2023 Frequency: 3 times per week (3-5 times a week) Estimated Hrs Per Day: .25 hour per day Rehab Potential: Fair Time Start Time: 08:39 Stop Time: 08:49 DATE: Feb 10, 2023 Total Time Billed (hr/min): 10 Billed Treatment Time visit, 10 minutes evaluation moderate intensity ULISES GOMEZ OT Feb 10, 2023 09:38
[2023-02-10] MEDS ORDERED: SENNA W/DOCUSATE TABLET PO NR (10:30)
[2023-02-10] MEDS ORDERED: LACTULOSE SYRUP 10GM/15ML 30ML UDC PO NR (10:30)
--- NOTE | 2023-02-10 11:44 | Progress Note ---
VANGIE,HET 02/10/23 1144: Subjective Date Seen by a Provider: Feb 10, 2023 Time Seen by a Provider: 10:00 Subjective/Events-last exam Patient was in mild distress today and still felt a lot pain, she was tearfully answering questions but did say the pain meds she has been given were helping her. She has been eating some food but had no bowel movements in the past two days. Denies any nausea, chest pain or abdominal pain, but did have some clear vomit. Review of Systems General: No Chills, No Night Sweats; Fatigue, Malaise, Appetite Pulmonary: No Dyspnea, No Cough Cardiovascular: No: Chest Pain, Palpitations, Orthopnea, Edema Gastrointestinal: Vomiting, Constipation; No: Nausea, Diarrhea Genitourinary: No Dysuria; Frequency; No Hematuria Objective Exam Last Set of Vital Signs Vital Signs Date Time Temp Pulse Resp B/P (MAP) Pulse Ox O2 Delivery O2 Flow Rate FiO2 02/10/23 08:03 36.0 93 18 131/71 (91) 95 Nasal Cannula 3.00 02/09/23 22:08 36 Capillary Refill : I&O l Intake and Output 02/10/23 00:00 Intake Total 100 ml Output Total 0 ml Balance 100 ml Intake Oral 100 ml Output Urine Total 0 ml Daily Weight Change No General: Alert, Oriented X3, Cooperative, Mild Distress Neck: Supple, No JVD, No Thyromegaly, +2 Carotid Pulse No Bruit Extremities: No Clubbing, No Cyanosis, Normal Pulses Results Lab Laboratory Tests 02/10/23 05:40: White Blood Count 11.6H, Red Blood Count 3.31L, Hemoglobin 10.1L, Hematocrit 32L , Mean Corpuscular Volume 96, Mean Corpuscular Hemoglobin 31, Mean Corpuscular Hemoglobin Concent 32, Red Cell Distribution Width 15.4H, Platelet Count 389, Mean Platelet Volume 9.6, Immature Granulocyte % (Auto) 1, Neutrophils (%) (Auto) 65, Lymphocytes (%) (Auto) 17, Monocytes (%) (Auto) 14H, Eosinophils (%) (Auto) 3, Basophils (%) (Auto) 1, Neutrophils # (Auto) 7.5, Lymphocytes # (Auto) 2.0, Monocytes # (Auto) 1.6H, Eosinophils # (Auto) 0.4H, Basophils # (Auto) 0.1, Immature Granulocyte # (Auto) 0.1, Sodium Level 136, Potassium Level 4.4, Chloride Level 101, Carbon Dioxide Level 26, Anion Gap 9, Blood Urea Nitrogen 13, Creatinine 0.83, Estimat Glomerular Filtration Rate 80, BUN/Creatinine Ratio 16, Glucose Level 101, Calcium Level 8.6, Corrected Calcium 9.2, Total Bilirubin 0.3, Aspartate Amino Transf (AST/SGOT) 16, Alanine Aminotransferase (ALT/SGPT) 18, Alkaline Phosphatase 70, Total Protein 6.4, Albumin 3.2 Assessment/Plan Assessment/Plan Assess & Plan/Chief Complaint Assessment: Pelvic fracture Mypoathy - had CABG CAD O2 dependance COPD HTN HTN smoker anemia of chronic disease Plan: Pain control ARU PT and OT BERYL DAVID DO 02/10/231925: Supervisory-Addendum Brief Verification & Attestation Participated in pt care: history, MDM, physical Personally performed: exam, history, MDM, supervision of care Care discussed with: Medical Student Procedures: n/a Results interpretation: Verified all documentation Verification and Attestation of Medical Student E/M Service A medical student performed and documented this service in my presence. I reviewed and verified all information documented by the medical student and made modifications to such information, when appropriate. I personally performed the physical exam and medical decision making. Beryl David, Feb 10, 2023,19:26 CHAUDHARI Feb 10, 2023 11:44 BERYL DAVID DO Feb 10, 2023 19:26
--- NOTE | 2023-02-10 11:54 | Wound Care Assessment ---
Wound Care Assessment Date Seen by Provider: Feb 10, 2023 Time Seen by Provider: 11:49 Chief Complaint Chest tube wound HPI This pleasant 62 year old was seen be myself recently on inpatient rehab for chest tube wound. This is nearly healed. Plan to dress bid with mupirocin. She does still have [address] at superior border of sternotomy incision. She was supposed to see her cardiac surgeon today but in light of fall and readmission did not keep appointment. We will have nursing staff reach out to their office and clarify when sutures are safe for removal. Sternotomy incision is c/d/i. Past Medical History: Admits Heart Disease Smoking Status: Former Smoker Alcohol Use: Denies Use Exam Vital Signs Date Time Temp Pulse Resp B/P (MAP) Pulse Ox O2 Delivery O2 Flow Rate FiO2 02/10/23 08:03 36.0 93 18 131/71 (91) 95 Nasal Cannula 3.00 02/09/23 22:08 36 Capillary Refill : General Appearance: WD/WN, no apparent distress HEENT: other (normal hearing) Neck: full range of motion Cardiovascular: no edema Respiratory: no respiratory distress, no accessory muscle use Extremities: no pedal edema Neurologic/Psychiatric: alert, normal mood/affect, oriented x 3 Wound assessment: 0.4x0.4x0.1cm. The epithelialization is medium. There is no tunneling or undermining. Drainage is medium and serosanguinous. Granulation is none. Necrotic is large and slough. Margins flat Results Laboratory Tests 02/10/23 05:40: White Blood Count 11.6H, Red Blood Count 3.31L, Hemoglobin 10.1L, Hematocrit 32L , Mean Corpuscular Volume 96, Mean Corpuscular Hemoglobin 31, Mean Corpuscular Hemoglobin Concent 32, Red Cell Distribution Width 15.4H, Platelet Count 389, Mean Platelet Volume 9.6, Immature Granulocyte % (Auto) 1, Neutrophils (%) (Auto) 65, Lymphocytes (%) (Auto) 17, Monocytes (%) (Auto) 14H, Eosinophils (%) (Auto) 3, Basophils (%) (Auto) 1, Neutrophils # (Auto) 7.5, Lymphocytes # (Auto) 2.0, Monocytes # (Auto) 1.6H, Eosinophils # (Auto) 0.4H, Basophils # (Auto) 0.1, Immature Granulocyte # (Auto) 0.1, Sodium Level 136, Potassium Level 4.4, Chloride Level 101, Carbon Dioxide Level 26, Anion Gap 9, Blood Urea Nitrogen 13, Creatinine 0.83, Estimat Glomerular Filtration Rate 80, BUN/Creatinine Ratio 16, Glucose Level 101, Calcium Level 8.6, Corrected Calcium 9.2, Total Bilirubin 0.3, Aspartate Amino Transf (AST/SGOT) 16, Alanine Aminotransferase (ALT/SGPT) 18, Alkaline Phosphatase 70, Total Protein 6.4, Albumin 3.2 Assessment/Plan/Dx Assessment: 1. Chest tube wound 2. S/p fall with pelvic fracture 3. COPD with recent pneumonia Plan: 1. Cleanse and apply mupirocin bid with BFD 2. Defer to orthopedic/primary team 3. Defer to primary team NASREEN YA MD Feb 10, 2023 11:53
[2023-02-10 12:50] VITALS: BP 131/78
[2023-02-10 15:22] VITALS: BP 135/60
[2023-02-10 19:24] VITALS: BP 135/64
[2023-02-10] MEDS: MUPIROCIN 2% OINTMENT 22 GM TUBE TOP SCH (21:03)
[2023-02-10] MEDS: UMECLIDINIUM/VILANTEROL 62.5/25 MCG 7 DOSES (ANORO) IH SCH (21:30)
[2023-02-10 23:26] VITALS: BP 120/68
[2023-02-11] MEDS: oxyCODONE IMMEDIATE RELEASE 5 MG TABLET PO PRN ×4 (01:47→17:14)
[2023-02-11] MEDS: HYDROmorphone INJECTION 2 MG/ML VIAL IV PRN ×4 (02:20→19:38)
[2023-02-11] MEDS: LORazepam 0.5 MG TABLET PO PRN ×2 (02:20→19:43)
[2023-02-11 03:35] VITALS: BP 104/64
[2023-02-11 05:29] LABS: BASOPHILS # (AUTO) 0.1 10^3/uL (0.0-0.1); BASOPHILS % (AUTO) 1 % (0-10); EOSINOPHILS # (AUTO) 0.5 10^3/uL (0.0-0.3); EOSINOPHILS % (AUTO) 6 % (0-10); HEMATOCRIT 30 % (35-52); HEMOGLOBIN 9.4 g/dL (11.5-16.0); LYMPHOCYTES # (AUTO) 1.6 10^3/uL (1.0-4.0); LYMPHOCYTES % (AUTO) 18 % (12-44); MEAN CORPUSCULAR HEMOGLOBIN 30 pg (25-34); MEAN CORPUSCULAR HGB CONC 31 g/dL (32-36); MEAN CORPUSCULAR VOLUME 96 fL (80-99); MEAN PLATELET VOLUME 9.7 fL (9.0-12.2); MONOCYTES # (AUTO) 1.2 10^3/uL (0.0-1.0); MONOCYTES % (AUTO) 14 % (0-12); NEUTROPHILS # (AUTO) 5.2 10^3/uL (1.8-7.8); NEUTROPHILS % (AUTO) 60 % (42-75); PLATELET COUNT 364 10^3/uL (130-400); WHITE BLOOD COUNT 8.7 10^3/uL (4.3-11.0)
[2023-02-11] MEDS: THIAMINE 100 MG (VITAMIN B-1) TAB PO SCH (05:46)
[2023-02-11] MEDS: THERAPEUTIC MULTIVITAMIN W/MINERALS TABLET PO SCH (05:46)
[2023-02-11 05:58] LABS: ALBUMIN 3.1 GM/DL (3.2-4.5); BILIRUBIN,TOTAL 0.3 MG/DL (0.1-1.0); CALCIUM 8.4 MG/DL (8.5-10.1); CREATININE SERUM 0.71 MG/DL (0.60-1.30); POTASSIUM 3.6 MMOL/L (3.6-5.0); TOTAL PROTEIN 6.2 GM/DL (6.4-8.2)
[2023-02-11 07:17] VITALS: BP 119/58
[2023-02-11] MEDS: RT-BUDESONIDE NEBS 0.5 MG/2ML VIAL IH SCH (07:49)
[2023-02-11] MEDS: UMECLIDINIUM/VILANTEROL 62.5/25 MCG 7 DOSES (ANORO) IH SCH (07:49)
[2023-02-11] MEDS: VITAMIN D3 25 MCG (1,000 UNITS) TABLET PO SCH (08:24)
[2023-02-11] MEDS: SENNOSIDES 8.6 MG TABLET PO SCH ×2 (08:24→19:38)
[2023-02-11] MEDS: APIXABAN 5 MG TABLET PO SCH ×2 (08:24→19:38)
[2023-02-11] MEDS: amLODIPine 5 MG TABLET PO SCH (08:24)
[2023-02-11] MEDS: CLOPIDOGREL 75 MG TABLET PO SCH (08:24)
[2023-02-11] MEDS: DOCUSATE SODIUM 100 MG CAPSULE PO SCH ×2 (08:24→19:38)
[2023-02-11] MEDS: AMIODARONE 200 MG TABLET PO SCH (08:24)
[2023-02-11] MEDS: SENNA W/DOCUSATE TABLET PO SCH ×2 (08:24→19:38)
[2023-02-11] MEDS: MUPIROCIN 2% OINTMENT 22 GM TUBE TOP SCH ×2 (08:25→19:39)
[2023-02-11] MEDS: ONDANSETRON INJECTION 4 MG/2 ML (SDV) IV PRN (09:45)
--- NOTE | 2023-02-11 10:27 | Occupational Ther Daily Note ---
OT Current Status-Daily Note Subjective Feeling nausea and pain 6/10 however agreeable to get OOB and move to recliner for UB sponge bathe and oral care w/ OT Pain Numeric Pain Scale: 6 Location: Bone Location Body Site: Pelvic Mental Status/Objective Patient Orientation: Person, Place, Time, Situation Attachments: IV (port only), Oxygen (5 liters NC) ADL-Treatment SET UP of oral care for dentures, Transfer from bed to recliner w/ FWW/gait belt w/ bed elevated and flat. Min Assist. Tolerates sitting in recliner 20 minutes for OT to detangle mass of hair on scalp. Patient performed sponge bathe to UB w/ set up of wash clothes and bucket of warm water. Therapy Code Descriptions/Definitions Functional Avery Measure: 0=Not Assessed/NA 4=Minimal Assistance 1=Total Assistance 5=Supervision or Setup 2=Maximal Assistance 6=Modified Avery 3=Moderate Assistance 7=Complete IndependenceSCALE: Activities may be completed with or without assistive devices. 6-Dkenmrbchg-dmdrgyx completes the activity by him/herself with no assistance from a helper. 5-Set-up or Clean-up Assistance-helper sets up or cleans up; patient completes activity. [place] assists only prior to or following the activity. 4-Supervision or Touching Assistance-helper provides verbal cues and/or touching/steadying and/or contact guard assistance as patient completes activity. Assistance may be provided throughout the activity or intermittently. 3-Partial/Moderate Assistance-helper does LESS THAN HALF the effort. [place] lifts, holds or supports trunk or limbs, but provides less than half the effort. 2-Substantial/Maximal Assistance-helper does MORE THAN HALF the effort. [place] lifts or holds trunk or limbs and provides more than half the effort. 5-Siylzrndn-judrsb does ALL the effort. Patient does none of the effort to complete the activity. Or, the assistance of 2 or more helpers is required for the patient to complete the activity. If activity was not attempted, code reason: 7-Patient Refused. 9-Not Applicable-not attempted and the patient did not perform the activity before the current illness, exacerbation or injury. 10-Not Attempted due to Environmental Limitations-(lack of equipment, weather restraints, etc.). 88-Not Attempted due to Medical Conditions or Safety Concerns. Eating (QC): 6 Oral Hygiene (QC): 5 Bathing Location: L Arm, R Arm, Chest Shower/Bathe Self (QC): 3 Upper Body Dressing (QC): 4 (hospital gown) Lower Body Dressing (QC): 3 (disposable brief, Required assist w/ LES through brief holes, patient mangaed from knees over hips w/ OT assissting Min assist transfer off bed.) On/Off Footwear: 1 (patient declined performance) Toileting Hygiene (QC): 88 ([place]) Toilet Transfer (QC): 7 Slow and steady movements, VC for breathing strategies to reduce pain w/ movement. Education OT Patient Education: Correct positioning, Modified ADL techniques, Progress toward Goal/Update tx plan, Purpose of tx/functional activities, Reviewed precautions, Rehab process, Safety issues, Transfer techniques, Use of adapted equipment Teaching Recipient: Patient Teaching Methods: Demonstration, Discussion Response to Teaching: Verbalize Understanding, Reinforcement Needed OT Short Term Goals Short Term Goals Time Frame: Feb 17, 2023 Oral hygiene: 5 Toileting hygiene: 3 Shower/bathe self: 3 Upper body dressin Lower body dressin Putting on/taking off footwear: 3 OT Airport Clerk Goals Retirement Goals Time Frame: Mar 03, 2023 Eating (QC): 6 Oral Hygiene (QC): 6 Toileting Hygiene (QC): 6 Shower/Bathe Self (QC): 6 Upper Body Dressing (QC): 6 Lower Body Dressing (QC): 6 On/Off Footwear (QC): 6 Additional Goals: 1-Demonstrate ADL Tasks, 2-Verbalize Understanding, 3- ImproveStrength/[place]uz [place] 1=Demonstrate adherence to instructed precautions during ADL tasks. 2=Patient will verbalize/demonstrate understanding of assistive devices/modifications for ADL. 3=Patient will improve strength/tolerance for activity to enable patient to perform ADL's. OT Education/Plan Problem List/Assessment Assessment: Decreased Activ Tolerance, Decreased UE Strength, Impaired Bed Mobility, Impaired Funct Balance, Impaired Self-Care Skills UB strength and ROM limited d/t CABG Discharge Recommendations Plan/Recommendations: Continue POC Treatment Plan/Plan of Care Patient would benefit from OT for education, treatment and training to promote independence in ADL's, mobility, safety and/or upper extremity function for ADL's. Plan of Care: ADL Retraining, Functional Mobility, UE Funct Exercise/Act, UE Neuromus Re-Ed/Coord Treatment Duration: Mar 03, 2023 Frequency: 3 times per week (3-5 times a week) Estimated Hrs Per Day: .25 hour per day Agreement: Yes Rehab Potential: Fair Time Start Time: 09:00 Stop Time: 09:46 DATE: Feb 11, 2023 Total Time Billed (hr/min): 46 Billed Treatment Time 1 FA, 2 ADL, 46 min PIERRE MCKEON OT Feb 11, 2023 10:27
[2023-02-11 11:24] VITALS: BP 116/68
[2023-02-11] MEDS: CYCLOBENZAPRINE 10 MG TABLET PO PRN ×2 (11:53→15:19)
[2023-02-11] MEDS ORDERED: BISACODYL 10 MG SUPPOSITORY PR NR (12:00)
--- NOTE | 2023-02-11 13:16 | Progress Note ---
VANGIE,HET 02/11/23 1316: Subjective Date Seen by a Provider: Feb 11, 2023 Time Seen by a Provider: 12:00 Subjective/Events-last exam Patient is still in the same amount of pain as yesterday and was in mild distress because of it. Still not able to ambulate at all. Had a dry coughing episode this morning which did not come back or elicit any pain. She has been eating a little bit but has not had any bowel movement. Reports no other chest pains or concerns . Review of Systems General: No Chills, No Night Sweats; Fatigue, Malaise HEENT: No Head Aches, No Dysphasia, No Sore Throat Pulmonary: Cough Cardiovascular: No: Chest Pain, Edema Gastrointestinal: Constipation; No: Nausea, Vomiting, Abdominal Pain, Diarrhea Genitourinary: No Dysuria, No Incontinence, No Hematuria, No Retention Objective Exam Last Set of Vital Signs Vital Signs Date Time Temp Pulse Resp B/P (MAP) Pulse Ox O2 Delivery O2 Flow Rate FiO2 02/11/23 11:24 36.3 74 17 116/68 (84) 95 Nasal Cannula 3.00 02/09/23 22:08 36 Capillary Refill : I&O Intake and Output 02/11/23 00:00 Intake Total 1760 ml Output Total 1475 ml Balance 285 ml Intake Oral 910 ml IV Total 850 ml Output Urine Total 1475 ml General: Alert, Oriented X3, Cooperative, Mild Distress (due to pain) Neck: Supple, No JVD, +2 Carotid Pulse No Bruit Lungs: Clear to Auscultation, Normal Air Movement Abdomen: No Tenderness Results Lab Laboratory Tests 02/11/23 05:00: White Blood Count 8.7, Red Blood Count 3.14L, Hemoglobin 9.4L, Hematocrit 30L, Mean Corpuscular Volume 96, Mean Corpuscular Hemoglobin 30, Mean Corpuscular Hemoglobin Concent 31L, Red Cell Distribution Width 15.1H, Platelet Count 364, Mean Platelet Volume 9.7, Immature Granulocyte % (Auto) 1, Neutrophils (%) (Auto) 60, Lymphocytes (%) (Auto) 18, Monocytes (%) (Auto) 14H, Eosinophils (%) (Auto) 6, Basophils (%) (Auto) 1, Neutrophils # (Auto) 5.2, Lymphocytes # (Auto) 1.6, Monocytes # (Auto) 1.2H, Eosinophils # (Auto) 0.5H, Basophils # (Auto) 0.1, Immature Granulocyte # (Auto) 0.1, Sodium Level 134L, Potassium Level 3.6, Chloride Level 98, Carbon Dioxide Level 31, Anion Gap 5, Blood Urea Nitrogen 9, Creatinine 0.71, Estimat Glomerular Filtration Rate 96, BUN/Creatinine Ratio 13, Glucose Level 115H, Calcium Level 8.4L, Corrected Calcium 9.1, Total Bilirubin 0.3, Aspartate Amino Transf (AST/SGOT) 18, Alanine Aminotransferase (ALT/SGPT) 15, Alkaline Phosphatase 73, Total Protein 6.2L, Albumin 3.1L Assessment/Plan Assessment/Plan Assess & Plan/Chief Complaint Assessment: Pelvic fracture Mypoathy - had CABG CAD O2 dependance COPD HTN HTN smoker anemia of chronic disease Plan: Pain control ARU PT and OT BERYL DAVID DO 02/11/23 2012: Subjective Subjective/Events-last exam Patient having a lot of pain Very slow recovery Reviewed x-ray No BM yet so ordered suppository and more laxatives Objective Exam General: Alert, Oriented X3, Cooperative, No Acute Distress Lungs: Clear to Auscultation, Normal Air Movement Heart: Regular Rate, Normal S1, Normal S2, No Murmurs Psych/Mental Status: Mental Status NL, Mood NL Assessment/Plan Assessment/Plan Assess & Plan/Chief Complaint Supportive care Bowel regimen to intensify Inpatient rehab Supervisory-Addendum Brief Verification & Attestation Participated in pt care: history, MDM, physical Personally performed: exam, history, MDM, supervision of care Care discussed with: Medical Student Procedures: n/a Results interpretation: Verified all documentation Verification and Attestation of Medical Student E/M Service A medical student performed and documented this service in my presence. I reviewed and verified all information documented by the medical student and made modifications to such information, when appropriate. I personally performed the physical exam and medical decision making. Beryl David, Feb 11, 2023,20:11 CHAUDHARI Feb 11, 2023 13:16 BERYL DAVID DO Feb 11, 2023 20:12
--- NOTE | 2023-02-11 14:58 | Physical Therapy Daily Note ---
PT Daily Note-Current Subjective Patient sitting in chair upon PT arrival, agreeable to treatment. Patient rates pain in left hip at 7/10 and requests no standing due to pain and nausea. Pain Section J - Health Conditions 1. Rarely or not at all 2. Occasionally 3. Frequently 4. Almost constantly 8. Unable to answer Pain Effect on Sleep: 2 Pain Interference with Therapy: 3 Pain Interference w/Day-to-Day: 3 Transfers SCALE: Activities may be completed with or without assistive devices. 2-Sghpapswrj-xihwqci completes the activity by him/herself with no assistance from a helper. 5-Set-up or Clean-up Assistance-helper sets up or cleans up; patient completes activity. [place] assists only prior to or following the activity. 4-Supervision or Touching Assistance-helper provides verbal cues and/or touching/steadying and/or contact guard assistance as patient completes activity. Assistance may be provided throughout the activity or intermittently. 3-Partial/Moderate Assistance-helper does LESS THAN HALF the effort. [place] lifts, holds or supports trunk or limbs, but provides less than half the effort. 2-Substantial/Maximal Assistance-helper does MORE THAN HALF the effort. [place] lifts or holds trunk or limbs and provides more than half the effort. 3-Sgvpxwprx-uspeoc does ALL the effort. Patient does none of the effort to complete the activity. Or, the assistance of 2 or more helpers is required for the patient to complete the activity. If activity was not attempted, code reason: 7-Patient Refused. 9-Not Applicable-not attempted and the patient did not perform the activity before the current illness, exacerbation or injury. 10-Not Attempted due to Environmental Limitations-(lack of equipment, weather restraints, etc.). 88-Not Attempted due to Medical Conditions or Safety Concerns. Weight Bearing Right Lower Extremity: Right Full Weight Bearing Left Lower Extremity: Left Weight Bearing/Tolerated Exercises Supine Ex: Ankle pumps, Quad Set, Glut sets Supine Reps: 20 Seated Therapy Exercises: Long arc quads Seated Reps: 20 Assessment Current Status: Poor Progress Patient was unable to tolerate any exercises beyond the list above. Patient performed AP, QS, LAQ, and GS x 20 BLEs, however became very tearful after LAQs. PT session was discontinued at that point. Patient in chair post treatment with all needs met, nursing notified, call light in hand. PT [facility] Goals [facility] Goals PT Practice Physician Goals Time Frame: Feb 28, 2023 Roll Left & Right (QC): 3 Sit to Lying (QC): 3 Lying-Sitting on Side/Bed(QC): 3 Sit to Stand (QC): 3 Chair/Jjn-vr-Tgolj Xfer(QC): 3 Toilet Transfer (QC): 3 Walk 10 feet (QC): 3 Walk 50ft with 2 Turns (QC): 3 Walk 150 ft (QC): 3 PT Plan Treatment/Plan Treatment Plan: Continue Plan of Care Treatment Plan: Bed Mobility, Education, Functional Activity [place], Functional Strength, Gait, Safety, Therapeutic Exercise, Transfers Treatment Duration: Feb 28, 2023 Frequency: 6 times per week Estimated Hrs Per Day: .25 hour per day Patient and/or Family Agrees t: Yes Time Time In: 1014 Time Out: 1024 DATE: Feb 11, 2023 Total Billed Treatment Time: 10 Total Billed Treatment Visit, EX MERVIN HUDDLESTON PT Feb 11, 2023 14:58
[2023-02-11 15:17] VITALS: BP 132/69
[2023-02-11 19:56] VITALS: BP 112/68
[2023-02-12] VITALS: BP 119/57
[2023-02-12] MEDS: oxyCODONE IMMEDIATE RELEASE 5 MG TABLET PO PRN ×4 (02:16→19:59)
[2023-02-12] MEDS: CYCLOBENZAPRINE 10 MG TABLET PO PRN ×2 (02:16→12:25)
[2023-02-12 03:36] VITALS: BP 133/60
[2023-02-12 05:14] LABS: BASOPHILS # (AUTO) 0.1 10^3/uL (0.0-0.1); BASOPHILS % (AUTO) 1 % (0-10); EOSINOPHILS # (AUTO) 0.6 10^3/uL (0.0-0.3); EOSINOPHILS % (AUTO) 6 % (0-10); HEMATOCRIT 30 % (35-52); HEMOGLOBIN 9.5 g/dL (11.5-16.0); LYMPHOCYTES # (AUTO) 1.8 10^3/uL (1.0-4.0); LYMPHOCYTES % (AUTO) 20 % (12-44); MEAN CORPUSCULAR HEMOGLOBIN 30 pg (25-34); MEAN CORPUSCULAR HGB CONC 32 g/dL (32-36); MEAN CORPUSCULAR VOLUME 95 fL (80-99); MEAN PLATELET VOLUME 9.8 fL (9.0-12.2); MONOCYTES # (AUTO) 1.2 10^3/uL (0.0-1.0); MONOCYTES % (AUTO) 14 % (0-12); NEUTROPHILS # (AUTO) 5.3 10^3/uL (1.8-7.8); NEUTROPHILS % (AUTO) 59 % (42-75); PLATELET COUNT 328 10^3/uL (130-400); WHITE BLOOD COUNT 8.9 10^3/uL (4.3-11.0)
[2023-02-12 06:39] LABS: ALBUMIN 2.9 GM/DL (3.2-4.5)
[2023-02-12 06:41] LABS: CALCIUM 8.5 MG/DL (8.5-10.1)
[2023-02-12 06:44] LABS: BILIRUBIN,TOTAL 0.3 MG/DL (0.1-1.0)
[2023-02-12 06:46] LABS: CREATININE SERUM 0.71 MG/DL (0.60-1.30)
[2023-02-12] MEDS: THIAMINE 100 MG (VITAMIN B-1) TAB PO SCH ×3 (07:09→09:24)
[2023-02-12] MEDS: THERAPEUTIC MULTIVITAMIN W/MINERALS TABLET PO SCH ×3 (07:09→09:24)
[2023-02-12 07:51] VITALS: BP 125/60
[2023-02-12] MEDS: CLOPIDOGREL 75 MG TABLET PO SCH (09:24)
[2023-02-12] MEDS: DOCUSATE SODIUM 100 MG CAPSULE PO SCH ×2 (09:25→19:52)
[2023-02-12] MEDS: amLODIPine 5 MG TABLET PO SCH (09:25)
[2023-02-12] MEDS: APIXABAN 5 MG TABLET PO SCH ×2 (09:25→19:52)
[2023-02-12] MEDS: SENNA W/DOCUSATE TABLET PO SCH ×2 (09:25→19:52)
[2023-02-12] MEDS: AMIODARONE 200 MG TABLET PO SCH (09:25)
[2023-02-12] MEDS: VITAMIN D3 25 MCG (1,000 UNITS) TABLET PO SCH (09:25)
[2023-02-12] MEDS: RT-BUDESONIDE NEBS 0.5 MG/2ML VIAL IH SCH ×3 (09:28→21:19)
[2023-02-12] MEDS: RT-Ipratropium/Albuterol NEB 3 ML VIAL IH PRN ×2 (09:33→21:18)
[2023-02-12] MEDS: LORazepam 0.5 MG TABLET PO PRN ×2 (09:40→19:58)
--- NOTE | 2023-02-12 10:28 | Physical Therapy Daily Note ---
PT Daily Note-Current Subjective Patient agrees to therapy. Pain Numeric Pain Scale: 8 Location: Left Location Body Site: Pelvic Pain Description: Acute Section J - Health Conditions 1. Rarely or not at all 2. Occasionally 3. Frequently 4. Almost constantly 8. Unable to answer Pain Effect on Sleep: 2 Pain Interference with Therapy: 3 Pain Interference w/Day-to-Day: 3 Mental Status Attachments: Oxygen, Gabriel Catheter Transfers SCALE: Activities may be completed with or without assistive devices. 4-Tepdgebpgn-jgdnoez completes the activity by him/herself with no assistance from a helper. 5-Set-up or Clean-up Assistance-helper sets up or cleans up; patient completes activity. [place] assists only prior to or following the activity. 4-Supervision or Touching Assistance-helper provides verbal cues and/or touching/steadying and/or contact guard assistance as patient completes activity. Assistance may be provided throughout the activity or intermittently. 3-Partial/Moderate Assistance-helper does LESS THAN HALF the effort. [place] lifts, holds or supports trunk or limbs, but provides less than half the effort. 2-Substantial/Maximal Assistance-helper does MORE THAN HALF the effort. [place] lifts or holds trunk or limbs and provides more than half the effort. 5-Bwaagymjq-yrnkts does ALL the effort. Patient does none of the effort to complete the activity. Or, the assistance of 2 or more helpers is required for the patient to complete the activity. If activity was not attempted, code reason: 7-Patient Refused. 9-Not Applicable-not attempted and the patient did not perform the activity before the current illness, exacerbation or injury. 10-Not Attempted due to Environmental Limitations-(lack of equipment, weather restraints, etc.). 88-Not Attempted due to Medical Conditions or Safety Concerns. Lying to Sitting/Side of Bed(Q: 3 Sit to Stand (QC): 3 Toilet Transfer (QC): 3 Weight Bearing Right Lower Extremity: Right Full Weight Bearing Left Lower Extremity: Left Weight Bearing/Tolerated Gait Training Distance: 5 steps Gait Assistive Device: FWW antalgic Assessment Patient up to commode minimal assist. Patient tolerates minimal activity due to pain. PT [facility] Goals [facility] Goals PT [facility] Goals Time Frame: Feb 28, 2023 Roll Left & Right (QC): 3 Sit to Lying (QC): 3 Lying-Sitting on Side/Bed(QC): 3 Sit to Stand (QC): 3 Chair/Tsn-eo-Sytxt Xfer(QC): 3 Toilet Transfer (QC): 3 Walk 10 feet (QC): 3 Walk 50ft with 2 Turns (QC): 3 Walk 150 ft (QC): 3 PT Plan Treatment/Plan Treatment Plan: Continue Plan of Care Treatment Plan: Bed Mobility, Education, Functional Activity [place], Functional Strength, Gait, Safety, Therapeutic Exercise, Transfers Treatment Duration: Feb 28, 2023 Frequency: 6 times per week Estimated Hrs Per Day: .25 hour per day Patient and/or Family Agrees t: Yes Time Time In: 950 Time Out: 1000 DATE: Feb 12, 2023 Total Billed Treatment Time: 10 Total Billed Treatment 1 visit FA 10 min MAYTE TYLER PT Feb 12, 2023 10:28
--- NOTE | 2023-02-12 11:08 | Occupational Ther Daily Note ---
OT Current Status-Daily Note Subjective Did not sleep well,. pain is not managed, request assistance to BSC. Pain Numeric Pain Scale: 7 Location: Bone Location Body Site: Pelvic Mental Status/Objective Patient Orientation: Person, Place, Time, Situation ADL-Treatment Ambulation slowly w/ FWW to BSC from bed, Min Assist bed mobility and mod assist for transfer, min assist to navigate FWW to BSC and then recliner. Patient managed hygiene and required min assistance w/ garments. Unsuccessful use of BSC. Patient request hot tea and cup of ice w/ sugars. Remains in recliner w/ BL E elevated, blanket and pillows for comfort. Therapy Code Descriptions/Definitions Functional [place] Measure: 0=Not Assessed/NA 4=Minimal Assistance 1=Total Assistance 5=Supervision or Setup 2=Maximal Assistance 6=Modified [place] 3=Moderate Assistance 7=Complete IndependenceSCALE: Activities may be completed with or without assistive devices. 5-Mdllupfogu-tbqdjbh completes the activity by him/herself with no assistance from a helper. 5-Set-up or Clean-up Assistance-helper sets up or cleans up; patient completes activity. [place] assists only prior to or following the activity. 4-Supervision or Touching Assistance-helper provides verbal cues and/or touching/steadying and/or contact guard assistance as patient completes activity. Assistance may be provided throughout the activity or intermittently. 3-Partial/Moderate Assistance-helper does LESS THAN HALF the effort. [place] lifts, holds or supports trunk or limbs, but provides less than half the effort. 2-Substantial/Maximal Assistance-helper does MORE THAN HALF the effort. [place] lifts or holds trunk or limbs and provides more than half the effort. 5-Yujtvhauo-tiqziz does ALL the effort. Patient does none of the effort to complete the activity. Or, the assistance of 2 or more helpers is required for the patient to complete the activity. If activity was not attempted, code reason: 7-Patient Refused. 9-Not Applicable-not attempted and the patient did not perform the activity before the current illness, exacerbation or injury. 10-Not Attempted due to Environmental Limitations-(lack of equipment, weather restraints, etc.). 88-Not Attempted due to Medical Conditions or Safety Concerns. Eating (QC): 6 Oral Hygiene (QC): 5 (dentures) Shower/Bathe Self (QC): 88 Upper Body Dressing (QC): 4 Lower Body Dressing (QC): 3 On/Off Footwear: 1 Toileting Hygiene (QC): 5 Toilet Transfer (QC): 3 Breathing strategies top work through pain Education OT Patient Education: Correct positioning, Modified ADL techniques, Progress toward Goal/Update tx plan, Purpose of tx/functional activities, Reviewed precautions, Rehab process, Safety issues, Transfer techniques, Use of adapted equipment (will need chairman emeritus and sock aid) Teaching Recipient: Patient Teaching Methods: Demonstration, Discussion Response to Teaching: Reinforcement Needed OT Short Term Goals Short Term Goals Time Frame: Feb 17, 2023 Oral hygiene: 5 Toileting hygiene: 3 Shower/bathe self: 3 Upper body dressin Lower body dressin Putting on/taking off footwear: 3 OT Alf Goals Stamping Die Try Out Worker Goals Time Frame: Mar 03, 2023 Eating (QC): 6 Oral Hygiene (QC): 6 Toileting Hygiene (QC): 6 Shower/Bathe Self (QC): 6 Upper Body Dressing (QC): 6 Lower Body Dressing (QC): 6 On/Off Footwear (QC): 6 Additional Goals: 1-Demonstrate ADL Tasks, 2-Verbalize Understanding, 3- ImproveStrength/[place] 1=Demonstrate adherence to instructed precautions during ADL tasks. 2=Patient will verbalize/demonstrate understanding of assistive devices/modifications for ADL. 3=Patient will improve strength/tolerance for activity to enable patient to perform ADL's. OT Education/Plan Problem List/Assessment Assessment: Decreased Activ Tolerance, Decreased UE Strength, Impaired Coordination, Impaired Funct Balance, Impaired Self-Care Skills UB strength and ROM limited d/t CABG Discharge Recommendations Plan/Recommendations: Continue POC Therapy Discharge Recommendati: Post Acute OT Equpiment Recommendations-D/C: Snow Removal Supervisor, Sock Aide Treatment Plan/Plan of Care Treatment,Training & Education: Yes Patient would benefit from OT for education, treatment and training to promote independence in ADL's, mobility, safety and/or upper extremity function for ADL's. Plan of Care: ADL Retraining, Functional Mobility, UE Funct Exercise/Act, UE Neuromus Re-Ed/Coord Treatment Duration: Mar 03, 2023 Frequency: 3 times per week (3-5 times a week) Estimated Hrs Per Day: .25 hour per day Agreement: Yes Rehab Potential: Fair Time Start Time: 09:40 Stop Time: 10:12 DATE: Feb 12, 2023 Total Time Billed (hr/min): 32 Billed Treatment Time ADL 2 32 min PIERRE MCKEON OT Feb 12, 2023 11:08
[2023-02-12 11:42] VITALS: BP 125/61
[2023-02-12] MEDS: LIDOCAINE 4% PATCH TOP SCH (12:14)
[2023-02-12] MEDS ORDERED: HYDROmorphone INJECTION 2 MG/ML VIAL IV PRN (12:15)
[2023-02-12] MEDS: MUPIROCIN 2% OINTMENT 22 GM TUBE TOP SCH ×2 (13:00→19:53)
--- NOTE | 2023-02-12 13:23 | Progress Note ---
CHAUDHARI 02/12/23 1323: Subjective Date Seen by a Provider: Feb 12, 2023 Time Seen by a Provider: 11:30 Subjective/Events-last exam Patient is not in a confused state and still has no complaints about pain or discomfort other than her hips. She was able to have a small bowel movement last night and is eating well. Hospital course: 62 y/o female with a history of COPD, asthma, CAD, HLD, HTN, arthritis, GERD and was in recent recovery from a CABG procedure and respiratory failure, sustained a pelvic fracture from a fall at her home. She was given hydromorphone, oxycodone, tramadol and a lidocaine patch to help manage the pain during the length of her stay. She would still describe it as an 7-9/10 and she reported minimal improvement. Patient has not able to ambulate and attempting to indices nausea, but denies any chest pain, nausea/vomiting, or abdominal pain. PT and OT evaluated her and was moved to the rehab floor for further management. Review of Systems General: No Chills, No Night Sweats; Fatigue; No Malaise; Appetite HEENT: No Head Aches, No Visual Changes, No Eye Pain, No Dysphasia, No Sore Throat Pulmonary: No Dyspnea, No Cough Cardiovascular: No: Chest Pain Gastrointestinal: Constipation (suppository given ); No: Nausea, Vomiting, Abdominal Pain, Diarrhea Genitourinary: No Dysuria, No Hematuria Objective Exam Last Set of Vital Signs Vital Signs Date Time Temp Pulse Resp B/P (MAP) Pulse Ox O2 Delivery O2 Flow Rate FiO2 02/12/23 11:42 36.3 91 18 125/61 (82) 94 Room Air 6.00 02/09/23 22:08 36 Capillary Refill : I&O Intake and Output0 02/12/23 00:00 Intake Total 2220 ml Output Total 1900 ml Balance 320 ml Intake Oral 2220 ml Output Urine Total 1900 ml # Bowel Movements 1 General: Alert, Oriented X3, Cooperative, Mild Distress (from hip pain) Neck: Supple, No JVD Extremities: No Clubbing, No Cyanosis, No Edema, Normal Pulses Results Lab Laboratory Tests 02/12/23 04:53: White Blood Count 8.9, Red Blood Count 3.13L, Hemoglobin 9.5L, Hematocrit 30L, Mean Corpuscular Volume 95, Mean Corpuscular Hemoglobin 30, Mean Corpuscular Hemoglobin Concent 32, Red Cell Distribution Width 15.0H, Platelet Count 328, Mean Platelet Volume 9.8, Immature Granulocyte % (Auto) 1, Neutrophils (%) (Auto) 59, Lymphocytes (%) (Auto) 20, Monocytes (%) (Auto) 14H, Eosinophils (%) (Auto) 6, Basophils (%) (Auto) 1, Neutrophils # (Auto) 5.3, Lymphocytes # (Auto) 1.8, Monocytes # (Auto) 1.2H, Eosinophils # (Auto) 0.6H, Basophils # (Auto) 0.1, Immature Granulocyte # (Auto) 0.1, Sodium Level 136, Potassium Level 4.0, Chloride Level 99, Carbon Dioxide Level 27, Anion Gap 10, Blood Urea Nitrogen 9, Creatinine 0.71, Estimat Glomerular Filtration Rate 96, BUN/Creatinine Ratio 13, Glucose Level 107H, Calcium Level 8.5, Corrected Calcium 9.4, Total Bilirubin 0.3, Aspartate Amino Transf (AST/SGOT) 20, Alanine Aminotransferase (ALT/SGPT) 15, Alkaline Phosphatase 67, Total Protein 6.0L, Albumin 2.9L Assessment/Plan Assessment/Plan Assess & Plan/Chief Complaint Assessment: Pelvic fracture Mypoathy - had CABG CAD O2 dependance COPD HTN HTN smoker anemia of chronic disease Plan: Pain control PT and OT BERYL DAVID DO 02/12/232111: Subjective Subjective/Events-last exam Awaiting insurance approval for inpatient rehab Pain is somewhat controlled Very depressed Objective Exam General: Alert, Oriented X3, Cooperative, No Acute Distress Lungs: Clear to Auscultation, Normal Air Movement Heart: Regular Rate, Normal S1, Normal S2, No Murmurs Psych/Mental Status: Mental Status NL, Mood NL Assessment/Plan Assessment/Plan Assess & Plan/Chief Complaint Await placement in inpatient rehab for insurance approval Supervisory-Addendum Brief Verification & Attestation Participated in pt care: history, MDM, physical Personally performed: exam, history, MDM, supervision of care Care discussed with: Medical Student Procedures: n/a Results interpretation: Verified all documentation Verification and Attestation of Medical Student E/M Service A medical student performed and documented this service in my presence. I reviewed and verified all information documented by the medical student and made modifications to such information, when appropriate. I personally performed the physical exam and medical decision making. Beryl David, Feb 12, 2023,21:11 CHAUDHARI Feb 12, 2023 13:23 BERYL DAVID DO Feb 12, 2023 21:12
[2023-02-12 15:21] VITALS: BP 131/61
[2023-02-12 19:42] VITALS: BP 129/59
[2023-02-12] MEDS: UMECLIDINIUM/VILANTEROL 62.5/25 MCG 7 DOSES (ANORO) IH SCH (21:19)
[2023-02-12] MEDS: LIDOCAINE PATCH REMOVAL TP SCH (21:30)
[2023-02-13] VITALS (7 sets, daily range): BP systolic 108–136; BP diastolic 54–78
[2023-02-13] MEDS: oxyCODONE IMMEDIATE RELEASE 5 MG TABLET PO PRN ×5 (02:56→23:59)
[2023-02-13] MEDS: THERAPEUTIC MULTIVITAMIN W/MINERALS TABLET PO SCH (05:12)
[2023-02-13] MEDS: THIAMINE 100 MG (VITAMIN B-1) TAB PO SCH (05:12)
[2023-02-13 05:33] LABS: BASOPHILS # (AUTO) 0.1 10^3/uL (0.0-0.1); BASOPHILS % (AUTO) 1 % (0-10); EOSINOPHILS # (AUTO) 0.6 10^3/uL (0.0-0.3); EOSINOPHILS % (AUTO) 6 % (0-10); HEMATOCRIT 30 % (35-52); HEMOGLOBIN 9.5 g/dL (11.5-16.0); LYMPHOCYTES # (AUTO) 2.1 10^3/uL (1.0-4.0); LYMPHOCYTES % (AUTO) 21 % (12-44); MEAN CORPUSCULAR HEMOGLOBIN 30 pg (25-34); MEAN CORPUSCULAR HGB CONC 32 g/dL (32-36); MEAN CORPUSCULAR VOLUME 94 fL (80-99); MEAN PLATELET VOLUME 9.8 fL (9.0-12.2); MONOCYTES # (AUTO) 1.3 10^3/uL (0.0-1.0); MONOCYTES % (AUTO) 13 % (0-12); NEUTROPHILS # (AUTO) 5.6 10^3/uL (1.8-7.8); NEUTROPHILS % (AUTO) 58 % (42-75); PLATELET COUNT 372 10^3/uL (130-400); WHITE BLOOD COUNT 9.7 10^3/uL (4.3-11.0)
[2023-02-13 05:51] LABS: ALBUMIN 2.8 GM/DL (3.2-4.5)
[2023-02-13 05:52] LABS: POTASSIUM 3.9 MMOL/L (3.6-5.0)
[2023-02-13 05:53] LABS: CALCIUM 8.4 MG/DL (8.5-10.1)
[2023-02-13 05:54] LABS: TOTAL PROTEIN 5.9 GM/DL (6.4-8.2)
[2023-02-13 05:56] LABS: BILIRUBIN,TOTAL 0.3 MG/DL (0.1-1.0)
[2023-02-13 05:58] LABS: CREATININE SERUM 0.65 MG/DL (0.60-1.30)
[2023-02-13] MEDS: RT-BUDESONIDE NEBS 0.5 MG/2ML VIAL IH SCH ×2 (07:39→20:50)
[2023-02-13] MEDS: UMECLIDINIUM/VILANTEROL 62.5/25 MCG 7 DOSES (ANORO) IH SCH ×2 (07:40→20:47)
[2023-02-13] MEDS: SENNA W/DOCUSATE TABLET PO SCH ×2 (08:14→19:39)
[2023-02-13] MEDS: amLODIPine 5 MG TABLET PO SCH (08:14)
[2023-02-13] MEDS: CLOPIDOGREL 75 MG TABLET PO SCH (08:14)
[2023-02-13] MEDS: APIXABAN 5 MG TABLET PO SCH ×2 (08:14→19:39)
[2023-02-13] MEDS: AMIODARONE 200 MG TABLET PO SCH (08:14)
[2023-02-13] MEDS: DOCUSATE SODIUM 100 MG CAPSULE PO SCH ×2 (08:15→19:39)
[2023-02-13] MEDS: VITAMIN D3 25 MCG (1,000 UNITS) TABLET PO SCH (08:15)
[2023-02-13] MEDS: MUPIROCIN 2% OINTMENT 22 GM TUBE TOP SCH ×2 (08:15→19:43)
[2023-02-13] MEDS: LIDOCAINE 4% PATCH TOP SCH (08:15)
[2023-02-13] MEDS: LORazepam 0.5 MG TABLET PO PRN ×2 (08:20→19:39)
--- NOTE | 2023-02-13 10:18 | Physical Therapy Daily Note ---
PT Daily Note-Current Subjective Patient agrees to PT. Pain Numeric Pain Scale: 10-Worst Possible Pain Location: Left Location Body Site: Pelvic Pain Description: Acute Section J - Health Conditions 1. Rarely or not at all 2. Occasionally 3. Frequently 4. Almost constantly 8. Unable to answer Pain Effect on Sleep: 2 Pain Interference with Therapy: 3 Pain Interference w/Day-to-Day: 3 Mental Status Attachments: Oxygen, [place] Catheter Transfers SCALE: Activities may be completed with or without assistive devices. 1-Wxgcbaqpba-fqcwptg completes the activity by him/herself with no assistance from a helper. 5-Set-up or Clean-up Assistance-helper sets up or cleans up; patient completes activity. [place] assists only prior to or following the activity. 4-Supervision or Touching Assistance-helper provides verbal cues and/or touching/steadying and/or contact guard assistance as patient completes activity. Assistance may be provided throughout the activity or intermittently. 3-Partial/Moderate Assistance-helper does LESS THAN HALF the effort. [place] lifts, holds or supports trunk or limbs, but provides less than half the effort. 2-Substantial/Maximal Assistance-helper does MORE THAN HALF the effort. [place] lifts or holds trunk or limbs and provides more than half the effort. 7-Bhogrgnhh-bagwnt does ALL the effort. Patient does none of the effort to co mplete the activity. Or, the assistance of 2 or more helpers is required for the patient to complete the activity. If activity was not attempted, code reason: 7-Patient Refused. 9-Not Applicable-not attempted and the patient did not perform the activity before the current illness, exacerbation or injury. 10-Not Attempted due to Environmental Limitations-(lack of equipment, weather restraints, etc.). 88-Not Attempted due to Medical Conditions or Safety Concerns. Lying to Sitting/Side of Bed(Q: 4 Sit to Stand (QC): 4 Chair/Mhy-ko-Aiaxw Xfer(QC): 4 Toilet Transfer (QC): 4 Weight Bearing Right Lower Extremity: Right Full Weight Bearing Left Lower Extremity: Left Weight Bearing/Tolerated Gait Training Distance: 25' x 2 Walk 10 feet (QC): 4 Gait Assistive Device: FWW very slow, step to gait sequence Assessment Patient requires time to complete all functional tasks and is up in recliner with needs met. PT to continue to increase activity as tolerated by patient. PT Lead Recreation Assistant Goals [facility] Goals PT Lead Recreation Assistant Goals Time Frame: Feb 28, 2023 Roll Left & Right (QC): 3 Sit to Lying (QC): 3 Lying-Sitting on Side/Bed(QC): 3 Sit to Stand (QC): 3 Chair/Dnr-fi-Jhsii Xfer(QC): 3 Toilet Transfer (QC): 3 Walk 10 feet (QC): 3 Walk 50ft with 2 Turns (QC): 3 Walk 150 ft (QC): 3 PT Plan Treatment/Plan Treatment Plan: Continue Plan of Care Treatment Plan: Bed Mobility, Education, Functional Activity [place], Functional Strength, Gait, Safety, Therapeutic Exercise, Transfers Treatment Duration: Feb 28, 2023 Frequency: 6 times per week Estimated Hrs Per Day: .25 hour per day Patient and/or Family Agrees t: Yes Time Time In: 900 Time Out: 923 DATE: Feb 13, 2023 Total Billed Treatment Time: 23 Total Billed Treatment 1 visit GT x 2 23 min MAYTE TYLER PT Feb 13, 2023 10:18
[2023-02-13] MEDS: CYCLOBENZAPRINE 10 MG TABLET PO PRN ×2 (11:39→23:07)
--- NOTE | 2023-02-13 13:03 | Progress Note ---
VANGIE,HET 02/13/23 1303: Subjective Date Seen by a Provider: Feb 13, 2023 Time Seen by a Provider: 10:30 Subjective/Events-last exam Patient was still rating her pain as an 8/10 in her hips today. Has had no bowel movements despite good appetite for the past few days. Has muscle stiffness in lower back and and hips and desired muscle relaxant. She denied any chest pain, nausea or vomiting and has no other complaints. Review of Systems General: No Chills, No Night Sweats; Fatigue, Malaise, Appetite Pulmonary: No Dyspnea, No Cough Cardiovascular: No: Chest Pain Gastrointestinal: Constipation; No: Nausea, Vomiting, Abdominal Pain Genitourinary: No Dysuria, No Hematuria Objective Exam Last Set of Vital Signs Vital Signs Date Time Temp Pulse Resp B/P (MAP) Pulse Ox O2 Delivery O2 Flow Rate FiO2 02/13/23 11:44 35.6 82 18 114/60 (78) 95 Nasal Cannula 4.00 02/09/23 22:08 36 Capillary Refill : I&O Intake and Output 02/13/23 00:00 Intake Total 2090 ml Output Total 3050 ml Balance -960 ml Intake Oral 2090 ml Output Urine Total 3050 ml General: Alert, Oriented X3, Cooperative, Moderate Distress (from pain) Lungs: Clear to Auscultation, Normal Air Movement Heart: Regular Rate, No Murmurs Extremities: No Clubbing, No Cyanosis, No Edema Results Lab Laboratory Tests 02/13/23 05:15: White Blood Count 9.7, Red Blood Count 3.16L, Hemoglobin 9.5L, Hematocrit 30L, Mean Corpuscular Volume 94, Mean Corpuscular Hemoglobin 30, Mean Corpuscular Hemoglobin Concent 32, Red Cell Distribution Width 14.7H, Platelet Count 372, Mean Platelet Volume 9.8, Immature Granulocyte % (Auto) 1, Neutrophils (%) (Auto) 58, Lymphocytes (%) (Auto) 21, Monocytes (%) (Auto) 13H, Eosinophils (%) (Auto) 6, Basophils (%) (Auto) 1, Neutrophils # (Auto) 5.6, Lymphocytes # (Auto) 2.1, Monocytes # (Auto) 1.3H, Eosinophils # (Auto) 0.6H, Basophils # (Auto) 0.1, Immature Granulocyte # (Auto) 0.1 02/13/23 05:20: Sodium Level 136, Potassium Level 3.9, Chloride Level 99, Carbon Dioxide Level 31, Anion Gap 6, Blood Urea Nitrogen 8, Creatinine 0.65, Estimat Glomerular [place] tration Rate 99, BUN/Creatinine Ratio 12, Glucose Level 102, Calcium Level 8.4L, Corrected Calcium 9.4, Total Bilirubin 0.3, Aspartate Amino Transf (AST/SGOT) 20, Alanine Aminotransferase (ALT/SGPT) 15, Alkaline Phosphatase 66, Total Protein 5.9L, Albumin 2.8L Assessment/Plan Assessment/Plan Assess & Plan/Chief Complaint Assessment: Pelvic fracture Mypoathy - had CABG CAD O2 dependance COPD HTN HTN smoker anemia of chronic disease Plan: Pain control baclofen suppository for constipation PT and OT BERYL DAVID DO 02/14/23 0604: Subjective Subjective/Events-last exam Still awaiting insurance approval for rehab Review of Systems General: Fatigue, Malaise Objective Exam General: Alert, Oriented X3, Cooperative, No Acute Distress Lungs: Clear to Auscultation, Normal Air Movement Heart: Regular Rate, Normal S1, Normal S2, No Murmurs Psych/Mental Status: Mental Status NL, Mood NL Assessment/Plan Assessment/Plan Assess & Plan/Chief Complaint Continue supportive care Pain control Bowel regimen Await rehab Supervisory-Addendum Brief Verification & Attestation Participated in pt care: history, MDM, physical Personally performed: exam, history, MDM, supervision of care Care discussed with: Medical Student Procedures: n/a Results interpretation: Verified all documentation Verification and Attestation of Medical Student E/M Service A medical student performed and documented this service in my presence. I reviewed and verified all information documented by the medical student and made modifications to such information, when appropriate. I personally performed the physical exam and medical decision making. Beryl David, Feb 14, 2023,06:03 CHAUDHARI Feb 13, 2023 13:03 BERYL DAVID DO Feb 14, 2023 06:04
[2023-02-13] MEDS: ONDANSETRON INJECTION 4 MG/2 ML (SDV) IV PRN (14:22)
--- NOTE | 2023-02-13 15:43 | Occupational Ther Daily Note ---
OT Current Status-Daily Note Subjective Multiple requests for pain meds, tearful and reports 11/10 pain, nurse notified and repors pain meds have been given, Patient requires moderate encouragement to ambulate 3 feet, Patient reports nausea. Pain Location Body Site: Pelvic Mental Status/Objective Patient Orientation: Person, Place, Time, Situation Attachments: Gabriel Catheter ADL-Treatment Therapy Code Descriptions/Definitions Functional [place] Measure: 0=Not Assessed/NA 4=Minimal Assistance 1=Total Assistance 5=Supervision or Setup 2=Maximal Assistance 6=Modified [place] 3=Moderate Assistance 7=Complete IndependenceSCALE: Activities may be completed with or without assistive devices. 9-Opxcsedgin-dvrepjx completes the activity by him/herself with no assistance from a helper. 5-Set-up or Clean-up Assistance-helper sets up or cleans up; patient completes activity. [place] assists only prior to or following the activity. 4-Supervision or Touching Assistance-helper provides verbal cues and/or touching/steadying and/or contact guard assistance as patient completes activity. Assistance may be provided throughout the activity or intermittently. 3-Partial/Moderate Assistance-helper does LESS THAN HALF the effort. [place] lifts, holds or supports trunk or limbs, but provides less than half the effort. 2-Substantial/Maximal Assistance-helper does MORE THAN HALF the effort. [place] lifts or holds trunk or limbs and provides more than half the effort. 1-Rzqhgzcwk-uuijbc does ALL the effort. Patient does none of the effort to complete the activity. Or, the assistance of 2 or more helpers is required for the patient to complete the activity. If activity was not attempted, code reason: 7-Patient Refused. 9-Not Applicable-not attempted and the patient did not perform the activity before the current illness, exacerbation or injury. 10-Not Attempted due to Environmental Limitations-(lack of equipment, weather restraints, etc.). 88-Not Attempted due to Medical Conditions or Safety Concerns. Eating (QC): 6 (Tuna and crackers) Oral Hygiene (QC): 5 Shower/Bathe Self (QC): 88 Upper Body Dressing (QC): 5 Lower Body Dressing (QC): 4 (extra time) On/Off Footwear: 1 (refused) Toileting Hygiene (QC): 4 Toilet Transfer (QC): 4 (BSC w/ FWW) Education OT Patient Education: Correct positioning, Exercise program, Modified ADL techniques, Progress toward Goal/Update tx plan, Purpose of tx/functional activities, Reviewed precautions, Rehab process, Safety issues, Transfer techniques, Use of adapted equipment Teaching Recipient: Patient Teaching Methods: Demonstration, Discussion Response to Teaching: Reinforcement Needed OT Short Term Goals Short Term Goals Time Frame: Feb 17, 2023 Oral hygiene: 5 Toileting hygiene: 3 Shower/bathe self: 3 Upper body dressin Lower body dressin Putting on/taking off footwear: 3 OT Welt Slasher Goals Detention Goals Time Frame: Mar 03, 2023 Eating (QC): 6 Oral Hygiene (QC): 6 Toileting Hygiene (QC): 6 Shower/Bathe Self (QC): 6 Upper Body Dressing (QC): 6 Lower Body Dressing (QC): 6 On/Off Footwear (QC): 6 Additional Goals: 1-Demonstrate ADL Tasks, 2-Verbalize Understanding, 3-ImproveStrength/[place] 1=Demonstrate adherence to instructed precautions during ADL tasks. 2=Patient will verbalize/demonstrate understanding of assistive devices/modifications for ADL. 3=Patient will improve strength/tolerance for activity to enable patient to perform ADL's. OT Education/Plan Problem List/Assessment Assessment: Decreased Activ Tolerance, Decreased UE Strength, Impaired Bed Mobility, Impaired Coordination, Impaired Funct Balance, Impaired Self-Care Skills UB strength and ROM limited d/t CABG Discharge Recommendations Plan/Recommendations: Continue POC Therapy Discharge Recommendati: Post Acute OT Barriers to Progress pain Treatment Plan/Plan of Care Treatment,Training & Education: Yes Patient would benefit from OT for education, treatment and training to promote independence in ADL's, mobility, safety and/or upper extremity function for ADL's. Plan of Care: ADL Retraining, Functional Mobility, UE Funct Exercise/Act, UE Neuromus Re-Ed/Coord Treatment Duration: Mar 03, 2023 Frequency: 3 times per week (3-5 times a week) Estimated Hrs Per Day: .25 hour per day Agreement: Yes Rehab Potential: Fair Time Start Time: 12:30 Stop Time: 13:42 DATE: Feb 13, 2023 Total Time Billed (hr/min): 12 Billed Treatment Time ADL 12 PIERRE MCKEON OT Feb 13, 2023 15:43
[2023-02-13] MEDS: LIDOCAINE PATCH REMOVAL TP SCH (19:43)
[2023-02-14] VITALS: BP 105/44
[2023-02-14] MEDS: LORazepam 0.5 MG TABLET PO PRN ×2 (02:45→20:41)
[2023-02-14 04:00] VITALS: BP 116/56
[2023-02-14] MEDS: oxyCODONE IMMEDIATE RELEASE 5 MG TABLET PO PRN ×4 (04:28→20:41)
[2023-02-14 05:48] LABS: BASOPHILS # (AUTO) 0.1 10^3/uL (0.0-0.1); BASOPHILS % (AUTO) 1 % (0-10); EOSINOPHILS # (AUTO) 0.6 10^3/uL (0.0-0.3); EOSINOPHILS % (AUTO) 7 % (0-10); HEMATOCRIT 30 % (35-52); HEMOGLOBIN 9.4 g/dL (11.5-16.0); LYMPHOCYTES # (AUTO) 1.9 10^3/uL (1.0-4.0); LYMPHOCYTES % (AUTO) 21 % (12-44); MEAN CORPUSCULAR HEMOGLOBIN 30 pg (25-34); MEAN CORPUSCULAR HGB CONC 32 g/dL (32-36); MEAN CORPUSCULAR VOLUME 93 fL (80-99); MEAN PLATELET VOLUME 9.9 fL (9.0-12.2); MONOCYTES # (AUTO) 1.1 10^3/uL (0.0-1.0); MONOCYTES % (AUTO) 12 % (0-12); NEUTROPHILS # (AUTO) 5.3 10^3/uL (1.8-7.8); NEUTROPHILS % (AUTO) 58 % (42-75); PLATELET COUNT 374 10^3/uL (130-400)
[2023-02-14 06:02] LABS: ALBUMIN 2.8 GM/DL (3.2-4.5); POTASSIUM 3.6 MMOL/L (3.6-5.0)
[2023-02-14 06:03] LABS: CALCIUM 8.4 MG/DL (8.5-10.1)
[2023-02-14 06:05] LABS: TOTAL PROTEIN 5.7 GM/DL (6.4-8.2)
[2023-02-14 06:06] LABS: BILIRUBIN,TOTAL 0.3 MG/DL (0.1-1.0)
[2023-02-14 06:08] LABS: CREATININE SERUM 0.69 MG/DL (0.60-1.30)
--- NOTE | 2023-02-14 06:22 | Progress Note ---
Subjective Date Seen by a Provider: Feb 14, 2023 Time Seen by a Provider: 11:00 Subjective/Events-last exam Patient about the same Really depressed so she is willing to take Cymbalta which will help with the pain No BM yet so we will initiate Dulcolax suppository and soapsuds enemas today We will take a shower today Awaiting approval for insurance to go to rehab Review of Systems Musculoskeletal: arm pain, back pain, hand pain Objective Exam Last Set of Vital Signs Vital Signs Date Time Temp Pulse Resp B/P (MAP) Pulse Ox O2 Delivery O2 Flow Rate FiO2 02/14/23 04:00 36.2 96 18 116/56 (76) 96 Nasal Cannula 4.00 02/09/23 22:08 36 Capillary Refill : I&O Intake and Output 02/14/23 00:00 Intake Total 2510 ml Output Total 2400 ml Balance 110 ml Intake Oral 2510 ml Output Urine Total 2400 ml General: Alert, Oriented X3, Cooperative, No Acute Distress Lungs: Clear to Auscultation, Normal Air Movement Heart: Regular Rate, Normal S1, Normal S2, No Murmurs Psych/Mental Status: Mental Status NL, Mood NL Results Lab Laboratory Tests 02/14/23 05:18: White Blood Count 9.0, Red Blood Count 3.19L, Hemoglobin 9.4L, Hematocrit 30L, Mean Corpuscular Volume 93, Mean Corpuscular Hemoglobin 30, Mean Corpuscular Hemoglobin Concent 32, Red Cell Distribution Width 14.7H, Platelet Count 374, Mean Platelet Volume 9.9, Immature Granulocyte % (Auto) 1, Neutrophils (%) (Auto) 58, Lymphocytes (%) (Auto) 21, Monocytes (%) (Auto) 12, Eosinophils (%) (Auto) 7, Basophils (%) (Auto) 1, Neutrophils # (Auto) 5.3, Lymphocytes # (Auto) 1.9, Monocytes # (Auto) 1.1H, Eosinophils # (Auto) 0.6H, Basophils # (Auto) 0.1, Immature Granulocyte # (Auto) 0.1, Sodium Level 136, Potassium Level 3.6, Chloride Level 99, Carbon Dioxide Level 28, Anion Gap 9, Blood Urea Nitrogen 8, Creatinine 0.69, Estimat Glomerular Filtration Rate 98, BUN/Creatinine Ratio 12, Glucose Level 135H, Calcium Level 8.4L, Corrected Calcium 9.4, Total Bilirubin 0.3, Aspartate Amino Transf (AST/SGOT) 18, Alanine Aminotransferase (ALT/SGPT) 15, Alkaline Phosphatase 63, Total Protein 5.7L, Albumin 2.8L Assessment/Plan Assessment/Plan Assess & Plan/Chief Complaint Assessment: Pelvic fracture sustained in a fall at home 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
[2023-02-14] MEDS: THERAPEUTIC MULTIVITAMIN W/MINERALS TABLET PO SCH (06:41)
[2023-02-14] MEDS: THIAMINE 100 MG (VITAMIN B-1) TAB PO SCH (06:41)
[2023-02-14] MEDS: UMECLIDINIUM/VILANTEROL 62.5/25 MCG 7 DOSES (ANORO) IH SCH ×2 (08:09→20:08)
[2023-02-14] MEDS: RT-BUDESONIDE NEBS 0.5 MG/2ML VIAL IH SCH ×2 (08:09→20:08)
--- NOTE | 2023-02-14 08:12 | Physical Therapy Daily Note ---
PT Daily Note-Current Subjective States that she is hurting today. Pain Section J - Health Conditions 1. Rarely or not at all 2. Occasionally 3. Frequently 4. Almost constantly 8. Unable to answer Pain Effect on Sleep: 2 Pain Interference with Therapy: 3 Pain Interference w/Day-to-Day: 3 Transfers SCALE: Activities may be completed with or without assistive devices. 4-Rsvkrbzhjh-zytpglj completes the activity by him/herself with no assistance from a helper. 5-Set-up or Clean-up Assistance-helper sets up or cleans up; patient completes activity. [place] assists only prior to or following the activity. 4-Supervision or Touching Assistance-helper provides verbal cues and/or touching/steadying and/or contact guard assistance as patient completes activity. Assistance may be provided throughout the activity or intermittently. 3-Partial/Moderate Assistance-helper does LESS THAN HALF the effort. [place] lifts, holds or supports trunk or limbs, but provides less than half the effort. 2-Substantial/Maximal Assistance-helper does MORE THAN HALF the effort. [place] lifts or holds trunk or limbs and provides more than half the effort. 3-Kxwmmxkyg-hbcusp does ALL the effort. Patient does none of the effort to complete the activity. Or, the assistance of 2 or more helpers is required for the patient to complete the activity. If activity was not attempted, code reason: 7-Patient Refused. 9-Not Applicable-not attempted and the patient did not perform the activity before the current illness, exacerbation or injury. 10-Not Attempted due to Environmental Limitations-(lack of equipment, weather restraints, etc.). 88-Not Attempted due to Medical Conditions or Safety Concerns. Roll Left & Right (QC): 4 Lying to Sitting/Side of Bed(Q: 4 Sit to Stand (QC): 4 Chair/Ybv-bw-Hmcde Xfer(QC): 4 Toilet Transfer (QC): 4 Weight Bearing Right Lower Extremity: Right Full Weight Bearing Left Lower Extremity: Left Weight Bearing/Tolerated Gait Training Does the Patient Walk?: Yes Distance: 5' Gait Persons Needed: 1 Gait Assistive Device: FWW Assessment Current Status: Good Progress Patient did well with transfers however she does have considerable pain that is limiting her function. PT Mcfp Goals Mcfp Goals PT Mcfp Goals Time Frame: Feb 28, 2023 Roll Left & Right (QC): 3 Sit to Lying (QC): 3 Lying-Sitting on Side/Bed(QC): 3 Sit to Stand (QC): 3 Chair/Lxc-bc-Dqavz Xfer(QC): 3 Toilet Transfer (QC): 3 Walk 10 feet (QC): 3 Walk 50ft with 2 Turns (QC): 3 Walk 150 ft (QC): 3 PT Plan Treatment/Plan Treatment Plan: Continue Plan of Care Treatment Plan: Bed Mobility, Education, Functional Activity [place], Functional Strength, Gait, Safety, Therapeutic Exercise, Transfers Treatment Duration: Feb 28, 2023 Frequency: 6 times per week Estimated Hrs Per Day: .25 hour per day Patient and/or Family Agrees t: Yes Time Time In: 744 Time Out: 804 DATE: Feb 14, 2023 Total Billed Treatment Time: 20 Total Billed Treatment 1, FA x 20' MIGUEL FONSECA PT Feb 14, 2023 08:12
[2023-02-14 08:58] VITALS: BP 119/54
[2023-02-14] MEDS: LIDOCAINE 4% PATCH TOP SCH (09:23)
[2023-02-14] MEDS: DOCUSATE SODIUM 100 MG CAPSULE PO SCH ×2 (09:26→20:41)
[2023-02-14] MEDS: VITAMIN D3 25 MCG (1,000 UNITS) TABLET PO SCH (09:26)
[2023-02-14] MEDS: APIXABAN 5 MG TABLET PO SCH ×2 (09:27→20:41)
[2023-02-14] MEDS: amLODIPine 5 MG TABLET PO SCH (09:27)
[2023-02-14] MEDS: CLOPIDOGREL 75 MG TABLET PO SCH (09:27)
[2023-02-14] MEDS: AMIODARONE 200 MG TABLET PO SCH (09:27)
[2023-02-14] MEDS: SENNA W/DOCUSATE TABLET PO SCH ×2 (09:27→20:41)
[2023-02-14] MEDS: MUPIROCIN 2% OINTMENT 22 GM TUBE TOP SCH ×2 (09:32→20:41)
[2023-02-14] MEDS: CYCLOBENZAPRINE 10 MG TABLET PO PRN ×3 (10:30→23:49)
[2023-02-14] MEDS ORDERED: BISACODYL 10 MG SUPPOSITORY PR NR (11:30)
[2023-02-14] MEDS: DULoxetine 30 MG CAPSULE PO SCH ×2 (12:15→20:41)
[2023-02-14 12:31] VITALS: BP 119/58
[2023-02-14 15:54] VITALS: BP 122/55
[2023-02-14 19:39] VITALS: BP 114/64
[2023-02-14] MEDS: LIDOCAINE PATCH REMOVAL TP SCH (20:41)
[2023-02-15] VITALS (7 sets, daily range): BP systolic 111–122; BP diastolic 51–64
[2023-02-15] MEDS: oxyCODONE IMMEDIATE RELEASE 5 MG TABLET PO PRN ×3 (03:10→21:00)
[2023-02-15 05:30] LABS: BASOPHILS # (AUTO) 0.1 10^3/uL (0.0-0.1); BASOPHILS % (AUTO) 1 % (0-10); EOSINOPHILS # (AUTO) 0.4 10^3/uL (0.0-0.3); EOSINOPHILS % (AUTO) 5 % (0-10); HEMATOCRIT 28 % (35-52); LYMPHOCYTES # (AUTO) 2.1 10^3/uL (1.0-4.0); LYMPHOCYTES % (AUTO) 25 % (12-44); MEAN CORPUSCULAR HEMOGLOBIN 30 pg (25-34); MEAN CORPUSCULAR HGB CONC 32 g/dL (32-36); MEAN CORPUSCULAR VOLUME 94 fL (80-99); MEAN PLATELET VOLUME 9.8 fL (9.0-12.2); MONOCYTES % (AUTO) 12 % (0-12); NEUTROPHILS # (AUTO) 4.7 10^3/uL (1.8-7.8); NEUTROPHILS % (AUTO) 55 % (42-75); PLATELET COUNT 336 10^3/uL (130-400); WHITE BLOOD COUNT 8.5 10^3/uL (4.3-11.0)
[2023-02-15 05:40] LABS: ALBUMIN 2.8 GM/DL (3.2-4.5)
[2023-02-15 05:41] LABS: POTASSIUM 3.7 MMOL/L (3.6-5.0)
[2023-02-15 05:42] LABS: CALCIUM 8.4 MG/DL (8.5-10.1)
[2023-02-15 05:43] LABS: TOTAL PROTEIN 5.8 GM/DL (6.4-8.2)
[2023-02-15 05:45] LABS: BILIRUBIN,TOTAL 0.4 MG/DL (0.1-1.0)
[2023-02-15 05:47] LABS: CREATININE SERUM 0.63 MG/DL (0.60-1.30)
[2023-02-15] MEDS: THIAMINE 100 MG (VITAMIN B-1) TAB PO SCH (06:11)
[2023-02-15] MEDS: THERAPEUTIC MULTIVITAMIN W/MINERALS TABLET PO SCH (06:11)
--- NOTE | 2023-02-15 06:23 | Progress Note ---
Subjective Date Seen by a Provider: Feb 15, 2023 Time Seen by a Provider: 11:00 Subjective/Events-last exam Patient doing much better Lying in bed most of the time due to the pain Cymbalta addition appears to be improving her emotional state of being Bowels are moving now Bowel regimen we will maintain Review of Systems General: Fatigue, Malaise Musculoskeletal: back pain Objective Exam Last Set of Vital Signs Vital Signs Date Time Temp Pulse Resp B/P (MAP) Pulse Ox O2 Delivery O2 Flow Rate FiO2 02/15/23 04:20 Nasal Cannula 4.00 02/15/23 04:00 36.3 85 18 116/55 (75) 97 02/09/23 22:08 36 Capillary Refill : I&O Intake and Output 02/15/23 00:00 Intake Total 2009 ml Output Total 2125 ml Balance -115 ml Intake Oral 2009 ml Output Urine Total 2125 ml # Bowel Movements 2 General: Alert, Oriented X3, Cooperative, No Acute Distress Lungs: Clear to Auscultation, Normal Air Movement Heart: Regular Rate, Normal S1, Normal S2, No Murmurs Psych/Mental Status: Mental Status NL, Mood NL Results Lab Laboratory Tests 02/15/23 05:16: White Blood Count 8.5, Red Blood Count 3.00L, Hemoglobin 9.0L, Hematocrit 28L, Mean Corpuscular Volume 94, Mean Corpuscular Hemoglobin 30, Mean Corpuscular Hemoglobin Concent 32, Red Cell Distribution Width 14.8H, Platelet Count 336, Mean Platelet Volume 9.8, Immature Granulocyte % (Auto) 1, Neutrophils (%) (Auto) 55, Lymphocytes (%) (Auto) 25, Monocytes (%) (Auto) 12, Eosinophils (%) (Auto) 5, Basophils (%) (Auto) 1, Neutrophils # (Auto) 4.7, Lymphocytes # (Auto) 2.1, Monocytes # (Auto) 1.0, Eosinophils # (Auto) 0.4H, Basophils # (Auto) 0.1, Immature Granulocyte # (Auto) 0.1, Sodium Level 135, Potassium Level 3.7, Chloride Level 100, Carbon Dioxide Level 29, Anion Gap 6, Blood Urea Nitrogen 7, Creatinine 0.63, Estimat Glomerular Filtration Rate 100, BUN/Creatinine Ratio 11, Glucose Level 110H, Calcium Level 8.4L, Corrected Calcium 9.4, Total Bilirubin 0.4, Aspartate Amino Transf (AST/SGOT) 17, Alanine Aminotransferase (ALT/SGPT) 12, Alkaline Phosphatase 67, Total Protein 5.8L, Albumin 2.8L Assessment/Plan Assessment/Plan Assess & Plan/Chief Complaint Assessment: Pelvic fracture sustained in a fall at home 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
[2023-02-15] MEDS: UMECLIDINIUM/VILANTEROL 62.5/25 MCG 7 DOSES (ANORO) IH SCH ×2 (08:53→20:51)
[2023-02-15] MEDS: RT-BUDESONIDE NEBS 0.5 MG/2ML VIAL IH SCH ×2 (08:54→20:51)
[2023-02-15] MEDS: DULoxetine 30 MG CAPSULE PO SCH ×2 (09:34→21:00)
[2023-02-15] MEDS: CLOPIDOGREL 75 MG TABLET PO SCH (09:34)
[2023-02-15] MEDS: LORazepam 0.5 MG TABLET PO PRN ×2 (09:34→21:00)
[2023-02-15] MEDS: SENNA W/DOCUSATE TABLET PO SCH ×2 (09:34→21:00)
[2023-02-15] MEDS: VITAMIN D3 25 MCG (1,000 UNITS) TABLET PO SCH (09:34)
[2023-02-15] MEDS: amLODIPine 5 MG TABLET PO SCH (09:34)
[2023-02-15] MEDS: DOCUSATE SODIUM 100 MG CAPSULE PO SCH ×2 (09:34→21:00)
[2023-02-15] MEDS: MUPIROCIN 2% OINTMENT 22 GM TUBE TOP SCH (09:35)
[2023-02-15] MEDS: APIXABAN 5 MG TABLET PO SCH ×2 (09:35→21:00)
[2023-02-15] MEDS: AMIODARONE 200 MG TABLET PO SCH (09:35)
[2023-02-15] MEDS: LIDOCAINE 4% PATCH TOP SCH (09:35)
[2023-02-15] MEDS ORDERED: MUPIROCIN 2% OINTMENT 22 GM TUBE TOP SCH (19:45)
[2023-02-15] MEDS: RT-Ipratropium/Albuterol NEB 3 ML VIAL IH PRN (20:54)
[2023-02-15] MEDS: LIDOCAINE PATCH REMOVAL TP SCH (21:01)
[2023-02-16] MEDS: CYCLOBENZAPRINE 10 MG TABLET PO PRN ×2 (03:24→09:26)
[2023-02-16] MEDS: THERAPEUTIC MULTIVITAMIN W/MINERALS TABLET PO SCH (06:09)
[2023-02-16] MEDS: THIAMINE 100 MG (VITAMIN B-1) TAB PO SCH (06:09)
[2023-02-16] MEDS: oxyCODONE IMMEDIATE RELEASE 5 MG TABLET PO PRN (06:10)
[2023-02-16 06:11] LABS: BASOPHILS # (AUTO) 0.1 10^3/uL (0.0-0.1); BASOPHILS % (AUTO) 1 % (0-10); EOSINOPHILS # (AUTO) 0.4 10^3/uL (0.0-0.3); EOSINOPHILS % (AUTO) 5 % (0-10); HEMATOCRIT 29 % (35-52); HEMOGLOBIN 9.1 g/dL (11.5-16.0); LYMPHOCYTES # (AUTO) 1.8 10^3/uL (1.0-4.0); LYMPHOCYTES % (AUTO) 24 % (12-44); MEAN CORPUSCULAR HEMOGLOBIN 30 pg (25-34); MEAN CORPUSCULAR HGB CONC 31 g/dL (32-36); MEAN CORPUSCULAR VOLUME 95 fL (80-99); MEAN PLATELET VOLUME 9.9 fL (9.0-12.2); MONOCYTES # (AUTO) 0.8 10^3/uL (0.0-1.0); MONOCYTES % (AUTO) 11 % (0-12); NEUTROPHILS # (AUTO) 4.3 10^3/uL (1.8-7.8); NEUTROPHILS % (AUTO) 58 % (42-75); PLATELET COUNT 368 10^3/uL (130-400); WHITE BLOOD COUNT 7.5 10^3/uL (4.3-11.0)
[2023-02-16 06:18] LABS: ALBUMIN 2.8 GM/DL (3.2-4.5); POTASSIUM 3.5 MMOL/L (3.6-5.0)
[2023-02-16 06:20] LABS: CALCIUM 8.5 MG/DL (8.5-10.1)
[2023-02-16 06:21] LABS: TOTAL PROTEIN 5.8 GM/DL (6.4-8.2)
[2023-02-16 06:22] LABS: BILIRUBIN,TOTAL 0.2 MG/DL (0.1-1.0)
[2023-02-16 06:24] LABS: CREATININE SERUM 0.75 MG/DL (0.60-1.30)
[2023-02-16] MEDS: RT-BUDESONIDE NEBS 0.5 MG/2ML VIAL IH SCH (07:26)
[2023-02-16] MEDS: RT-Ipratropium/Albuterol NEB 3 ML VIAL IH PRN (07:26)
[2023-02-16] MEDS: UMECLIDINIUM/VILANTEROL 62.5/25 MCG 7 DOSES (ANORO) IH SCH (07:30)
[2023-02-16 09:10] VITALS: BP 116/51
--- NOTE | 2023-02-16 09:13 | Discharge Summary ---
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 CAD recent CABG Sternal and flank pressure wounds Smoker HTN AF on OAC Anemia chronic disease HLP Severe constipation we will initiate suppository and soapsuds enema now resolved Severe situational depression we started Cymbalta Thursday Plan: Pain control ARU PT OT Gabriel Start Cymbalta Bowel regimen Discharge Summary Discharge Physical Examination Allergies: Coded Allergies: No Known Drug Allergies (Unverified , 03/23/17) Vitals & I&Os Vital Signs Date Time Temp Pulse Resp B/P (MAP) Pulse Ox O2 Delivery O2 Flow Rate FiO2 02/16/23 09:43 36.0 79 18 116/51 93 Nasal Cannula 4.00 General Appearance: Alert, Oriented X3, Cooperative Respiratory: Clear to Auscultation Cardiovascular: Regular Rate Psych/Mental Status: Mental Status NL Hospital Course Was the Problem List Reviewed?: Yes Hospital Course: 62 y/o female with a history of COPD, asthma, CAD, HLD, HTN, arthritis, GERD and was in recent recovery from a CABG procedure and respiratory failure, sustained a pelvic fracture from a fall at her home. She was given hydromorphone, oxycodone, tramadol and a lidocaine patch to help manage the pain during the length of her stay. She would still describe it as an 7-9/10 and she reported minimal improvement. Patient has not able to ambulate and attempting to induces nausea, but denies any chest pain, vomiting, or abdominal pain. As on 02/16/23 she reported improvement in pain rating it 6/10 and is able to walk to the restroom under supervision. She also reported 3 bowel movements yesterday. PT and OT evaluated her and she was moved to the rehab floor for further management on 02/16/23. [facility] Labs (last 24 hrs) Laboratory Tests 02/10/23 05:40: White Blood Count 11.6H, Red Blood Count 3.31L, Hemoglobin 10.1L, Hematocrit 32L , Mean Corpuscular Volume 96, Mean Corpuscular Hemoglobin 31, Mean Corpuscular Hemoglobin Concent 32, Red Cell Distribution Width 15.4H, Platelet Count 389, Mean Platelet Volume 9.6, Immature Granulocyte % (Auto) 1, Neutrophils (%) (Auto) 65, Lymphocytes (%) (Auto) 17, Monocytes (%) (Auto) 14H, Eosinophils (%) (Auto) 3, Basophils (%) (Auto) 1, Neutrophils # (Auto) 7.5, Lymphocytes # (Auto) 2.0, Monocytes # (Auto) 1.6H, Eosinophils # (Auto) 0.4H, Basophils # (Auto) 0.1, Immature Granulocyte # (Auto) 0.1, Sodium Level 136, Potassium Level 4.4, Chloride Level 101, Carbon Dioxide Level 26, Anion Gap 9, Blood Urea Nitrogen 13, Creatinine 0.83, Estimat Glomerular Filtration Rate 80, BUN/Creatinine Ratio 16, Glucose Level 101, Calcium Level 8.6, Corrected Calcium 9.2, Total Bilirubin 0.3, Aspartate Amino Transf (AST/SGOT) 16, Alanine Aminotransferase (ALT/SGPT) 18, Alkaline Phosphatase 70, Total Protein 6.4, Albumin 3.2 02/11/23 05:00: White Blood Count 8.7, Red Blood Count 3.14L, Hemoglobin 9.4L, Hematocrit 30L, Mean Corpuscular Volume 96, Mean Corpuscular Hemoglobin 30, Mean Corpuscular Hemoglobin Concent 31L, Red Cell Distribution Width 15.1H, Platelet Count 364, Mean Platelet Volume 9.7, Immature Granulocyte % (Auto) 1, Neutrophils (%) (Auto) 60, Lymphocytes (%) (Auto) 18, Monocytes (%) (Auto) 14H, Eosinophils (%) (Auto) 6, Basophils (%) (Auto) 1, Neutrophils # (Auto) 5.2, Lymphocytes # (Auto) 1.6, Monocytes # (Auto) 1.2H, Eosinophils # (Auto) 0.5H, Basophils # (Auto) 0.1, Immature Granulocyte # (Auto) 0.1, Sodium Level 134L, Potassium Level 3.6, Chloride Level 98, Carbon Dioxide Level 31, Anion Gap 5, Blood Urea Nitrogen 9, Creatinine 0.71, Estimat Glomerular Filtration Rate 96, BUN/Creatinine Ratio 13, Glucose Level 115H, Calcium Level 8.4L, Corrected Calcium 9.1, Total Bilirubin 0.3, Aspartate Amino Transf (AST/SGOT) 18, Alanine Aminotransferase (ALT/SGPT) 15, Alkaline Phosphatase 73, Total Protein 6.2L, Albumin 3.1L 02/12/23 04:53: White Blood Count 8.9, Red Blood Count 3.13L, Hemoglobin 9.5L, Hematocrit 30L, Mean Corpuscular Volume 95, Mean Corpuscular Hemoglobin 30, Mean Corpuscular Hemoglobin Concent 32, Red Cell Distribution Width 15.0H, Platelet Count 328, Mean Platelet Volume 9.8, Immature Granulocyte % (Auto) 1, Neutrophils (%) (Auto) 59, Lymphocytes (%) (Auto) 20, Monocytes (%) (Auto) 14H, Eosinophils (%) (Auto) 6, Basophils (%) (Auto) 1, Neutrophils # (Auto) 5.3, Lymphocytes # (Auto) 1.8, Monocytes # (Auto) 1.2H, Eosinophils # (Auto) 0.6H, Basophils # (Auto) 0.1, Immature Granulocyte # (Auto) 0.1, Sodium Level 136, Potassium Level 4.0, Chloride Level 99, Carbon Dioxide Level 27, Anion Gap 10, Blood Urea Nitrogen 9, Creatinine 0.71, Estimat Glomerular Filtration Rate 96, BUN/Creatinine Ratio 13, Glucose Level 107H, Calcium Level 8.5, Corrected Calcium 9.4, Total Bilirubin 0.3, Aspartate Amino Transf (AST/SGOT) 20, Alanine Aminotransferase (ALT/SGPT) 15, Alkaline Phosphatase 67, Total Protein 6.0L, Albumin 2.9L 02/13/23 05:15: White Blood Count 9.7, Red Blood Count 3.16L, Hemoglobin 9.5L, Hematocrit 30L, Mean Corpuscular Volume 94, Mean Corpuscular Hemoglobin 30, Mean Corpuscular Hemoglobin Concent 32, Red Cell Distribution Width 14.7H, Platelet Count 372, Mean Platelet Volume 9.8, Immature Granulocyte % (Auto) 1, Neutrophils (%) (Auto) 58, Lymphocytes (%) (Auto) 21, Monocytes (%) (Auto) 13H, Eosinophils (%) (Auto) 6, Basophils (%) (Auto) 1, Neutrophils # (Auto) 5.6, Lymphocytes # (Auto) 2.1, Monocytes # (Auto) 1.3H, Eosinophils # (Auto) 0.6H, Basophils # (Auto) 0.1, Immature Granulocyte # (Auto) 0.1 02/13/23 05:20: Sodium Level 136, Potassium Level 3.9, Chloride Level 99, Carbon Dioxide Level 31, Anion Gap 6, Blood Urea Nitrogen 8, Creatinine 0.65, Estimat Glomerular Filtration Rate 99, BUN/Creatinine Ratio 12, Glucose Level 102, Calcium Level 8.4L, Corrected Calcium 9.4, Total Bilirubin 0.3, Aspartate Amino Transf (AST/SGOT) 20, Alanine Aminotransferase (ALT/SGPT) 15, Alkaline Phosphatase 66, Total Protein 5.9L, Albumin 2.8L 02/14/23 05:18: Sodium Level 136, Potassium Level 3.6, Chloride Level 99, Carbon Dioxide Level 28, Anion Gap 9, Blood Urea Nitrogen 8, Creatinine 0.69, Estimat Glomerular Filtration Rate 98, BUN/Creatinine Ratio 12, Glucose Level 135H, Calcium Level 8.4L, Corrected Calcium 9.4, Total Bilirubin 0.3, Aspartate Amino Transf (AST/SGOT) 18, Alanine Aminotransferase (ALT/SGPT) 15, Alkaline Phosphatase 63, Total Protein 5.7L, Albumin 2.8L, White Blood Count 9.0, Red Blood Count 3.19L, Hemoglobin 9.4L, Hematocrit 30L, Mean Corpuscular Volume 93, Mean Corpuscular Hemoglobin 30, Mean Corpuscular Hemoglobin Concent 32, Red Cell Distribution Width 14.7H, Platelet Count 374, Mean Platelet Volume 9.9, Immature Granulocyte % (Auto) 1, Neutrophils (%) (Auto) 58, Lymphocytes (%) (Auto) 21, Monocytes (%) (Auto) 12, Eosinophils (%) (Auto) 7, Basophils (%) (Auto) 1, Neutrophils # (Auto) 5.3, Lymphocytes # (Auto) 1.9, Monocytes # (Auto) 1.1H, Eosinophils # (Auto) 0.6H, Basophils # (Auto) 0.1, Immature Granulocyte # (Auto) 0.1 02/15/23 05:16: Sodium Level 135, Potassium Level 3.7, Chloride Level 100, Carbon Dioxide Level 29, Anion Gap 6, Blood Urea Nitrogen 7, Creatinine 0.63, Estimat Glomerular Filtration Rate 100, BUN/Creatinine Ratio 11, Glucose Level 110H, Calcium Level 8.4L, Corrected Calcium 9.4, Total Bilirubin 0.4, Aspartate Amino Transf (AST/SGOT) 17, Alanine Aminotransferase (ALT/SGPT) 12, Alkaline Phosphatase 67, Total Protein 5.8L, Albumin 2.8L, White Blood Count 8.5, Red Blood Count 3.00L, Hemoglobin 9.0L, Hematocrit 28L, Mean Corpuscular Volume 94, Mean Corpuscular Hemoglobin 30, Mean Corpuscular Hemoglobin Concent 32, Red Cell Distribution Width 14.8H, Platelet Count 336, Mean Platelet Volume 9.8, Immature Granulocyte % (Auto) 1, Neutrophils (%) (Auto) 55, Lymphocytes (%) (Auto) 25, Monocytes (%) (Auto) 12, Eosinophils (%) (Auto) 5, Basophils (%) (Auto) 1, Neutrophils # (Auto) 4.7, Lymphocytes # (Auto) 2.1, Monocytes # (Auto) 1.0, Eosinophils # (Auto) 0.4H, Basophils # (Auto) 0.1, Immature Granulocyte # (Auto) 0.1 02/16/23 05:19: Sodium Level 136, Potassium Level 3.5L, Chloride Level 100, Carbon Dioxide Level 29, Anion Gap 7, Blood Urea Nitrogen 9, Creatinine 0.75, Estimat Glomerular Filtration Rate 90, BUN/Creatinine Ratio 12, Glucose Level 124H, Calcium Level 8.5, Corrected Calcium 9.5, Total Bilirubin 0.2, Aspartate Amino Transf (AST/SGOT) 18, Alanine Aminotransferase (ALT/SGPT) 13, Alkaline Phosphatase 71, Total Protein 5.8L, Albumin 2.8L, White Blood Count 7.5, Red Blood Count 3.06L, Hemoglobin 9.1L, Hematocrit 29L, Mean Corpuscular Volume 95, Mean Corpuscular Hemoglobin 30, Mean Corpuscular Hemoglobin Concent 31L, Red Cell Distribution Width 14.9H, Platelet Count 368, Mean Platelet Volume 9.9, Immature Granulocyte % (Auto) 1, Neutrophils (%) (Auto) 58, Lymphocytes (%) (Auto) 24, Monocytes (%) (Auto) 11, Eosinophils (%) (Auto) 5, Basophils (%) (Auto) 1, Neutrophils # (Auto) 4.3, Lymphocytes # (Auto) 1.8, Monocytes # (Auto) 0.8, Eosinophils # (Au to) 0.4H, Basophils # (Auto) 0.1, Immature Granulocyte # (Auto) 0.1 Pending Labs Laboratory Tests 8/22/23 05:40: White Blood Count 11.6, Red Blood Count 3.31, Hemoglobin 10.1, Hematocrit 32, Mean Corpuscular Volume 96, Mean Corpuscular Hemoglobin 31, Mean Corpuscular Hemoglobin Concent 32, Red Cell Distribution Width 15.4, Platelet Count 389, Mean Platelet Volume 9.6, Immature Granulocyte % (Auto) 1, Neutrophils (%) (Auto) 65, Lymphocytes (%) (Auto) 17, Monocytes (%) (Auto) 14, Eosinophils (%) (Auto) 3, Basophils (%) (Auto) 1, Neutrophils # (Auto) 7.5, Lymphocytes # (Auto) 2.0, Monocytes # (Auto) 1.6, Eosinophils # (Auto) 0.4, Basophils # (Auto) 0.1, Immature Granulocyte # (Auto) 0.1, Sodium Level 136, Potassium Level 4.4, Chloride Level 101, Carbon Dioxide Level 26, Anion Gap 9, Blood Urea Nitrogen 13, Creatinine 0.83, Estimat Glomerular Filtration Rate 80, BUN/Creatinine Ratio 16, Glucose Level 101, Calcium Level 8.6, Corrected Calcium 9.2, Total Bilirubin 0.3, Aspartate Amino Transf (AST/SGOT) 16, Alanine Aminotransferase (ALT/SGPT) 18, Alkaline Phosphatase 70, Total Protein 6.4, Albumin 3.2 02/11/23 05:00: White Blood Count 8.7, Red Blood Count 3.14, Hemoglobin 9.4, Hematocrit 30, Mean Corpuscular Volume 96, Mean Corpuscular Hemoglobin 30, Mean Corpuscular Hemoglobin Concent 31, Red Cell Distribution Width 15.1, Platelet Count 364, Mean Platelet Volume 9.7, Immature Granulocyte % (Auto) 1, Neutrophils (%) (Auto) 60, Lymphocytes (%) (Auto) 18, Monocytes (%) (Auto) 14, Eosinophils (%) (Auto) 6, Basophils (%) (Auto) 1, Neutrophils # (Auto) 5.2, Lymphocytes # (Auto) 1.6, Monocytes # (Auto) 1.2, Eosinophils # (Auto) 0.5, Basophils # (Auto) 0.1, Immature Granulocyte # (Auto) 0.1, Sodium Level 134, Potassium Level 3.6, Chloride Level 98, Carbon Dioxide Level 31, Anion Gap 5, Blood Urea Nitrogen 9, Creatinine 0.71, Estimat Glomerular Filtration Rate 96, BUN/Creatinine Ratio 13, Glucose Level 115, Calcium Level 8.4, Corrected Calcium 9.1, Total Bilirubin 0.3, Aspartate Amino Transf (AST/SGOT) 18, Alanine Aminotransferase (ALT/SGPT) 15, Alkaline Phosphatase 73, Total Protein 6.2, Albumin 3.1 02/12/23 04:53: White Blood Count 8.9, Red Blood Count 3.13, Hemoglobin 9.5, Hematocrit 30, Mean Corpuscular Volume 95, Mean Corpuscular Hemoglobin 30, Mean Corpuscular Hemoglobin Concent 32, Red Cell Distribution Width 15.0, Platelet Count 328, Mean Platelet Volume 9.8, Immature Granulocyte % (Auto) 1, Neutrophils (%) (Auto) 59, Lymphocytes (%) (Auto) 20, Monocytes (%) (Auto) 14, Eosinophils (%) (Auto) 6, Basophils (%) (Auto) 1, Neutrophils # (Auto) 5.3, Lymphocytes # (Auto) 1.8, Monocytes # (Auto) 1.2, Eosinophils # (Auto) 0.6, Basophils # (Auto) 0.1, Immature Granulocyte # (Auto) 0.1, Sodium Level 136, Potassium Level 4.0, Chloride Level 99, Carbon Dioxide Level 27, Anion Gap 10, Blood Urea Nitrogen 9, Creatinine 0.71, Estimat Glomerular Filtration Rate 96, BUN/Creatinine Ratio 13, Glucose Level 107, Calcium Level 8.5, Corrected Calcium 9.4, Total Bilirubin 0.3, Aspartate Amino Transf (AST/SGOT) 20, Alanine Aminotransferase (ALT/SGPT) 15, Alkaline Phosphatase 67, Total Protein 6.0, Albumin 2.9 02/13/23 05:15: White Blood Count 9.7, Red Blood Count 3.16, Hemoglobin 9.5, Hematocrit 30, Mean Corpuscular Volume 94, Mean Corpuscular Hemoglobin 30, Mean Corpuscular Hemoglobin Concent 32, Red Cell Distribution Width 14.7, Platelet Count 372, Mean Platelet Volume 9.8, Immature Granulocyte % (Auto) 1, Neutrophils (%) (Auto) 58, Lymphocytes (%) (Auto) 21, Monocytes (%) (Auto) 13, Eosinophils (%) (Auto) 6, Basophils (%) (Auto) 1, Neutrophils # (Auto) 5.6, Lymphocytes # (Auto) 2.1, Monocytes # (Auto) 1.3, Eosinophils # (Auto) 0.6, Basophils # (Auto) 0.1, Immature Granulocyte # (Auto) 0.1 02/13/23 05:20: Sodium Level 136, Potassium Level 3.9, Chloride Level 99, Carbon Dioxide Level 31, Anion Gap 6, Blood Urea Nitrogen 8, Creatinine 0.65, Estimat Glomerular Filtration Rate 99, BUN/Creatinine Ratio 12, Glucose Level 102, Calcium Level 8.4, Corrected Calcium 9.4, Total Bilirubin 0.3, Aspartate Amino Transf (AST/SGOT) 20, Alanine Aminotransferase (ALT/SGPT) 15, Alkaline Phosphatase 66, Total Protein 5.9, Albumin 2.8 02/14/23 05:18: Sodium Level 136, Potassium Level 3.6, Chloride Level 99, Carbon Dioxide Level 28, Anion Gap 9, Blood Urea Nitrogen 8, Creatinine 0.69, Estimat Glomerular Filtration Rate 98, BUN/Creatinine Ratio 12, Glucose Level 135, Calcium Level 8.4, Corrected Calcium 9.4, Total Bilirubin 0.3, Aspartate Amino Transf (AST/SGOT) 18, Alanine Aminotransferase (ALT/SGPT) 15, Alkaline Phosphatase 63, Total Protein 5.7, Albumin 2.8, White Blood Count 9.0, Red Blood Count 3.19, Hemoglobin 9.4, Hematocrit 30, Mean Corpuscular Volume 93, Mean Corpuscular Hemoglobin 30, Mean Corpuscular Hemoglobin Concent 32, Red Cell Distribution Width 14.7, Platelet Count 374, Mean Platelet Volume 9.9, Immature Granulocyte % (Auto) 1, Neutrophils (%) (Auto) 58, Lymphocytes (%) (Auto) 21, Monocytes (%) (Auto) 12, Eosinophils (%) (Auto) 7, Basophils (%) (Auto) 1, Neutrophils # (Auto) 5.3, Lymphocytes # (Auto) 1.9, Monocytes # (Auto) 1.1, Eosinophils # (Auto) 0.6, Basophils # (Auto) 0.1, Immature Granulocyte # (Auto) 0.1 02/15/23 05:16: Sodium Level 135, Potassium Level 3.7, Chloride Level 100, Carbon Dioxide Level 29, Anion Gap 6, Blood Urea Nitrogen 7, Creatinine 0.63, Estimat Glomerular Filtration Rate 100, BUN/Creatinine Ratio 11, Glucose Level 110, Calcium Level 8.4, Corrected Calcium 9.4, Total Bilirubin 0.4, Aspartate Amino Transf (AST/SGOT) 17, Alanine Aminotransferase (ALT/SGPT) 12, Alkaline Phosphatase 67, Total Protein 5.8, Albumin 2.8, White Blood Count 8.5, Red Blood Count 3.00, Hemoglobin 9.0, Hematocrit 28, Mean Corpuscular Volume 94, Mean Corpuscular Hemoglobin 30, Mean Corpuscular Hemoglobin Concent 32, Red Cell Distribution Width 14.8, Platelet Count 336, Mean Platelet Volume 9.8, Immature Granulocyte % (Auto) 1, Neutrophils (%) (Auto) 55, Lymphocytes (%) (Auto) 25, Monocytes (%) (Auto) 12, Eosinophils (%) (Auto) 5, Basophils (%) (Auto) 1, Neutrophils # (Auto) 4.7, Lymphocytes # (Auto) 2.1, Monocytes # (Auto) 1.0, Eosinophils # (Auto) 0.4, Basophils # (Auto) 0.1, Immature Granulocyte # (Auto) 0.1 02/16/23 05:19: Sodium Level 136, Potassium Level 3.5, Chloride Level 100, Carbon Dioxide Level 29, Anion Gap 7, Blood Urea Nitrogen 9, Creatinine 0.75, Estimat Glomerular Filtration Rate 90, BUN/Creatinine Ratio 12, Glucose Level 124, Calcium Level 8.5, Corrected Calcium 9.5, Total Bilirubin 0.2, Aspartate Amino Transf (AST/SGOT) 18, Alanine Aminotransferase (ALT/SGPT) 13, Alkaline Phosphatase 71, Total Protein 5.8, Albumin 2.8, White Blood Count 7.5, Red Blood Count 3.06, Hemoglobin 9.1, Hematocrit 29, Mean Corpuscular Volume 95, Mean Corpuscular Hemoglobin 30, Mean Corpuscular Hemoglobin Concent 31, Red Cell Distribution Width 14.9, Platelet Count 368, Mean Platelet Volume 9.9, Immature Granulocyte % (Auto) 1, Neutrophils (%) (Auto) 58, Lymphocytes (%) (Auto) 24, Monocytes (%) (Auto) 11, Eosinophils (%) (Auto) 5, Basophils (%) (Auto) 1, Neutrophils # (Auto) 4.3, Lymphocytes # (Auto) 1.8, Monocytes # (Auto) 0.8, Eosinophils # (Auto) 0.4, Basophils # (Auto) 0.1, Immature Granulocyte # (Auto) 0.1 Discharge Home Medications: Active Scripts Active Ativan (Lorazepam) 0.5 Mg Tablet 0.5 Mg PO TID PRN Iprat-Albut 0.5-3(2.5) mg/3 ml (Ipratropium/Albuterol Sulfate) 0.5 Mg-3 Mg (2.5 Mg Base)/3 Ml Ampul.neb 3 Ml IH Q6H PRN Ondansetron Odt (Ondansetron) 4 Mg Tab.rapdis 4 Mg SL Q4H PRN Meclizine HCl 25 Mg Tablet 25 Mg PO TID PRN Stool Softener-Laxative Tablet (Sennosides/Docusate Sodium) 8.6 Mg-50 Mg Tablet 1 Ea PO BID Budesonide 0.5 Mg/2 Ml Ampul.neb 0.5 Mg IH RTBID Tessalon Perles (Benzonatate) 100 Mg Capsule 100 Mg PO TID PRN Tramadol HCl 50 Mg Tablet 50 Mg PO Q4H PRN Oxyir Tablet (Oxycodone HCl) 5 Mg Tab 5 Mg PO Q12HR PRN Amlodipine Besylate 5 Mg Tablet 5 Mg PO DAILY Amiodarone HCl 200 Mg Tablet 200 Mg PO DAILY Clopidogrel (Clopidogrel Bisulfate) 75 Mg Tablet 75 Mg PO DAILY Eliquis (Apixaban) 5 Mg Tablet 5 Mg PO BID Cyclobenzaprine HCl 10 Mg Tablet 10 Mg PO TID PRN Reported Anoro Ellipta 62.5-25 Mcg INH (Umeclidinium Brm/Vilanterol Tr) 62.5 Mcg-25 Mcg/Actuation Blst.w.dev 1 Each IH BID Vitamin B-1 (Thiamine Mononitrate) 100 Mg Tablet 100 Mg PO DAILY Tart [place] Capsule (Vit C/[place] & Celery Ex/Grp E) 30 Mg-250 Mg-75 Mg-75 Mg-20 Mg Capsule 1 Each PO BID Women's 50 Plus Multivit Tab (Mv-Mn/Folic Acid/Calcium/Vit K) 400 Mcg-500 Mg Calcium-20 Mcg Tablet 1 Each PO DAILY Vitamin D3 (Cholecalciferol (Vitamin D3)) 50 Mcg (2000 Unit) Capsule 50 Mcg PO DAILY Stress B-Complex Tablet (B&C/FA/Zinc/Copper Oxide/Vit E) 500-0.4 Mg Tablet 1 Each PO DAILY Vitamin C (Ascorbate Calcium) 500 Mg Tablet 500 Mg PO DAILY Instructions to patient/family Please see electronic discharge instructions given to patient. MELIA DAVID DO Feb 16, 2023 09:13
[2023-02-16] MEDS: DULoxetine 30 MG CAPSULE PO SCH (09:27)
[2023-02-16] MEDS: VITAMIN D3 25 MCG (1,000 UNITS) TABLET PO SCH (09:27)
[2023-02-16] MEDS: LIDOCAINE 4% PATCH TOP SCH (09:27)
[2023-02-16] MEDS: amLODIPine 5 MG TABLET PO SCH (09:27)
[2023-02-16] MEDS: APIXABAN 5 MG TABLET PO SCH (09:27)
[2023-02-16] MEDS: CLOPIDOGREL 75 MG TABLET PO SCH (09:27)
[2023-02-16] MEDS: DOCUSATE SODIUM 100 MG CAPSULE PO SCH (09:27)
[2023-02-16] MEDS: AMIODARONE 200 MG TABLET PO SCH (09:27)
[2023-02-16] MEDS: SENNA W/DOCUSATE TABLET PO SCH (09:27)
[2023-02-16 09:43] VITALS: BP 116/51
--- NOTE | 2023-02-16 10:36 | Progress Note ---
CHAUDHARI 02/16/23 1036: Progress Note Hospital Course: 62 y/o female with a history of COPD, asthma, CAD, HLD, HTN, arthritis, GERD and was in recent recovery from a CABG procedure and respiratory failure, sustained a pelvic fracture from a fall at her home. She was given hydromorphone, oxycodone, tramadol and a lidocaine patch to help manage the pain during the length of her stay. She would still describe it as an 7-9/10 and she reported minimal improvement. Patient has not able to ambulate and attempting to induces nausea, but denies any chest pain, vomiting, or abdominal pain. As on she reported improvement in pain rating it 6/10 and is able to walk to the restroom under supervision. She also reported 3 bowel movements yesterday. PT and OT evaluated her and she was moved to the rehab floor for further management on 02/16/23. BERYL DAVID DO 02/16/23 2009: Supervisory-Addendum Brief Verification & Attestation Participated in pt care: history, MDM, physical Personally performed: exam, history, MDM, supervision of care Care discussed with: Medical Student Procedures: n/a Results interpretation: Verified all documentation Verification and Attestation of Medical Student E/M Service A medical student performed and documented this service in my presence. I reviewed and verified all information documented by the medical student and made modifications to such information, when appropriate. I personally performed the physical exam and medical decision making. Beryl David Feb 16, 2023,20:09 CHAUDHARI Feb 16, 2023 10:36 BERYL DAVID DO Feb 16, 2023 20:09
== END 2023-02-16 09:51 | disposition home or self-care (01) | DRG 536 ==
LOC: 4TH 21:00
PROVIDERS: ADMIT Internal Medicine; ATTEND Internal Medicine
DX: S32.512A Fracture of superior rim of left pubis, initial encounter for closed fracture (principal); I42.9 Cardiomyopathy, unspecified; W19.XXXA Unspecified fall, initial encounter; Y92.009 Unspecified place in unspecified non-institutional (private) residence as the place of occurrence of the external cause; Z87.891 Personal history of nicotine dependence; Z95.1 Presence of aortocoronary bypass graft; J43.9 Emphysema, unspecified; I25.10 Atherosclerotic heart disease of native coronary artery without angina pectoris; E78.00 Pure hypercholesterolemia, unspecified; I10 Essential (primary) hypertension; G62.9 Polyneuropathy, unspecified; Z99.81 Dependence on supplemental oxygen; I48.91 Unspecified atrial fibrillation; Z79.01 Long term (current) use of anticoagulants; D63.8 Anemia in other chronic diseases classified elsewhere; K21.9 Gastro-esophageal reflux disease without esophagitis; K59.00 Constipation, unspecified; F32.A Depression, unspecified
CPT/HCPCS: 36415; 73522; 80053; 85025; 94640; 94760

== ENCOUNTER 2023-02-16 08:39 | Inpatient (IN) | payer OTHER ==
[~2023-02-16] VITALS: Ht 167.7 cm; Wt 57.8 kg
[2023-02-16 09:45] VITALS: BP 108/51
--- NOTE | 2023-02-16 10:20 | PM&R Post Admission Assessment ---
PM&R HP Date of Visit: Feb 16, 2023 Time of Visit: 10:30 History of Present Illness CC: Pelvic fracture with disruption of pelvic ring on left HPI: This is a 62yoWF clinic patient of Dr Jose Valencia who was just DC from ARU after a 4 week course at [facility] in [place] following respiratory failure following CABG resulting in a long course until DC home on continuous O2 at 2L/min who suffered a fall at home resulting in a left pelvic fracture disrupting the pelvic ring requiring aggressive rehab. Gabriel cath was DC. Severe situational depression was addressed and treated with Cymbalta with rapid improvement. Med-surg Hospital course: Hospital Course: 62 y/o female with a history of COPD, asthma, CAD, HLD, HTN, arthritis, GERD and was in recent recovery from a CABG procedure and respiratory failure, sustained a pelvic fracture from a fall at her home. She was given hydromorphone, oxycodone, tramadol and a lidocaine patch to help manage the pain during the length of her stay. She would still describe it as an 7-9/10 and she reported minimal improvement. Patient has not able to ambulate and attempting to induces nausea, but denies any chest pain, vomiting, or abdominal pain. As on she reported improvement in pain rating it 6/10 and is able to walk to the restroom under supervision. She also reported 3 bowel movements yesterday. PT and OT evaluated her and she was moved to the rehab floor for further management on 02/16/23. Past Bgxmrsy-Rqswba-Oudyxf Hx Past Med/Social Hx: Reviewed Nursing Past Med/Soc Hx, Reviewed and Corrections made Patient Social History Marrital Status: cohabiting Employed/Student: employed Alcohol Use: Denies Use Smoking Status: Current Everyday Smoker Type Used: Cigarettes 2nd Hand Smoke Exposure: Yes Recent Hopitalizations: No Immunizations Up To Date Date of Influenza Vaccine: Mar 31, 2022 Seasonal Allergies Seasonal Allergies: Yes Past Medical History Surgeries: CABG, Orthopedic Respiratory: COPD, Emphysema, Pneumonia Cardiac: Cardiomyopathy, Coronary Artery Disease, High Cholesterol, Hypertension Neurological: Neuropathy Menopausal Gastrointestinal: Gastroesophageal Reflux Musculoskeletal: Degenerate Disk Disease, Arthritis History of Blood Disorders: No Family History No Pertinent Family Hx 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 PM&R Allergy/Meds/Data Review Allergies Coded Allergies: No Known Drug Allergies (Unverified , 03/23/17) Home Medications Scheduled Amiodarone HCl (Amiodarone HCl), 200 MG PO DAILY Amlodipine Besylate (Amlodipine Besylate), 5 MG PO DAILY Apixaban (Eliquis), 5 MG PO BID Ascorbate Calcium (Vitamin C), 500 MG PO DAILY, (Reported) B&C/FA/Zinc/Copper Oxide/Vit E (Stress B-Complex Tablet), 1 EACH PO DAILY, (Re ported) Budesonide (Budesonide), 0.5 MG IH RTBID Cholecalciferol (Vitamin D3) (Vitamin D3), 50 MCG PO DAILY, (Reported) Clopidogrel Bisulfate (Clopidogrel), 75 MG PO DAILY Mv-Mn/Folic Acid/Calcium/Vit K (Women's 50 Plus Multivit Tab), 1 EACH PO DAILY, (Reported) Sennosides/Docusate Sodium (Stool Softener-Laxative Tablet), 1 EA PO BID Thiamine Mononitrate (Vitamin B-1), 100 MG PO DAILY, (Reported) Umeclidinium Brm/Vilanterol Tr (Anoro Ellipta 62.5-25 Mcg INH), 1 EACH IH BID, (Reported) Vit C/[place] & Celery Ex/Grp E (Tart [place] Capsule), 1 EACH PO BID, (Reported) Scheduled PRN Benzonatate (Tessalon Perles), 100 MG PO TID PRN for COUGH Cyclobenzaprine HCl (Cyclobenzaprine HCl), 10 MG PO TID PRN for MUSCLE SPASMS Ipratropium/Albuterol Sulfate (Iprat-Albut 0.5-3(2.5) mg/3 ml), 3 ML IH Q6H PRN for SHORTNESS OF BREATH Lorazepam (Ativan), 0.5 MG PO TID PRN for ANXIETY Meclizine HCl (Meclizine HCl), 25 MG PO TID PRN for DIZZINESS Ondansetron (Ondansetron Odt), 4 MG SL Q4H PRN for NAUSEA/VOMITING-1ST LINE Oxycodone Hcl (Oxyir Tablet), 5 MG PO Q12HR PRN for PAIN-SEVERE (8-10) Tramadol HCl (Tramadol HCl), 50 MG PO Q4H PRN for PAIN-MODERATE (5-7) Current Medications Current Medications Reviewed Review of Systems Constitutional: see HPI, dizziness, malaise, weakness EENTM: no symptoms reported Respiratory: dyspnea on exertion Cardiovascular: no symptoms reported Gastrointestinal: constipation Genitourinary: no symptoms reported Musculoskeletal: back pain, joint pain, muscle pain, muscle stiffness, muscle cramps, muscle twitching, muscle weakness, neck pain Skin: no symptoms reported Psychiatric/Neurological: Anxiety, Depressed All Other Systems Reviewed Negative Unless Noted: Yes Physical Exam Physical Exam Vital Signs Capillary Refill : Height, Weight, BMI Height: 5'6" Weight: 128lbs. 8oz. [id number]; 21.26 BMI Method:Stated General Appearance: No Apparent Distress, WD/WN, Chronically ill, Thin, Other (frail) Eyes: Bilateral Eye Normal Inspection, Bilateral Eye PERRL HEENT: PERRL/EOMI, Normal ENT Inspection, Pharynx Normal Neck: Full Range of Motion, Normal Inspection, Non Tender, Supple, Carotid Bruit Respiratory: Chest Non Tender, Lungs Clear, No Accessory Muscle Use, No Respiratory Distress, Decreased Breath Sounds Cardiovascular: Regular Rate, Rhythm, No Edema, No Gallop, No JVD, No Murmur, Normal Peripheral Pulses Gastrointestinal: Normal Bowel Sounds, No Organomegaly, No Pulsatile Mass, Non Tender, Soft Back: Normal Inspection, No CVA Tenderness, No Vertebral Tenderness Extremity: Normal Capillary Refill, Normal Inspection, Normal Range of Motion, Non Tender, No Calf Tenderness, No Pedal Edema Neurologic/Psychiatric: Alert, Oriented x3, 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 Norm as Tested, Abnormal Gait, Depressed Affect, Motor Weakness (generalized due to pain in pelvis) Skin: Normal Color, Warm/Dry Lymphatic: No Adenopathy PM&R Medical Assessment & Plan REHAB/MEDICAL ASSESSMENT AND PLAN: REHAB IMPAIRMENT GROUP: Pelvic fracture due to fall ETIOLOGIC DIAGNOSIS: Disruption of pelvic ring from pelvic fracture The comorbidities that impact the patients function and/or functional outcome by: Severe and lengthy hospital stays within the last 2/5 months, depression, frail status, severe COPD, recent CABG REHAB PLAN: The patient is being admitted to our comprehensive inpatient rehabilitation facility and can tolerate the intensity of service consisting of at least: 180 minutes of therapy a day, 5 out of 7 days a week Rehab treatment will consist of: PT OT will focus on regaining function with the use of AD In order to aggressively regain function with regaining of independence The patient/family has a good understanding of our discharge process and will benefit from an interdisciplinary inpatient rehabilitation program. The patient has potential to make improvement and is in need of at least two of the following multidisciplinary therapies including but not limited to physical, occupational, speech, and prosthetics and orthotics. Additionally the patient will need services from respiratory, nutritional services, wound care, psychology, etc. (Customize this to each patient). Given the patients complex condition and risk of further medical complications, rehabilitation services cannot be safely or effectively provided at a lower level of care such as a alf facility. BARRIERS TO DISCHARGE: Severe pelvic fracture pain ESTIMATED LOS: 10 days DISPOSITION: Home RELEVANT CHANGES SINCE PREADMISSION SCREENING: I have compared the patients medical and functional status at the time of the preadmission screening and there are: no changes PROGNOSIS: Good REHABILITATION GOALS: 1.PT OT will focus on regaining function with the use of AD In order to aggressively regain function with regaining of independence All the above goals were reviewed with the patient and he/she is in agreement. By signing this document, I acknowledge that I have personally performed a full physical examination on this patient within 24 hours of admission to this inpatient rehabilitation facility and have determined the patient to be able to tolerate the above course of treatment at an intensive level for a reasonable period of time. I will be completing a detailed individualized Plan of Care for this patient by day #4 of the patients stay based upon the Preadmission Screen, the Post-Admission Evaluation, and the therapy evaluations. Admission Dx/Comorbidities: (1) Pelvic fracture ICD Codes: S32.9XXA - Fracture of unspecified parts of lumbosacral spine and p senia, initial encounter for closed fracture Assessment/Plan Assessment and Plan Assess & Plan/Chief Complaint Assessment: Pelvic fracture sustained in a fall at home-Left inferior pubic ramus fracture with Left superior pubic ramus fracture extending into the medial wall of the acetabulum disrupting pelvic ring 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 CAD recent CABG Sternal and flank pressure wounds Smoker HTN AF on OAC Anemia chronic disease HLP Severe constipation we will initiate suppository and soapsuds enema now resolved Severe situational depression we started Cymbalta Thursday Plan: Pain control ARU PT OT Gabriel Start Cymbalta Bowel regimen MELIA DAVID DO Feb 16, 2023 10:20
[2023-02-16] MEDS ORDERED: guaiFENesin/CODEINE 10ML UDC PO PRN (10:45)
[2023-02-16] MEDS ORDERED: ALPRAZolam 0.25 MG TABLET PO PRN (10:45)
[2023-02-16] MEDS ORDERED: ACETAMINOPHEN 325 MG TABLET PO PRN ×2 (10:45)
[2023-02-16] MEDS ORDERED: diphenhydrAMINE 25 MG TABLET PO PRN (10:45)
[2023-02-16] MEDS ORDERED: BENZONATATE 100 MG CAPSULE PO PRN (10:45)
[2023-02-16] MEDS ORDERED: ANTACID SUSPENSION 30 ML UDC PO PRN (10:45)
[2023-02-16] MEDS ORDERED: HYDROmorphone INJECTION 2 MG/ML VIAL IV PRN (10:45)
[2023-02-16] MEDS ORDERED: DOCUSATE SODIUM 100 MG CAPSULE PO PRN (10:45)
[2023-02-16] MEDS ORDERED: MELATONIN 3 MG TABLET PO PRN (10:45)
[2023-02-16] MEDS ORDERED: ONDANSETRON 4 MG ORAL DISSOLVE TABLET PO PRN (10:45)
[2023-02-16] MEDS ORDERED: Sodium Phosphate/Sodium Biphosphate ADULT enema PR PRN (10:45)
[2023-02-16] MEDS ORDERED: ONDANSETRON INJECTION 4 MG/2 ML (SDV) IV PRN (10:45)
[2023-02-16] MEDS ORDERED: RT-Ipratropium/Albuterol NEB 3 ML VIAL IH PRN (10:45)
[2023-02-16] MEDS ORDERED: CALCIUM CARBONATE 500 MG CHEW TABLET PO PRN ×2 (10:45)
[2023-02-16] MEDS ORDERED: LACTULOSE SYRUP 10GM/15ML 30ML UDC PO PRN (10:45)
[2023-02-16] MEDS ORDERED: diphenhydrAMINE INJ 50 MG/ML VIAL IVP PRN (10:45)
[2023-02-16] MEDS ORDERED: BISACODYL 10 MG SUPPOSITORY PR PRN ×2 (10:45)
[2023-02-16] MEDS ORDERED: MILK OF MAGNESIA 400 MG/5 ML 30 ML UDC PO PRN (10:45)
[2023-02-16] MEDS ORDERED: LOPERAMIDE 2 MG CAPSULE PO PRN (10:45)
--- NOTE | 2023-02-16 11:09 | Occupational Therapy Eval ---
OT Evaluation-General/PLF Medical Diagnosis Admission Date Feb 16, 2023 at 09:45 Medical Diagnosis: pelvic fx Onset Date: Feb 09, 2023 Therapy Diagnosis Therapy Diagnosis: decreased ADL status, weakness Height/Weight Height (Feet): 5 Height (Inches): 6 Weight (Pounds): 128 Weight (Ounces): 8 Precautions Precautions/Isolations: Fall Prevention, Standard Precautions Referral Physician: Violeta Referral Reason: Evaluation/Treatment Medical History Pertinent Medical History: Atrial Fib, Arthritis, CABG, CAD, COPD, GERD, HTN, Neuropathy, Smoking Additional Medical History 02/09/23 fall at home resulting in pelvic fx. She recently discharged from ARU 02/07/23 following CABG/respiratory failure Current History CABG, COPD, PNA, CAD, HTN, Cardiomyopathy, neuropathy. Social History Home: Apartment Current Living Status: Alone Entry Into Home: Level Entry ADL-Prior Level of Function SCALE: Activities may be completed with or without assistive devices. 3-Xfoareeokx-qcuribt completes the activity by him/herself with no assistance from a helper. 5-Set-up or Clean-up Assistance-helper sets up or cleans up; patient completes activity. [place] assists only prior to or following the activity. 4-Supervision or Touching Assistance-helper provides verbal cues and/or touching/steadying and/or contact guard assistance as patient completes activity. Assistance may be provided throughout the activity or intermittently. 3-Partial/Moderate Assistance-helper does LESS THAN HALF the effort. [place] lifts, holds or supports trunk or limbs, but provides less than half the effort. 2-Substantial/Maximal Assistance-helper does MORE THAN HALF the effort. [place] lifts or holds trunk or limbs and provides more than half the effort. 9-Zucpinkdt-wkyqhx does ALL the effort. Patient does none of the effort to complete the activity. Or, the assistance of 2 or more helpers is required for the patient to complete the activity. If activity was not attempted, code reason: 7-Patient Refused. 9-Not Applicable-not attempted and the patient did not perform the activity before the current illness, exacerbation or injury. 10-Not Attempted due to Environmental Limitations-(lack of equipment, weather restraints, etc.). 88-Not Attempted due to Medical Conditions or Safety Concerns. ADL PLOF Comments Pt IND with ADLs and functional mobility with FWW upon discharging from ARU. Pt has a walk in shower no SC. Self Care: Independent Functional Cognition: Independent DME/Equipment: Bath Chair, Shower DME/Equipment Comments SC, FWW OT Current Status Subjective Pt agreeable to OT evaluation/tx. Pt tearful throughout tx with movement due to pain, pain 10/10 with movement. RN notified and medications provided during tx. Pain Numeric Pain Scale: 8 Location: Left Location Body Site: Pelvic Mental Status/Objective Patient Orientation: Person, Place, Time, Situation Current Glasses/Contacts: Yes Hearing Aids: Yes Dentures/Partials: No Hand Dominance: Right Upper Extremity ROM WFL, BUE shoulder flexion to approx 180 degrees Upper Extremity Coordination WFL Upper Extremity Sensation WFL ADL-Treatment Eating (QC): 6 Oral Hygiene (QC): 5 Shower/Bathe Self (QC): 3 (50% assist. Assist BLEs and buttocks. Pt able to wash UEs, chest/abdomen and periarea.) Upper Body Dressing (QC): 88 (Not attempted due to pt's pain with movements.) Lower Body Dressing (QC): 88 (Not attempted due to pt's pain with movements.) On/Off Footwear (QC): 88 (Not attempted due to pt's pain with movements.) Toileting Hygiene (QC): 2 (Pt able to perform pericare in bed, assist with buttocks.) Other Treatments Pt in bed, agreeable to OT evaluation and tx. Pt requests pain pill, RN notified. Pt provided information about PLOF and home set up and participated in UE screen. Pt states she would like to shower, but unsure she is able to due to pain. Pt agreeable to getting out of bed to see how her pain is doing. Pt attempted to move legs towards EOB, but experienced intense pain causing pt to become tearful. Pt states urgent need to toilet, but unable to get out of bed due to pain. Pt rolled left/right with min A for bed diana placement. Pt attempted to have BM, but unsuccessful. Bed diana removed and pt states she is unable to get out of bed for shower on this date. Pt completed sponge bath at bed level, requiring assist with 50% of task. Pt changed hospital gown but unable to don regular clothes at this time due to extreme pain. OT assisted pt with positioning to comfort, requiring 2 person assist to scoot up towards HOB. Post tx, pt in bed, call light in reach and all needs met. Education OT Patient Education: Correct positioning, Energy conservation, Modified ADL techniques, Progress toward Goal/Update tx plan, Purpose of tx/functional activities, Rehab process Teaching Recipient: Patient Teaching Methods: Discussion Response to Teaching: Verbalize Understanding BIMS CAM BIMS Expression of Ideas and Wants: Without Difficulty Understanding Verbal Content: Understands Brief Interview/Mental Status: Yes IRF MITCHELL BIMS: IRF MITCHELL BIMS Response (Comments) Value Repitition of Three Words Three 3 Recalls Socks Yes, No Cue Required 2 Recalls Blue Yes, No Cue Required 2 Recalls Bed No, Could Not Recall 0 Year Correct 3 Month Accurate Within 5 Days 2 Day Correct 1 Total 13 CAM Mental Status Change/Baseline: 0 Inattention: 0 Disorganized thinkin Altered level of consciousness: 0 OT Short Term Goals Short Term Goals Time Frame: Feb 27, 2023 Toileting hygiene: 4 Upper body dressin Lower body dressin Putting on/taking off footwear: [address] Goals Deputy Court Clerk Goals Time Frame: Mar 13, 2023 Eating (QC): 6 Oral Hygiene (QC): 6 Toileting Hygiene (QC): 6 Shower/Bathe Self (QC): 6 Upper Body Dressing (QC): 6 Lower Body Dressing (QC): 6 On/Off Footwear (QC): 6 Additional Goals: 1-Demonstrate ADL Tasks, 2-Verbalize Understanding, 3-Improv eStrength/[place] 1=Demonstrate adherence to instructed precautions during ADL tasks. 2=Patient will verbalize/demonstrate understanding of assistive devices/modifications for ADL. 3=Patient will improve strength/tolerance for activity to enable patient to p erform ADL's. OT Education/Plan Problem List/Assessment Assessment: Decreased Activ Tolerance, Decreased UE Strength, Impaired Funct Balance, Impaired I ADL's, Impaired Self-Care Skills Discharge Recommendations Plan/Recommendations: Continue POC Treatment Plan/Plan of Care Patient would benefit from OT for education, treatment and training to promote independence in ADL's, mobility, safety and/or upper extremity function for ADL's. Plan of Care: ADL Retraining, Functional Mobility, Group Exercise/Act as Ind, U E Funct Exercise/Act Treatment Duration: Mar 13, 2023 Frequency: At least 5 of 7 days/Wk (IRF) Estimated Hrs Per Day: 1.5 hours per day Rehab Potential: Good Time Start Time: 11:00 Stop Time: 12:00 DATE: Feb 16, 2023 Total Time Billed (hr/min): 60 Billed Treatment Time 1, EVM (30'), ADL 2 (30') ISAAC MELARA OT Feb 16, 2023 11:09
[2023-02-16] MEDS: oxyCODONE IMMEDIATE RELEASE 5 MG TABLET PO PRN ×2 (11:38→21:36)
--- NOTE | 2023-02-16 13:06 | Physical Therapy Evaluation ---
PT Evaluation-General Medical Diagnosis Admission Date Feb 16, 2023 at 09:45 Medical Diagnosis: fractured pelvis Onset Date: Feb 08, 2023 (States she bent over to move her dog out of the way, lost her balance and fell backward 02/08. ) Therapy Diagnosis Therapy Diagnosis: pain, difficulty with transfers/walking/bed mobility. Height/Weight Height (Feet): 5 Height (Inches): 6 Weight (Pounds): 128 Weight (Ounces): 8 Precautions Precautions/Isolations: Fall Prevention, Standard Precautions Weight Bear Status Right Lower Extremity: Right Weight Bearing/Tolerated Left Lower Extremity: Left Weight Bearing/Tolerated Referral Physician: Violeta Reason for Referral: Evaluation/Treatment Medical History Pertinent Medical History: Atrial Fib, Arthritis, CABG, CAD, COPD, GERD, HTN, Neuropathy, Smoking Additional Medical History Fx pelvis 02/08. Social History Home: Apartment Current Living Status: Alone Entry Into Home: Level Entry PT Steps Into Home: 0 PT Steps Inside Home: 0 Prior Prior Level of Function SCALE: Activities may be completed with or without assistive devices. 5-Osdgfpoxvm-nbtftqw completes the activity by him/herself with no assistance from a helper. 5-Set-up or Clean-up Assistance-helper sets up or cleans up; patient completes activity. [place] assists only prior to or following the activity. 4-Supervision or Touching Assistance-helper provides verbal cues and/or touching/steadying and/or contact guard assistance as patient completes activity. Assistance may be provided throughout the activity or intermittently. 3-Partial/Moderate Assistance-helper does LESS THAN HALF the effort. [place] lifts, holds or supports trunk or limbs, but provides less than half the effort. 2-Substantial/Maximal Assistance-helper does MORE THAN HALF the effort. [place] lifts or holds trunk or limbs and provides more than half the effort. 5-Xussssppu-gapqfd does ALL the effort. Patient does none of the effort to complete the activity. Or, the assistance of 2 or more helpers is required for the patient to complete the activity. If activity was not attempted, code reason: 7-Patient Refused. 9-Not Applicable-not attempted and the patient did not perform the activity before the current illness, exacerbation or injury. 10-Not Attempted due to Environmental Limitations-(lack of equipment, weather restraints, etc.). 88-Not Attempted due to Medical Conditions or Safety Concerns. Bed Mobility: 6 Transfers (B,C,W/C): 6 Gait: 6 (FWW) Stairs: 9 Wheelchair Mobility: 9 Indoor Mobility (Ambulation): Independent Stairs: Needed Some Help Prior Devices Use: Walker Prior Device Use: FWW, home O2 Shower chair, toilet riser PT Evaluation-Current Subjective Frequently tearful due to "horrible pain". Nsg aware and pain meds given prior to PT. Pain Numeric Pain Scale: 7 Location: Left Location Body Site: Hip Pain Description: Stabbing, Throbbing, Burning, Radiating, Sharp Section J - Health Conditions 1. Rarely or not at all 2. Occasionally 3. Frequently 4. Almost constantly 8. Unable to answer Pain Effect on Sleep: 4 Pain Interference with Therapy: 4 Pain Interference w/Day-to-Day: 4 Pt/Family Goals To return to her apartment if able. Objective Patient Orientation: Person, Place, Time, Situation Attachments: Oxygen, IV O2 sats 96% on 4L at rest. HR 86. ROM/Strength ROM Upper Extremities defer OT ROM Lower Extremities WFL (R) LE all planes. Strength Upper Extremities defer to OT Strength Lower Extremities (R) ankle 5/5. knee flexion/ext 4/5, hip flexion 3+/5 (stabilizing on (L) is painful), hip abd/add 3+/5. (L) ankle 5/5, (L) quads 4/5, (L) knee flexion NT, hip flexion 3/5, hip abd/add 3+/5. Integumentary/Posture Posture guarded posture in sitting/standing due to (L) hip pain. Sensory Hand Dominance: Right Sensation Right Lower Extremit: Intact Sensation Left Lower Extremity: Intact Transfers Roll Left & Right (QC): 3 (rolled quickly to (R) with use of bed rail SBA, then back onto back. Min-mod (A) of 1 /c cues to roll (L). ) Sit to Lying (QC): 2 (max (A) of 1 /c v.c.) Lying to Sitting/Side of Bed(Q: 2 (max (A) of 1 with v.c.) Sit to Stand (QC): 3 (min-mod (A) of 1 from EOB, min (A) for w/c(cushion in seat).) Chair/Xil-qa-Zgpbn Xfer(QC): 3 (Min (A) of 1 with FWW with v.c. for sequence and to decr. WB on (L0 LE by using UE's) Toilet Transfer (QC): 88 (martinez just removed prior to eval) Car Transfer (QC): 88 Pain prevented car transfer this date. Gait Does the Patient Walk?: Yes Mode of Locomotion: Both Anticipated Mode of Locomotion: Both Walk 10 feet (QC): 88 (Unable to cover distance of 10'. Could only amb 5' /c FWW min (A) /c w/c backup and O2 (A) /a needing to sit due to pain) Walk 50 ft with 2 Turns(QC): 88 (unable due to pain) Walk 150 ft (QC): 88 (unable due to pain) Walking 10ft/uneven surface-QC: 88 (unable due to pain) Distance: 5' Gait Assistive Device: FWW Comments/Gait Description short step length (B), cues to use UE support to decrease (L) WB, cues for sequence of walker>(L)>(R). W/C backup. Portable O2 at 4L. Wheelchair Training Does the Pt Use a Wheelchair?: Yes Distance: 150' Wheel 50 ft with 2 turns (QC): 5 Wheel 150 ft (QC): 5 Type of Wheelchair: Manual Portable O2 assist (4L) Stairs 1 Step (curb) (QC): 88 (UT due to pain) 4 Steps (QC): 88 (UT due to pain) 12 Steps (QC): 88 (UT due to pain) Balance Sitting Dynamic: Fair Standing Static: Poor Standing Dynamic: Poor Picking up an Object (QC): 88 (unsafe due to high pain in standing) Special Test Comments Elderly Mobility Scale: 09/08 Assessment/Needs 62 year old female with significant pain and mobility limitations following fall/pelvis fracture in her home. Patient would benefit from ARU therapy services to improved LE strength, endurance/activity tolerance, transfer/gait ability, w/c mobility in order for patient to safely return home with HH services and assist of family. Rehab Potential: Good PT Care Home Goals Wire Drawing Machine Operator Goals PT Care Home Goals Time Frame: Mar 02, 2023 Roll Left to Right (QC): 6 Sit to Lying (QC): 6 Lying-Sitting on Side/Bed(QC): 6 Sit to Stand (QC): 6 Chair/Ips-ds-Lpggm Xfer(QC): 6 Toilet/Commode Transfer (QC): 6 Car Transfer (QC): 5 Does the Patient Walk: Yes Walk 10 feet (QC): 6 Walk 10ft-Uneven Surface(QC): 6 Walk 50ft with 2 Turns (QC): 6 Walk 150 ft (QC): 5 Does the Pt use WC or Scooter?: Yes Wheel 50 feet with 2 turns (QC: 6 Type: Manual Wheel 150 feet: 6 Type: Manual 1 Step (curb) (QC): 4 4 Steps (QC): 9 12 Steps (QC): 9 Picking up an Object (QC): 5 (with wood carving machine operator) with wood carving machine operator PT Plan Problem List Problem List: Activity Tolerance, Functional Strength, Safety, Balance, Gait, Transfer, Bed Mobility, ROM Treatment/Plan Treatment Plan: Continue Plan of Care Treatment Plan: Bed Mobility, Education, Functional Activity Luz [place], Functional Strength, Group Therapy, Gait, Safety, Therapeutic Exercise, Transfers Treatment Duration: Mar 02, 2023 Frequency: At least 5 of 7 days/Wk (IRF) Estimated Hrs Per Day: 1.5 hours per day Patient and/or Family Agrees t: Yes Safety Risks/Education Patient Education: Gait Training, Transfer Techniques, W/C Management Teaching Recipient: Patient Teaching Methods: Demonstration, Discussion Response to Teaching: Reinforcement Needed Discharge Recommendations Therapy Discharge Recommendati: Intermittent Supervision, Meals on Wheels, Bath Aide, Homemaker Support, Home & Family Equpiment Recommendations-D/C: 3 in 1 Commode, Wheelchair Cushion, Front Wheeled Walker, Medical Alert, Standard Bedside Commode, Manual Wheelchair Time Time In: 1300 Time Out: 1405 DATE: Feb 16, 2023 Total Billed Treatment Time: 65 Total Billed Treatment EVM 1-1:30pm, [place] with OT 1:30-2pm, 2:00-2:05 FA Anna Ruffin PT Feb 16, 2023 13:06
--- NOTE | 2023-02-16 14:11 | Occupational Ther Daily Note ---
OT Current Status-Daily Note Subjective Pt agreeable to therapy tx. Mental Status/Objective Patient Orientation: Person, Place, Time, Situation Attachments: Oxygen (4L NC) ADL-Treatment Therapy Code Descriptions/Definitions Functional [place] Measure: 0=Not Assessed/NA 4=Minimal Assistance 1=Total Assistance 5=Supervision or Setup 2=Maximal Assistance 6=Modified [place] 3=Moderate Assistance 7=Complete IndependenceSCALE: Activities may be completed with or without assistive devices. 8-Wblqhkleda-ljeserb completes the activity by him/herself with no assistance from a helper. 5-Set-up or Clean-up Assistance-helper sets up or cleans up; patient completes activity. [place] assists only prior to or following the activity. 4-Supervision or Touching Assistance-helper provides verbal cues and/or touching/steadying and/or contact guard assistance as patient completes activity. Assistance may be provided throughout the activity or intermittently. 3-Partial/Moderate Assistance-helper does LESS THAN HALF the effort. [place] lifts, holds or supports trunk or limbs, but provides less than half the effort. 2-Substantial/Maximal Assistance-helper does MORE THAN HALF the effort. [place] lifts or holds trunk or limbs and provides more than half the effort. 3-Tviikvfee-fpwnjw does ALL the effort. Patient does none of the effort to complete the activity. Or, the assistance of 2 or more helpers is required for the patient to complete the activity. If activity was not attempted, code reason: 7-Patient Refused. 9-Not Applicable-not attempted and the patient did not perform the activity before the current illness, exacerbation or injury. 10-Not Attempted due to Environmental Limitations-(lack of equipment, weather restraints, etc.). 88-Not Attempted due to Medical Conditions or Safety Concerns. Lower Body Dressing (QC): 1 On/Off Footwear: 1 Other Treatment OT/PT cotreat due to skill of 2 clinicians required which a vocational rehabilitation counselor could not perform in order to coordinate UE/LEs, decrease fall risk, and due to pt's limitations in strength, mobility, transfers, activity tolerance and pain level. OT focused on ADLs, cues for sequencing and safety and UE placement, PT focused on LE placement, gross overall movement, transfers and mobility. Pt transferred supine to sit EOB. Pt attempted to thread BLEs into brief, but unable to complete due to pain. OT threaded BLEs for pt. Pt stood at walker, OT performed pant hike for pt, as she was unable to remove hands from walker. Pt then transferred to w/c. Pt performed functional mobility with FWW, then w/c mobility, please refer to PT note for QC scores regarding transfers and mobility. Post tx, pt in w/c with PT present, all needs met. Education OT Patient Education: Correct positioning, Energy conservation, Modified ADL techniques, Progress toward Goal/Update tx plan, Purpose of tx/functional activities, Rehab process Teaching Recipient: Patient Teaching Methods: Discussion Response to Teaching: Verbalize Understanding OT Short Term Goals Short Term Goals Time Frame: Feb 27, 2023 Toileting hygiene: 4 Upper body dressin Lower body dressin Putting on/taking off footwear: 4 OT Pelletizer Tender Goals Pelletizer Tender Goals Time Frame: Mar 13, 2023 Acute change in mental status: 0 Inattention: 0 Disorganized thinkin Altered level of consciousness: 0 Eating (QC): 6 Oral Hygiene (QC): 6 Toileting Hygiene (QC): 6 Shower/Bathe Self (QC): 6 Upper Body Dressing (QC): 6 Lower Body Dressing (QC): 6 On/Off Footwear (QC): 6 Additional Goals: 1-Demonstrate ADL Tasks, 2-Verbalize Understanding, 3- ImproveStrength/[place] 1=Demonstrate adherence to instructed precautions during ADL tasks. 2=Patient will verbalize/demonstrate understanding of assistive devices/modifications for ADL. 3=Patient will improve strength/tolerance for activity to enable patient to perform ADL's. OT Education/Plan Problem List/Assessment Assessment: Decreased Activ Tolerance, Decreased UE Strength, Impaired Funct Balance, Impaired I ADL's, Impaired Self-Care Skills Discharge Recommendations Plan/Recommendations: Continue POC Treatment Plan/Plan of Care Patient would benefit from OT for education, treatment and training to promote independence in ADL's, mobility, safety and/or upper extremity function for ADL's. Plan of Care: ADL Retraining, Functional Mobility, Group Exercise/Act as Ind, UE Funct Exercise/Act Treatment Duration: Mar 13, 2023 Frequency: At least 5 of 7 days/Wk (IRF) Estimated Hrs Per Day: 1.5 hours per day Rehab Potential: Good Time Start Time: 13:30 Stop Time: 14:00 DATE: Feb 16, 2023 Total Time Billed (hr/min): 30 Billed Treatment Time cotreat x30 1, FA 2 ISAAC MELARA OT Feb 16, 2023 14:11
--- NOTE | 2023-02-16 16:22 | Physical Therapy Daily Note ---
PT Daily Note-Current Subjective Pt sitting in w/c in room after working w/PT. Pt agrees to PT but reports sharp increase in pain w/movement. Pain Numeric Pain Scale: 8 Location: Left Location Body Site: Hip Pain Description: Sharp Section J - Health Conditions 1. Rarely or not at all 2. Occasionally 3. Frequently 4. Almost constantly 8. Unable to answer Pain Effect on Sleep: 4 Pain Interference with Therapy: 4 Pain Interference w/Day-to-Day: 4 Mental Status Patient Orientation: Person, Place, Time, Situation Transfers SCALE: Activities may be completed with or without assistive devices. 6-Wpdrzmfgcm-yfyeckc completes the activity by him/herself with no assistance from a helper. 5-Set-up or Clean-up Assistance-helper sets up or cleans up; patient completes activity. [place] assists only prior to or following the activity. 4-Supervision or Touching Assistance-helper provides verbal cues and/or touching/steadying and/or contact guard assistance as patient completes activi ty. Assistance may be provided throughout the activity or intermittently. 3-Partial/Moderate Assistance-helper does LESS THAN HALF the effort. [place] lifts, holds or supports trunk or limbs, but provides less than half the effort. 2-Substantial/Maximal Assistance-helper does MORE THAN HALF the effort. [place] lifts or holds trunk or limbs and provides more than half the effort. 1-Gcrsvzgwz-alqmhy does ALL the effort. Patient does none of the effort to complete the activity. Or, the assistance of 2 or more helpers is required for the patient to complete the activity. If activity was not attempted, code reason: 7-Patient Refused. 9-Not Applicable-not attempted and the patient did not perform the activity before the current illness, exacerbation or injury. 10-Not Attempted due to Environmental Limitations-(lack of equipment, weather restraints, etc.). 88-Not Attempted due to Medical Conditions or Safety Concerns. Sit to Stand (QC): 3 Weight Bearing Right Lower Extremity: Right Weight Bearing/Tolerated Left Lower Extremity: Left Weight Bearing/Tolerated Treatments Pt completes Seated EX in w/c before TF via SPT to EOB then Supine. Pt repositioned to comfort. Pt has all needs met, call light in hand. Assessment Current Status: Fair Progress Pain limits participation in tx. PT Snf Goals Mail Deliverer Goals PT Snf Goals Time Frame: Mar 02, 2023 Roll Left & Right (QC): 6 Sit to Lying (QC): 6 Lying-Sitting on Side/Bed(QC): 6 Sit to Stand (QC): 6 Chair/Plz-jv-Fgqzi Xfer(QC): 6 Toilet Transfer (QC): 6 Car Transfer (QC): 5 Does the Patient Walk: Yes Walk 10 feet (QC): 6 Walk 50ft with 2 Turns (QC): 6 Walk 150 ft (QC): 5 Walking 10ft on Uneven Surface: 6 1 Step (curb) (QC): 4 4 Steps (QC): 9 12 Steps (QC): 9 Picking up an Object (QC): 5 (with sizer machine) Does the Pt use WC or Scooter?: Yes Wheel 50 feet with 2 turns (QC: 6 Type: Manual Wheel 150 feet: 6 Type: Manual PT Plan Problem List Problem List: Activity Tolerance, Functional Strength, Transfer Treatment/Plan Treatment Plan: Continue Plan of Care Treatment Plan: Bed Mobility, Education, Functional Activity [place], Functional Strength, Group Therapy, Gait, Safety, Therapeutic Exercise, Transfers Treatment Duration: Mar 02, 2023 Frequency: At least 5 of 7 days/Wk (IRF) Estimated Hrs Per Day: 1.5 hours per day Patient and/or Family Agrees t: Yes Safety Risks/Education Patient Education: Transfer Techniques, Correct Positioning Teaching Recipient: Patient Teaching Methods: Discussion Response to Teaching: Verbalize Understanding Time Time In: 1415 Time Out: 1440 DATE: Feb 16, 2023 Total Billed Treatment Time: 25 Total Billed Treatment 1, EX (15m) & FA (10m) JENNIFER HENDERSON PTA Feb 16, 2023 16:22
[2023-02-16] MEDS: CYCLOBENZAPRINE 10 MG TABLET PO PRN (16:41)
[2023-02-16] MEDS: ONDANSETRON 4 MG ORAL DISSOLVE TABLET SL PRN (17:27)
[2023-02-16] MEDS: LORazepam 0.5 MG TABLET PO PRN (19:57)
[2023-02-16 20:08] VITALS: BP 124/62
[2023-02-16] MEDS: RT-BUDESONIDE NEBS 0.5 MG/2ML VIAL IH SCH (20:47)
[2023-02-16] MEDS ORDERED: SENNA W/DOCUSATE TABLET PO SCH (21:00)
[2023-02-16] MEDS ORDERED: DOCUSATE SODIUM 100 MG CAPSULE PO SCH (21:00)
[2023-02-16] MEDS: MELATONIN 3 MG TABLET PO PRN (21:36)
[2023-02-16] MEDS: APIXABAN 5 MG TABLET PO SCH (21:36)
[2023-02-16] MEDS: DULoxetine 30 MG CAPSULE PO SCH (21:36)
[2023-02-16] MEDS: SENNA W/DOCUSATE TABLET PO SCH (21:37)
[2023-02-16] MEDS: DOCUSATE SODIUM 100 MG CAPSULE PO SCH (21:38)
[2023-02-16] MEDS: PATCH REMOVAL TP SCH (21:38)
[2023-02-16] MEDS: GRP E PO SCH (21:45)
[2023-02-16] MEDS: CHERRY PO SCH (21:45)
[2023-02-16] MEDS: [UNRECOGNIZED DRUG - OTHER] PO SCH (21:45)
[2023-02-16] MEDS: VIT C PO SCH (21:45)
[2023-02-17] MEDS: MECLIZINE 25 MG TABLET PO PRN (02:12)
--- NOTE | 2023-02-17 04:59 | Individualized Plan of Care ---
Individualized Plan of Care Rehab Nursing IPOC Order Admission Date Feb 16, 2023 at 09:45 Current Orders Orders Admission Arrival Bed Request (02/16/23 09:50) Admission Order(Inpt,Obs,Sdc) (02/16/23 10:31) Vital Signs: Per Unit Policy ( 08,16,00 (02/16/23 10:31) Hunter Bowens 09,21 (02/16/23 10:31) Sequential Compression Device [id number] (02/16/23 10:31) Grey Roll Man-Inpt Rehab Con (02/16/23 10:31) Rehab Nursing Orders-Ipoc (02/16/23 10:31) Physical Therapy Rehab Orders (02/16/23 10:31) Occupational Therapy Rehab Ord (02/16/23 10:31) Speech Therapy Rehab Orders (02/16/23 10:31) Cbc With Automated Diff (02/17/23 06:00) Comprehensive Metabolic Panel (02/17/23 06:00) Precautions (Aru) (02/16/23 10:31) Weekly Weight WEEK (02/16/23 10:31) Rehab-Intensity Of Therapy (02/16/23 10:31) Initiate Admission Nursing Pro .admission (02/16/23 10:31) Alprazolam Tablet (Alprazolam Tablet) (02/16/23 10:45) Calcium Carbonate Chew Tablet (Calcium C (02/16/23 10:45) Diphenhydramine Tablet (Diphenhydramine (02/16/23 10:45) Docusate Sodium Capsule (Docusate Sodium (02/16/23 21:00) Docusate Sodium Capsule (Docusate Sodium (02/16/23 10:45) Bisacodyl Suppository (Bisacodyl Supposi (02/16/23 10:45) Lactulose Oral Solution (Enulose Oral So (02/16/23 10:45) Na Phos/Na Biphos Adult Enema (Na Phos/N (02/16/23 10:45) Guaifenesin/Codeine Syrup (Guaifenesin/C (02/16/23 10:45) Loperamide Capsule (Loperamide Capsule) (02/16/23 10:45) Melatonin Tablet (Melatonin Tablet) (02/16/23 10:45) Polyethylene Glycol Powder (Polyethylen (02/16/23 21:00) Ondansetron Oral Dissolve Tab (Ondanset (02/16/23 10:45) Senna W/Docusate Tablet (Senna W/Docusat (02/16/23 21:00) Acetaminophen Tablet (Acetaminophen Ta (02/16/23 10:45) Initiate Admission Nursing Pro .admission (02/16/23 10:31) Code/Resuscitation (02/16/23 10:33) Catheter(Urinary) Discontinue (02/16/23 10:33) Incentive Spirometry (Nursing) Q2H (02/16/23 10:33) General/Regular (02/16/23 Lunch) (Nf) B&C/Fa/Zinc/Copper Oxide/Vit E (Str (02/17/23 09:00) (Nf) Vit C/[place] & Celery Ex/Grp E (Tar (02/16/23 21:00) Amiodarone Tablet (Amiodarone Tablet) (02/17/23 09:00) Apixaban Tablet (Apixaban Tablet) (02/16/23 21:00) Ascorbic Acid Tablet (Ascorbic Acid Tabl (02/17/23 09:00) Diphenhydramine Injection (Diphenhydram (02/16/23 10:45) Diphenhydramine Tablet (Diphenhydramine (02/16/23 10:45) Benzonatate Capsule (Benzonatate Capsule (02/16/23 10:45) Budesonide Inhalation Solution (Budesoni (02/16/23 21:00) Clopidogrel Tablet (Clopidogrel Tablet) (02/17/23 09:00) Docusate Sodium Capsule (Docusate Sodium (02/16/23 21:00) Cyclobenzaprine Tablet (Cyclobenzaprine (02/16/23 10:45) Duloxetine Capsule (Duloxetine Capsule) (02/16/23 21:00) Bisacodyl Suppository (Bisacodyl Supposi (02/16/23 10:45) Lactulose Oral Solution (Enulose Oral So (02/16/23 10:45) Hydromorphone Injection (Hydromorphone (02/16/23 10:45) Ipratropium/Albuterol Inh Soln (Ipratrop (02/16/23 10:45) Lorazepam Tablet (Lorazepam Tablet) (02/16/23 10:45) Lidocaine 4% Patch (Salonpas 4% Patch) (02/17/23 09:00) Meclizine Tablet (Meclizine Tablet) (02/16/23 10:45) Melatonin Tablet (Melatonin Tablet) (02/16/23 10:45) Milk Of Magnesia Oral Susp (Milk Of Magn (02/16/23 10:45) Polyethylene Glycol Powder (Polyethylen (02/16/23 10:45) Multivitamin W/Mineral Tablet (Multivita (02/17/23 07:00) Mupirocin Ointment (Mupirocin Ointment) (02/16/23 10:45) Antacid Suspension (Antacid Suspension (02/16/23 10:45) Ondansetron Oral Dissolve Tab (Ondanset (02/16/23 10:45) Patch Removal (Patch Removal) (02/16/23 21:00) Senna W/Docusate Tablet (Senna W/Docusat (02/16/23 21:00) Thiamine Tablet (Vitamin B-1 Tablet) (02/17/23 07:00) Calcium Carbonate Chew Tablet (Calcium C (02/16/23 10:45) Acetaminophen Tablet (Acetaminophen Ta (02/16/23 10:45) Vitamin D3 Tablet (Vitamin D3 Tablet) (02/17/23 09:00) Ondansetron Injection (Ondansetron Inj (02/16/23 10:45) Amlodipine Tablet (Amlodipine Tablet) (02/17/23 09:00) Oxycodone Immediate Rel Tablet (Oxycodon (02/16/23 10:45) Tramadol Tablet (Ultram Tablet) (02/16/23 10:45) Incentive Spirometry Initial (02/16/23 10:33) Mat Initiate Protocol (02/16/23 10:33) Incentive Spirometry (Nursing) Q2H (02/16/23 10:33) Dressing Order (Intervention) BID (02/16/23 09:00) Patient Visit (02/16/23 ) Pt Eval Moderate Complexity (02/16/23 ) Functional Activities, Ea 15 (02/16/23 ) Gait Training, Ea 15 Min (02/16/23 ) Wheelchair Mgmt/Propulsn 15min (02/16/23 ) Patient Visit (02/16/23 ) Exercise Therap, Ea 15 Min (02/16/23 ) Functional Activities, Ea 15 (02/16/23 ) Urinalysis (02/17/23 13:04) Straight Cath (Urinary) (02/17/23 09:37) Hypochlorous Acid/Sod Chloride (Hypochlo (02/17/23 10:45) Patient Visit (02/17/23 ) Exercise Therap, Ea 15 Min (02/17/23 ) Urine Culture (02/17/23 12:57) Cefdinir Capsule (Cefdinir Capsule) (02/17/23 14:00) Cefdinir Capsule (Cefdinir Capsule) (02/17/23 21:00) Rehab Nursing Orders: Ongoing Assess. of Cognitive Status, Ongoing Assess. of Function Status, Bladder Management, Bladder Scan, Bladder Training, Bowel Management, Bowel Training, Disease Management & Educaiton, DVT Prophylaxis, Fall Prevention, Fluid/Electrolyte/Nutrition Mgmt, Infection Prevention, Medication Management & Education, Management of Risks & Complications, Management of Skin Intergrity, Nutrition Management, Pain Management, Patient/Family Support, Safety Management, Weight Bearing Precaution Intensity of Therapy to be met Patient to be seen: Min.3h per day/5 of 7d PT IPOC Problem List: Activity Tolerance, Functional Strength, Transfer Treatment Plan: Continue Plan of Care Bed Mobility, Education, Functional Activity Luz [place], Functional Strength, Group Therapy, Gait, Safety, Therapeutic Exercise, Transfers Treatment Duration: Mar 02, 2023 Frequency: At least 5 of 7 days/Wk (IRF) Estimated Hrs Per Day: 1.5 hours per day OT IPOC Problems: Decreased Activ Tolerance, Decreased UE Strength, Impaired Funct Balance, Impaired I ADL's, Impaired Self-Care Skills OT Treatment, Training and Edu: Yes Plan of Care: ADL Retraining, Functional Mobility, Group Exercise/Act as Ind, UE Funct Exercise/Act Treatment Duration: Mar 13, 2023 Frequency: At least 5 of 7 days/Wk (IRF) Estimated Hrs Per Day: 1.[address] IPOC Speech Therapy Treatment Plan: Discontinue ST Treatment Duration: Feb 16, 2023 Frequency: Modified Program (IRF) Estimated Hrs Per Day: Other Grey Roll Man/Case Mgmt Grey Roll Man/Case Managemen: Discharge Planning Dietitian/Swedish Masseuse Dietitian/Swedish Masseuse to monitor nutritional status and make changes and/or recommendations as needed and work with speech pathology on dietary upgrades as the occur. Physician IPOC Medical Issues being managed closely and that require the 24 hour availability of a physician: Recent fall with pelvic fracture and severe pain shortly following DC from ARU s/o CABG with resp failure complications will require close monitoring for narcotic bowel and resp decompensation Medical Issues: Bowel/Bladder Function, DVT Prophylaxis, Falls Precautions, Fluid/Electrolyte/Nutrition Balance, Infection Protection, Pain Management, Weight Bearing Precautions Brief Synthesis of Preadmission Screen, Post-Admission Evaluation, and Therapy Evaluations: PT OT will focus on regaining function with the use of AD in order to regain independence with ADL's in order to return home Medical Prognosis: Good to fair Anticipated Length of Stay: 10 days MELIA DAVID DO Feb 17, 2023 04:59
--- NOTE | 2023-02-17 04:59 | PM&R Progress Note ---
Subjective HPI/CC On Admission Date Seen by Provider: Feb 17, 2023 Time Seen by Provider: 09:00 Subjective/Events-last exam 02/17/2023: Much improved Very tearful at times I tried to reassure Labs stable Pain is an issue UTI dx after in out cath obtained due to cloudy urine and martinez cath for 7 days Review of Systems General: Fatigue, Malaise Musculoskeletal: back pain, leg pain Objective Exam Vital Signs Vital Signs Date Time Temp Pulse Resp B/P (MAP) Pulse Ox O2 Delivery O2 Flow Rate FiO2 02/17/23 19:26 36.7 79 16 121/65 (83) 96 Nasal Cannula 4.00 Capillary Refill : General Appearance: No Apparent Distress, WD/WN, Chronically ill, Thin, Other (frail) HEENT: PERRL/EOMI, Normal ENT Inspection, Pharynx Normal Neck: Full Range of Motion, Normal Inspection, Non Tender, Supple, Carotid Bruit Respiratory: Chest Non Tender, Lungs Clear, No Accessory Muscle Use, No Respiratory Distress, Decreased Breath Sounds Cardiovascular: Regular Rate, Rhythm, No Edema, No Gallop, No JVD, No Murmur, Normal Peripheral Pulses Gastrointestinal: Normal Bowel Sounds, No Organomegaly, No Pulsatile Mass, Non Tender, Soft Back: Normal Inspection, No CVA Tenderness, No Vertebral Tenderness Extremity: Normal Capillary Refill, Normal Inspection, Normal Range of Motion, Non Tender, No Calf Tenderness, No Pedal Edema Neurologic/Psychiatric: Alert, Oriented x3, assembler tester II-XII Norm as Tested, Abnormal Gait, Depressed Affect, Motor Weakness (generalized due to pain in pelvis) Skin: Normal Color, Warm/Dry Lymphatic: No Adenopathy Results/Procedures Lab Laboratory Tests 02/17/23 05:15 Patient resulted labs reviewed. FIM Transfers Therapy Code Descriptions/Definitions Functional [place] Measure: 0=Not Assessed/NA 4=Minimal Assistance 1=Total Assistance 5=Supervision or Setup 2=Maximal Assistance 6=Modified [place] 3=Moderate Assistance 7=Complete IndependenceSCALE: Activities may be completed with or without assistive devices. 0-Rgvnuwwhjv-ppwhuoh completes the activity by him/herself with no assistance from a helper. 5-Set-up or Clean-up Assistance-helper sets up or cleans up; patient completes activity. [place] assists only prior to or following the activity. 4-Supervision or Touching Assistance-helper provides verbal cues and/or touching/steadying and/or contact guard assistance as patient completes activity. Assistance may be provided throughout the activity or intermittently. 3-Partial/Moderate Assistance-helper does LESS THAN HALF the effort. [place] lifts, holds or supports trunk or limbs, but provides less than half the effort. 2-Substantial/Maximal Assistance-helper does MORE THAN HALF the effort. [place] lifts or holds trunk or limbs and provides more than half the effort. 7-Rtbuloiog-eavdcv does ALL the effort. Patient does none of the effort to complete the activity. Or, the assistance of 2 or more helpers is required for the patient to complete the activity. If activity was not attempted, code reason: 7-Patient Refused. 9-Not Applicable-not attempted and the patient did not perform the activity before the current illness, exacerbation or injury. 10-Not Attempted due to Environmental Limitations-(lack of equipment, weather restraints, etc.). 88-Not Attempted due to Medical Conditions or Safety Concerns. Roll Left to Right (QC): 3 (rolled quickly to (R) with use of bed rail SBA, then back onto back. Min-mod (A) of 1 /c cues to roll (L). ) Sit to Lying (QC): 2 (max (A) of 1 /c v.c.) Sit to Stand (QC): 3 Chair/Ult-or-Fwrhn Xfer(QC): 3 (Min (A) of 1 with FWW with v.c. for sequence and to decr. WB on (L0 LE by using UE's) Car Transfer (QC): 88 Gait Training Does the Patient Walk?: Yes Walk 10 feet (QC): 88 (Unable to cover distance of 10'. Could only amb 5' /c FWW min (A) /c w/c backup and O2 (A) /a needing to sit due to pain) Walk 50 ft with 2 Turns(QC): 88 (unable due to pain) Walk 150 ft (QC): 88 (unable due to pain) Walking 10ft/uneven surface-QC: 88 (unable due to pain) Gait Assistive Device: FWW Wheelchair Training Does the Pt Use a Wheelchair?: Yes Distance: 150' Wheel 50 ft with 2 turns (QC): 5 Wheel 150 ft (QC): 5 Type of Wheelchair: Manual Stair Training 1 Step (curb) (QC): 88 (UT due to pain) 4 Steps (QC): 88 (UT due to pain) 12 Steps (QC): 88 (UT due to pain) Balance Picking up an Object (QC): 88 (unsafe due to high pain in standing) ADL-Treatment Eating (QC): 6 Oral Hygiene (QC): 5 Shower/Bathe Self (QC): 3 (50% assist. Assist BLEs and buttocks. 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
[2023-02-17 05:24] LABS: BASOPHILS # (AUTO) 0.1 10^3/uL (0.0-0.1); BASOPHILS % (AUTO) 1 % (0-10); EOSINOPHILS # (AUTO) 0.3 10^3/uL (0.0-0.3); EOSINOPHILS % (AUTO) 2 % (0-10); HEMATOCRIT 28 % (35-52); LYMPHOCYTES # (AUTO) 1.5 10^3/uL (1.0-4.0); LYMPHOCYTES % (AUTO) 13 % (12-44); MEAN CORPUSCULAR HEMOGLOBIN 30 pg (25-34); MEAN CORPUSCULAR HGB CONC 32 g/dL (32-36); MEAN CORPUSCULAR VOLUME 94 fL (80-99); MEAN PLATELET VOLUME 9.5 fL (9.0-12.2); MONOCYTES # (AUTO) 1.2 10^3/uL (0.0-1.0); MONOCYTES % (AUTO) 10 % (0-12); NEUTROPHILS # (AUTO) 8.5 10^3/uL (1.8-7.8); NEUTROPHILS % (AUTO) 73 % (42-75); PLATELET COUNT 350 10^3/uL (130-400); WHITE BLOOD COUNT 11.7 10^3/uL (4.3-11.0)
[2023-02-17 05:36] LABS: ALBUMIN 2.9 GM/DL (3.2-4.5)
[2023-02-17 05:37] LABS: POTASSIUM 4.2 MMOL/L (3.6-5.0)
[2023-02-17 05:38] LABS: CALCIUM 8.7 MG/DL (8.5-10.1)
[2023-02-17 05:41] LABS: BILIRUBIN,TOTAL 0.3 MG/DL (0.1-1.0)
[2023-02-17 05:43] LABS: CREATININE SERUM 0.68 MG/DL (0.60-1.30)
[2023-02-17] MEDS: CYCLOBENZAPRINE 10 MG TABLET PO PRN ×2 (06:45→14:05)
[2023-02-17] MEDS: THIAMINE 100 MG (VITAMIN B-1) TAB PO SCH (06:45)
[2023-02-17] MEDS: THERAPEUTIC MULTIVITAMIN W/MINERALS TABLET PO SCH (06:46)
[2023-02-17] MEDS: oxyCODONE IMMEDIATE RELEASE 5 MG TABLET PO PRN ×3 (06:46→18:33)
[2023-02-17] MEDS: RT-BUDESONIDE NEBS 0.5 MG/2ML VIAL IH SCH ×2 (07:13→20:36)
[2023-02-17 07:48] VITALS: BP 124/62
[2023-02-17 08:13] VITALS: BP 105/57
[2023-02-17] MEDS: SENNA W/DOCUSATE TABLET PO SCH ×2 (08:23→21:43)
[2023-02-17] MEDS: amLODIPine 5 MG TABLET PO SCH (08:23)
[2023-02-17] MEDS: VITAMIN D3 25 MCG (1,000 UNITS) TABLET PO SCH (08:23)
[2023-02-17] MEDS: CLOPIDOGREL 75 MG TABLET PO SCH (08:23)
[2023-02-17] MEDS: AMIODARONE 200 MG TABLET PO SCH (08:23)
[2023-02-17] MEDS: APIXABAN 5 MG TABLET PO SCH ×2 (08:23→21:44)
[2023-02-17] MEDS: DOCUSATE SODIUM 100 MG CAPSULE PO SCH ×2 (08:23→21:43)
[2023-02-17] MEDS: DULoxetine 30 MG CAPSULE PO SCH ×2 (08:23→21:44)
[2023-02-17] MEDS: LORazepam 0.5 MG TABLET PO PRN ×2 (08:24→21:44)
[2023-02-17] MEDS: LIDOCAINE 4% PATCH TOP SCH (08:25)
[2023-02-17] MEDS: [UNRECOGNIZED DRUG - OTHER] PO SCH ×2 (08:26→21:40)
[2023-02-17] MEDS: VIT C PO SCH ×2 (08:26→21:40)
[2023-02-17] MEDS: GRP E PO SCH ×2 (08:26→21:40)
[2023-02-17] MEDS: MUPIROCIN 2% OINTMENT 22 GM TUBE TOP SCH (08:26)
[2023-02-17] MEDS: CHERRY PO SCH ×2 (08:26→21:40)
[2023-02-17] MEDS ORDERED: [UNRECOGNIZED DRUG - OTHER] PO SCH (09:00)
--- NOTE | 2023-02-17 10:36 | Occupational Ther Daily Note ---
OT Current Status-Daily Note Subjective Pt alert, lying in bed.Pt agrees to therapy. Pt stated pain was 7/10 before tx, pt also stated that pain meds were given and wanted to have a few more minutes prior to getting OOB so the medication would take affect. After tx, pt stated pain was a 8/10. Nrsg notified. Mental Status/Objective Patient Orientation: Person, Place, Time, Situation Attachments: IV ADL-Treatment Mod-max A for supine to EOB. Bed height increased for comfort when completing sit to stand. Pt ambulated ~8' then requested to sit then completed 8' to toilet. Pt required assistance to manipulate clothing over hips due to pain when lifting UE off of FWW, pt able to complete hygiene while sitting on toilet 1st time, 2nd time pt requested assistance due to fatigue and increased pain. Sitting on shower bench for 90% of the shower, pt used LH sponge, grabbars and hand held shower to complete most of bathing then required assistance in stance to wash buttocks and stabilize. CGA for UBD due to fatigue and pain. Max A for LBD and footwear due to fatigue and pain. After session, pt sitting in recliner with call light/phone in reach. All needs met in room. Therapy Code Descriptions/Definitions Functional [place] Measure: 0=Not Assessed/NA 4=Minimal Assistance 1=Total Assistance 5=Supervision or Setup 2=Maximal Assistance 6=Modified [place] 3=Moderate Assistance 7=Complete IndependenceSCALE: Activities may be completed with or without assistive devices. 5-Ebvtxkddiq-atfarhg completes the activity by him/herself with no assistance from a helper. 5-Set-up or Clean-up Assistance-helper sets up or cleans up; patient completes activity. [place] assists only prior to or following the activity. 4-Supervision or Touching Assistance-helper provides verbal cues and/or touching/steadying and/or contact guard assistance as patient completes activity. Assistance may be provided throughout the activity or intermittently. 3-Partial/Moderate Assistance-helper does LESS THAN HALF the effort. [place] lifts, holds or supports trunk or limbs, but provides less than half the effort. 2-Substantial/Maximal Assistance-helper does MORE THAN HALF the effort. [place] lifts or holds trunk or limbs and provides more than half the effort. 2-Vmguynsid-gqzjic does ALL the effort. Patient does none of the effort to complete the activity. Or, the assistance of 2 or more helpers is required for the patient to complete the activity. If activity was not attempted, code reason: 7-Patient Refused. 9-Not Applicable-not attempted and the patient did not perform the activity before the current illness, exacerbation or injury. 10-Not Attempted due to Environmental Limitations-(lack of equipment, weather restraints, etc.). 88-Not Attempted due to Medical Conditions or Safety Concerns. Bathing Location: L Arm, R Arm, L Upper Leg, R Upper Leg, Chest, Abdomen, Perineal Area Shower/Bathe Self (QC): 3 (Mod A to wash backside. Pt utilized long handled sponge to wash back, lower legs, and feet. ) Upper Body Dressing (QC): 4 Lower Body Dressing (QC): 2 On/Off Footwear: 2 Toileting Hygiene (QC): 3 Toilet Transfer (QC): 3 Other Treatment Pt given HEP for B UE theraband exercises for use in room and home. Skilled instructions for correct technique and modifications when necessary. Pt c ompleted 2 sets 10 reps of 4 exercises. Education OT Patient Education: Exercise program, Modified ADL techniques, Use of adapted equipment Teaching Recipient: Patient Teaching Methods: Demonstration, Discussion Response to Teaching: Verbalize Understanding, Return Demonstration, Ke nforcement Needed OT Short Term Goals Short Term Goals Time Frame: Feb 27, 2023 Toileting hygiene: 4 Upper body dressin Lower body dressin Putting on/taking off footwear: 4 OT Bander Goals Bander Goals Time Frame: Mar 13, 2023 Acute change in mental status: 0 Inattention: 0 Disorganized thinkin Altered level of consciousness: 0 Eating (QC): 6 Oral Hygiene (QC): 6 Toileting Hygiene (QC): 6 Shower/Bathe Self (QC): 6 Upper Body Dressing (QC): 6 Lower Body Dressing (QC): 6 On/Off Footwear (QC): 6 Additional Goals: 1-Demonstrate ADL Tasks, 2-Verbalize Understanding, 3- ImproveStrength/[place] 1=Demonstrate adherence to instructed precautions during ADL tasks. 2=Patient will verbalize/demonstrate understanding of assistive devices/modifications for ADL. 3=Patient will improve strength/tolerance for activity to enable patient to perform ADL's. OT Education/Plan Problem List/Assessment Assessment: Decreased Activ Tolerance, Decreased UE Strength, Impaired Bed Mobility, Impaired Coordination, Impaired Self-Care Skills Discharge Recommendations Plan/Recommendations: Continue POC Treatment Plan/Plan of Care Patient would benefit from OT for education, treatment and training to promote independence in ADL's, mobility, safety and/or upper extremity function for ADL's. Plan of Care: ADL Retraining, Functional Mobility, Group Exercise/Act as Ind, UE Funct Exercise/Act Treatment Duration: Mar 13, 2023 Frequency: At least 5 of 7 days/Wk (IRF) Estimated Hrs Per Day: 1.5 hours per day Rehab Potential: Good Time Start Time: 09:00 Stop Time: 10:30 DATE: Feb 17, 2023 Total Time Billed (hr/min): 90 Billed Treatment Time 1 visit-ADL 4 (60 min) EX 2 (30 min) ANETA ORELLANA Feb 17, 2023 10:36
[2023-02-17] MEDS ORDERED: HYPOCHLOROUS ACID/NaCl WOUND SOLN 250 ML IR PRN (10:45)
--- NOTE | 2023-02-17 11:57 | Physical Therapy Daily Note ---
PT Daily Note-Current Subjective Pt found seated in recliner upon entry. Agreed to PT but states that she does not want to get up or ambulate. Reports pain at L hip that she rates 7/10 pre- treatment. States that her L hip is sore and soreness increases /c activity. Pain Section J - Health Conditions 1. Rarely or not at all 2. Occasionally 3. Frequently 4. Almost constantly 8. Unable to answer Pain Effect on Sleep: 4 Pain Interference with Therapy: 4 Pain Interference w/Day-to-Day: 4 Mental Status Patient Orientation: Person, Place Attachments: Oxygen 4L O2 Transfers SCALE: Activities may be completed with or without assistive devices. 0-Tmlktnqhes-uyjpliz completes the activity by him/herself with no assistance from a helper. 5-Set-up or Clean-up Assistance-helper sets up or cleans up; patient completes activity. [place] assists only prior to or following the activity. 4-Supervision or Touching Assistance-helper provides verbal cues and/or touching/steadying and/or contact guard assistance as patient completes activity. Assistance may be provided throughout the activity or intermittently. 3-Partial/Moderate Assistance-helper does LESS THAN HALF the effort. [place] lif ts, holds or supports trunk or limbs, but provides less than half the effort. 2-Substantial/Maximal Assistance-helper does MORE THAN HALF the effort. [place] lifts or holds trunk or limbs and provides more than half the effort. 7-Yseyybrqt-ivicam does ALL the effort. Patient does none of the effort to complete the activity. Or, the assistance of 2 or more helpers is required for the patient to complete the activity. If activity was not attempted, code reason: 7-Patient Refused. 9-Not Applicable-not attempted and the patient did not perform the activity before the current illness, exacerbation or injury. 10-Not Attempted due to Environmental Limitations-(lack of equipment, weather restraints, etc.). 88-Not Attempted due to Medical Conditions or Safety Concerns. Sit to Stand (QC): 07 Weight Bearing Right Lower Extremity: Right Weight Bearing/Tolerated Left Lower Extremity: Left Weight Bearing/Tolerated Gait Training Does the Patient Walk?: No and Walking Goal IS indicated Walk 10 feet (QC): 07 Treatments Supine Therapeutic Exercises (B) x 15 ea: - SLRs /c AAROM on L - Heel slides - Quad sets - Glute sets - Hamstring sets - Ankle pumps - Hip abd/add Seated Therapeutic Exercises (B) x 15 ea: - LAQs - Marching - Heel/toe raises - Hip abd/add Assessment Current Status: Poor Progress Pt performs supine and seated therapeutic exercises at recliner. Pt refuses transfer training due to reported L hip pain. Signs of increased L hip pain demonstrated throughout visit. Displays poor muscle strength and endurance while performing exercises. Has most difficulty /c performing SLRs on L side. Pt remains in recliner post-treatment /c call light in place and all needs met. Continue to progress pt per POC. PT Magazine Hand Goals Senior Care Goals PT Magazine Hand Goals Time Frame: Mar 02, 2023 Roll Left & Right (QC): 6 Sit to Lying (QC): 6 Lying-Sitting on Side/Bed(QC): 6 Sit to Stand (QC): 6 Chair/Bew-io-Wslex Xfer(QC): 6 Toilet Transfer (QC): 6 Car Transfer (QC): 5 Does the Patient Walk: Yes Walk 10 feet (QC): 6 Walk 50ft with 2 Turns (QC): 6 Walk 150 ft (QC): 5 Walking 10ft on Uneven Surface: 6 1 Step (curb) (QC): 4 4 Steps (QC): 9 12 Steps (QC): 9 Picking up an Object (QC): 5 (with vice president quality) Does the Pt use WC or Scooter?: Yes Wheel 50 feet with 2 turns (QC: 6 Type: Manual Wheel 150 feet: 6 Type: Manual PT Plan Treatment/Plan Treatment Plan: Continue Plan of Care Treatment Plan: Bed Mobility, Education, Functional Activity [place], Functional Strength, Group Therapy, Gait, Safety, Therapeutic Exercise, Transfers Treatment Duration: Mar 02, 2023 Frequency: At least 5 of 7 days/Wk (IRF) Estimated Hrs Per Day: 1.5 hours per day Patient and/or Family Agrees t: Yes Time Time In: 1100 Time Out: 1200 DATE: Feb 17, 2023 Total Billed Treatment Time: 60 Total Billed Treatment 1 visit EX x 4 ANTONIA ARMSTRONG FOREST EXAMINER Feb 17, 2023 11:57
[2023-02-17 13:26] LABS: BILIRUBIN,URINE NEGATIVE (NEGATIVE); CLARITY,URINE CLEAR; COLOR,URINE YELLOW; GLUCOSE, URINE (UA) NEGATIVE (NEGATIVE); KETONES,URINE NEGATIVE (NEGATIVE); LEUKOCYTE ESTERASE ,URINE 3+ (NEGATIVE); NITRITE,URINE POSITIVE (NEGATIVE); PH,URINE 6.5 (5-9); PROTEIN,URINE 2+ (NEGATIVE)
[2023-02-17 13:27] LABS: BACTERIA,URINE LARGE /HPF; RBC,URINE 0-2 /HPF; SQUAMOUS EPITHELIAL CELL,UR RARE /HPF; WBC,URINE >100 /HPF
--- NOTE | 2023-02-17 13:47 | Occupational Ther Daily Note ---
OT Current Status-Daily Note Subjective Pt alert, laying in bed. When entering room, OTAS assisted nrsg in log rolling technique to change sheets underneath pt. Pt stated pain was a 9/10 prior to tx session but stated she was given a pain pill 5 minutes ago. Pt agrees to therapy. Pt stated pain was a 7/10 at the end of tx. Mental Status/Objective Patient Orientation: Person, Place, Time, Situation, Mumbles Pt mumbled while speaking during most of the session, potentially due to pain. ADL-Treatment Therapy Code Descriptions/Definitions Functional [place] Measure: 0=Not Assessed/NA 4=Minimal Assistance 1=Total Assistance 5=Supervision or Setup 2=Maximal Assistance 6=Modified [place] 3=Moderate Assistance 7=Complete IndependenceSCALE: Activities may be completed with or without assistive devices. 7-Mnvsnazjbu-pzifory completes the activity by him/herself with no assistance from a helper. 5-Set-up or Clean-up Assistance-helper sets up or cleans up; patient completes activity. [place] assists only prior to or following the activity. 4-Supervision or Touching Assistance-helper provides verbal cues and/or touching/steadying and/or contact guard assistance as patient completes activity. Assistance may be provided throughout the activity or intermittently. 3-Partial/Moderate Assistance-helper does LESS THAN HALF the effort. [place] lifts, holds or supports trunk or limbs, but provides less than half the effort. 2-Substantial/Maximal Assistance-helper does MORE THAN HALF the effort. [place] lifts or holds trunk or limbs and provides more than half the effort. 9-Oiaxvwtyg-gqwyek does ALL the effort. Patient does none of the effort to complete the activity. Or, the assistance of 2 or more helpers is required for the patient to complete the activity. If activity was not attempted, code reason: 7-Patient Refused. 9-Not Applicable-not attempted and the patient did not perform the activity before the current illness, exacerbation or injury. 10-Not Attempted due to Environmental Limitations-(lack of equipment, weather restraints, etc.). 88-Not Attempted due to Medical Conditions or Safety Concerns. Other Treatment Pt remained supine in bed during the session due to intense pain (9/10) that lowered down to a (7/10) at the end of the tx. Pt working on B UE strengthening exercises for functional tasks. Skilled instruction required for proper positioning/movement. Pt completed 4 B UE strengthening exercises with 6# theraflex, then completed 2 UE exercises working on stamina for 1 min on each arm. Pt then completed 2 B UE exercises with 2# weights working on bicep/ shoulder flexion, then finished with B UE supination/pronation for 30 sec with 2# weight on each arm. Ended session with pt supine in bed with call light/phone in reach. All needs met in room. Education OT Patient Education: Correct positioning Teaching Recipient: Patient Teaching Methods: Demonstration, Discussion Response to Teaching: Verbalize Understanding, Return Demonstration Pt educated on proper positioning/movement during B UE exercises for functional tasks. Pt verbalized and demonstrated understanding of instructions. OT Short Term Goals Short Term Goals Time Frame: Feb 27, 2023 Toileting hygiene: 4 Upper body dressin Lower body dressin Putting on/taking off footwear: 4 OT Senior Care Goals Donor Support Technician Goals Time Frame: Mar 13, 2023 Acute change in mental status: 0 Inattention: 0 Disorganized thinkin Altered level of consciousness: 0 Eating (QC): 6 Oral Hygiene (QC): 6 Toileting Hygiene (QC): 6 Shower/Bathe Self (QC): 6 Upper Body Dressing (QC): 6 Lower Body Dressing (QC): 6 On/Off Footwear (QC): 6 Additional Goals: 1-Demonstrate ADL Tasks, 2-Verbalize Understanding, 3-ImproveStrength/[place] 1=Demonstrate adherence to instructed precautions during ADL tasks. 2=Patient will verbalize/demonstrate understanding of assistive devices/modifications for ADL. 3=Patient will improve strength/tolerance for activity to enable patient to perform ADL's. OT Education/Plan Problem List/Assessment Assessment: Decreased Activ Tolerance, Decreased UE Strength, Impaired Bed Mobility, Impaired Funct Balance, Impaired Self-Care Skills Discharge Recommendations Plan/Recommendations: Continue POC Treatment Plan/Plan of Care Patient would benefit from OT for education, treatment and training to promote independence in ADL's, mobility, safety and/or upper extremity function for ADL's. Plan of Care: ADL Retraining, Functional Mobility, Group Exercise/Act as Ind, UE Funct Exercise/Act Treatment Duration: Mar 13, 2023 Frequency: At least 5 of 7 days/Wk (IRF) Estimated Hrs Per Day: 1.5 hours per day Rehab Potential: Good Time Start Time: 13:00 Stop Time: 13:30 DATE: Feb 17, 2023 Total Time Billed (hr/min): 30 Billed Treatment Time 1 visit- EX 2 (30 min) ANETA ORELLANA Feb 17, 2023 13:47
[2023-02-17] MEDS ORDERED: CEFDINIR 300 MG CAPSULE PO NR (14:00)
[2023-02-17 14:28] VITALS: BP 156/80
[2023-02-17 19:26] VITALS: BP 121/65
[2023-02-17 20:39] VITALS: BP 155/57
[2023-02-17] MEDS: PATCH REMOVAL TP SCH (21:40)
[2023-02-17] MEDS: CEFDINIR 300 MG CAPSULE PO SCH (21:43)
[2023-02-17] MEDS: MELATONIN 3 MG TABLET PO PRN (21:43)
[2023-02-18] MEDS: oxyCODONE IMMEDIATE RELEASE 5 MG TABLET PO PRN ×4 (03:15→21:37)
[2023-02-18] MEDS: THERAPEUTIC MULTIVITAMIN W/MINERALS TABLET PO SCH (06:34)
[2023-02-18] MEDS: THIAMINE 100 MG (VITAMIN B-1) TAB PO SCH (06:34)
[2023-02-18] MEDS: CYCLOBENZAPRINE 10 MG TABLET PO PRN ×2 (06:34→17:48)
[2023-02-18 08:00] VITALS: BP 128/60
[2023-02-18] MEDS: DOCUSATE SODIUM 100 MG CAPSULE PO SCH ×2 (08:18→21:45)
[2023-02-18] MEDS: DULoxetine 30 MG CAPSULE PO SCH ×2 (08:18→21:37)
[2023-02-18] MEDS: VITAMIN D3 25 MCG (1,000 UNITS) TABLET PO SCH (08:18)
[2023-02-18] MEDS: CLOPIDOGREL 75 MG TABLET PO SCH (08:18)
[2023-02-18] MEDS: AMIODARONE 200 MG TABLET PO SCH (08:18)
[2023-02-18] MEDS: SENNA W/DOCUSATE TABLET PO SCH ×2 (08:19→21:37)
[2023-02-18] MEDS: APIXABAN 5 MG TABLET PO SCH ×2 (08:19→21:36)
[2023-02-18] MEDS: amLODIPine 5 MG TABLET PO SCH (08:19)
[2023-02-18] MEDS: CEFDINIR 300 MG CAPSULE PO SCH ×2 (08:19→21:37)
[2023-02-18] MEDS: LIDOCAINE 4% PATCH TOP SCH (08:53)
--- NOTE | 2023-02-18 09:58 | PM&R Progress Note ---
Subjective HPI/CC On Admission Date Seen by Provider: Feb 18, 2023 Time Seen by Provider: 12:30 Subjective/Events-last exam 02/18/2023: No major new issues Pain is an issue since she has moving around a lot more in rehab Bowels haven't moved today so maintain bowel regimen to prevent narcotic bowel UTI treatment maintained 02/17/2023: Much improved Very tearful at times I tried to reassure Labs stable Pain is an issue UTI dx after in out cath obtained due to cloudy urine and martinez cath for 7 days Review of Systems General: Fatigue, Malaise Objective Exam Vital Signs Vital Signs Date Time Temp Pulse Resp B/P (MAP) Pulse Ox O2 Delivery O2 Flow Rate FiO2 02/18/23 09:00 Nasal Cannula 4.00 02/18/23 08:00 36.4 84 18 128/60 (82) 98 02/17/23 20:39 36 Capillary Refill : General Appearance: No Apparent Distress, WD/WN, Chronically ill, Thin, Other (frail) HEENT: PERRL/EOMI, Normal ENT Inspection, Pharynx Normal Neck: Full Range of Motion, Normal Inspection, Non Tender, Supple, Carotid Bruit Respiratory: Chest Non Tender, Lungs Clear, No Accessory Muscle Use, No Respiratory Distress, Decreased Breath Sounds Cardiovascular: Regular Rate, Rhythm, No Edema, No Gallop, No JVD, No Murmur, Normal Peripheral Pulses Gastrointestinal: Normal Bowel Sounds, No Organomegaly, No Pulsatile Mass, Non Tender, Soft Back: Normal Inspection, No CVA Tenderness, No Vertebral Tenderness Extremity: Normal Capillary Refill, Normal Inspection, Normal Range of Motion, Non Tender, No Calf Tenderness, No Pedal Edema Neurologic/Psychiatric: Alert, Oriented x3, automation architect II-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 FIM Transfers Therapy Code Descriptions/Definitions Functional [place] Measure: 0=Not Assessed/NA 4=Minimal Assistance 1=Total Assistance 5=Supervision or Setup 2=Maximal Assistance 6=Modified [place] 3=Moderate Assistance 7=Complete IndependenceSCALE: Activities may be completed with or without assistive devices. 6-Ygcuxoelhl-akpfqal completes the activity by him/herself with no assistance from a helper. 5-Set-up or Clean-up Assistance-helper sets up or cleans up; patient completes activity. [place] assists only prior to or following the activity. 4-Supervision or Touching Assistance-helper provides verbal cues and/or touching/steadying and/or contact guard assistance as patient completes activity. Assistance may be provided throughout the activity or intermittently. 3-Partial/Moderate Assistance-helper does LESS THAN HALF the effort. [place] lifts, holds or supports trunk or limbs, but provides less than half the effort. 2-Substantial/Maximal Assistance-helper does MORE THAN HALF the effort. [place] lifts or holds trunk or limbs and provides more than half the effort. 1-Uxtmczydb-qrdtea does ALL the effort. Patient does none of the effort to complete the activity. Or, the assistance of 2 or more helpers is required for the patient to complete the activity. If activity was not attempted, code reason: 7-Patient Refused. 9-Not Applicable-not attempted and the patient did not perform the activity before the current illness, exacerbation or injury. 10-Not Attempted due to Environmental Limitations-(lack of equipment, weather restraints, etc.). 88-Not Attempted due to Medical Conditions or Safety Concerns. Roll Left to Right (QC): 3 (rolled quickly to (R) with use of bed rail SBA, then back onto back. Min-mod (A) of 1 /c cues to roll (L). ) Sit to Lying (QC): 2 (max (A) of 1 /c v.c.) Sit to Stand (QC): 07 Chair/Irk-fc-Ojszu Xfer(QC): 3 (Min (A) of 1 with FWW with v.c. for sequence and to decr. WB on (L0 LE by using UE's) Car Transfer (QC): 88 Gait Training Does the Patient Walk?: No and Walking Goal IS indicated Walk 10 feet (QC): 07 Walk 50 ft with 2 Turns(QC): 88 (unable due to pain) Walk 150 ft (QC): 88 (unable due to pain) Walking 10ft/uneven surface-QC: 88 (unable due to pain) Gait Assistive Device: FWW Wheelchair Training Does the Pt Use a Wheelchair?: Yes Distance: 150' Wheel 50 ft with 2 turns (QC): 5 Wheel 150 ft (QC): 5 Type of Wheelchair: Manual Stair Training 1 Step (curb) (QC): 88 (UT due to pain) 4 Steps (QC): 88 (UT due to pain) 12 Steps (QC): 88 (UT due to pain) Balance Picking up an Object (QC): 88 (unsafe due to high pain in standing) ADL-Treatment Eating (QC): 6 Oral Hygiene (QC): 5 Bathing Location: L Arm, R Arm, L Upper Leg, R Upper Leg, Chest, Abdomen, Perineal Area Shower/Bathe Self (QC): 3 (Mod A to wash backside. Pt utilized long handled sponge to wash back, lower legs, and feet. 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
--- NOTE | 2023-02-18 10:01 | Physical Therapy Daily Note ---
PT Daily Note-Current Subjective Pt found lying in bed upon entry. Agreed to PT. Rates pain 7/10 pre-treatment in L hip that increases to an 8/10 /c standing activities. Describes L hip pain as sharp and stabbing. Pain Section J - Health Conditions 1. Rarely or not at all 2. Occasionally 3. Frequently 4. Almost constantly 8. Unable to answer Pain Effect on Sleep: 4 Pain Interference with Therapy: 4 Pain Interference w/Day-to-Day: 4 Mental Status Patient Orientation: Person, Place Attachments: Oxygen 4L Transfers SCALE: Activities may be completed with or without assistive devices. 5-Gafxtypbej-lpfenhs completes the activity by him/herself with no assistance from a helper. 5-Set-up or Clean-up Assistance-helper sets up or cleans up; patient completes activity. [place] assists only prior to or following the activity. 4-Supervision or Touching Assistance-helper provides verbal cues and/or touching/steadying and/or contact guard assistance as patient completes activity. Assistance may be provided throughout the activity or intermittently. 3-Partial/Moderate Assistance-helper does LESS THAN HALF the effort. [place] lifts, holds or supports trunk or limbs, but provides less than half the effort. 2-Substantial/Maximal Assistance-helper does MORE THAN HALF the effort. [place] lifts or holds trunk or limbs and provides more than half the effort. 5-Ggebyotmc-mbyjmw does ALL the effort. Patient does none of the effort to complete the activity. Or, the assistance of 2 or more helpers is required for the patient to complete the activity. If activity was not attempted, code reason: 7-Patient Refused. 9-Not Applicable-not attempted and the patient did not perform the activity bef ore the current illness, exacerbation or injury. 10-Not Attempted due to Environmental Limitations-(lack of equipment, weather r estraints, etc.). 88-Not Attempted due to Medical Conditions or Safety Concerns. Lying to Sitting/Side of Bed(Q: 3 Sit to Stand (QC): 4 Chair/Mui-lc-Aztiq Xfer(QC): 3 Pt performs lying to sitting on edge of bed transfer /c MIN assist for LE lifting/lowering and handheld assistance for lifting trunk. Sit to stand [place] sfer performed /c CGA for safety due to strength and balance deficits. Bed to wheelchair transfer performed /c MIN assist for pivoting and stabilization due to loss of balance. Weight Bearing Right Lower Extremity: Right Weight Bearing/Tolerated Left Lower Extremity: Left Weight Bearing/Tolerated Gait Training Does the Patient Walk?: Yes Distance: 3, 5, 5, 5 Walk 10 feet (QC): 88 Gait Assistive Device: FWW Pt ambulates /c use of FWW up to 5 feet before requiring a seated rest break due to reported L hip pain. Pt displays step to pattern on R side likely due to limited ability to put weight through L hip. Performs steps very slowly and required CGA/wheelchair follow for safety. Pt ambulated distances of 3, 5, 5, and 5 feet. Wheelchair Training Does the Pt Use a Wheelchair?: Yes Type of Wheelchair: Manual Exercises Standing Tolerance Training: Pt stands at // /c one UE support and performs UE activities (see OT note). Pt performs standing activity for 30-90 seconds at a time 3x. Assessment Current Status: Fair Progress Pt displays limited tolerance to therapeutic activities today likely due to reported increased pain. O2 monitored throughout treatment. O2 was 98% pre- treatment and 96% post-gait training. Pt able to stand at // with one UE for support for up to 90 seconds. Continue to progress pt as tolerated per POC. PT Longterm Goals Milk Powder Grinder Goals PT Longterm Goals Time Frame: Mar 02, 2023 Roll Left & Right (QC): 6 Sit to Lying (QC): 6 Lying-Sitting on Side/Bed(QC): 6 Sit to Stand (QC): 6 Chair/Xhj-rj-Vlobw Xfer(QC): 6 Toilet Transfer (QC): 6 Car Transfer (QC): 5 Does the Patient Walk: Yes Walk 10 feet (QC): 6 Walk 50ft with 2 Turns (QC): 6 Walk 150 ft (QC): 5 Walking 10ft on Uneven Surface: 6 1 Step (curb) (QC): 4 4 Steps (QC): 9 12 Steps (QC): 9 Picking up an Object (QC): 5 (with automotive instructor) Does the Pt use WC or Scooter?: Yes Wheel 50 feet with 2 turns (QC: 6 Type: Manual Wheel 150 feet: 6 Type: Manual PT Plan Treatment/Plan Treatment Plan: Continue Plan of Care Treatment Plan: Bed Mobility, Education, Functional Activity [place], Functional Strength, Group Therapy, Gait, Safety, Therapeutic Exercise, Transfers Treatment Duration: Mar 02, 2023 Frequency: At least 5 of 7 days/Wk (IRF) Estimated Hrs Per Day: 1.5 hours per day Patient and/or Family Agrees t: Yes Time Time In: 899 Time Out: 999 DATE: Feb 18, 2023 Total Billed Treatment Time: 60 Total Billed Treatment 1 visit GT x 2 FA x 2 Individual treatment time: 1673-3602 Co-treatment time: 0505-4518 Total treatment time: 7791-5310 ANTONIA ARMSTRONG PTA Feb 18, 2023 10:01
[2023-02-18] MEDS: ONDANSETRON 4 MG ORAL DISSOLVE TABLET SL PRN (10:09)
--- NOTE | 2023-02-18 11:29 | Occupational Ther Daily Note ---
OT Current Status-Daily Note Subjective Pt working with PT. Co-treat with PT ([id number]), skills of 2 clinicians required to decrease pain during standing/sitting tasks, decrease fall risk during standing tasks and increase overall strength/stamina. PT focusing on ambulation, transfers, standing and w/c mobility while OT focusing on B UE placement during functional tasks, pain management and functional mobility. Mental Status/Objective Patient Orientation: Person, Place, Time, Situation Attachments: IV, Oxygen (2L) ADL-Treatment Pt is limited by increased pain and decreased stamina. Pt is able to complete toileting with CGA though increased time due to pain. Sitting at sink, pt completes oral care independently. Min A for EOB to supine. Therapy Code Descriptions/Definitions Functional [place] Measure: 0=Not Assessed/NA 4=Minimal Assistance 1=Total Assistance 5=Supervision or Setup 2=Maximal Assistance 6=Modified [place] 3=Moderate Assistance 7=Complete IndependenceSCALE: Activities may be completed with or without assistive devices. 6-Kknnqziidl-oyebbln completes the activity by him/herself with no assistance from a helper. 5-Set-up or Clean-up Assistance-helper sets up or cleans up; patient completes activity. [place] assists only prior to or following the activity. 4-Supervision or Touching Assistance-helper provides verbal cues and/or touching/steadying and/or contact guard assistance as patient completes ac tivity. Assistance may be provided throughout the activity or intermittently. 3-Partial/Moderate Assistance-helper does LESS THAN HALF the effort. [place] lifts, holds or supports trunk or limbs, but provides less than half the effort. 2-Substantial/Maximal Assistance-helper does MORE THAN HALF the effort. [place] lifts or holds trunk or limbs and provides more than half the effort. 6-Kndieqfes-xgvogc does ALL the effort. Patient does none of the effort to complete the activity. Or, the assistance of 2 or more helpers is required for the patient to complete the activity. If activity was not attempted, code reason: 7-Patient Refused. 9-Not Applicable-not attempted and the patient did not perform the activity before the current illness, exacerbation or injury. 10-Not Attempted due to Environmental Limitations-(lack of equipment, weather restraints, etc.). 88-Not Attempted due to Medical Conditions or Safety Concerns. Oral Hygiene (QC): 6 Toileting Hygiene (QC): 4 Toilet Transfer (QC): 4 Other Treatment Pt completed resistive clothespins 2x's while standing at //bars, 1st time stood to complete all clothespins then 2nd time pt took one recovery break. While lying in bed, pt completed B UE exercises with 6# wt flexbar to increase strength and stamina for daily functional tasks, 2 sets 10 reps of 3 exercises. After session, pt lying in bed with call light/phone in reach. Heat pad on L hip. All needs met. OT Short Term Goals Short Term Goals Time Frame: Feb 27, 2023 Toileting hygiene: 4 Upper body dressin Lower body dressin Putting on/taking off footwear: 4 OT [facility] Goals Preschool Teacher Assistant Goals Time Frame: Mar 13, 2023 Acute change in mental status: 0 Inattention: 0 Disorganized thinkin Altered level of consciousness: 0 Eating (QC): 6 Oral Hygiene (QC): 6 Toileting Hygiene (QC): 6 Shower/Bathe Self (QC): 6 Upper Body Dressing (QC): 6 Lower Body Dressing (QC): 6 On/Off Footwear (QC): 6 Additional Goals: 1-Demonstrate ADL Tasks, 2-Verbalize Understanding, 3-ImproveStrength/[place] 1=Demonstrate adherence to instructed precautions during ADL tasks. 2=Patient will verbalize/demonstrate understanding of assistive devices/modifications for ADL. 3=Patient will improve strength/tolerance for activity to enable patient to perform ADL's. OT Education/Plan Problem List/Assessment Assessment: Decreased Activ Tolerance, Decreased UE Strength, Impaired Funct Balance, Impaired Self-Care Skills Discharge Recommendations Plan/Recommendations: Continue POC Treatment Plan/Plan of Care Patient would benefit from OT for education, treatment and training to promote independence in ADL's, mobility, safety and/or upper extremity function for ADL's. Plan of Care: ADL Retraining, Functional Mobility, Group Exercise/Act as Ind, UE Funct Exercise/Act Treatment Duration: Mar 13, 2023 Frequency: At least 5 of 7 days/Wk (IRF) Estimated Hrs Per Day: 1.5 hours per day Rehab Potential: Good Time Start Time: 09:30 Stop Time: 11:00 DATE: Feb 18, 2023 Total Time Billed (hr/min): 90 Billed Treatment Time 1 visit-FA 2 (30 min), EX 1 (15 min) ADL 3 (45 min) ANETA ORELLANA Feb 18, 2023 11:28
--- NOTE | 2023-02-18 14:11 | Physical Therapy Daily Note ---
PT Daily Note-Current Subjective Pt found lying in bed upon entry. Agreed to PT. Reports her L hip is feeling a little better than it did this AM. Pain Section J - Health Conditions 1. Rarely or not at all 2. Occasionally 3. Frequently 4. Almost constantly 8. Unable to answer Pain Effect on Sleep: 4 Pain Interference with Therapy: 4 Pain Interference w/Day-to-Day: 4 Mental Status Patient Orientation: Person, Place Attachments: Oxygen 4L Transfers SCALE: Activities may be completed with or without assistive devices. 1-Lhszcjczxv-hfoswvd completes the activity by him/herself with no assistance from a helper. 5-Set-up or Clean-up Assistance-helper sets up or cleans up; patient completes activity. [place] assists only prior to or following the activity. 4-Supervision or Touching Assistance-helper provides verbal cues and/or touching/steadying and/or contact guard assistance as patient completes activity. Assistance may be provided throughout the activity or intermittently. 3-Partial/Moderate Assistance-helper does LESS THAN HALF the effort. [place] lifts, holds or supports trunk or limbs, but provides less than half the effort. 2-Substantial/Maximal Assistance-helper does MORE THAN HALF the effort. [place] lifts or holds trunk or limbs and provides more than half the effort. 6-Tkgfvxxio-nqbvlx does ALL the effort. Patient does none of the effort to complete the activity. Or, the assistance of 2 or more helpers is required for the patient to complete the activity. If activity was not attempted, code reason: 7-Patient Refused. 9-Not Applicable-not attempted and the patient did not perform the activity before the current illness, exacerbation or injury. 10-Not Attempted due to Environmental Limitations-(lack of equipment, weather restraints, etc.). 88-Not Attempted due to Medical Conditions or Safety Concerns. Weight Bearing Right Lower Extremity: Right Weight Bearing/Tolerated Left Lower Extremity: Left Weight Bearing/Tolerated Treatments Supine Therapeutic Exercises (B) 20x ea: - SLRs (AAROM L) - Ankle pumps - SAQs - Quad sets - Hip abd/add (AAROM L) - Heel slides (self-AAROM L) - Hamstring sets - Glute sets Assessment Current Status: Fair Progress Pt demonstrated muscle strength and endurance deficits while performing supine therapeutic exercises. Required short rest breaks to complete sets. Increased signs of pain displayed /c LLE movement. Required AAROM to perform SLRs, hip abd/add, and heel slides on L side. Continue to progress as tolerated per POC. PT General Manager Land Department Goals General Manager Land Department Goals PT Fdc Goals Time Frame: Mar 02, 2023 Roll Left & Right (QC): 6 Sit to Lying (QC): 6 Lying-Sitting on Side/Bed(QC): 6 Sit to Stand (QC): 6 Chair/Ehv-ge-[place]ix[place] Xfer(QC): 6 Toilet Transfer (QC): 6 Car Transfer (QC): 5 Does the Patient Walk: Yes Walk 10 feet (QC): 6 Walk 50ft with 2 Turns (QC): 6 Walk 150 ft (QC): 5 Walking 10ft on Uneven Surface: 6 1 Step (curb) (QC): 4 4 Steps (QC): 9 12 Steps (QC): 9 Picking up an Object (QC): 5 (with pipe organ technician) Does the Pt use WC or Scooter?: Yes Wheel 50 feet with 2 turns (QC: 6 Type: Manual Wheel 150 feet: 6 Type: Manual PT Plan Treatment/Plan Treatment Plan: Continue Plan of Care Treatment Plan: Bed Mobility, Education, Functional Activity [place], Functional Strength, Group Therapy, Gait, Safety, Therapeutic Exercise, Transfers Treatment Duration: Mar 02, 2023 Frequency: At least 5 of 7 days/Wk (IRF) Estimated Hrs Per Day: 1.5 hours per day Patient and/or Family Agrees t: Yes Time Time In: 1400 Time Out: 1430 DATE: Feb 18, 2023 Total Billed Treatment Time: 30 Total Billed Treatment 1 visit EX x 2 ANTONIA ARMSTRONG GLASS MOLD REPAIRER Feb 18, 2023 14:10
--- NOTE | 2023-02-18 14:22 | Physical Therapy Progress Note ---
Therapy Progress Note Patient will require a wheelchair upon discharge. The patient is unable to safely ambulate with use of a FWW. The patient has an increased risk of falling while ambulating with use of a FWW. Patient has demonstrated ability to safely navigate and perform ADLs with use of a manual wheelchair. ANTONIA ARMSTRONG AIR VALVE REPAIRER Feb 18, 2023 14:22
[2023-02-18 20:30] VITALS: BP 116/53
[2023-02-18] MEDS: RT-BUDESONIDE NEBS 0.5 MG/2ML VIAL IH SCH ×2 (20:42→20:43)
[2023-02-18] MEDS: diphenhydrAMINE 25 MG TABLET PO PRN (21:37)
[2023-02-18] MEDS: LORazepam 0.5 MG TABLET PO PRN (21:37)
[2023-02-18] MEDS: MUPIROCIN 2% OINTMENT 22 GM TUBE TOP SCH (21:40)
[2023-02-18] MEDS: PATCH REMOVAL TP SCH (21:45)
[2023-02-19] MEDS: oxyCODONE IMMEDIATE RELEASE 5 MG TABLET PO PRN ×3 (05:26→22:27)
[2023-02-19] MEDS: THIAMINE 100 MG (VITAMIN B-1) TAB PO SCH (06:24)
[2023-02-19] MEDS: THERAPEUTIC MULTIVITAMIN W/MINERALS TABLET PO SCH (06:25)
[2023-02-19] MEDS: RT-BUDESONIDE NEBS 0.5 MG/2ML VIAL IH SCH ×2 (07:32→21:05)
--- NOTE | 2023-02-19 07:38 | PM&R Progress Note ---
Subjective HPI/CC On Admission Date Seen by Provider: Feb 19, 2023 Time Seen by Provider: 12:00 Subjective/Events-last exam 02/19/2023: Pain is an issue No other issues Slow recovery Urecholine ordered due to PVR amount 02/18/2023: No major new issues Pain is an issue since she has moving around a lot more in rehab Bowels haven't moved today so maintain bowel regimen to prevent narcotic bowel UTI treatment maintained 02/17/2023: Much improved Very tearful at times I tried to reassure Labs stable Pain is an issue UTI dx after in out cath obtained due to cloudy urine and martinez cath for 7 days Review of Systems General: Fatigue, Malaise Musculoskeletal: back pain Objective Exam Vital Signs Vital Signs Date Time Temp Pulse Resp B/P (MAP) Pulse Ox O2 Delivery O2 Flow Rate FiO2 02/19/23 21:06 97 Nasal Cannula 4.00 02/19/23 19:51 36.5 78 16 123/70 (87) 02/17/23 20:39 36 Capillary Refill : General Appearance: No Apparent Distress, WD/WN, Chronically ill, Thin, Other (frail) HEENT: PERRL/EOMI, Normal ENT Inspection, Pharynx Normal Neck: Full Range of Motion, Normal Inspection, Non Tender, Supple, Carotid B ruit Respiratory: Chest Non Tender, Lungs Clear, No Accessory Muscle Use, No Respiratory Distress, Decreased Breath Sounds Cardiovascular: Regular Rate, Rhythm, No Edema, No Gallop, No JVD, No Murmur, Normal Peripheral Pulses Gastrointestinal: Normal Bowel Sounds, No Organomegaly, No Pulsatile Mass, Non Tender, Soft Back: Normal Inspection, No CVA Tenderness, No Vertebral Tenderness Extremity: Normal Capillary Refill, Normal Inspection, Normal Range of Motion, Non Tender, No Calf Tenderness, No Pedal Edema Neurologic/Psychiatric: Alert, Oriented x3, mortuary technician II-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 FIM Transfers Therapy Code Descriptions/Definitions Functional Hand Measure: 0=Not Assessed/NA 4=Minimal Assistance 1=Total Assistance 5=Supervision or Setup 2=Maximal Assistance 6=Modified Hand 3=Moderate Assistance 7=Complete IndependenceSCALE: Activities may be completed with or without assistive devices. 8-Bcxgydadxu-bodosvt completes the activity by him/herself with no assistance from a helper. 5-Set-up or Clean-up Assistance-helper sets up or cleans up; patient completes activity. [place] assists only prior to or following the activity. 4-Supervision or Touching Assistance-helper provides verbal cues and/or touching/steadying and/or contact guard assistance as patient completes activity. Assistance may be provided throughout the activity or intermittently. 3-Partial/Moderate Assistance-helper does LESS THAN HALF the effort. [place] lifts, holds or supports trunk or limbs, but provides less than half the effort. 2-Substantial/Maximal Assistance-helper does MORE THAN HALF the effort. [place] lifts or holds trunk or limbs and provides more than half the effort. 8-Ixvhgiwsc-gtjbrf does ALL the effort. Patient does none of the effort to complete the activity. Or, the assistance of 2 or more helpers is required for the patient to complete the activity. If activity was not attempted, code reason: 7-Patient Refused. 9-Not Applicable-not attempted and the patient did not perform the activity before the current illness, exacerbation or injury. 10-Not Attempted due to Environmental Limitations-(lack of equipment, weather restraints, etc.). 88-Not Attempted due to Medical Conditions or Safety Concerns. Roll Left to Right (QC): 3 (rolled quickly to (R) with use of bed rail SBA, then back onto back. Min-mod (A) of 1 /c cues to roll (L). ) Sit to Lying (QC): 2 (max (A) of 1 /c v.c.) Sit to Stand (QC): 4 Chair/Kwj-bn-Bdwjl Xfer(QC): 3 Car Transfer (QC): 88 Gait Training Does the Patient Walk?: Yes Distance: 3, 5, 5, 5 Walk 10 feet (QC): 88 Walk 50 ft with 2 Turns(QC): 88 (unable due to pain) Walk 150 ft (QC): 88 (unable due to pain) Walking 10ft/uneven surface-QC: 88 (unable due to pain) Gait Assistive Device: FWW Wheelchair Training Does the Pt Use a Wheelchair?: Yes Distance: 150' Wheel 150 ft (QC): 5 Type of Wheelchair: Manual Stair Training 1 Step (curb) (QC): 88 (UT due to pain) 4 Steps (QC): 88 (UT due to pain) 12 Steps (QC): 88 (UT due to pain) Balance Picking up an Object (QC): 88 (unsafe due to high pain in standing) ADL-Treatment Eating (QC): 6 Oral Hygiene (QC): 6 Bathing Location: L Arm, R Arm, L Upper Leg, R Upper Leg, Chest, Abdomen, Perineal Area Shower/Bathe Self (QC): 3 (Mod A to wash backside. Pt utilized long handled sponge to wash back, lower legs, and feet. 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 CAD recent CABG Sternal and flank pressure wounds Smoker HTN AF on OAC Anemia chronic disease HLP Severe constipation we will initiate suppository and soapsuds enema now resolved Severe situational depression we started Cymbalta Thursday UTI dx 02/17/23 placed on Cefdinir-Proteus on prelim culture-may be ESBL considering her lengthy hospital stays in past 6 weeks Plan: Pain control ARU PT OT Martinez Start Cymbalta Bowel regimen 02/17/2023: UTI treatment Monitor closely 02/18/2023: Monitor closely Cefdinir 02/19/2023: Await UCx sensitivity Monitor closely (1) Pelvic fracture MELIA DAVID DO Feb 19, 2023 07:38
[2023-02-19 08:00] VITALS: BP 112/62
[2023-02-19] MEDS: amLODIPine 5 MG TABLET PO SCH (08:06)
[2023-02-19] MEDS: VITAMIN D3 25 MCG (1,000 UNITS) TABLET PO SCH (08:06)
[2023-02-19] MEDS: CYCLOBENZAPRINE 10 MG TABLET PO PRN ×3 (08:06→20:45)
[2023-02-19] MEDS: DULoxetine 30 MG CAPSULE PO SCH ×2 (08:06→20:45)
[2023-02-19] MEDS: CLOPIDOGREL 75 MG TABLET PO SCH (08:06)
[2023-02-19] MEDS: DOCUSATE SODIUM 100 MG CAPSULE PO SCH ×2 (08:07→20:45)
[2023-02-19] MEDS: AMIODARONE 200 MG TABLET PO SCH (08:07)
[2023-02-19] MEDS: CEFDINIR 300 MG CAPSULE PO SCH ×2 (08:07→20:45)
[2023-02-19] MEDS: APIXABAN 5 MG TABLET PO SCH ×2 (08:07→20:45)
[2023-02-19] MEDS: SENNA W/DOCUSATE TABLET PO SCH ×2 (08:08→20:45)
[2023-02-19] MEDS: LIDOCAINE 4% PATCH TOP SCH (08:08)
--- NOTE | 2023-02-19 08:27 | Occupational Ther Daily Note ---
OT Current Status-Daily Note Subjective Pt in bed, agreeable to OT Tx. rates pain 6/10 in L hip, RN notified of pt's request for pain medication. Mental Status/Objective Patient Orientation: Normal For Age Attachments: Oxygen (4L) ADL-Treatment Therapy Code Descriptions/Definitions Functional [place] Measure: 0=Not Assessed/NA 4=Minimal Assistance 1=Total Assistance 5=Supervision or Setup 2=Maximal Assistance 6=Modified [place] 3=Moderate Assistance 7=Complete IndependenceSCALE: Activities may be completed with or without assistive devices. 6-Nsjytkyzma-kngdivk completes the activity by him/herself with no assistance from a helper. 5-Set-up or Clean-up Assistance-helper sets up or cleans up; patient completes activity. [place] assists only prior to or following the activity. 4-Supervision or Touching Assistance-helper provides verbal cues and/or touching/steadying and/or contact guard assistance as patient completes activi ty. Assistance may be provided throughout the activity or intermittently. 3-Partial/Moderate Assistance-helper does LESS THAN HALF the effort. [place] lifts, holds or supports trunk or limbs, but provides less than half the effort. 2-Substantial/Maximal Assistance-helper does MORE THAN HALF the effort. [place] lifts or holds trunk or limbs and provides more than half the effort. 2-Zcxccycgf-tkivrc does ALL the effort. Patient does none of the effort to complete the activity. Or, the assistance of 2 or more helpers is required for the patient to complete the activity. If activity was not attempted, code reason: 7-Patient Refused. 9-Not Applicable-not attempted and the patient did not perform the activity before the current illness, exacerbation or injury. 10-Not Attempted due to Environmental Limitations-(lack of equipment, weather restraints, etc.). 88-Not Attempted due to Medical Conditions or Safety Concerns. Oral Hygiene (QC): 6 (seated at sink.) On/Off Footwear: 2 (Pt required mod A donning R gripper sock, total assist L gripper sock. Max A overall.) Toileting Hygiene (QC): 4 (CGA) Toilet Transfer (QC): 4 (CGA) Other Treatment Pt in bed, agreeable to OT Tx. Pt required some encouragement to participate in therapy while she waits on pain pill from RN. Pt transferred supine to sit EOB, min A with moderate encouragement and step by step VCs. Pt stood from EOB with CGA, then used FWW to transfer to w/c, CGA. Pt wheeled into bathroom, mod A navigating tight turns. Pt able to complete grooming tasks independently seated at sink. Pt propelled w/c to therapy gym, min A through doorways. OT Tx focused on increasing BUE Strength and activity tolerance, and fine motor strength and coordination. Pt removed beads from moderate-heavy resistance (green) theraputty, able to locate all beads without cues. Pt completed BUE exercises using 6# flexbar, completing 2x10 reps, x4 exercises. Pt required frequent rest breaks and repositioning due to pain. Pt propelled w/c back to her room, min A navigating doorways. Pt used GBs to transfer from w/c to [facility] [place] toilet, CGA. Pt completed toileting, CGA. Pt used FWW to perform functional mobility from toilet to EOB (~16'), with CGA, and mod-max encouragement. Pt transferred sit to supine, assist LLE. Post tx, pt in bed, call light in reach and all needs met. Education OT Patient Education: Correct positioning, Energy conservation, Exercise program, Modified ADL techniques, Progress toward Goal/Update tx plan, Purpose of tx/functional activities, Rehab process Teaching Recipient: Patient Teaching Methods: Discussion Response to Teaching: Verbalize Understanding OT Short Term Goals Short Term Goals Time Frame: Feb 27, 2023 Toileting hygiene: 4 Upper body dressin Lower body dressin Putting on/taking off footwear: 4 OT Grid Trimmer Goals Grid Trimmer Goals Time Frame: Mar 13, 2023 Acute change in mental status: 0 Inattention: 0 Disorganized thinkin Altered level of consciousness: 0 Eating (QC): 6 Oral Hygiene (QC): 6 Toileting Hygiene (QC): 6 Shower/Bathe Self (QC): 6 Upper Body Dressing (QC): 6 Lower Body Dressing (QC): 6 On/Off Footwear (QC): 6 Additional Goals: 1-Demonstrate ADL Tasks, 2-Verbalize Understanding, 3- ImproveStrength/[place] 1=Demonstrate adherence to instructed precautions during ADL tasks. 2=Patient will verbalize/demonstrate understanding of assistive devices/modifications for ADL. 3=Patient will improve strength/tolerance for activity to enable patient to perform ADL's. OT Education/Plan Problem List/Assessment Assessment: Decreased Activ Tolerance, Decreased UE Strength, Impaired Funct Balance, Impaired I ADL's, Impaired Self-Care Skills Discharge Recommendations Plan/Recommendations: Continue POC Barriers to Progress Pt has significant pain impacting her ability to complete ADLS and mobility. Treatment Plan/Plan of Care Patient would benefit from OT for education, treatment and training to promote independence in ADL's, mobility, safety and/or upper extremity function for ADL's. Plan of Care: ADL Retraining, Functional Mobility, Group Exercise/Act as Ind, UE Funct Exercise/Act Treatment Duration: Mar 13, 2023 Frequency: At least 5 of 7 days/Wk (IRF) Estimated Hrs Per Day: 1.5 hours per day Rehab Potential: Good Time Start Time: 07:30 Stop Time: 09:00 DATE: Feb 19, 2023 Total Time Billed (hr/min): 90 Billed Treatment Time 1, ADL 4 (60'), FA (15'), EX (15') ISAAC MELARA OT Feb 19, 2023 08:27
[2023-02-19] MEDS: BETHANECHOL 25 MG TABLET PO SCH ×3 (11:25→20:45)
[2023-02-19] MEDS: ONDANSETRON 4 MG ORAL DISSOLVE TABLET SL PRN ×2 (14:16→20:45)
--- NOTE | 2023-02-19 15:52 | Physical Therapy Daily Note ---
PT Daily Note-Current Subjective Has 7-8/10 pain in (L) buttock. Agreeable to trial of Zynex IFC for pain management. Pain Section J - Health Conditions 1. Rarely or not at all 2. Occasionally 3. Frequently 4. Almost constantly 8. Unable to answer Pain Effect on Sleep: 4 Pain Interference with Therapy: 4 Pain Interference w/Day-to-Day: 4 Appearance Resting in supine when therapist entered room. Grimaces in pain during bed mobility/transfers. Transfers SCALE: Activities may be completed with or without assistive devices. 3-Ticdknszvl-balczgh completes the activity by him/herself with no assistance from a helper. 5-Set-up or Clean-up Assistance-helper sets up or cleans up; patient completes activity. [place] assists only prior to or following the activity. 4-Supervision or Touching Assistance-helper provides verbal cues and/or korina doc/steadying and/or contact guard assistance as patient completes activity. Assistance may be provided throughout the activity or intermittently. 3-Partial/Moderate Assistance-helper does LESS THAN HALF the effort. [place] lifts, holds or supports trunk or limbs, but provides less than half the effort. 2-Substantial/Maximal Assistance-helper does MORE THAN HALF the effort. [place] lifts or holds trunk or limbs and provides more than half the effort. 6-Mdgpdkaai-epxckd does ALL the effort. Patient does none of the effort to complete the activity. Or, the assistance of 2 or more helpers is required for the patient to complete the activity. If activity was not attempted, code reason: 7-Patient Refused. 9-Not Applicable-not attempted and the patient did not perform the activity before the current illness, exacerbation or injury. 10-Not Attempted due to Environmental Limitations-(lack of equipment, weather restraints, etc.). 88-Not Attempted due to Medical Conditions or Safety Concerns. Roll Left & Right (QC): 3 (min (A) with use of bed rail) Lying to Sitting/Side of Bed(Q: 3 (Mod (A) of 1) Sit to Stand (QC): 3 (CGA-min (A) from elevated bed) Chair/Ahk-kr-Unlid Xfer(QC): 4 (CGA to stand/step to W/C using FWW. Slow deliberate steps, but no LOB.) Weight Bearing Right Lower Extremity: Right Weight Bearing/Tolerated Left Lower Extremity: Left Weight Bearing/Tolerated Gait Training Does the Patient Walk?: Yes Wheelchair Training Does the Pt Use a Wheelchair?: Yes Wheel 50 ft with 2 turns (QC): 6 (using (B) LE's and UE's this date.) Patient able to descend concrete ramp in courtyard min (A) using (B) UE's/LE's. Able to ascend ramp going forward with (B) UE's min (A) from PT. 2L O2 with portable tank throughout. Treatments Zynex IFC applied in quadripolar placement over (L) buttock. Intensity set at #17. After w/c propulsion, patient requested that electrodes be moved slightly lower. Intensity increased to #23, to patient comfort. Assessment Patient to too much pain for gait this a.m. Pain in main limiting factor. Patient did state that she thought the Zynex IFC helped with her pain and she agreed to sit up in w/c with cushion for lunch. Rated pain as 6-7/10 /p treatment. Zynex left in place. PT Cardiopulmonary Technician And Eeg Tech Goals Cardiopulmonary Technician And Eeg Tech Goals PT Cardiopulmonary Technician And Eeg Tech Goals Time Frame: Mar 02, 2023 Roll Left & Right (QC): 6 Sit to Lying (QC): 6 Lying-Sitting on Side/Bed(QC): 6 Sit to Stand (QC): 6 Chair/Rnm-cv-Iaskm Xfer(QC): 6 Toilet Transfer (QC): 6 Car Transfer (QC): 5 Does the Patient Walk: Yes Walk 10 feet (QC): 6 Walk 50ft with 2 Turns (QC): 6 Walk 150 ft (QC): 5 Walking 10ft on Uneven Surface: 6 1 Step (curb) (QC): 4 4 Steps (QC): 9 12 Steps (QC): 9 Picking up an Object (QC): 5 (with garbage pick up worker) Does the Pt use WC or Scooter?: Yes Wheel 50 feet with 2 turns (QC: 6 Type: Manual Wheel 150 feet: 6 Type: Manual PT Plan Problem List Problem List: Activity Tolerance, Functional Strength, Safety, Balance, Gait, Transfer, Bed Mobility, ROM, Other (Pain) Treatment/Plan Treatment Plan: Continue Plan of Care Treatment Plan: Bed Mobility, Education, Functional Activity [place], Functional Strength, Group Therapy, Gait, Safety, Therapeutic Exercise, Transfers Treatment Duration: Mar 02, 2023 Frequency: At least 5 of 7 days/Wk (IRF) Estimated Hrs Per Day: 1.5 hours per day Patient and/or Family Agrees t: Yes Discharge Recommendations Equpiment Recommendations-D/C: Other, Please Explain (Consider Zynex IFC/estim at d/c for home management of pain) Time Time In: 1100 Time Out: 1200 DATE: Feb 19, 2023 Total Billed Treatment Time: 60 Total Billed Treatment W/C 30', FA 30' Anna Ruffin PT Feb 19, 2023 15:52
--- NOTE | 2023-02-19 16:01 | Physical Therapy Daily Note ---
PT Daily Note-Current Subjective Patient reports that she was able to sit up for lunch with less pain that before her a.m. treatment. Zynex Estim/IFC utilized while patient ate. Pain Section J - Health Conditions 1. Rarely or not at all 2. Occasionally 3. Frequently 4. Almost constantly 8. Unable to answer Pain Effect on Sleep: 4 Pain Interference with Therapy: 4 Pain Interference w/Day-to-Day: 4 Appearance Patient up in w/c and asked to use bathroom prior to returning to bed. Transfers SCALE: Activities may be completed with or without assistive devices. 9-Sjtpwelefw-tzlctjv completes the activity by him/herself with no assistance from a helper. 5-Set-up or Clean-up Assistance-helper sets up or cleans up; patient completes activity. [place] assists only prior to or following the activity. 4-Supervision or Touching Assistance-helper provides verbal cues and/or touching/steadying and/or contact guard assistance as patient completes activity. Assistance may be provided throughout the activity or intermittently. 3-Partial/Moderate Assistance-helper does LESS THAN HALF the effort. [place] lifts, holds or supports trunk or limbs, but provides less than half the effort. 2-Substantial/Maximal Assistance-helper does MORE THAN HALF the effort. [place] lifts or holds trunk or limbs and provides more than half the effort. 5-Tjvqodalt-fyvlcx does ALL the effort. Patient does none of the effort to complete the activity. Or, the assistance of 2 or more helpers is required for the patient to complete the activity. If activity was not attempted, code reason: 7-Patient Refused. 9-Not Applicable-not attempted and the patient did not perform the activity before the current illness, exacerbation or injury. 10-Not Attempted due to Environmental Limitations-(lack of equipment, weather restraints, etc.). 88-Not Attempted due to Medical Conditions or Safety Concerns. Sit to Lying (QC): 3 (mod (A) to lift LE's togther into bed) Sit to Stand (QC): 4 (CGA sit>stand to FWW x 3 this treatment) Chair/Rmg-ya-Vgojp Xfer(QC): 4 (CGA with FWW w/c to EOB) Toilet Transfer (QC): 4 (CGA with use of FWW and GB) Weight Bearing Right Lower Extremity: Right Weight Bearing/Tolerated Left Lower Extremity: Left Weight Bearing/Tolerated Gait Training Does the Patient Walk?: No and Walking Goal NOT indicated Distance: 8' Gait Assistive Device: FWW Patient ambulated 8' CGA with FWW from toilet to bedside, O2 at 4L. Assessment Current Status: Fair Progress Less pain following Zynex IFC treatment. Electrodes removed /p toileting. 6/10 in bed following treatment. PT [facility] Goals Polymer Specialist Goals PT [facility] Goals Time Frame: Mar 02, 2023 Roll Left & Right (QC): 6 Sit to Lying (QC): 6 Lying-Sitting on Side/Bed(QC): 6 Sit to Stand (QC): 6 Chair/Rfc-vs-Uuaji Xfer(QC): 6 Toilet Transfer (QC): 6 Car Transfer (QC): 5 Does the Patient Walk: Yes Walk 10 feet (QC): 6 Walk 50ft with 2 Turns (QC): 6 Walk 150 ft (QC): 5 Walking 10ft on Uneven Surface: 6 1 Step (curb) (QC): 4 4 Steps (QC): 9 12 Steps (QC): 9 Picking up an Object (QC): 5 (with broker) Does the Pt use WC or Scooter?: Yes Wheel 50 feet with 2 turns (QC: 6 Type: Manual Wheel 150 feet: 6 Type: Manual PT Plan Problem List Problem List: Activity Tolerance, Functional Strength, Safety, Balance, Gait, Transfer, Bed Mobility, ROM, Other (pain, w/c propulsion) Treatment/Plan Treatment Plan: Continue Plan of Care Treatment Plan: Bed Mobility, Education, Functional Activity [place], Functional Strength, Group Therapy, Gait, Safety, Therapeutic Exercise, Transfers Treatment Duration: Mar 02, 2023 Frequency: At least 5 of 7 days/Wk (IRF) Estimated Hrs Per Day: 1.5 hours per day Patient and/or Family Agrees t: Yes Discharge Recommendations Equpiment Recommendations-D/C: Front Wheeled Walker, Manual Wheelchair, Other, Please Explain (w/c cushion) Time Time In: 1300 Time Out: 1330 DATE: Feb 19, 2023 Total Billed Treatment Time: 30 Total Billed Treatment FA 22, GT 8 Anna Ruffin PT Feb 19, 2023 16:01
[2023-02-19 19:51] VITALS: BP 123/70
[2023-02-19] MEDS: diphenhydrAMINE 25 MG TABLET PO PRN (20:45)
[2023-02-19] MEDS: PATCH REMOVAL TP SCH (20:45)
[2023-02-19] MEDS: LORazepam 0.5 MG TABLET PO PRN (20:45)
[2023-02-20] MEDS: oxyCODONE IMMEDIATE RELEASE 5 MG TABLET PO PRN ×4 (04:24→21:01)
[2023-02-20] MEDS: BETHANECHOL 25 MG TABLET PO SCH ×4 (06:51→21:01)
[2023-02-20] MEDS: THIAMINE 100 MG (VITAMIN B-1) TAB PO SCH (06:51)
[2023-02-20] MEDS: CYCLOBENZAPRINE 10 MG TABLET PO PRN ×2 (06:51→19:46)
[2023-02-20] MEDS: THERAPEUTIC MULTIVITAMIN W/MINERALS TABLET PO SCH (06:51)
[2023-02-20 08:05] VITALS: BP 112/56
[2023-02-20] MEDS: RT-BUDESONIDE NEBS 0.5 MG/2ML VIAL IH SCH ×2 (08:42→20:22)
[2023-02-20 08:49] VITALS: BP 112/56
[2023-02-20] MEDS: CEFDINIR 300 MG CAPSULE PO SCH ×2 (08:58→21:01)
[2023-02-20] MEDS: DULoxetine 30 MG CAPSULE PO SCH ×2 (08:58→21:01)
[2023-02-20] MEDS: VITAMIN D3 25 MCG (1,000 UNITS) TABLET PO SCH (08:58)
[2023-02-20] MEDS: DOCUSATE SODIUM 100 MG CAPSULE PO SCH ×2 (08:59→21:00)
[2023-02-20] MEDS: AMIODARONE 200 MG TABLET PO SCH (08:59)
[2023-02-20] MEDS: APIXABAN 5 MG TABLET PO SCH ×2 (08:59→21:01)
[2023-02-20] MEDS: amLODIPine 5 MG TABLET PO SCH (08:59)
[2023-02-20] MEDS: CLOPIDOGREL 75 MG TABLET PO SCH (08:59)
[2023-02-20] MEDS: SENNA W/DOCUSATE TABLET PO SCH ×2 (08:59→21:01)
[2023-02-20] MEDS: LORazepam 0.5 MG TABLET PO PRN ×2 (09:05→21:01)
[2023-02-20] MEDS: LIDOCAINE 4% PATCH TOP SCH (09:05)
--- NOTE | 2023-02-20 09:41 | Occupational Ther Daily Note ---
OT Current Status-Daily Note Subjective Pt agreeable to OT Tx. Rates pain 6/10 in L pelvic region. Pt required some encouragement to attempt tasks due to pain. Pt's O2 on 2L NC, O2 saturation remained above 90% throughout tx. Mental Status/Objective Patient Orientation: Normal For Age Attachments: Oxygen (2L) ADL-Treatment Therapy Code Descriptions/Definitions Functional [place] Measure: 0=Not Assessed/NA 4=Minimal Assistance 1=Total Assistance 5=Supervision or Setup 2=Maximal Assistance 6=Modified [place] 3=Moderate Assistance 7=Complete IndependenceSCALE: Activities may be completed with or without assistive devices. 0-Draniccpll-cojryuc completes the activity by him/herself with no assistance from a helper. 5-Set-up or Clean-up Assistance-helper sets up or cleans up; patient completes activity. [place] assists only prior to or following the activity. 4-Supervision or Touching Assistance-helper provides verbal cues and/or touching/steadying and/or contact guard assistance as patient completes activity. Assistance may be provided throughout the activity or intermittently. 3-Partial/Moderate Assistance-helper does LESS THAN HALF the effort. [place] lifts, holds or supports trunk or limbs, but provides less than half the effort. 2-Substantial/Maximal Assistance-helper does MORE THAN HALF the effort. [place] lifts or holds trunk or limbs and provides more than half the effort. 0-Fjdbtfyos-sqhuth does ALL the effort. Patient does none of the effort to complete the activity. Or, the assistance of 2 or more helpers is required for the patient to complete the activity. If activity was not attempted, code reason: 7-Patient Refused. 9-Not Applicable-not attempted and the patient did not perform the activity before the current illness, exacerbation or injury. 10-Not Attempted due to Environmental Limitations-(lack of equipment, weather restraints, etc.). 88-Not Attempted due to Medical Conditions or Safety Concerns. Eating (QC): 6 Oral Hygiene (QC): 6 Shower/Bathe Self (QC): 4 (supervision) Upper Body Dressing (QC): 5 Lower Body Dressing (QC): 3 (Min A) On/Off Footwear: 3 (Min A) Toileting Hygiene (QC): 4 (CGA) Toilet Transfer (QC): 4 (CGA) Other Treatment Pt in bed, transferred supine to sit EOB, CGA. CGA sit to stand from EOB, pt requests bed be raised. OT provided education to pt about having to transfer from various surface heights, she verbalized understanding but states she doesn't want to cause increased pain. Pt transferred from EOB to [facility] over toilet, CGA using FWW. Pt completed toileting, and doffed clothes, CGA in stand. Pt transferred to UT using FWW, CGA. Pt completed shower using LH sponge with supervision. Pt donned clothes, able to complete UE with set up. Education provided on whipper beater and sock aide for LB dressing. Pt verbalized and demo'd understanding, requiring min A with LE dressing and footwear. Pt states she feels like she would be able to complete without devices since pain is improving. Pt sat at sink to complete grooming tasks, independent with oral care and hair brushing, assist required to pull hair back into hair tie. Pt transferred to EOB, CGA, then min A sit to supine. Hot pad applied to L hip. Post tx, pt in bed, call light in reach and all needs met. Education OT Patient Education: Correct positioning, Energy conservation, Modified ADL techniques, Progress toward Goal/Update tx plan, Purpose of tx/functional activities, Rehab process, Safety issues, Transfer techniques, Use of adapted equipment Teaching Recipient: Patient Teaching Methods: Discussion Response to Teaching: Verbalize Understanding OT Short Term Goals Short Term Goals Time Frame: Feb 27, 2023 Toileting hygiene: 4 Upper body dressin Lower body dressin Putting on/taking off footwear: 4 OT Shelter Goals Clay Worker Goals Time Frame: Mar 13, 2023 Acute change in mental status: 0 Inattention: 0 Disorganized thinkin Altered level of consciousness: 0 Eating (QC): 6 Oral Hygiene (QC): 6 Toileting Hygiene (QC): 6 Shower/Bathe Self (QC): 6 Upper Body Dressing (QC): 6 Lower Body Dressing (QC): 6 On/Off Footwear (QC): 6 Additional Goals: 1-Demonstrate ADL Tasks, 2-Verbalize Understanding, 3- ImproveStrength/[place] 1=Demonstrate adherence to instructed precautions during ADL tasks. 2=Patient will verbalize/demonstrate understanding of assistive devices/modifications for ADL. 3=Patient will improve strength/tolerance for activity to enable patient to perform ADL's. OT Education/Plan Problem List/Assessment Assessment: Decreased Activ Tolerance, Decreased UE Strength, Impaired Funct Balance, Impaired I ADL's, Impaired Self-Care Skills Discharge Recommendations Plan/Recommendations: Continue POC Treatment Plan/Plan of Care Patient would benefit from OT for education, treatment and training to promote independence in ADL's, mobility, safety and/or upper extremity function for ADL's. Plan of Care: ADL Retraining, Functional Mobility, Group Exercise/Act as Ind, UE Funct Exercise/Act Treatment Duration: Mar 13, 2023 Frequency: At least 5 of 7 days/Wk (IRF) Estimated Hrs Per Day: 1.5 hours per day Rehab Potential: Good Time Start Time: 09:00 Stop Time: 10:30 DATE: Feb 20, 2023 Total Time Billed (hr/min): 90 Billed Treatment Time 1, ADL 6 ISAAC MELARA OT Feb 20, 2023 09:41
[2023-02-20] MEDS: ONDANSETRON 4 MG ORAL DISSOLVE TABLET SL PRN (09:46)
[2023-02-20] MEDS ORDERED: RT-Ipratropium/Albuterol NEB 3 ML VIAL IH PRN (10:00)
--- NOTE | 2023-02-20 10:40 | PM&R Progress Note ---
Subjective HPI/CC On Admission Date Seen by Provider: Feb 20, 2023 Time Seen by Provider: 10:45 Subjective/Events-last exam 02/20/2023: Much improved status Pain is better Increased pain medication is improved No falls 02/19/2023: Pain is an issue No other issues Slow recovery Urecholine ordered due to PVR amount 02/18/2023: No major new issues Pain is an issue since she has moving around a lot more in rehab Bowels haven't moved today so maintain bowel regimen to prevent narcotic bowel UTI treatment maintained 02/17/2023: Much improved Very tearful at times I tried to reassure Labs stable Pain is an issue UTI dx after in out cath obtained due to cloudy urine and martinez cath for 7 days Review of Systems General: Fatigue, Malaise Objective Exam Vital Signs Vital Signs Date Time Temp Pulse Resp B/P (MAP) Pulse Ox O2 Delivery O2 Flow Rate FiO2 02/20/23 21:00 90 Nasal Cannula 2.00 02/20/23 19:40 36.2 80 18 113/52 (72) 02/20/23 08:49 36 Capillary Refill : General Appearance: No Apparent Distress, WD/WN, Chronically ill, Thin, Other (frail) HEENT: PERRL/EOMI, Normal ENT Inspection, Pharynx Normal Neck: Full Range of Motion, Normal Inspection, Non Tender, Supple, Carotid Bruit Respiratory: Chest Non Tender, Lungs Clear, No Accessory Muscle Use, No Respiratory Distress, Decreased Breath Sounds Cardiovascular: Regular Rate, Rhythm, No Edema, No Gallop, No JVD, No Murmur, Normal Peripheral Pulses Gastrointestinal: Normal Bowel Sounds, No Organomegaly, No Pulsatile Mass, Non Tender, Soft Back: Normal Inspection, No CVA Tenderness, No Vertebral Tenderness Extremity: Normal Capillary Refill, Normal Inspection, Normal Range of Motion, Non Tender, No Calf Tenderness, No Pedal Edema Neurologic/Psychiatric: Alert, Oriented x3, wash driller helper II-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 FIM Transfers Therapy Code Descriptions/Definitions Functional [place] Measure: 0=Not Assessed/NA 4=Minimal Assistance 1=Total Assistance 5=Supervision or Setup 2=Maximal Assistance 6=Modified [place] 3=Moderate Assistance 7=Complete IndependenceSCALE: Activities may be completed with or without assistive devices. 8-Tyskgnmvjn-smtdzew completes the activity by him/herself with no assistance from a helper. 5-Set-up or Clean-up Assistance-helper sets up or cleans up; patient completes activity. [place] assists only prior to or following the activity. 4-Supervision or Touching Assistance-helper provides verbal cues and/or touching/steadying and/or contact guard assistance as patient completes activity. Assistance may be provided throughout the activity or intermittently. 3-Partial/Moderate Assistance-helper does LESS THAN HALF the effort. [place] lifts, holds or supports trunk or limbs, but provides less than half the effort. 2-Substantial/Maximal Assistance-helper does MORE THAN HALF the effort. [place] lifts or holds trunk or limbs and provides more than half the effort. 1-Aaohzckca-bdybfq does ALL the effort. Patient does none of the effort to complete the activity. Or, the assistance of 2 or more helpers is required for the patient to complete the activity. If activity was not attempted, code reason: 7-Patient Refused. 9-Not Applicable-not attempted and the patient did not perform the activity before the current illness, exacerbation or injury. 10-Not Attempted due to Environmental Limitations-(lack of equipment, weather restraints, etc.). 88-Not Attempted due to Medical Conditions or Safety Concerns. Roll Left to Right (QC): 3 (min (A) with use of bed rail) Sit to Lying (QC): 3 (mod (A) to lift LE's togther into bed) Sit to Stand (QC): 4 (CGA sit>stand to FWW x 3 this treatment) Chair/Nll-ho-Xbvau Xfer(QC): 4 (CGA with FWW w/c to EOB) Car Transfer (QC): 88 Gait Training Does the Patient Walk?: No and Walking Goal NOT indicated Distance: 8' Walk 10 feet (QC): 88 Walk 50 ft with 2 Turns(QC): 88 (unable due to pain) Walk 150 ft (QC): 88 (unable due to pain) Walking 10ft/uneven surface-QC: 88 (unable due to pain) Gait Assistive Device: FWW Wheelchair Training Does the Pt Use a Wheelchair?: Yes Distance: 150' Wheel 50 ft with 2 turns (QC): 6 (using (B) LE's and UE's this date.) Wheel 150 ft (QC): 5 Type of Wheelchair: Manual Stair Training 1 Step (curb) (QC): 88 (UT due to pain) 4 Steps (QC): 88 (UT due to pain) 12 Steps (QC): 88 (UT due to pain) Balance Picking up an Object (QC): 88 (unsafe due to high pain in standing) ADL-Treatment Eating (QC): 6 Oral Hygiene (QC): 6 Bathing Location: L Arm, R Arm, L Upper Leg, R Upper Leg, Chest, Abdomen, Perineal Area Shower/Bathe Self (QC): 4 (supervision) Upper Body Dressing (QC): 5 Lower Body Dressing (QC): 3 (Min A) On/Off Footwear (QC): 3 (Min A) Toileting Hygiene (QC): 4 (CGA) Toilet Transfer (QC): 4 (CGA) Assessment/Plan Assessment and Plan Assess & Plan/Chief Complaint Assessment: Pelvic fracture sustained in a fall at home-Left inferior pubic ramus fracture with Left superior pubic ramus fracture extending into the medial wall of the acetabulum disrupting pelvic ring 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 CAD recent CABG Sternal and flank pressure wounds Smoker HTN AF on OAC Anemia chronic disease HLP Severe constipation we will initiate suppository and soapsuds enema now resolved Severe situational depression we started Cymbalta Thursday UTI dx 02/17/23 placed on Cefdinir-Proteus on prelim culture-may be ESBL considering her lengthy hospital stays in past 6 weeks Plan: Pain control ARU PT OT Martinez Start Cymbalta Bowel regimen 02/17/2023: UTI treatment Monitor closely 02/18/2023: Monitor closely Cefdinir 02/19/2023: Await UCx sensitivity Monitor closely 02/20/2023: Treat constipation with suppository and soapsuds enema (1) Pelvic fracture MELIA DAVID DO Feb 20, 2023 10:40
[2023-02-20] MEDS ORDERED: BISACODYL 10 MG SUPPOSITORY PR NR (11:00)
--- NOTE | 2023-02-20 14:10 | Physical Therapy Daily Note ---
PT Daily Note-Current Subjective States her pain is less today in the (L) buttock -- rates as 5/10 prior to PT. Pain Section J - Health Conditions 1. Rarely or not at all 2. Occasionally 3. Frequently 4. Almost constantly 8. Unable to answer Pain Effect on Sleep: 3 Pain Interference with Therapy: 3 Pain Interference w/Day-to-Day: 3 Appearance Resting in supine eating [employer] Kris[employer] treat when PT entered room. Transfers SCALE: Activities may be completed with or without assistive devices. 7-Wenqtlwesg-jtzingm completes the activity by him/herself with no assistance from a helper. 5-Set-up or Clean-up Assistance-helper sets up or cleans up; patient completes activity. [place] assists only prior to or following the activity. 4-Supervision or Touching Assistance-helper provides verbal cues and/or touching/steadying and/or contact guard assistance as patient completes activity. Assistance may be provided throughout the activity or intermittently. 3-Partial/Moderate Assistance-helper does LESS THAN HALF the effort. [place] lifts, holds or supports trunk or limbs, but provides less than half the effort. 2-Substantial/Maximal Assistance-helper does MORE THAN HALF the effort. [place] lifts or holds trunk or limbs and provides more than half the effort. 7-Siqpkkbbe-ouqvow does ALL the effort. Patient does none of the effort to complete the activity. Or, the assistance of 2 or more helpers is required for the patient to complete the activity. If activity was not attempted, code reason: 7-Patient Refused. 9-Not Applicable-not attempted and the patient did not perform the activity before the current illness, exacerbation or injury. 10-Not Attempted due to Environmental Limitations-(lack of equipment, weather restraints, etc.). 88-Not Attempted due to Medical Conditions or Safety Concerns. Sit to Lying (QC): 3 (Min (A) for supine>sit to (R) side of bed. Able to scoot to EOB (I) in sitting and weight shift to (R) (I) for TENs placement ) Sit to Stand (QC): 4 (CGA from EOB for FWW) Chair/Pwh-wv-Ukzpe Xfer(QC): 4 (CGA /c FWW.) Weight Bearing Right Lower Extremity: Right Weight Bearing/Tolerated Left Lower Extremity: Left Weight Bearing/Tolerated Gait Training Distance: 10' Walk 10 feet (QC): 4 (/c FWW) Steady once upright with use of FWW. Exercises LE ex sitting in recliner with legs elevated: Resisted DF/PF x 10 (B) without s/s of pain Hip IR/ER with legs extended x 10 (B) without s/s of pain Ham sets x 10 without s/s of pain Quad sets x 10 without s/s of pain Treatments Zynex IFC unit applied to (L) buttock in quadripolar placement, IFC hi/low, level 28, continuous, prior to treatment. Unit plugged into wall as batteries appear drained. Left Zynex in place until patient's pm treatment session. Patient agreeable to referral for Zynex for NexWave IFC unit once she is dismissed home. Verbalized her pain is less with unit on. Assessment Current Status: Fair Progress (Improved mobility this a.m. Less pain.) PT Bevel Operator Goals Bevel Operator Goals PT Shelter Goals Time Frame: Mar 02, 2023 Roll Left & Right (QC): 6 Sit to Lying (QC): 6 Lying-Sitting on Side/Bed(QC): 6 Sit to Stand (QC): 6 Chair/Psj-dp-Nvzek Xfer(QC): 6 Toilet Transfer (QC): 6 Car Transfer (QC): 5 Does the Patient Walk: Yes Walk 10 feet (QC): 6 Walk 50ft with 2 Turns (QC): 6 Walk 150 ft (QC): 5 Walking 10ft on Uneven Surface: 6 1 Step (curb) (QC): 4 4 Steps (QC): 9 12 Steps (QC): 9 Picking up an Object (QC): 5 (with technical communication teacher) Does the Pt use WC or Scooter?: Yes Wheel 50 feet with 2 turns (QC: 6 Type: Manual Wheel 150 feet: 6 Type: Manual PT Plan Problem List Problem List: Activity Tolerance, Functional Strength, Safety, Balance, Gait, Transfer, Bed Mobility, ROM, Other (Pain) Treatment/Plan Treatment Plan: Continue Plan of Care Treatment Plan: Bed Mobility, Education, Functional Activity [place], Functional Strength, Group Therapy, Gait, Safety, Therapeutic Exercise, Transfers Treatment Duration: Mar 02, 2023 Frequency: At least 5 of 7 days/Wk (IRF) Estimated Hrs Per Day: 1.5 hours per day Patient and/or Family Agrees t: Yes Safety Risks/Education Patient Education: Gait Training, Transfer Techniques Teaching Recipient: Patient Teaching Methods: Demonstration, Discussion, Audiovisual Response to Teaching: Reinforcement Needed Discharge Recommendations Therapy Discharge Recommendati: Post Acute PT Time Time In: 1130 Time Out: 1200 DATE: Feb 20, 2023 Total Billed Treatment Time: 30 Total Billed Treatment 10' Ex, FA 20' Anna Ruffin PT Feb 20, 2023 14:10
[2023-02-20] MEDS: LACTULOSE SYRUP 10GM/15ML 30ML UDC PO PRN (15:48)
--- NOTE | 2023-02-20 16:08 | Physical Therapy Daily Note ---
PT Daily Note-Current Subjective Patient supine in bed when PT enter room with TENS unit on L hip. Patient reports unit is assisting in pain management, rating current level at 3/10. Pain increased as high as 8/10 with intervention, slightly improved with monitored RB. Patient req nursing pain medication mid-session. Patient positioned in supine at end of session with all needs met and in reach with pain rating of 5/10 Pain Section J - Health Conditions 1. Rarely or not at all 2. Occasionally 3. Frequently 4. Almost constantly 8. Unable to answer Pain Effect on Sleep: 3 Pain Interference with Therapy: 3 Pain Interference w/Day-to-Day: 3 Mental Status Patient Orientation: Person, Place, Time, Situation Transfers SCALE: Activities may be completed with or without assistive devices. 1-Hnjcgxrnbw-qaaaylo completes the activity by him/herself with no assistance from a helper. 5-Set-up or Clean-up Assistance-helper sets up or cleans up; patient completes activity. [place] assists only prior to or following the activity. 4-Supervision or Touching Assistance-helper provides verbal cues and/or touching/steadying and/or contact guard assistance as patient completes activity. Assistance may be provided throughout the activity or intermittently. 3-Partial/Moderate Assistance-helper does LESS THAN HALF the effort. [place] lifts, holds or supports trunk or limbs, but provides less than half the effort. 2-Substantial/Maximal Assistance-helper does MORE THAN HALF the effort. [place] lifts or holds trunk or limbs and provides more than half the effort. 2-Rexoxuiic-tuuwss does ALL the effort. Patient does none of the effort to complete the activity. Or, the assistance of 2 or more helpers is required for the patient to complete the activity. If activity was not attempted, code reason: 7-Patient Refused. 9-Not Applicable-not attempted and the patient did not perform the activity before the current illness, exacerbation or injury. 10-Not Attempted due to Environmental Limitations-(lack of equipment, weather restraints, etc.). 88-Not Attempted due to Medical Conditions or Safety Concerns. Roll Left & Right (QC): 3 Sit to Lying (QC): 3 Lying to Sitting/Side of Bed(Q: 3 Sit to Stand (QC): 3 Chair/Gvg-sf-Sezje Xfer(QC): 3 Toilet Transfer (QC): 3 Patient participated in functional transfer practice with use of FWW focusing on improving performance, sequence, safety and management of AD. Patient variable in functional performance, limited by symptoms, req CGA-Ana. Weight Bearing Right Lower Extremity: Right Weight Bearing/Tolerated Left Lower Extremity: Left Weight Bearing/Tolerated Gait Training Does the Patient Walk?: Yes Walk 10 feet (QC): 3 Walk 50 ft with 2 Turns(QC): 88 Walk 150 ft (QC): 88 Walking 10ft/uneven surface-QC: 88 Patient participated in functional gait training with use of FWW focusing on improving ability to maintain COG/CELE, stepping mechanics and management of AD. Patient achieve 10ftx2 and 20ftx1 with use of FWW, CGA-Ana. Exercises Patient perform supine exercise in bed including: AROM RLE heel slides, SLR, Hip ADD/ABD, ankle DF/PF x15 3 sets AAROM LLE heel slide, SLR, Hip ADD/ABD x3 sets of 10 AROM LLE Ankle DF/PF x15 3 sets Patient perform seated exercises including RLE AROM LAQ, hip march and ankle DF/PF x3 sets of 15 LLE AAROM LAQ, hip march x3 sets of 10 LLE AROM ankle DF/PF x3 sets of 15. Assessment Patient tolerated session well without adverse rxn, monitored for pain with RB for management. PT Billing Coordinator Goals Billing Coordinator Goals PT Shelter Goals Time Frame: Mar 02, 2023 Roll Left & Right (QC): 6 Sit to Lying (QC): 6 Lying-Sitting on Side/Bed(QC): 6 Sit to Stand (QC): 6 Chair/Tmd-rl-Uvgip Xfer(QC): 6 Toilet Transfer (QC): 6 Car Transfer (QC): 5 Does the Patient Walk: Yes Walk 10 feet (QC): 6 Walk 50ft with 2 Turns (QC): 6 Walk 150 ft (QC): 5 Walking 10ft on Uneven Surface: 6 1 Step (curb) (QC): 4 4 Steps (QC): 9 12 Steps (QC): 9 Picking up an Object (QC): 5 (with storage consultant) Does the Pt use WC or Scooter?: Yes Wheel 50 feet with 2 turns (QC: 6 Type: Manual Wheel 150 feet: 6 Type: Manual PT Plan Treatment/Plan Treatment Plan: Continue Plan of Care Treatment Plan: Bed Mobility, Education, Functional Activity [place], Functional Strength, Group Therapy, Gait, Safety, Therapeutic Exercise, Transfers Treatment Duration: Mar 02, 2023 Frequency: At least 5 of 7 days/Wk (IRF) Estimated Hrs Per Day: 1.5 hours per day Patient and/or Family Agrees t: Yes Time Time In: 1450 Time Out: 1550 DATE: Feb 20, 2023 Total Billed Treatment Time: 60 Total Billed Treatment 60 minute session 2 EX (30) 1 FA (15) 1 NM (15) MARIANN BARFIELD PT Feb 20, 2023 16:08
[2023-02-20 19:40] VITALS: BP 113/52
[2023-02-20] MEDS: RT-Ipratropium/Albuterol NEB 3 ML VIAL INH SCH (20:22)
[2023-02-20] MEDS: PATCH REMOVAL TP SCH (21:00)
[2023-02-20] MEDS: diphenhydrAMINE 25 MG TABLET PO PRN (21:01)
[2023-02-21] MEDS: oxyCODONE IMMEDIATE RELEASE 5 MG TABLET PO PRN ×3 (03:34→18:53)
--- NOTE | 2023-02-21 06:13 | PM&R Progress Note ---
Subjective HPI/CC On Admission Date Seen by Provider: Feb 21, 2023 Time Seen by Provider: 09:00 Subjective/Events-last exam 02/21/2023: Patient doing well Pain improved Working on bowels Very frail 02/20/2023: Much improved status Pain is better Increased pain medication is improved No falls 02/19/2023: Pain is an issue No other issues Slow recovery Urecholine ordered due to PVR amount 02/18/2023: No major new issues Pain is an issue since she has moving around a lot more in rehab Bowels haven't moved today so maintain bowel regimen to prevent narcotic bowel UTI treatment maintained 02/17/2023: Much improved Very tearful at times I tried to reassure Labs stable Pain is an issue UTI dx after in out cath obtained due to cloudy urine and martinez cath for 7 days Review of Systems General: Fatigue, Malaise Musculoskeletal: back pain Objective Exam Vital Signs Vital Signs Date Time Temp Pulse Resp B/P (MAP) Pulse Ox O2 Delivery O2 Flow Rate FiO2 02/21/23 20:56 94 Nasal Cannula 2.00 02/21/23 19:18 36.6 85 16 124/57 (79) 02/20/23 08:49 36 Capillary Refill : General Appearance: No Apparent Distress, WD/WN, Chronically ill, Thin, Other (frail) HEENT: PERRL/EOMI, Normal ENT Inspection, Pharynx Normal Neck: Full Range of Motion, Normal Inspection, Non Tender, Supple, Carotid Bruit Respiratory: Chest Non Tender, Lungs Clear, No Accessory Muscle Use, No Respiratory Distress, Decreased Breath Sounds Cardiovascular: Regular Rate, Rhythm, No Edema, No Gallop, No JVD, No Murmur, Normal Peripheral Pulses Gastrointestinal: Normal Bowel Sounds, No Organomegaly, No Pulsatile Mass, Non Tender, Soft Back: Normal Inspection, No CVA Tenderness, No Vertebral Tenderness Extremity: Normal Capillary Refill, Normal Inspection, Normal Range of Motion, Non Tender, No Calf Tenderness, No Pedal Edema Neurologic/Psychiatric: Alert, Oriented x3, 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 FIM Transfers Therapy Code Descriptions/Definitions Functional [place] Measure: 0=Not Assessed/NA 4=Minimal Assistance 1=Total Assistance 5=Supervision or Setup 2=Maximal Assistance 6=Modified [place] 3=Moderate Assistance 7=Complete IndependenceSCALE: Activities may be completed with or without assistive devices. 4-Dffpkpzvgl-zrecucr completes the activity by him/herself with no assistance from a helper. 5-Set-up or Clean-up Assistance-helper sets up or cleans up; patient completes activity. [place] assists only prior to or following the activity. 4-Supervision or Touching Assistance-helper provides verbal cues and/or to uching/steadying and/or contact guard assistance as patient completes activity. Assistance may be provided throughout the activity or intermittently. 3-Partial/Moderate Assistance-helper does LESS THAN HALF the effort. [place] lifts, holds or supports trunk or limbs, but provides less than half the effort. 2-Substantial/Maximal Assistance-helper does MORE THAN HALF the effort. [place] lifts or holds trunk or limbs and provides more than half the effort. 4-Wzpocbpqi-msvinj does ALL the effort. Patient does none of the effort to complete the activity. Or, the assistance of 2 or more helpers is required for the patient to complete the activity. If activity was not attempted, code reason: 7-Patient Refused. 9-Not Applicable-not attempted and the patient did not perform the activity before the current illness, exacerbation or injury. 10-Not Attempted due to Environmental Limitations-(lack of equipment, weather restraints, etc.). 88-Not Attempted due to Medical Conditions or Safety Concerns. Roll Left to Right (QC): 3 Sit to Lying (QC): 3 Sit to Stand (QC): 3 Chair/Toj-ny-Sxaax Xfer(QC): 3 Car Transfer (QC): 88 Gait Training Does the Patient Walk?: Yes Distance: 10' Walk 10 feet (QC): 3 Walk 50 ft with 2 Turns(QC): 88 Walk 150 ft (QC): 88 Walking 10ft/uneven surface-QC: 88 Gait Assistive Device: FWW Wheelchair Training Does the Pt Use a Wheelchair?: Yes Distance: 150' Wheel 50 ft with 2 turns (QC): 6 (using (B) LE's and UE's this date.) Wheel 150 ft (QC): 5 Type of Wheelchair: Manual Stair Training 1 Step (curb) (QC): 88 (UT due to pain) 4 Steps (QC): 88 (UT due to pain) 12 Steps (QC): 88 (UT due to pain) Balance Picking up an Object (QC): 88 (unsafe due to high pain in standing) ADL-Treatment Eating (QC): 6 Oral Hygiene (QC): 6 Bathing Location: L Arm, R Arm, L Upper Leg, R Upper Leg, Chest, Abdomen, Perineal Area Shower/Bathe Self (QC): 4 (supervision) Upper Body Dressing (QC): 5 Lower Body Dressing (QC): 3 (Min A) On/Off Footwear (QC): 3 (Min A) Toileting Hygiene (QC): 4 (CGA) Toilet Transfer (QC): 4 (CGA) Assessment/Plan Assessment and Plan Assess & Plan/Chief Complaint Assessment: Pelvic fracture sustained in a fall at home-Left inferior pubic ramus fracture with Left superior pubic ramus fracture extending into the medial wall of the acetabulum disrupting pelvic ring 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 CAD recent CABG Sternal and flank pressure wounds Smoker HTN AF on OAC Anemia chronic disease HLP Severe constipation we will initiate suppository and soapsuds enema now resolved Severe situational depression we started Cymbalta Thursday UTI dx 02/17/23 placed on Cefdinir-Proteus on prelim culture-may be ESBL considering her lengthy hospital stays in past 6 weeks Plan: Pain control ARU PT OT Martinez Start Cymbalta Bowel regimen 02/17/2023: UTI treatment Monitor closely 02/18/2023: Monitor closely Cefdinir 02/19/2023: Await UCx sensitivity Monitor closely 02/20/2023: Treat constipation with suppository and soapsuds enema 02/21/2023: Supportive care Monitor closely (1) Pelvic fracture MELIA DAVID DO Feb 21, 2023 06:13
[2023-02-21] MEDS: THIAMINE 100 MG (VITAMIN B-1) TAB PO SCH (06:49)
[2023-02-21] MEDS: THERAPEUTIC MULTIVITAMIN W/MINERALS TABLET PO SCH (06:49)
[2023-02-21] MEDS: CYCLOBENZAPRINE 10 MG TABLET PO PRN ×3 (06:49→20:38)
[2023-02-21] MEDS: BETHANECHOL 25 MG TABLET PO SCH ×4 (06:49→20:38)
[2023-02-21 07:59] VITALS: BP 117/54
[2023-02-21] MEDS: LIDOCAINE 4% PATCH TOP SCH (09:10)
[2023-02-21] MEDS: APIXABAN 5 MG TABLET PO SCH ×2 (09:10→20:38)
[2023-02-21] MEDS: CEFDINIR 300 MG CAPSULE PO SCH ×2 (09:10→20:38)
[2023-02-21] MEDS: amLODIPine 5 MG TABLET PO SCH (09:10)
[2023-02-21] MEDS: AMIODARONE 200 MG TABLET PO SCH (09:10)
[2023-02-21] MEDS: SENNA W/DOCUSATE TABLET PO SCH ×2 (09:10→20:37)
[2023-02-21] MEDS: DOCUSATE SODIUM 100 MG CAPSULE PO SCH ×2 (09:10→20:38)
[2023-02-21] MEDS: DULoxetine 30 MG CAPSULE PO SCH ×2 (09:10→20:38)
[2023-02-21] MEDS: VITAMIN D3 25 MCG (1,000 UNITS) TABLET PO SCH (09:10)
[2023-02-21] MEDS: CLOPIDOGREL 75 MG TABLET PO SCH (09:10)
[2023-02-21] MEDS: RT-BUDESONIDE NEBS 0.5 MG/2ML VIAL IH SCH ×2 (09:17→20:56)
[2023-02-21] MEDS: RT-Ipratropium/Albuterol NEB 3 ML VIAL INH SCH ×2 (09:17→20:56)
[2023-02-21] MEDS: LACTULOSE SYRUP 10GM/15ML 30ML UDC PO SCH ×2 (13:54→20:39)
[2023-02-21] MEDS: ONDANSETRON 4 MG ORAL DISSOLVE TABLET SL PRN (18:53)
[2023-02-21 19:18] VITALS: BP 124/57
[2023-02-21] MEDS: LORazepam 0.5 MG TABLET PO PRN (20:38)
[2023-02-21] MEDS: diphenhydrAMINE 25 MG TABLET PO PRN (20:38)
[2023-02-21] MEDS: PATCH REMOVAL TP SCH (20:40)
[2023-02-22] MEDS: oxyCODONE IMMEDIATE RELEASE 5 MG TABLET PO PRN ×3 (02:02→21:07)
[2023-02-22] MEDS: THIAMINE 100 MG (VITAMIN B-1) TAB PO SCH (06:31)
[2023-02-22] MEDS: THERAPEUTIC MULTIVITAMIN W/MINERALS TABLET PO SCH (06:31)
[2023-02-22] MEDS: BETHANECHOL 25 MG TABLET PO SCH ×4 (06:31→21:07)
[2023-02-22] MEDS: CYCLOBENZAPRINE 10 MG TABLET PO PRN ×2 (06:35→18:07)
--- NOTE | 2023-02-22 07:15 | PM&R Progress Note ---
Subjective HPI/CC On Admission Date Seen by Provider: Feb 22, 2023 Time Seen by Provider: 12:00 Subjective/Events-last exam 02/22/2023: Patient doing well Much improved Pain is much improved Urinary retention likely due to pain medication also Lactulose 3 times daily scheduled 02/21/2023: Patient doing well Pain improved Working on bowels Very frail 02/20/2023: Much improved status Pain is better Increased pain medication is improved No falls 02/19/2023: Pain is an issue No other issues Slow recovery Urecholine ordered due to PVR amount 02/18/2023: No major new issues Pain is an issue since she has moving around a lot more in rehab Bowels haven't moved today so maintain bowel regimen to prevent narcotic bowel UTI treatment maintained 02/17/2023: Much improved Very tearful at times I tried to reassure Labs stable Pain is an issue UTI dx after in out cath obtained due to cloudy urine and martinez cath for 7 days Review of Systems General: Fatigue, Malaise Objective Exam Vital Signs Vital Signs Date Time Temp Pulse Resp B/P (MAP) Pulse Ox O2 Delivery O2 Flow Rate FiO2 02/22/23 09:03 94 Nasal Cannula 2.00 02/22/23 07:44 36.2 84 16 127/60 (82) 02/20/23 08:49 36 Capillary Refill : General Appearance: No Apparent Distress, WD/WN, Chronically ill, Thin, Other (frail) HEENT: PERRL/EOMI, Normal ENT Inspection, Pharynx Normal Neck: Full Range of Motion, Normal Inspection, Non Tender, Supple, Carotid Bruit Respiratory: Chest Non Tender, Lungs Clear, No Accessory Muscle Use, No Respiratory Distress, Decreased Breath Sounds Cardiovascular: Regular Rate, Rhythm, No Edema, No Gallop, No JVD, No Murmur, Normal Peripheral Pulses Gastrointestinal: Normal Bowel Sounds, No Organomegaly, No Pulsatile Mass, Non Tender, Soft Back: Normal Inspection, No CVA Tenderness, No Vertebral Tenderness Extremity: Normal Capillary Refill, Normal Inspection, Normal Range of Motion, Non Tender, No Calf Tenderness, No Pedal Edema Neurologic/Psychiatric: Alert, Oriented x3, 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 FIM Transfers Therapy Code Descriptions/Definitions Functional [place] Measure: 0=Not Assessed/NA 4=Minimal Assistance 1=Total Assistance 5=Supervision or Setup 2=Maximal Assistance 6=Modified [place] 3=Moderate Assistance 7=Complete IndependenceSCALE: Activities may be completed with or without assistive devices. 3-Tmdwleevlm-wlnzjwp completes the activity by him/herself with no assistance from a helper. 5-Set-up or Clean-up Assistance-helper sets up or cleans up; patient completes activity. [place] assists only prior to or following the activity. 4-Supervision or Touching Assistance-helper provides verbal cues and/or touching/steadying and/or contact guard assistance as patient completes activity. Assistance may be provided throughout the activity or intermittently. 3-Partial/Moderate Assistance-helper does LESS THAN HALF the effort. [place] lifts, holds or supports trunk or limbs, but provides less than half the effort. 2-Substantial/Maximal Assistance-helper does MORE THAN HALF the effort. [place] lifts or holds trunk or limbs and provides more than half the effort. 6-Xsokjjoyu-rtmezi does ALL the effort. Patient does none of the effort to complete the activity. Or, the assistance of 2 or more helpers is required for the patient to complete the activity. If activity was not attempted, code reason: 7-Patient Refused. 9-Not Applicable-not attempted and the patient did not perform the activity before the current illness, exacerbation or injury. 10-Not Attempted due to Environmental Limitations-(lack of equipment, weather restraints, etc.). 88-Not Attempted due to Medical Conditions or Safety Concerns. Roll Left to Right (QC): 3 Sit to Lying (QC): 3 Sit to Stand (QC): 3 Chair/Tdd-se-Ewiwl Xfer(QC): 3 Car Transfer (QC): 88 Gait Training Does the Patient Walk?: Yes Distance: 10' Walk 10 feet (QC): 3 Walk 50 ft with 2 Turns(QC): 88 Walk 150 ft (QC): 88 Walking 10ft/uneven surface-QC: 88 Gait Assistive Device: FWW Wheelchair Training Does the Pt Use a Wheelchair?: Yes Distance: 150' Wheel 50 ft with 2 turns (QC): 6 (using (B) LE's and UE's this date.) Wheel 150 ft (QC): 5 Type of Wheelchair: Manual Stair Training 1 Step (curb) (QC): 88 (UT due to pain) 4 Steps (QC): 88 (UT due to pain) 12 Steps (QC): 88 (UT due to pain) Balance Picking up an Object (QC): 88 (unsafe due to high pain in standing) ADL-Treatment Eating (QC): 6 Oral Hygiene (QC): 6 Bathing Location: L Arm, R Arm, L Upper Leg, R Upper Leg, Chest, Abdomen, Perineal Area Shower/Bathe Self (QC): 4 (supervision) Upper Body Dressing (QC): 5 Lower Body Dressing (QC): 3 (Min A) On/Off Footwear (QC): 3 (Min A) Toileting Hygiene (QC): 4 (CGA) Toilet Transfer (QC): 4 (CGA) Assessment/Plan Assessment and Plan Assess & Plan/Chief Complaint Assessment: Pelvic fracture sustained in a fall at home-Left inferior pubic ramus fracture with Left superior pubic ramus fracture extending into the medial wall of the acetabulum disrupting pelvic ring 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 CAD recent CABG Sternal and flank pressure wounds Smoker HTN AF on OAC Anemia chronic disease HLP Severe constipation we will initiate suppository and soapsuds enema now resolved Severe situational depression we started Cymbalta Thursday UTI dx 02/17/23 placed on Cefdinir-Proteus on prelim culture-may be ESBL co nsidering her lengthy hospital stays in past 6 weeks Plan: Pain control ARU PT OT Martinez Start Cymbalta Bowel regimen 02/17/2023: UTI treatment Monitor closely 02/18/2023: Monitor closely Cefdinir 02/19/2023: Await UCx sensitivity Monitor closely 02/20/2023: Treat constipation with suppository and soapsuds enema 02/21/2023: Supportive care Monitor closely 02/22/2023: Supportive care Bowel regimen (1) Pelvic fracture MELIA DAVID DO Feb 22, 2023 07:15
[2023-02-22 07:44] VITALS: BP 127/60
[2023-02-22] MEDS: LIDOCAINE 4% PATCH TOP SCH (08:35)
[2023-02-22] MEDS: LACTULOSE SYRUP 10GM/15ML 30ML UDC PO SCH ×3 (08:35→21:08)
[2023-02-22] MEDS: DOCUSATE SODIUM 100 MG CAPSULE PO SCH ×2 (08:36→21:07)
[2023-02-22] MEDS: CEFDINIR 300 MG CAPSULE PO SCH (08:36)
[2023-02-22] MEDS: DULoxetine 30 MG CAPSULE PO SCH ×2 (08:36→21:07)
[2023-02-22] MEDS: amLODIPine 5 MG TABLET PO SCH (08:36)
[2023-02-22] MEDS: SENNA W/DOCUSATE TABLET PO SCH ×2 (08:36→21:09)
[2023-02-22] MEDS: CLOPIDOGREL 75 MG TABLET PO SCH (08:36)
[2023-02-22] MEDS: VITAMIN D3 25 MCG (1,000 UNITS) TABLET PO SCH (08:36)
[2023-02-22] MEDS: AMIODARONE 200 MG TABLET PO SCH (08:36)
[2023-02-22] MEDS: APIXABAN 5 MG TABLET PO SCH ×2 (08:36→21:07)
[2023-02-22] MEDS: RT-BUDESONIDE NEBS 0.5 MG/2ML VIAL IH SCH ×2 (08:43→21:17)
[2023-02-22] MEDS: RT-Ipratropium/Albuterol NEB 3 ML VIAL INH SCH ×2 (08:43→21:17)
[2023-02-22] MEDS: LORazepam 0.5 MG TABLET PO PRN ×2 (12:54→21:07)
[2023-02-22 20:06] VITALS: BP 122/57
[2023-02-22] MEDS: ONDANSETRON 4 MG ORAL DISSOLVE TABLET SL PRN (20:28)
[2023-02-22] MEDS: diphenhydrAMINE 25 MG TABLET PO PRN (21:07)
[2023-02-22] MEDS: PATCH REMOVAL TP SCH (21:09)
[2023-02-22] MEDS: MECLIZINE 25 MG TABLET PO PRN (22:32)
[2023-02-23] MEDS: CYCLOBENZAPRINE 10 MG TABLET PO PRN ×2 (04:31→16:32)
[2023-02-23 06:17] LABS: BASOPHILS # (AUTO) 0.1 10^3/uL (0.0-0.1); BASOPHILS % (AUTO) 1 % (0-10); EOSINOPHILS # (AUTO) 0.3 10^3/uL (0.0-0.3); EOSINOPHILS % (AUTO) 4 % (0-10); HEMATOCRIT 30 % (35-52); HEMOGLOBIN 9.2 g/dL (11.5-16.0); LYMPHOCYTES % (AUTO) 28 % (12-44); MEAN CORPUSCULAR HEMOGLOBIN 30 pg (25-34); MEAN CORPUSCULAR HGB CONC 31 g/dL (32-36); MEAN CORPUSCULAR VOLUME 95 fL (80-99); MEAN PLATELET VOLUME 9.6 fL (9.0-12.2); MONOCYTES # (AUTO) 0.8 10^3/uL (0.0-1.0); MONOCYTES % (AUTO) 11 % (0-12); NEUTROPHILS % (AUTO) 55 % (42-75); PLATELET COUNT 359 10^3/uL (130-400); WHITE BLOOD COUNT 7.2 10^3/uL (4.3-11.0)
[2023-02-23 06:35] LABS: BILIRUBIN,TOTAL 0.2 MG/DL (0.1-1.0); CALCIUM 8.6 MG/DL (8.5-10.1); CREATININE SERUM 0.8 MG/DL (0.60-1.30); TOTAL PROTEIN 6.1 GM/DL (6.4-8.2)
[2023-02-23] MEDS: THIAMINE 100 MG (VITAMIN B-1) TAB PO SCH (06:51)
[2023-02-23] MEDS: BETHANECHOL 25 MG TABLET PO SCH ×4 (06:51→20:26)
[2023-02-23] MEDS: THERAPEUTIC MULTIVITAMIN W/MINERALS TABLET PO SCH (06:51)
[2023-02-23] MEDS: RT-BUDESONIDE NEBS 0.5 MG/2ML VIAL IH SCH (07:03)
[2023-02-23] MEDS: RT-Ipratropium/Albuterol NEB 3 ML VIAL INH SCH (07:03)
--- NOTE | 2023-02-23 07:11 | PM&R Progress Note ---
Subjective HPI/CC On Admission Date Seen by Provider: Feb 23, 2023 Time Seen by Provider: 10:00 Subjective/Events-last exam 02/23/2023: Doing much better BM loose now so refused Lactulose Pain improved Less urinary retention 02/22/2023: Patient doing well Much improved Pain is much improved Urinary retention likely due to pain medication also Lactulose 3 times daily scheduled 02/21/2023: Patient doing well Pain improved Working on bowels Very frail 02/20/2023: Much improved status Pain is better Increased pain medication is improved No falls 02/19/2023: Pain is an issue No other issues Slow recovery Urecholine ordered due to PVR amount 02/18/2023: No major new issues Pain is an issue since she has moving around a lot more in rehab Bowels haven't moved today so maintain bowel regimen to prevent narcotic bowel UTI treatment maintained 02/17/2023: Much improved Very tearful at times I tried to reassure Labs stable Pain is an issue UTI dx after in out cath obtained due to cloudy urine and martinez cath for 7 days Review of Systems General: Fatigue, Malaise Objective Exam Vital Signs Vital Signs Date Time Temp Pulse Resp B/P (MAP) Pulse Ox O2 Delivery O2 Flow Rate FiO2 02/23/23 09:46 94 Nasal Cannula 2.00 02/23/23 08:00 36.3 86 16 126/73 (90) 02/20/23 08:49 36 Capillary Refill : General Appearance: No Apparent Distress, WD/WN, Chronically ill, Thin, Other (frail) HEENT: PERRL/EOMI, Normal ENT Inspection, Pharynx Normal Neck: Full Range of Motion, Normal Inspection, Non Tender, Supple, Carotid Bruit Respiratory: Chest Non Tender, Lungs Clear, No Accessory Muscle Use, No Respiratory Distress, Decreased Breath Sounds Cardiovascular: Regular Rate, Rhythm, No Edema, No Gallop, No JVD, No Murmur, Normal Peripheral Pulses Gastrointestinal: Normal Bowel Sounds, No Organomegaly, No Pulsatile Mass, Non Tender, Soft Back: Normal Inspection, No CVA Tenderness, No Vertebral Tenderness Extremity: Normal Capillary Refill, Normal Inspection, Normal Range of Motion, Non Tender, No Calf Tenderness, No Pedal Edema Neurologic/Psychiatric: Alert, 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 FIM Transfers Therapy Code Descriptions/Definitions Functional [place] Measure: 0=Not Assessed/NA 4=Minimal Assistance 1=Total Assistance 5=Supervision or Setup 2=Maximal Assistance 6=Modified [place] 3=Moderate Assistance 7=Complete IndependenceSCALE: Activities may be completed with or without assistive devices. 3-Affhfzxggt-qmbemtu completes the activity by him/herself with no assistance from a helper. 5-Set-up or Clean-up Assistance-helper sets up or cleans up; patient completes activity. [place] assists only prior to or following the activity. 4-Supervision or Touching Assistance-helper provides verbal cues and/or touching/steadying and/or contact guard assistance as patient completes activity. Assistance may be provided throughout the activity or intermittently. 3-Partial/Moderate Assistance-helper does LESS THAN HALF the effort. [place] lifts, holds or supports trunk or limbs, but provides less than half the effort. 2-Substantial/Maximal Assistance-helper does MORE THAN HALF the effort. [place] lifts or holds trunk or limbs and provides more than half the effort. 4-Crjjinbpd-hawtjr does ALL the effort. Patient does none of the effort to complete the activity. Or, the assistance of 2 or more helpers is required for the patient to complete the activity. If activity was not attempted, code reason: 7-Patient Refused. 9-Not Applicable-not attempted and the patient did not perform the activity before the current illness, exacerbation or injury. 10-Not Attempted due to Environmental Limitations-(lack of equipment, weather restraints, etc.). 88-Not Attempted due to Medical Conditions or Safety Concerns. Roll Left to Right (QC): 3 Sit to Lying (QC): 3 Sit to Stand (QC): 3 Chair/Bfo-jr-Gdlpd Xfer(QC): 3 Car Transfer (QC): 88 Gait Training Does the Patient Walk?: Yes Distance: 10' Walk 10 feet (QC): 3 Walk 50 ft with 2 Turns(QC): 88 Walk 150 ft (QC): 88 Walking 10ft/uneven surface-QC: 88 Gait Assistive Device: FWW Wheelchair Training Does the Pt Use a Wheelchair?: Yes Distance: 150' Wheel 50 ft with 2 turns (QC): 6 (using (B) LE's and UE's this date.) Wheel 150 ft (QC): 5 Type of Wheelchair: Manual Stair Training 1 Step (curb) (QC): 88 (UT due to pain) 4 Steps (QC): 88 (UT due to pain) 12 Steps (QC): 88 (UT due to pain) Balance Picking up an Object (QC): 88 (unsafe due to high pain in standing) ADL-Treatment Eating (QC): 6 Oral Hygiene (QC): 6 Bathing Location: L Arm, R Arm, L Upper Leg, R Upper Leg, Chest, Abdomen, Perineal Area Shower/Bathe Self (QC): 4 (supervision) Upper Body Dressing (QC): 5 Lower Body Dressing (QC): 3 (Min A) On/Off Footwear (QC): 3 (Min A) Toileting Hygiene (QC): 4 (CGA) Toilet Transfer (QC): 4 (CGA) Assessment/Plan Assessment and Plan Assess & Plan/Chief Complaint Assessment: Pelvic fracture sustained in a fall at home-Left inferior pubic ramus fracture with Left superior pubic ramus fracture extending into the medial wall of the acetabulum disrupting pelvic ring 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 CAD recent CABG Sternal and flank pressure wounds Smoker HTN AF on OAC Anemia chronic disease HLP Severe constipation we will initiate suppository and soapsuds enema now resolved Severe situational depression we started Cymbalta Thursday UTI dx 02/17/23 placed on Cefdinir-Proteus on prelim culture-may be ESBL considering her lengthy hospital stays in past 6 weeks Plan: Pain control ARU PT OT [place] Start Cymbalta Bowel regimen 02/17/2023: UTI treatment Monitor closely 02/18/2023: Monitor closely Cefdinir 02/19/2023: Await UCx sensitivity Monitor closely 02/20/2023: Treat constipation with suppository and soapsuds enema 02/21/2023: Supportive care Monitor closely 02/22/2023: Supportive care Bowel regimen 02/23/2023: Improved status ABx (1) Pelvic fracture MELIA DAVID DO Feb 23, 2023 07:11
[2023-02-23] MEDS: oxyCODONE IMMEDIATE RELEASE 5 MG TABLET PO PRN ×2 (07:39→20:26)
[2023-02-23 08:00] VITALS: BP 126/73
[2023-02-23] MEDS: AMIODARONE 200 MG TABLET PO SCH (09:07)
[2023-02-23] MEDS: DOCUSATE SODIUM 100 MG CAPSULE PO SCH ×2 (09:07→20:26)
[2023-02-23] MEDS: APIXABAN 5 MG TABLET PO SCH ×2 (09:07→20:26)
[2023-02-23] MEDS: SENNA W/DOCUSATE TABLET PO SCH ×2 (09:07→20:26)
[2023-02-23] MEDS: VITAMIN D3 25 MCG (1,000 UNITS) TABLET PO SCH (09:07)
[2023-02-23] MEDS: DULoxetine 30 MG CAPSULE PO SCH ×2 (09:07→20:26)
[2023-02-23] MEDS: CLOPIDOGREL 75 MG TABLET PO SCH (09:07)
[2023-02-23] MEDS: amLODIPine 5 MG TABLET PO SCH (09:07)
[2023-02-23] MEDS: LACTULOSE SYRUP 10GM/15ML 30ML UDC PO SCH ×3 (09:08→20:30)
[2023-02-23] MEDS: LIDOCAINE 4% PATCH TOP SCH (09:09)
[2023-02-23] MEDS: LORazepam 0.5 MG TABLET PO PRN ×2 (09:18→20:26)
--- NOTE | 2023-02-23 12:36 | Occupational Ther Daily Note ---
OT Current Status-Daily Note Subjective Pt alert, lying in bed. Pt agrees to therapy. Pt c/o of hip pain, does not rate. Mental Status/Objective Patient Orientation: Person, Place, Time, Situation Attachments: IV, Oxygen ADL-Treatment Pt agrees to shower. Independent for toilet transfer and toileting using FWW and grabbars. Set up for shower then pt sat 100% of the time on shower bench to complete shower using grabbars, hand held shower and LH sponge. Set up for UBD. Pt thread feet into lower body clothing by self then SBA while pt hiked pants over hips. Pt doffed socks by self then assist to don due to fatigue. Sitting at sink, pt completes oral care by self. Independent with eating. Therapy Code Descriptions/Definitions Functional [place] Measure: 0=Not Assessed/NA 4=Minimal Assistance 1=Total Assistance 5=Supervision or Setup 2=Maximal Assistance 6=Modified [place] 3=Moderate Assistance 7=Complete IndependenceSCALE: Activities may be completed with or without assistive devices. 4-Gxrqlydwot-oascenn completes the activity by him/herself with no assistance from a helper. 5-Set-up or Clean-up Assistance-helper sets up or cleans up; patient completes activity. [place] assists only prior to or following the activity. 4-Supervision or Touching Assistance-helper provides verbal cues and/or touching/steadying and/or contact guard assistance as patient completes activity. Assistance may be provided throughout the activity or intermittently. 3-Partial/Moderate Assistance-helper does LESS THAN HALF the effort. [place] lifts, holds or supports trunk or limbs, but provides less than half the effort. 2-Substantial/Maximal Assistance-helper does MORE THAN HALF the effort. [place] lifts or holds trunk or limbs and provides more than half the effort. 9-[place]m-egjmjr does ALL the effort. Patient does none of the effort to complete the activity. Or, the assistance of 2 or more helpers is required for the patient to complete the activity. If activity was not attempted, code reason: 7-Patient Refused. 9-Not Applicable-not attempted and the patient did not perform the activity before the current illness, exacerbation or injury. 10-Not Attempted due to Environmental Limitations-(lack of equipment, weather restraints, etc.). 88-Not Attempted due to Medical Conditions or Safety Concerns. Eating (QC): 6 Oral Hygiene (QC): 6 Shower/Bathe Self (QC): 5 Upper Body Dressing (QC): 5 Lower Body Dressing (QC): 4 On/Off Footwear: 3 (mod A) Toileting Hygiene (QC): 6 Toilet Transfer (QC): 6 Other Treatment Discussed the benefits of exercises and pt will complete at next OT session. After session, pt sitting in recliner eating lunch with call light/phone in reach. All needs met in room. OT Short Term Goals Short Term Goals Time Frame: Feb 27, 2023 Toileting hygiene: 4 Upper body dressin Lower body dressin Putting on/taking off footwear: 4 OT Fdc Goals Fdc Goals Time Frame: Mar 13, 2023 Acute change in mental status: 0 Inattention: 0 Disorganized thinkin Altered level of consciousness: 0 Eating (QC): 6 Oral Hygiene (QC): 6 Toileting Hygiene (QC): 6 Shower/Bathe Self (QC): 6 Upper Body Dressing (QC): 6 Lower Body Dressing (QC): 6 On/Off Footwear (QC): 6 Additional Goals: 1-Demonstrate ADL Tasks, 2-Verbalize Understanding, 3- ImproveStrength/[place] 1=Demonstrate adherence to instructed precautions during ADL tasks. 2=Patient will verbalize/demonstrate understanding of assistive devices/modifications for ADL. 3=Patient will improve strength/tolerance for activity to enable patient to perform ADL's. OT Education/Plan Problem List/Assessment Assessment: Decreased Activ Tolerance, Decreased UE Strength, Impaired Bed Mobility, Impaired Self-Care Skills Discharge Recommendations Plan/Recommendations: Continue POC Treatment Plan/Plan of Care Patient would benefit from OT for education, treatment and training to promote independence in ADL's, mobility, safety and/or upper extremity function for ADL's. Plan of Care: ADL Retraining, Functional Mobility, Group Exercise/Act as Ind, UE Funct Exercise/Act Treatment Duration: Mar 13, 2023 Frequency: At least 5 of 7 days/Wk (IRF) Estimated Hrs Per Day: 1.5 hours per day Rehab Potential: Good Time Start Time: 11:00 Stop Time: 11:30 DATE: Feb 23, 2023 Total Time Billed (hr/min): 90 Billed Treatment Time 1 visit-ADL 5 (80 min) EX 1 (10 min) ANETA ORELLANA Feb 23, 2023 12:36
--- NOTE | 2023-02-23 12:58 | Physical Therapy Daily Note ---
PT Daily Note-Current Subjective Pt sitting up upon arrival. Pt agrees to PT. Pain Numeric Pain Scale: 5-Moderate Pain Location: Left Location Body Site: Pelvic Pain Description: Ache Section J - Health Conditions 1. Rarely or not at all 2. Occasionally 3. Frequently 4. Almost constantly 8. Unable to answer Pain Effect on Sleep: 3 Pain Interference with Therapy: 3 Pain Interference w/Day-to-Day: 3 Mental Status Patient Orientation: Person, Place, Situation Transfers SCALE: Activities may be completed with or without assistive devices. 4-Rwtcurkstj-ezwpago completes the activity by him/herself with no assistance from a helper. 5-Set-up or Clean-up Assistance-helper sets up or cleans up; patient completes activity. [place] assists only prior to or following the activity. 4-Supervision or Touching Assistance-helper provides verbal cues and/or touc idris/steadying and/or contact guard assistance as patient completes activity. Assistance may be provided throughout the activity or intermittently. 3-Partial/Moderate Assistance-helper does LESS THAN HALF the effort. [place] lifts, holds or supports trunk or limbs, but provides less than half the effort. 2-Substantial/Maximal Assistance-helper does MORE THAN HALF the effort. [place] lifts or holds trunk or limbs and provides more than half the effort. 1-Cbhnjpvlw-shywjq does ALL the effort. Patient does none of the effort to complete the activity. Or, the assistance of 2 or more helpers is required for the patient to complete the activity. If activity was not attempted, code reason: 7-Patient Refused. 9-Not Applicable-not attempted and the patient did not perform the activity before the current illness, exacerbation or injury. 10-Not Attempted due to Environmental Limitations-(lack of equipment, weather restraints, etc.). 88-Not Attempted due to Medical Conditions or Safety Concerns. Sit to Stand (QC): 4 Toilet Transfer (QC): 4 Weight Bearing Right Lower Extremity: Right Weight Bearing/Tolerated Left Lower Extremity: Left Weight Bearing/Tolerated Gait Training Does the Patient Walk?: Yes Distance: 50'x4 Walk 10 feet (QC): 4 Walk 50 ft with 2 Turns(QC): 4 Gait Assistive Device: FWW Treatments TF to standing and amb to BR, completing pericare indep. Pt amb in hallway, taking RB every 50' as needed. Pt returns to room to rest Supine in bed at end of tx. All needs met, call light in hand. Assessment Current Status: Good Progress Pain limits walk but pt tries to push through as she is able. PT Assisted Goals Molder Foam Rubber Goals PT Molder Foam Rubber Goals Time Frame: Mar 02, 2023 Roll Left & Right (QC): 6 Sit to Lying (QC): 6 Lying-Sitting on Side/Bed(QC): 6 Sit to Stand (QC): 6 Chair/Jzw-gs-Eluxn Xfer(QC): 6 Toilet Transfer (QC): 6 Car Transfer (QC): 5 Does the Patient Walk: Yes Walk 10 feet (QC): 6 Walk 50ft with 2 Turns (QC): 6 Walk 150 ft (QC): 5 Walking 10ft on Uneven Surface: 6 1 Step (curb) (QC): 4 4 Steps (QC): 9 12 Steps (QC): 9 Picking up an Object (QC): 5 (with learning and development intern) Does the Pt use WC or Scooter?: Yes Wheel 50 feet with 2 turns (QC: 6 Type: Manual Wheel 150 feet: 6 Type: Manual PT Plan Problem List Problem List: Activity Tolerance, Functional Strength Treatment/Plan Treatment Plan: Continue Plan of Care Treatment Plan: Bed Mobility, Education, Functional Activity [place], Functional Strength, Group Therapy, Gait, Safety, Therapeutic Exercise, Transfers Treatment Duration: Mar 02, 2023 Frequency: At least 5 of 7 days/Wk (IRF) Estimated Hrs Per Day: 1.5 hours per day Patient and/or Family Agrees t: Yes Safety Risks/Education Patient Education: Gait Training, Transfer Techniques, Correct Positioning Teaching Recipient: Patient Teaching Methods: Discussion Response to Teaching: Verbalize Understanding Time Time In: 0830 Time Out: 0900 DATE: Feb 23, 2023 Total Billed Treatment Time: 30 Total Billed Treatment 1, GT x2 (30m) JENNIFER HENDERSON AUTOMOTIVE PROFESSIONAL Feb 23, 2023 12:58
[2023-02-23] MEDS: PHENAZOPYRIDINE 100 MG TABLET PO SCH ×3 (13:24→18:41)
--- NOTE | 2023-02-23 13:50 | Occupational Ther Daily Note ---
OT Current Status-Daily Note Subjective Pt consented to OT session this PM Pain Numeric Pain Scale: 6 Location: Left Location Body Site: Hip Pain Description: Ache, Dull, Burning Mental Status/Objective Patient Orientation: Person, Place, Time, Situation Attachments: IV, Oxygen ADL-Treatment Therapy Code Descriptions/Definitions Functional [place] Measure: 0=Not Assessed/NA 4=Minimal Assistance 1=Total Assistance 5=Supervision or Setup 2=Maximal Assistance 6=Modified [place] 3=Moderate Assistance 7=Complete IndependenceSCALE: Activities may be completed with or without assistive devices. 3-Xtcxqeynhc-rxfnueq completes the activity by him/herself with no assistance from a helper. 5-Set-up or Clean-up Assistance-helper sets up or cleans up; patient completes activity. [place] assists only prior to or following the activity. 4-Supervision or Touching Assistance-helper provides verbal cues and/or touching/steadying and/or contact guard assistance as patient completes activity. Assistance may be provided throughout the activity or intermittently. 3-Partial/Moderate Assistance-helper does LESS THAN HALF the effort. [place] lifts, holds or supports trunk or limbs, but provides less than half the effort. 2-Substantial/Maximal Assistance-helper does MORE THAN HALF the effort. [place] lifts or holds trunk or limbs and provides more than half the effort. 8-Pgqkuotqs-gidjue does ALL the effort. Patient does none of the effort to complete the activity. Or, the assistance of 2 or more helpers is required for the patient to complete the activity. If activity was not attempted, code reason: 7-Patient Refused. 9-Not Applicable-not attempted and the patient did not perform the activity b efore the current illness, exacerbation or injury. 10-Not Attempted due to Environmental Limitations-(lack of equipment, weather restraints, etc.). 88-Not Attempted due to Medical Conditions or Safety Concerns. Other Treatment Pt performed theraband exercises while seated in bedside chair with yellow theraband performing 15 reps x 2 sets in all available planes of motion to increase BUE strength, ROM, endurance, activity tolerance, and aerobic capacity to increase (I) with ADLs and IADLs. Pt required intermittent rest breaks secondary to fatigue. Pt reported no pain while performing exercises. Pt performed BUE strengthening exercises while seated in bedside chair with red flex bar performing 15 reps x 2 sets performing wrist pronation/supination and wrist flex/ext to increase BUE strength, endurance, activity tolerance, and aerobic capacity to increase (I) with ADLs and IADLs. Pt required intermittent rest breaks secondary to fatigue. Pt reported no pain while performing exercises. Education OT Patient Education: Energy conservation, Exercise program, Progress toward Goal/Update tx plan, Purpose of tx/functional activities, Rehab process Teaching Recipient: Patient Teaching Methods: Demonstration, Discussion Response to Teaching: Verbalize Understanding, Return Demonstration OT Short Term Goals Short Term Goals Time Frame: Feb 27, 2023 Toileting hygiene: 4 Upper body dressin Lower body dressin Putting on/taking off footwear: 4 OT Mcfp Goals Operations And Maintenance Specialist Goals Time Frame: Mar 13, 2023 Acute change in mental status: 0 Inattention: 0 Disorganized thinkin Altered level of consciousness: 0 Eating (QC): 6 Oral Hygiene (QC): 6 Toileting Hygiene (QC): 6 Shower/Bathe Self (QC): 6 Upper Body Dressing (QC): 6 Lower Body Dressing (QC): 6 On/Off Footwear (QC): 6 Additional Goals: 1-Demonstrate ADL Tasks, 2-Verbalize Understanding, 3- ImproveStrength/[place] 1=Demonstrate adherence to instructed precautions during ADL tasks. 2=Patient will verbalize/demonstrate understanding of assistive devices/modifications for ADL. 3=Patient will improve strength/tolerance for activity to enable patient to perform ADL's. OT Education/Plan Discharge Recommendations Plan/Recommendations: Continue POC Treatment Plan/Plan of Care Treatment,Training & Education: Yes Patient would benefit from OT for education, treatment and training to promote independence in ADL's, mobility, safety and/or upper extremity function for ADL's. Plan of Care: ADL Retraining, Functional Mobility, Group Exercise/Act as Ind, UE Funct Exercise/Act Treatment Duration: Mar 13, 2023 Frequency: At least 5 of 7 days/Wk (IRF) Estimated Hrs Per Day: 1.5 hours per day Rehab Potential: Good Ending session, pt remained seated in bedside chair with needs/call light in reach and NC donned at 2L/min. Time Start Time: 13:30 Stop Time: 14:00 DATE: Feb 23, 2023 Total Time Billed (hr/min): 30 Billed Treatment Time 30 minutes EX 2 EILEEN ARIAS Feb 23, 2023 13:50
--- NOTE | 2023-02-23 16:06 | Physical Therapy Daily Note ---
PT Daily Note-Current Subjective Pt sitting in recliner upon arrival. Pt agrees to PT. Pain Numeric Pain Scale: 5-Moderate Pain Location: Left Location Body Site: Hip Pain Description: Ache Section J - Health Conditions 1. Rarely or not at all 2. Occasionally 3. Frequently 4. Almost constantly 8. Unable to answer Pain Effect on Sleep: 3 Pain Interference with Therapy: 3 Pain Interference w/Day-to-Day: 3 Mental Status Patient Orientation: Person, Place, Time, Situation Transfers SCALE: Activities may be completed with or without assistive devices. 9-Jrrmdarern-ootlkhr completes the activity by him/herself with no assistance from a helper. 5-Set-up or Clean-up Assistance-helper sets up or cleans up; patient completes activity. [place] assists only prior to or following the activity. 4-Supervision or Touching Assistance-helper provides verbal cues and/or touching/steadying and/or contact guard assistance as patient completes activity. Assistance may be provided throughout the activity or intermittently. 3-Partial/Moderate Assistance-helper does LESS THAN HALF the effort. [place] lifts, holds or supports trunk or limbs, but provides less than half the effort. 2-Substantial/Maximal Assistance-helper does MORE THAN HALF the effort. [place] lifts or holds trunk or limbs and provides more than half the effort. 0-Aibmqghlf-lkqbfy does ALL the effort. Patient does none of the effort to complete the activity. Or, the assistance of 2 or more helpers is required for the patient to complete the activity. If activity was not attempted, code reason: 7-Patient Refused. 9-Not Applicable-not attempted and the patient did not perform the activity before the current illness, exacerbation or injury. 10-Not Attempted due to Environmental Limitations-(lack of equipment, weather restraints, etc.). 88-Not Attempted due to Medical Conditions or Safety Concerns. Weight Bearing Right Lower Extremity: Right Weight Bearing/Tolerated Left Lower Extremity: Left Weight Bearing/Tolerated Exercises Supine Ex: Ankle pumps, Quad Set, Glut sets, Heel Slides, Short Arc Quads, Hip abd/add Supine Reps: 10 Seated Therapy Exercises: Ankle pumps, Long arc quads, Hip flexion, Hip abd/add, Glut set Seated Reps: 10 Treatments FURNITURE FINISHER HELPER issues and reviews written HEP for Supine & Seated EX w/RB as needed. Pt resting at end of tx w/all needs met, call light in hand. Assessment Current Status: Fair Progress Pain and fatigue limit afternoon tx. PT Ship'S Engineer Goals Ship'S Engineer Goals PT Ship'S Engineer Goals Time Frame: Mar 02, 2023 Roll Left & Right (QC): 6 Sit to Lying (QC): 6 Lying-Sitting on Side/Bed(QC): 6 Sit to Stand (QC): 6 Chair/Dxz-xr-Ebewo Xfer(QC): 6 Toilet Transfer (QC): 6 Car Transfer (QC): 5 Does the Patient Walk: Yes Walk 10 feet (QC): 6 Walk 50ft with 2 Turns (QC): 6 Walk 150 ft (QC): 5 Walking 10ft on Uneven Surface: 6 1 Step (curb) (QC): 4 4 Steps (QC): 9 12 Steps (QC): 9 Picking up an Object (QC): 5 (with commercial technician) Does the Pt use WC or Scooter?: Yes Wheel 50 feet with 2 turns (QC: 6 Type: Manual Wheel 150 feet: 6 Type: Manual PT Plan Problem List Problem List: Activity Tolerance Treatment/Plan Treatment Plan: Continue Plan of Care Treatment Plan: Bed Mobility, Education, Functional Activity [place], Functional Strength, Group Therapy, Gait, Safety, Therapeutic Exercise, Transfers Treatment Duration: Mar 02, 2023 Frequency: At least 5 of 7 days/Wk (IRF) Estimated Hrs Per Day: 1.5 hours per day Patient and/or Family Agrees t: Yes Safety Risks/Education Patient Education: Issued Written HEP, Correct Positioning Teaching Recipient: Patient Teaching Methods: Demonstration, Discussion Response to Teaching: Verbalize Understanding, Return Demonstration Time Time In: 1300 Time Out: 1330 DATE: Feb 23, 2023 Total Billed Treatment Time: 30 Total Billed Treatment 1, EX x2 (30m) JENNIFER HENDERSON FURNITURE FINISHER HELPER Feb 23, 2023 16:06
[2023-02-23] MEDS ORDERED: CEFDINIR 300 MG CAPSULE PO ONE (16:15)
[2023-02-23] MEDS: ONDANSETRON 4 MG ORAL DISSOLVE TABLET SL PRN (17:17)
[2023-02-23 18:47] VITALS: BP 112/56
[2023-02-23 19:45] VITALS: BP 113/56
[2023-02-23] MEDS: CEFDINIR 300 MG CAPSULE PO SCH (20:26)
[2023-02-23] MEDS: diphenhydrAMINE 25 MG TABLET PO PRN (20:26)
[2023-02-23] MEDS: PATCH REMOVAL TP SCH (20:30)
[2023-02-24] MEDS: oxyCODONE IMMEDIATE RELEASE 5 MG TABLET PO PRN ×3 (00:42→20:37)
[2023-02-24] MEDS: RT-BUDESONIDE NEBS 0.5 MG/2ML VIAL IH SCH ×3 (01:32→21:40)
[2023-02-24] MEDS: RT-Ipratropium/Albuterol NEB 3 ML VIAL INH SCH ×3 (01:33→21:39)
--- NOTE | 2023-02-24 05:04 | PM&R Progress Note ---
Subjective HPI/CC On Admission Date Seen by Provider: Feb 24, 2023 Time Seen by Provider: 10:30 Subjective/Events-last exam 02/24/2023: Much improved pain Ambulating around a lot better No falls Bowels are moving 02/23/2023: Doing much better BM loose now so refused Lactulose Pain improved Less urinary retention 02/22/2023: Patient doing well Much improved Pain is much improved Urinary retention likely due to pain medication also Lactulose 3 times daily scheduled 02/21/2023: Patient doing well Pain improved Working on bowels Very frail 02/20/2023: Much improved status Pain is better Increased pain medication is improved No falls 02/19/2023: Pain is an issue No other issues Slow recovery Urecholine ordered due to PVR amount 02/18/2023: No major new issues Pain is an issue since she has moving around a lot more in rehab Bowels haven't moved today so maintain bowel regimen to prevent narcotic bowel UTI treatment maintained 02/17/2023: Much improved Very tearful at times I tried to reassure Labs stable Pain is an issue UTI dx after in out cath obtained due to cloudy urine and martinez cath for 7 days Review of Systems General: Fatigue, Malaise Objective Exam Vital Signs Vital Signs Date Time Temp Pulse Resp B/P (MAP) Pulse Ox O2 Delivery O2 Flow Rate FiO2 02/24/23 09:57 Nasal Cannula 2.00 02/24/23 09:49 82 131/58 (82) 02/24/23 07:47 36.8 18 94 02/23/23 18:47 36 Capillary Refill : General Appearance: No Apparent Distress, WD/WN, Chronically ill, Thin, Other (frail) HEENT: PERRL/EOMI, Normal ENT Inspection, Pharynx Normal Neck: Full Range of Motion, Normal Inspection, Non Tender, Supple, Carotid Bruit Respiratory: Chest Non Tender, Lungs Clear, No Accessory Muscle Use, No Respiratory Distress, Decreased Breath Sounds Cardiovascular: Regular Rate, Rhythm, No Edema, No Gallop, No JVD, No Murmur, Normal Peripheral Pulses Gastrointestinal: Normal Bowel Sounds, No Organomegaly, No Pulsatile Mass, Non Tender, Soft Back: Normal Inspection, No CVA Tenderness, No Vertebral Tenderness Extremity: Normal Capillary Refill, Normal Inspection, Normal Range of Motion, Non Tender, No Calf Tenderness, No Pedal Edema Neurologic/Psychiatric: Alert, Oriented x3, digital court reporter II-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 FIM Transfers Therapy Code Descriptions/Definitions Functional [place] Measure: 0=Not Assessed/NA 4=Minimal Assistance 1=Total Assistance 5=Supervision or Setup 2=Maximal Assistance 6=Modified [place] 3=Moderate Assistance 7=Complete IndependenceSCALE: Activities may be completed with or without assistive devices. 7-Awvyzbvmjx-xyguneh completes the activity by him/herself with no assistance from a helper. 5-Set-up or Clean-up Assistance-helper sets up or cleans up; patient completes activity. [place] assists only prior to or following the activity. 4-Supervision or Touching Assistance-helper provides verbal cues and/or touching/steadying and/or contact guard assistance as patient completes activity. Assistance may be provided throughout the activity or intermittently. 3-Partial/Moderate Assistance-helper does LESS THAN HALF the effort. [place] lifts, holds or supports trunk or limbs, but provides less than half the effort. 2-Substantial/Maximal Assistance-helper does MORE THAN HALF the effort. [place] lifts or holds trunk or limbs and provides more than half the effort. 9-Zekcadtdv-swfkmb does ALL the effort. Patient does none of the effort to complete the activity. Or, the assistance of 2 or more helpers is required for the patient to complete the activity. If activity was not attempted, code reason: 7-Patient Refused. 9-Not Applicable-not attempted and the patient did not perform the activity before the current illness, exacerbation or injury. 10-Not Attempted due to Environmental Limitations-(lack of equipment, weather restraints, etc.). 88-Not Attempted due to Medical Conditions or Safety Concerns. Roll Left to Right (QC): 3 Sit to Lying (QC): 3 Sit to Stand (QC): 4 Chair/Yzb-pn-Spobs Xfer(QC): 3 Car Transfer (QC): 88 Gait Training Does the Patient Walk?: Yes Distance: 50'x4 Walk 10 feet (QC): 4 Walk 50 ft with 2 Turns(QC): 4 Walk 150 ft (QC): 88 Walking 10ft/uneven surface-QC: 88 Gait Assistive Device: FWW Wheelchair Training Does the Pt Use a Wheelchair?: Yes Distance: 150' Wheel 50 ft with 2 turns (QC): 6 (using (B) LE's and UE's this date.) Wheel 150 ft (QC): 5 Type of Wheelchair: Manual Stair Training 1 Step (curb) (QC): 88 (UT due to pain) 4 Steps (QC): 88 (UT due to pain) 12 Steps (QC): 88 (UT due to pain) Balance Picking up an Object (QC): 88 (unsafe due to high pain in standing) ADL-Treatment Eating (QC): 6 Oral Hygiene (QC): 6 Bathing Location: L Arm, R Arm, L Upper Leg, R Upper Leg, Chest, Abdomen, Perineal Area Shower/Bathe Self (QC): 5 Upper Body Dressing (QC): 5 Lower Body Dressing (QC): 4 On/Off Footwear (QC): 3 (mod A) Toileting Hygiene (QC): 6 Toilet Transfer (QC): 6 Assessment/Plan Assessment and Plan Assess & Plan/Chief Complaint Assessment: Pelvic fracture sustained in a fall at home-Left inferior pubic ramus fracture with Left superior pubic ramus fracture extending into the medial wall of the acetabulum disrupting pelvic ring 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 CAD recent CABG Sternal and flank pressure wounds Smoker HTN AF on OAC Anemia chronic disease HLP Severe constipation we will initiate suppository and soapsuds enema now resolved Severe situational depression we started Cymbalta Thursday UTI dx 02/17/23 placed on Cefdinir-Proteus on prelim culture-may be ESBL considering her lengthy hospital stays in past 6 weeks Plan: Pain control ARU PT OT [place] Start Cymbalta Bowel regimen 02/17/2023: UTI treatment Monitor closely 02/18/2023: Monitor closely Cefdinir 02/19/2023: Await UCx sensitivity Monitor closely 02/20/2023: Treat constipation with suppository and soapsuds enema 02/21/2023: Supportive care Monitor closely 02/22/2023: Supportive care Bowel regimen 02/23/2023: Improved status ABx 02/24/2023: Supportive care Pain control (1) Pelvic fracture MELIA DAVID 5, 2023 05:04
[2023-02-24] MEDS: BETHANECHOL 25 MG TABLET PO SCH ×4 (06:45→20:29)
[2023-02-24] MEDS: THERAPEUTIC MULTIVITAMIN W/MINERALS TABLET PO SCH (06:46)
[2023-02-24] MEDS: CYCLOBENZAPRINE 10 MG TABLET PO PRN ×2 (06:46→19:35)
[2023-02-24] MEDS: THIAMINE 100 MG (VITAMIN B-1) TAB PO SCH (06:46)
[2023-02-24 07:47] VITALS: BP 104/51
[2023-02-24] MEDS: CEFDINIR 300 MG CAPSULE PO SCH ×2 (08:03→20:29)
[2023-02-24] MEDS: VITAMIN D3 25 MCG (1,000 UNITS) TABLET PO SCH (08:04)
[2023-02-24] MEDS: DULoxetine 30 MG CAPSULE PO SCH ×2 (08:04→20:30)
[2023-02-24] MEDS: SENNA W/DOCUSATE TABLET PO SCH ×2 (08:04→20:30)
[2023-02-24] MEDS: DOCUSATE SODIUM 100 MG CAPSULE PO SCH ×2 (08:04→20:30)
[2023-02-24] MEDS: APIXABAN 5 MG TABLET PO SCH ×2 (08:05→20:30)
[2023-02-24] MEDS: LACTULOSE SYRUP 10GM/15ML 30ML UDC PO SCH ×3 (08:05→20:06)
[2023-02-24] MEDS: LIDOCAINE 4% PATCH TOP SCH (08:05)
[2023-02-24] MEDS: CLOPIDOGREL 75 MG TABLET PO SCH (08:05)
[2023-02-24 09:49] VITALS: BP 131/58
[2023-02-24] MEDS: amLODIPine 5 MG TABLET PO SCH (09:51)
[2023-02-24] MEDS: AMIODARONE 200 MG TABLET PO SCH (09:51)
[2023-02-24] MEDS: LORazepam 0.5 MG TABLET PO PRN ×2 (09:51→20:37)
[2023-02-24] MEDS: PHENAZOPYRIDINE 100 MG TABLET PO SCH ×3 (09:54→20:30)
--- NOTE | 2023-02-24 11:20 | Occupational Ther Daily Note ---
OT Current Status-Daily Note Subjective Pt reports L hip pain 7/10, worse after PT compared with prior. Mental Status/Objective Patient Orientation: Normal For Age Attachments: Oxygen (2L) ADL-Treatment Therapy Code Descriptions/Definitions Functional [place] Measure: 0=Not Assessed/NA 4=Minimal Assistance 1=Total Assistance 5=Supervision or Setup 2=Maximal Assistance 6=Modified [place] 3=Moderate Assistance 7=Complete IndependenceSCALE: Activities may be completed with or without assistive devices. 6-Kfhvwcqcrd-xjbojls completes the activity by him/herself with no assistance from a helper. 5-Set-up or Clean-up Assistance-helper sets up or cleans up; patient completes activity. [place] assists only prior to or following the activity. 4-Supervision or Touching Assistance-helper provides verbal cues and/or touching/steadying and/or contact guard assistance as patient completes activity. Assistance may be provided throughout the activity or intermittently. 3-Partial/Moderate Assistance-helper does LESS THAN HALF the effort. [place] lifts, holds or supports trunk or limbs, but provides less than half the effort. 2-Substantial/Maximal Assistance-helper does MORE THAN HALF the effort. [place] lifts or holds trunk or limbs and provides more than half the effort. 1-Fslbvdhqr-clqjpw does ALL the effort. Patient does none of the effort to complete the activity. Or, the assistance of 2 or more helpers is required for the patient to complete the activity. If activity was not attempted, code reason: 7-Patient Refused. 9-Not Applicable-not attempted and the patient did not perform the activity before the current illness, exacerbation or injury. 10-Not Attempted due to Environmental Limitations-(lack of equipment, weather restraints, etc.). 88-Not Attempted due to Medical Conditions or Safety Concerns. Other Treatment Pt transferred supine to sit EOB without assistance, sit to stand SBA, then SBA transfer to w/c. Pt declined ambulating at this time due to pain post PT tx. Pt propelled w/c to therapy gym, assist only for O2 tank. OT tx focused on UE strengthening and increasing activity tolerance. Pt completed arm bike x15 mins (1 rest break), 15-20 Watt resistance. Pt propelled w/c back to her room, transferring to EOB (CGA) and supine (min A). Post tx, pt in bed, call light in reach and all needs met. Education OT Patient Education: Correct positioning, Energy conservation, Modified ADL techniques, Progress toward Goal/Update tx plan, Purpose of tx/functional activities, Rehab process Teaching Recipient: Patient Teaching Methods: Discussion Response to Teaching: Verbalize Understanding OT Short Term Goals Short Term Goals Time Frame: Feb 27, 2023 Toileting hygiene: 4 Upper body dressin Lower body dressin Putting on/taking off footwear: 4 OT Group Home Goals Mechanical Design Drafter Goals Time Frame: Mar 13, 2023 Acute change in mental status: 0 Inattention: 0 Disorganized thinkin Altered level of consciousness: 0 Eating (QC): 6 Oral Hygiene (QC): 6 Toileting Hygiene (QC): 6 Shower/Bathe Self (QC): 6 Upper Body Dressing (QC): 6 Lower Body Dressing (QC): 6 On/Off Footwear (QC): 6 Additional Goals: 1-Demonstrate ADL Tasks, 2-Verbalize Understanding, 3- ImproveStrength/[place] 1=Demonstrate adherence to instructed precautions during ADL tasks. 2=Patient will verbalize/demonstrate understanding of assistive devices/modifications for ADL. 3=Patient will improve strength/tolerance for activity to enable patient to perform ADL's. OT Education/Plan Problem List/Assessment Assessment: Decreased Activ Tolerance, Decreased UE Strength, Impaired Funct Balance, Impaired I ADL's, Impaired Self-Care Skills Discharge Recommendations Plan/Recommendations: Continue POC Treatment Plan/Plan of Care Patient would benefit from OT for education, treatment and training to promote independence in ADL's, mobility, safety and/or upper extremity function for ADL's. Plan of Care: ADL Retraining, Functional Mobility, Group Exercise/Act as Ind, UE Funct Exercise/Act Treatment Duration: Mar 13, 2023 Frequency: At least 5 of 7 days/Wk (IRF) Estimated Hrs Per Day: 1.5 hours per day Rehab Potential: Good Time Start Time: 11:00 Stop Time: 11:45 DATE: Feb 24, 2023 Total Time Billed (hr/min): 45 Billed Treatment Time 1, FA2 (30'), EX (15') ISAAC MELARA OT Feb 24, 2023 11:19
--- NOTE | 2023-02-24 14:36 | Physical Therapy Daily Note ---
PT Daily Note-Current Subjective Pt reports she is doing better this morning and is agreeable to PT. Pt reported L hip pain at 6/10. Pain Numeric Pain Scale: 6 Location: Left Location Body Site: Hip Section J - Health Conditions 1. Rarely or not at all 2. Occasionally 3. Frequently 4. Almost constantly 8. Unable to answer Pain Effect on Sleep: 2 Pain Interference with Therapy: 3 Pain Interference w/Day-to-Day: 3 Transfers SCALE: Activities may be completed with or without assistive devices. 3-Wgoctthyay-zxlprda completes the activity by him/herself with no assistance from a helper. 5-Set-up or Clean-up Assistance-helper sets up or cleans up; patient completes activity. [place] assists only prior to or following the activity. 4-Supervision or Touching Assistance-helper provides verbal cues and/or touching/steadying and/or contact guard assistance as patient completes activity. Assistance may be provided throughout the activity or intermittently. 3-Partial/Moderate Assistance-helper does LESS THAN HALF the effort. [place] li fts, holds or supports trunk or limbs, but provides less than half the effort. 2-Substantial/Maximal Assistance-helper does MORE THAN HALF the effort. [place] lifts or holds trunk or limbs and provides more than half the effort. 2-Zxhvahqfy-rpjkby does ALL the effort. Patient does none of the effort to complete the activity. Or, the assistance of 2 or more helpers is required for the patient to complete the activity. If activity was not attempted, code reason: 7-Patient Refused. 9-Not Applicable-not attempted and the patient did not perform the activity before the current illness, exacerbation or injury. 10-Not Attempted due to Environmental Limitations-(lack of equipment, weather restraints, etc.). 88-Not Attempted due to Medical Conditions or Safety Concerns. Roll Left & Right (QC): 4 Sit to Lying (QC): 4 Lying to Sitting/Side of Bed(Q: 4 Sit to Stand (QC): 4 Chair/Cpf-rt-Pfhxw Xfer(QC): 4 Toilet Transfer (QC): 4 Weight Bearing Right Lower Extremity: Right Weight Bearing/Tolerated Left Lower Extremity: Left Weight Bearing/Tolerated Gait Training Does the Patient Walk?: Yes Distance: 50ft x 2; 30ft x 3 Walk 10 feet (QC): 4 Walk 50 ft with 2 Turns(QC): 4 Gait Assistive Device: FWW Treatments Pt lying in bed upon arrival. RN present. TENS unit applied to pts L hip/buttocks with IFC setting. Pt completed bed mobility with SBA. Pt completed functional transfers with CGA, including toilet transfer. Pt ambulated 50ft x 2 and 30ft x 3 with the FWW and CGA. Pt completed seated B LE Ther Ex x 15 reps each with the red Tband. Pt completed 2 bouts of seated balloon toss with B UE. Pt required frequent and extended rest breaks throughout treatment session. O2 stayed above 95% on 2L. Pt lying in bed at the end of treatment session, with call light in reach and all needs met. Assessment Current Status: Good Progress Pt tolerated PT well with good effort; pt does require frequent and extended rest breaks PT Lead Mason Tender Goals Lead Mason Tender Goals PT Group Home Goals Time Frame: Mar 02, 2023 Roll Left & Right (QC): 6 Sit to Lying (QC): 6 Lying-Sitting on Side/Bed(QC): 6 Sit to Stand (QC): 6 Chair/Lnw-rk-Levkr Xfer(QC): 6 Toilet Transfer (QC): 6 Car Transfer (QC): 5 Does the Patient Walk: Yes Walk 10 feet (QC): 6 Walk 50ft with 2 Turns (QC): 6 Walk 150 ft (QC): 5 Walking 10ft on Uneven Surface: 6 1 Step (curb) (QC): 4 4 Steps (QC): 9 12 Steps (QC): 9 Picking up an Object (QC): 5 (with bi data modeler) Does the Pt use WC or Scooter?: Yes Wheel 50 feet with 2 turns (QC: 6 Type: Manual Wheel 150 feet: 6 Type: Manual PT Plan Problem List Problem List: Activity Tolerance, Functional Strength, Safety, Balance, Gait, Transfer, Bed Mobility, ROM Treatment/Plan Treatment Plan: Continue Plan of Care Treatment Plan: Bed Mobility, Education, Functional Activity [place], Functional Strength, Group Therapy, Gait, Safety, Therapeutic Exercise, Transfers Treatment Duration: Mar 02, 2023 Frequency: At least 5 of 7 days/Wk (IRF) Estimated Hrs Per Day: 1.5 hours per day Patient and/or Family Agrees t: Yes Safety Risks/Education Patient Education: Gait Training, Transfer Techniques, Correct Positioning, Safety Issues Teaching Recipient: Patient Teaching Methods: Demonstration, Discussion Response to Teaching: Verbalize Understanding, Return Demonstration, Reinforcement Needed Discharge Recommendations Therapy Discharge Recommendati: Home & Family Discharge Status/Home Program Cont per POC Barriers to Progress Pain; Endurance Target Placement Home with family support Time Time In: 800 Time Out: 930 DATE: Feb 24, 2023 Total Billed Treatment Time: 90 Total Billed Treatment 90 min 1 visit GT x 2 FA x 2 EX x 2 CHINA ZAFAR PT Feb 24, 2023 14:36
--- NOTE | 2023-02-24 16:19 | Occupational Ther Daily Note ---
OT Current Status-Daily Note Subjective Pt consented to OT session this PM Pain Numeric Pain Scale: 6 Location: Left Location Body Site: Hip Pain Description: Ache, Dull Mental Status/Objective Patient Orientation: Person, Place, Time, Situation, Normal For Age ADL-Treatment Therapy Code Descriptions/Definitions Functional [place] Measure: 0=Not Assessed/NA 4=Minimal Assistance 1=Total Assistance 5=Supervision or Setup 2=Maximal Assistance 6=Modified [place] 3=Moderate Assistance 7=Complete IndependenceSCALE: Activities may be completed with or without assistive devices. 6-Fmberzvvwh-vptkxny completes the activity by him/herself with no assistance from a helper. 5-Set-up or Clean-up Assistance-helper sets up or cleans up; patient completes activity. [place] assists only prior to or following the activity. 4-Supervision or Touching Assistance-helper provides verbal cues and/or touching/steadying and/or contact guard assistance as patient completes ac tivity. Assistance may be provided throughout the activity or intermittently. 3-Partial/Moderate Assistance-helper does LESS THAN HALF the effort. [place] lifts, holds or supports trunk or limbs, but provides less than half the effort. 2-Substantial/Maximal Assistance-helper does MORE THAN HALF the effort. [place] lifts or holds trunk or limbs and provides more than half the effort. 6-Jgrydgraz-yigvpf does ALL the effort. Patient does none of the effort to complete the activity. Or, the assistance of 2 or more helpers is required for the patient to complete the activity. If activity was not attempted, code reason: 7-Patient Refused. 9-Not Applicable-not attempted and the patient did not perform the activity before the current illness, exacerbation or injury. 10-Not Attempted due to Environmental Limitations-(lack of equipment, weather restraints, etc.). 88-Not Attempted due to Medical Conditions or Safety Concerns. Toileting Hygiene (QC): 4 (Pt performed toileting with SBA with pt able to manage clothing and clean sindy area with pt voiding.) Other Treatment Supine<>sit at EOB performed with SBA Pt ambulated from EOB>WC with CGA x 1 utilizing RW Pt performed standing activity at white board with pt performing a simple word search puzzle to increase standing tolerance, endurance, activity tolerance, static standing balance, and aerobic capacity to increase (I) with ADLs and IADLs. Pt performed sit<>stand with SBA. Pt stood for ~4 minutes with no LOB noted while performing activity. Pt completed word search without needing a rest break. No signs of distress noted while performing activity. Pt performed scavenger yee with cones placed throughout therapy common area in various heights in planes with pt ambulating with RW to retrieve cones to increase dynamic standing balance, functional reaching, activity tolerance, endurance, functional mobility, and aerobic capacity to increase (I) with ADLs and IADLs. Pt ambulated throughout therapy common area with CGA x 1 with RW. Pt required 4 seated rest breaks secondary to fatigue. No LOB noted while performing activity. O2 sats assessed at the completion of activity with O2 sats reading 90% and increase to 94% within ~15 seconds. Pt reported being very fatigued after performing activity and increased amount of time needed secondary to frequent rest breaks. Pt ambulated from therapy common area>bathroom in room with CGA x 1 with RW Pt performed toilet t/f with SBA with pt utilizing GB's for safety and BSC over toilet. See above for toileting scores Pt ambulated from bathroom>EOB with CGA x 1 with RW Education OT Patient Education: Energy conservation, Progress toward Goal/Update tx plan, Purpose of tx/functional activities, Reviewed precautions, Rehab process, Safety issues, Transfer techniques Teaching Recipient: Patient Teaching Methods: Demonstration, Discussion Response to Teaching: Verbalize Understanding, Return Demonstration OT Short Term Goals Short Term Goals Time Frame: Feb 27, 2023 Toileting hygiene: 4 Upper body dressin Lower body dressin Putting on/taking off footwear: 4 OT Skilled Nursing Goals Skilled Nursing Goals Time Frame: Mar 13, 2023 Acute change in mental status: 0 Inattention: 0 Disorganized thinkin Altered level of consciousness: 0 Eating (QC): 6 Oral Hygiene (QC): 6 Toileting Hygiene (QC): 6 Shower/Bathe Self (QC): 6 Upper Body Dressing (QC): 6 Lower Body Dressing (QC): 6 On/Off Footwear (QC): 6 Additional Goals: 1-Demonstrate ADL Tasks, 2-Verbalize Understanding, 3- ImproveStrength/[place] 1=Demonstrate adherence to instructed precautions during ADL tasks. 2=Patient will verbalize/demonstrate understanding of assistive devices/modifications for ADL. 3=Patient will improve strength/tolerance for activity to enable patient to perform ADL's. OT Education/Plan Problem List/Assessment Assessment: Decreased Activ Tolerance, Decreased UE Strength, Impaired Funct Balance, Impaired I ADL's, Impaired Self-Care Skills Discharge Recommendations Plan/Recommendations: Continue POC Treatment Plan/Plan of Care Treatment,Training & Education: Yes Patient would benefit from OT for education, treatment and training to promote independence in ADL's, mobility, safety and/or upper extremity function for ADL's. Plan of Care: ADL Retraining, Functional Mobility, Group Exercise/Act as Ind, UE Funct Exercise/Act Treatment Duration: Mar 13, 2023 Frequency: At least 5 of 7 days/Wk (IRF) Estimated Hrs Per Day: 1.5 hours per day Agreement: Yes Rehab Potential: Good Ending session, pt remained semi-reclined in bed with needs/call light in reach. Time Start Time: 14:55 Stop Time: 15:45 DATE: Feb 24, 2023 Total Time Billed (hr/min): 50 Billed Treatment Time 50 minutes FA 2 (35 minutes) ADL 1 (15 minutes) EILEEN ARIAS Feb 24, 2023 16:18
[2023-02-24] MEDS: ONDANSETRON 4 MG ORAL DISSOLVE TABLET SL PRN (17:07)
[2023-02-24 20:00] VITALS: BP 131/60
[2023-02-24] MEDS: PATCH REMOVAL TP SCH (22:17)
[2023-02-25] MEDS: LORazepam 0.5 MG TABLET PO PRN ×2 (04:33→17:23)
[2023-02-25] MEDS: THERAPEUTIC MULTIVITAMIN W/MINERALS TABLET PO SCH (06:36)
[2023-02-25] MEDS: THIAMINE 100 MG (VITAMIN B-1) TAB PO SCH (06:36)
[2023-02-25] MEDS: BETHANECHOL 25 MG TABLET PO SCH ×4 (06:37→21:11)
[2023-02-25] MEDS: DULoxetine 30 MG CAPSULE PO SCH ×2 (07:52→21:11)
[2023-02-25] MEDS: PHENAZOPYRIDINE 100 MG TABLET PO SCH ×3 (07:52→18:51)
[2023-02-25] MEDS: VITAMIN D3 25 MCG (1,000 UNITS) TABLET PO SCH (07:52)
[2023-02-25] MEDS: CLOPIDOGREL 75 MG TABLET PO SCH (07:52)
[2023-02-25] MEDS: CEFDINIR 300 MG CAPSULE PO SCH ×2 (07:52→21:11)
[2023-02-25] MEDS: oxyCODONE IMMEDIATE RELEASE 5 MG TABLET PO PRN ×2 (07:53→21:11)
[2023-02-25] MEDS: LACTULOSE SYRUP 10GM/15ML 30ML UDC PO SCH ×3 (07:54→20:31)
[2023-02-25] MEDS: APIXABAN 5 MG TABLET PO SCH ×2 (07:58→21:11)
[2023-02-25] MEDS: DOCUSATE SODIUM 100 MG CAPSULE PO SCH ×2 (07:58→21:11)
[2023-02-25] MEDS: SENNA W/DOCUSATE TABLET PO SCH ×2 (07:58→21:11)
[2023-02-25 08:00] VITALS: BP 113/55
--- NOTE | 2023-02-25 09:26 | Occupational Ther Daily Note ---
OT Current Status-Daily Note Subjective Pt alert, sitting up in bed. Pt agreed to therapy. No c/o of pain during tx, pain meds given prior to session. Mental Status/Objective Patient Orientation: Person, Place, Time, Situation ADL-Treatment Therapy Code Descriptions/Definitions Functional [place] Measure: 0=Not Assessed/NA 4=Minimal Assistance 1=Total Assistance 5=Supervision or Setup 2=Maximal Assistance 6=Modified [place] 3=Moderate Assistance 7=Complete IndependenceSCALE: Activities may be completed with or without assistive devices. 7-Ktgeoxzwbj-yyqlxpd completes the activity by him/herself with no assistance from a helper. 5-Set-up or Clean-up Assistance-helper sets up or cleans up; patient completes activity. [place] assists only prior to or following the activity. 4-Supervision or Touching Assistance-helper provides verbal cues and/or touching/steadying and/or contact guard assistance as patient completes activity. Assistance may be provided throughout the activity or intermittently. 3-Partial/Moderate Assistance-helper does LESS THAN HALF the effort. [place] lifts, holds or supports trunk or limbs, but provides less than half the effort. 2-Substantial/Maximal Assistance-helper does MORE THAN HALF the effort. [place] lifts or holds trunk or limbs and provides more than half the effort. 5-Bimfmnvhy-oevxnk does ALL the effort. Patient does none of the effort to complete the activity. Or, the assistance of 2 or more helpers is required for the patient to complete the activity. If activity was not attempted, code reason: 7-Patient Refused. 9-Not Applicable-not attempted and the patient did not perform the activity before the current illness, exacerbation or injury. 10-Not Attempted due to Environmental Limitations-(lack of equipment, weather restraints, etc.). 88-Not Attempted due to Medical Conditions or Safety Concerns. Oral Hygiene (QC): 6 (Independent standing at sink.) Bathing Location: L Arm, R Arm, L Upper Leg, R Upper Leg, L Lower Leg (including foot), R Lower Leg (including foot), Chest, Abdomen, Buttocks, P erineal Area Shower/Bathe Self (QC): 6 (Pt able to wash LE and feet w/out utilizing long handled sponge.) Upper Body Dressing (QC): 5 (Sitting in shower to don shirt, set up.) Lower Body Dressing (QC): 5 (Sitting in chair to don/doff pants/underwear, set up. Pt stood up to hike pants over hips utilizing FWW for support.) On/Off Footwear: 5 (Set up for don sock. Donned/doffed socks w/out use of sock aid. Utilized figure-four technique.) Toileting Hygiene (QC): 6 (Pt completed hygiene by self.) Toilet Transfer (QC): 6 (Pt used FWW and GBs for steadying.) Other Treatment After ADLs, pt ambulated from bathroom to bed with FWW, SBA for safety due to fatigue after shower. Pt sitting EOB -> supine independently. Pt completed 2 sets of 6 B UE exercises with 10# theraflex to work on B UE strengthening and activity tolerance. Pt displayed increased activity tolerance during tx than in previous sessions. No c/o of pain, although displayed facial grimaces during bed mobility. Ended session w/ pt sitting up in bed with call light/phone in reach. All needs met in room. Education OT Patient Education: Correct positioning, Energy conservation Teaching Recipient: Patient Teaching Methods: Demonstration, Discussion Response to Teaching: Verbalize Understanding, Return Demonstration Pt education of proper positioning during B UE exercises with 10# theraflex and energy conservation during ADLs for fall prevention. Pt verbalized and demonstrated understanding of skilled instruction. OT Short Term Goals Short Term Goals Time Frame: Feb 27, 2023 Toileting hygiene: 4 Upper body dressin Lower body dressin Putting on/taking off footwear: [address] Patrol Commander Goals Highway Patrol Commander Goals Time Frame: Mar 13, 2023 Acute change in mental status: 0 Inattention: 0 Disorganized thinkin Altered level of consciousness: 0 Eating (QC): 6 Oral Hygiene (QC): 6 Toileting Hygiene (QC): 6 Shower/Bathe Self (QC): 6 Upper Body Dressing (QC): 6 Lower Body Dressing (QC): 6 On/Off Footwear (QC): 6 Additional Goals: 1-Demonstrate ADL Tasks, 2-Verbalize Understanding, 3- ImproveStrength/[place] 1=Demonstrate adherence to instructed precautions during ADL tasks. 2=Patient will verbalize/demonstrate understanding of assistive devices/modifications for ADL. 3=Patient will improve strength/tolerance for activity to enable patient to perform ADL's. OT Education/Plan Problem List/Assessment Assessment: Decreased Activ Tolerance, Decreased UE Strength, Impaired Self- Care Skills Discharge Recommendations Plan/Recommendations: Continue POC Treatment Plan/Plan of Care Treatment,Training & Education: Yes Patient would benefit from OT for education, treatment and training to promote independence in ADL's, mobility, safety and/or upper extremity function for ADL's. Plan of Care: ADL Retraining, Functional Mobility, Group Exercise/Act as Ind, UE Funct Exercise/Act Treatment Duration: Mar 13, 2023 Frequency: At least 5 of 7 days/Wk (IRF) Estimated Hrs Per Day: 1.5 hours per day Agreement: Yes Rehab Potential: Good Time Start Time: 08:00 Stop Time: 09:30 DATE: Feb 25, 2023 Total Time Billed (hr/min): 90 Billed Treatment Time 1 visit- ADL 4 (60 mins) EX 2 (30 mins) ANETA ORELLANA Feb 25, 2023 09:26
[2023-02-25 09:38] VITALS: BP 123/54
[2023-02-25] MEDS: AMIODARONE 200 MG TABLET PO SCH (09:40)
[2023-02-25] MEDS: LIDOCAINE 4% PATCH TOP SCH (09:40)
[2023-02-25] MEDS: amLODIPine 5 MG TABLET PO SCH (09:40)
--- NOTE | 2023-02-25 09:48 | PM&R Progress Note ---
Subjective HPI/CC On Admission Date Seen by Provider: Feb 25, 2023 Time Seen by Provider: 09:45 Subjective/Events-last exam 02/25/2023: Improved overall No issues Pain is controlled Ambulating well No falls 02/24/2023: Much improved pain Ambulating around a lot better No falls Bowels are moving 02/23/2023: Doing much better BM loose now so refused Lactulose Pain improved Less urinary retention 02/22/2023: Patient doing well Much improved Pain is much improved Urinary retention likely due to pain medication also Lactulose 3 times daily scheduled 02/21/2023: Patient doing well Pain improved Working on bowels Very frail 02/20/2023: Much improved status Pain is better Increased pain medication is improved No falls 02/19/2023: Pain is an issue No other issues Slow recovery Urecholine ordered due to PVR amount 02/18/2023: No major new issues Pain is an issue since she has moving around a lot more in rehab Bowels haven't moved today so maintain bowel regimen to prevent narcotic bowel UTI treatment maintained 02/17/2023: Much improved Very tearful at times I tried to reassure Labs stable Pain is an issue UTI dx after in out cath obtained due to cloudy urine and martinez cath for 7 days Review of Systems General: Fatigue, Malaise Objective Exam Vital Signs Vital Signs Date Time Temp Pulse Resp B/P (MAP) Pulse Ox O2 Delivery O2 Flow Rate FiO2 02/25/23 09:44 Nasal Cannula 2.00 02/25/23 09:38 81 123/54 (77) 02/25/23 08:00 36.4 20 96 02/23/23 18:47 36 Capillary Refill : General Appearance: No Apparent Distress, WD/WN, Chronically ill, Thin, Other (frail) HEENT: PERRL/EOMI, Normal ENT Inspection, Pharynx Normal Neck: Full Range of Motion, Normal Inspection, Non Tender, Supple, Carotid Bruit Respiratory: Chest Non Tender, Lungs Clear, No Accessory Muscle Use, No Respiratory Distress, Decreased Breath Sounds Cardiovascular: Regular Rate, Rhythm, No Edema, No Gallop, No JVD, No Murmur, Normal Peripheral Pulses Gastrointestinal: Normal Bowel Sounds, No Organomegaly, No Pulsatile Mass, Non Tender, Soft Back: Normal Inspection, No CVA Tenderness, No Vertebral Tenderness Extremity: Normal Capillary Refill, Normal Inspection, Normal Range of Motion, Non Tender, No Calf Tenderness, No Pedal Edema Neurologic/Psychiatric: Alert, Oriented x3, wood scrap handler II-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 FIM Transfers Therapy Code Descriptions/Definitions Functional [place] Measure: 0=Not Assessed/NA 4=Minimal Assistance 1=Total Assistance 5=Supervision or Setup 2=Maximal Assistance 6=Modified [place] 3=Moderate Assistance 7=Complete IndependenceSCALE: Activities may be completed with or without assistive devices. 8-Ahneqjwduo-dzzbswn completes the activity by him/herself with no assistance from a helper. 5-Set-up or Clean-up Assistance-helper sets up or cleans up; patient completes a ctivity. [place] assists only prior to or following the activity. 4-Supervision or Touching Assistance-helper provides verbal cues and/or touching/steadying and/or contact guard assistance as patient completes activity. Assistance may be provided throughout the activity or intermittently. 3-Partial/Moderate Assistance-helper does LESS THAN HALF the effort. [place] lifts, holds or supports trunk or limbs, but provides less than half the effort. 2-Substantial/Maximal Assistance-helper does MORE THAN HALF the effort. [place] lifts or holds trunk or limbs and provides more than half the effort. 0-Uwqeqbnnj-honmgi does ALL the effort. Patient does none of the effort to complete the activity. Or, the assistance of 2 or more helpers is required for the patient to complete the activity. If activity was not attempted, code reason: 7-Patient Refused. 9-Not Applicable-not attempted and the patient did not perform the activity before the current illness, exacerbation or injury. 10-Not Attempted due to Environmental Limitations-(lack of equipment, weather restraints, etc.). 88-Not Attempted due to Medical Conditions or Safety Concerns. Roll Left to Right (QC): 4 Sit to Lying (QC): 4 Sit to Stand (QC): 4 Chair/Lkt-fx-Rxqrw Xfer(QC): 4 Car Transfer (QC): 88 Gait Training Does the Patient Walk?: Yes Distance: 50ft x 2; 30ft x 3 Walk 10 feet (QC): 4 Walk 50 ft with 2 Turns(QC): 4 Walk 150 ft (QC): 88 Walking 10ft/uneven surface-QC: 88 Gait Assistive Device: FWW Wheelchair Training Does the Pt Use a Wheelchair?: Yes Distance: 150' Wheel 50 ft with 2 turns (QC): 6 (using (B) LE's and UE's this date.) Wheel 150 ft (QC): 5 Type of Wheelchair: Manual Stair Training 1 Step (curb) (QC): 88 (UT due to pain) 4 Steps (QC): 88 (UT due to pain) 12 Steps (QC): 88 (UT due to pain) Balance Picking up an Object (QC): 88 (unsafe due to high pain in standing) ADL-Treatment Eating (QC): 6 Oral Hygiene (QC): 6 (Independent standing at sink.) Bathing Location: L Arm, R Arm, L Upper Leg, R Upper Leg, L Lower Leg (including foot), R Lower Leg (including foot), Chest, Abdomen, Buttocks, P erineal Area Shower/Bathe Self (QC): 5 (Set up and supervision. Pt able to wash LE and feet w/out utilizing long handled sponge.) Upper Body Dressing (QC): 5 (Sitting in shower to don shirt, set up.) Lower Body Dressing (QC): 5 (Sitting in chair to don pants/underwear, set up. Supervision while pt stood up to hike pants over hips utilizing FWW for support.) On/Off Footwear (QC): 5 (Set up for don sock. Donned/doffed socks w/out use of sock aid. Utilized figure-four technique.) Toileting Hygiene (QC): 5 (Supervison sit to stand for safety. 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 CAD recent CABG Sternal and flank pressure wounds Smoker HTN AF on OAC Anemia chronic disease HLP Severe constipation we will initiate suppository and soapsuds enema now resolved Severe situational depression we started Cymbalta Thursday UTI dx 02/17/23 placed on Cefdinir-Proteus on prelim culture-may be ESBL considering her lengthy hospital stays in past 6 weeks Plan: Pain control ARU PT OT [place] Start Cymbalta Bowel regimen 02/17/2023: UTI treatment Monitor closely 02/18/2023: Monitor closely Cefdinir 02/19/2023: Await UCx sensitivity Monitor closely 02/20/2023: Treat constipation with suppository and soapsuds enema 02/21/2023: Supportive care Monitor closely 02/22/2023: Supportive care Bowel regimen 02/23/2023: Improved status ABx 02/24/2023: Supportive care Pain control 02/25/2023: Monitor closely (1) Pelvic fracture MELIA DAVID DO Feb 25, 2023 09:48
[2023-02-25] MEDS: RT-BUDESONIDE NEBS 0.5 MG/2ML VIAL IH SCH ×2 (10:43→21:12)
[2023-02-25] MEDS: RT-Ipratropium/Albuterol NEB 3 ML VIAL INH SCH ×2 (10:43→21:12)
[2023-02-25] MEDS: ONDANSETRON 4 MG ORAL DISSOLVE TABLET SL PRN ×3 (11:29→21:11)
--- NOTE | 2023-02-25 12:04 | Physical Therapy Daily Note ---
PT Daily Note-Current Subjective Patient agreeable to therapy. Rates pain as a 7/10. Zynex IFC not being utilized when therapist entered room. Pain decreased to a 5/10 following treatment (with Zynex in place). Did have c/o mild nausea /p therapy - nsg notified. Pain Section J - Health Conditions 1. Rarely or not at all 2. Occasionally 3. Frequently 4. Almost constantly 8. Unable to answer Pain Effect on Sleep: 1 Pain Interference with Therapy: 2 Pain Interference w/Day-to-Day: 2 Appearance Patient resting in supine when therapist entered room. O2 now at 2L per nc. Transfers SCALE: Activities may be completed with or without assistive devices. 3-Yfahhhwvts-hratftu completes the activity by him/herself with no assistance from a helper. 5-Set-up or Clean-up Assistance-helper sets up or cleans up; patient completes activity. [place] assists only prior to or following the activity. 4-Supervision or Touching Assistance-helper provides verbal cues and/or to uching/steadying and/or contact guard assistance as patient completes activity. Assistance may be provided throughout the activity or intermittently. 3-Partial/Moderate Assistance-helper does LESS THAN HALF the effort. [place] lifts, holds or supports trunk or limbs, but provides less than half the effort. 2-Substantial/Maximal Assistance-helper does MORE THAN HALF the effort. [place] lifts or holds trunk or limbs and provides more than half the effort. 0-Mobhlvxoq-cjqfku does ALL the effort. Patient does none of the effort to complete the activity. Or, the assistance of 2 or more helpers is required for the patient to complete the activity. If activity was not attempted, code reason: 7-Patient Refused. 9-Not Applicable-not attempted and the patient did not perform the activity before the current illness, exacerbation or injury. 10-Not Attempted due to Environmental Limitations-(lack of equipment, weather restraints, etc.). 88-Not Attempted due to Medical Conditions or Safety Concerns. Roll Left & Right (QC): 5 (/c bed rail) Lying to Sitting/Side of Bed(Q: 5 (set up with bed rail and sheets taken away) Sit to Stand (QC): 5 (obtained walker for patient) Chair/Vmi-lq-Kzriy Xfer(QC): 4 (CGA /c FWW to to maneuver with O2 and in cluttered room) Toilet Transfer (QC): 4 (CGA and cues to use grab bar) Patient able to manage clothing with set up assist (therapist held IFC wires out of the way) and completed toilet hygiene (I). Weight Bearing Right Lower Extremity: Right Weight Bearing/Tolerated Left Lower Extremity: Left Weight Bearing/Tolerated Gait Training Distance: 41', 71', 41', 71' Walk 10 feet (QC): 4 (CGA-SBA, (A) /c O2 tank) Walk 50 ft with 2 Turns(QC): 4 (CGA-SBA, (A) /c O2 tank) Walking 10ft/uneven surface-QC: 4 (x 4 passes including up 2" elevation /c FWW) Gait Assistive Device: FWW Improved step length (B). O2 sats dropped to 86% on 2L O2. Increased O2 to 3L with activity. Wheelchair Training Does the Pt Use a Wheelchair?: Yes Wheel 50 ft with 2 turns (QC): 5 Wheel 150 ft (QC): 5 Type of Wheelchair: Manual Portable O2 (A) Stair Training 1 Step (curb) (QC): 4 (2" curb step x 4 /c FWW CGA-SBA) Exercises (B) LE exercise in sitting: RTB DF x 15 (B) RTB PF x 15 (B) Isometric hip adduction ball squeeze x 10 (B) LAQ /c hip adduction squeeze x 10 (B) RTB ham curls x 15 (B) Hip flexion/alternating legs x 10 (B) RTB hip abduction x 10 (B) Chair push ups x 5. O2 sats 94-95% on 3L O2 /c ex. NuStep Minutes: 9 NuStep Workload: 3 (O2 sats 97=98% during Nustep with 3L O2) Treatments Discussed Zynex IFC for home management of pain. Use of Zynex on ARU has greatly improved patient's ability to participate in therapy, has improved her functional transfers, bed mobility and gait. This therapist recommends a home Zynex/Nexwave for continued pain management /p D/C from the ARU. She is interested in a Zynex NexWave IFC for home pain management. Patient's approval obtained to fax patient's info to [facility] once she discharges the ARU. [employer] will contact the patient, complete an insurance authorization, then contact the pat katya again to gain her approval before sending a device to her home. PT [facility] Goals Direct Sales Representative Goals PT [facility] Goals Time Frame: Mar 02, 2023 Roll Left & Right (QC): 6 Sit to Lying (QC): 6 Lying-Sitting on Side/Bed(QC): 6 Sit to Stand (QC): 6 Chair/Pgl-gd-Alopn Xfer(QC): 6 Toilet Transfer (QC): 6 Car Transfer (QC): 5 Does the Patient Walk: Yes Walk 10 feet (QC): 6 Walk 50ft with 2 Turns (QC): 6 Walk 150 ft (QC): 5 Walking 10ft on Uneven Surface: 6 1 Step (curb) (QC): 4 4 Steps (QC): 9 12 Steps (QC): 9 Picking up an Object (QC): 5 (with senior training and development rep) Does the Pt use WC or Scooter?: Yes Wheel 50 feet with 2 turns (QC: 6 Type: Manual Wheel 150 feet: 6 Type: Manual PT Plan Problem List Problem List: Activity Tolerance, Functional Strength, Safety, Balance, Gait, Transfer, Bed Mobility, Other (Pain) Treatment/Plan Treatment Plan: Continue Plan of Care Treatment Plan: Bed Mobility, Education, Functional Activity Luz Mairna, Functional Strength, Group Therapy, Gait, Safety, Therapeutic Exercise, Transfers Treatment Duration: Mar 02, 2023 Frequency: At least 5 of 7 days/Wk (IRF) Estimated Hrs Per Day: 1.5 hours per day Patient and/or Family Agrees t: Yes Safety Risks/Education Patient Education: Gait Training, Transfer Techniques Teaching Recipient: Patient Teaching Methods: Demonstration, Handout, Discussion Response to Teaching: Return Demonstration, Reinforcement Needed Discharge Recommendations Therapy Discharge Recommendati: Meals on Wheels, Bath Aide, Homemaker Support, Home & Family, Post Acute PT Equpiment Recommendations-D/C: Front Wheeled Walker, Manual Wheelchair Time Time In: 958 Time Out: 1128 DATE: Feb 25, 2023 Total Billed Treatment Time: 90 Total Billed Treatment 2EX (35'), 2FA(30'), 2GT(25') Anna Ruffin PT Feb 25, 2023 12:04
[2023-02-25] MEDS: LACTULOSE SYRUP 10GM/15ML 30ML UDC PO PRN (17:44)
[2023-02-25 20:13] VITALS: BP 126/61
[2023-02-25] MEDS: PATCH REMOVAL TP SCH (21:16)
[2023-02-26] MEDS: LORazepam 0.5 MG TABLET PO PRN ×3 (04:12→19:23)
--- NOTE | 2023-02-26 05:14 | PM&R Progress Note ---
Subjective HPI/CC On Admission Date Seen by Provider: Feb 26, 2023 Time Seen by Provider: 12:30 Subjective/Events-last exam 02/26/2023: Improved overall Pain since she is moving more BM+ O2 maintained 02/25/2023: Improved overall No issues Pain is controlled Ambulating well No falls 02/24/2023: Much improved pain Ambulating around a lot better No falls Bowels are moving 02/23/2023: Doing much better BM loose now so refused Lactulose Pain improved Less urinary retention 02/22/2023: Patient doing well Much improved Pain is much improved Urinary retention likely due to pain medication also Lactulose 3 times daily scheduled 02/21/2023: Patient doing well Pain improved Working on bowels Very frail 02/20/2023: Much improved status Pain is better Increased pain medication is improved No falls 02/19/2023: Pain is an issue No other issues Slow recovery Urecholine ordered due to PVR amount 02/18/2023: No major new issues Pain is an issue since she has moving around a lot more in rehab Bowels haven't moved today so maintain bowel regimen to prevent narcotic bowel UTI treatment maintained 02/17/2023: Much improved Very tearful at times I tried to reassure Labs stable Pain is an issue UTI dx after in out cath obtained due to cloudy urine and martinez cath for 7 days Review of Systems General: Fatigue, Malaise Objective Exam Vital Signs Vital Signs Date Time Temp Pulse Resp B/P (MAP) Pulse Ox O2 Delivery O2 Flow Rate FiO2 02/26/23 19:36 36.4 77 20 125/58 (80) 94 Nasal Cannula 2.00 02/23/23 18:47 36 Capillary Refill : General Appearance: No Apparent Distress, WD/WN, Chronically ill, Thin, Other (frail) HEENT: PERRL/EOMI, Normal ENT Inspection, Pharynx Normal Neck: Full Range of Motion, Normal Inspection, Non Tender, Supple, Carotid Bruit Respiratory: Chest Non Tender, Lungs Clear, No Accessory Muscle Use, No Respiratory Distress, Decreased Breath Sounds Cardiovascular: Regular Rate, Rhythm, No Edema, No Gallop, No JVD, No Murmur, Normal Peripheral Pulses Gastrointestinal: Normal Bowel Sounds, No Organomegaly, No Pulsatile Mass, Non Tender, Soft Back: Normal Inspection, No CVA Tenderness, No Vertebral Tenderness Extremity: Normal Capillary Refill, Normal Inspection, Normal Range of Motion, Non Tender, No Calf Tenderness, No Pedal Edema Neurologic/Psychiatric: Alert, Oriented x3, 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 FIM Transfers Therapy Code Descriptions/Definitions Functional [place] Measure: 0=Not Assessed/NA 4=Minimal Assistance 1=Total Assistance 5=Supervision or Setup 2=Maximal Assistance 6=Modified [place] 3=Moderate Assistance 7=Complete IndependenceSCALE: Activities may be completed with or without assistive devices. 8-Kjjkqmqnkt-frufuxv completes the activity by him/herself with no assistance from a helper. 5-Set-up or Clean-up Assistance-helper sets up or cleans up; patient completes activity. [place] assists only prior to or following the activity. 4-Supervision or Touching Assistance-helper provides verbal cues and/or touching/steadying and/or contact guard assistance as patient completes activity. Assistance may be provided throughout the activity or intermittently. 3-Partial/Moderate Assistance-helper does LESS THAN HALF the effort. [place] lifts, holds or supports trunk or limbs, but provides less than half the effort. 2-Substantial/Maximal Assistance-helper does MORE THAN HALF the effort. [place] lifts or holds trunk or limbs and provides more than half the effort. 6-Zodblywss-ypldtz does ALL the effort. Patient does none of the effort to complete the activity. Or, the assistance of 2 or more helpers is required for the patient to complete the activity. If activity was not attempted, code reason: 7-Patient Refused. 9-Not Applicable-not attempted and the patient did not perform the activity before the current illness, exacerbation or injury. 10-Not Attempted due to Environmental Limitations-(lack of equipment, weather restraints, etc.). 88-Not Attempted due to Medical Conditions or Safety Concerns. Roll Left to Right (QC): 5 (/c bed rail) Sit to Lying (QC): 4 Sit to Stand (QC): 5 (obtained walker for patient) Chair/Hgj-ah-Fczog Xfer(QC): 4 (CGA /c FWW to to maneuver with O2 and in cluttered room) Car Transfer (QC): 88 Gait Training Does the Patient Walk?: Yes Distance: 41', 71', 41', 71' Walk 10 feet (QC): 4 (CGA-SBA, (A) /c O2 tank) Walk 50 ft with 2 Turns(QC): 4 (CGA-SBA, (A) /c O2 tank) Walk 150 ft (QC): 88 Walking 10ft/uneven surface-QC: 4 (x 4 passes including up 2" elevation /c FWW) Gait Assistive Device: FWW Wheelchair Training Does the Pt Use a Wheelchair?: Yes Distance: 150' Wheel 50 ft with 2 turns (QC): 5 Wheel 150 ft (QC): 5 Type of Wheelchair: Manual Stair Training 1 Step (curb) (QC): 4 (2" curb step x 4 /c FWW CGA-SBA) 4 Steps (QC): 88 (UT due to pain) 12 Steps (QC): 88 (UT due to pain) Balance Picking up an Object (QC): 88 (unsafe due to high pain in standing) ADL-Treatment Eating (QC): 6 Oral Hygiene (QC): 6 (Independent standing at sink.) Bathing Location: L Arm, R Arm, L Upper Leg, R Upper Leg, L Lower Leg (including foot), R Lower Leg (including foot), Chest, Abdomen, Buttocks, Perineal Area Shower/Bathe Self (QC): 6 (Pt able to wash LE and feet w/out utilizing long handled sponge.) Upper Body Dressing (QC): 5 (Sitting in shower to don shirt, set up.) Lower Body Dressing (QC): 5 (Sitting in chair to don/doff pants/underwear, set up. Pt stood up to hike pants over hips utilizing FWW for support.) On/Off Footwear (QC): 5 (Set up for don sock. Donned/doffed socks w/out use of sock aid. 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 CAD recent CABG Sternal and flank pressure wounds Smoker HTN AF on OAC Anemia chronic disease HLP Severe constipation we will initiate suppository and soapsuds enema now resolved Severe situational depression we started Cymbalta Thursday UTI dx 02/17/23 placed on Cefdinir-Proteus on prelim culture-may be ESBL considering her lengthy hospital stays in past 6 weeks Plan: Pain control ARU PT OT [place] Start Cymbalta Bowel regimen 02/17/2023: UTI treatment Monitor closely 02/18/2023: Monitor closely Cefdinir 02/19/2023: Await UCx sensitivity Monitor closely 02/20/2023: Treat constipation with suppository and soapsuds enema 02/21/2023: Supportive care Monitor closely 02/22/2023: Supportive care Bowel regimen 02/23/2023: Improved status ABx 02/24/2023: Supportive care Pain control 02/25/2023: Monitor closely 02/26/2023: Monitor pain Monitor BP (1) Pelvic fracture MELIA DAVID DO Feb 26, 2023 05:14
[2023-02-26] MEDS: THIAMINE 100 MG (VITAMIN B-1) TAB PO SCH (06:16)
[2023-02-26] MEDS: THERAPEUTIC MULTIVITAMIN W/MINERALS TABLET PO SCH (06:16)
[2023-02-26] MEDS: BETHANECHOL 25 MG TABLET PO SCH ×4 (06:16→19:23)
[2023-02-26 07:56] VITALS: BP 132/62
[2023-02-26] MEDS: RT-BUDESONIDE NEBS 0.5 MG/2ML VIAL IH SCH ×2 (08:10→21:37)
[2023-02-26] MEDS: RT-Ipratropium/Albuterol NEB 3 ML VIAL INH SCH ×2 (08:10→21:37)
[2023-02-26] MEDS: CLOPIDOGREL 75 MG TABLET PO SCH (08:34)
[2023-02-26] MEDS: CEFDINIR 300 MG CAPSULE PO SCH ×2 (08:34→19:23)
[2023-02-26] MEDS: AMIODARONE 200 MG TABLET PO SCH (08:36)
[2023-02-26] MEDS: amLODIPine 5 MG TABLET PO SCH (08:37)
[2023-02-26] MEDS: APIXABAN 5 MG TABLET PO SCH ×2 (08:37→19:23)
[2023-02-26] MEDS: DOCUSATE SODIUM 100 MG CAPSULE PO SCH ×2 (08:37→19:16)
[2023-02-26] MEDS: VITAMIN D3 25 MCG (1,000 UNITS) TABLET PO SCH (08:38)
[2023-02-26] MEDS: LACTULOSE SYRUP 10GM/15ML 30ML UDC PO SCH ×3 (08:38→19:16)
[2023-02-26] MEDS: SENNA W/DOCUSATE TABLET PO SCH ×2 (08:38→19:16)
[2023-02-26] MEDS: DULoxetine 30 MG CAPSULE PO SCH ×2 (08:38→19:23)
[2023-02-26] MEDS: oxyCODONE IMMEDIATE RELEASE 5 MG TABLET PO PRN (08:39)
[2023-02-26] MEDS: LIDOCAINE 4% PATCH TOP SCH (08:39)
[2023-02-26] MEDS: PHENAZOPYRIDINE 100 MG TABLET PO SCH ×3 (08:43→18:03)
[2023-02-26] MEDS: ONDANSETRON 4 MG ORAL DISSOLVE TABLET SL PRN (09:32)
[2023-02-26] MEDS: CYCLOBENZAPRINE 10 MG TABLET PO PRN (10:03)
--- NOTE | 2023-02-26 10:44 | Occupational Ther Daily Note ---
OT Current Status-Daily Note Subjective Pt alert, supine in bed. Pt agrees to therapy. Pt c/o of pain and nausea, nrsg notified and pain medication given during tx. PT/OT cotreat/family education ([id number]), skills of 2 clinicians required for family education, fall prevention, and improving functional mobility. PT focus on transfers, ambulation with FWW, ambulation on stairs, and activity tolerance. OT focus on floor to chair transfers, activity tolerance, 02 management, and fall prevention with functional tasks. Mental Status/Objective Patient Orientation: Person, Place, Time, Situation ADL-Treatment Therapy Code Descriptions/Definitions Functional [place] Measure: 0=Not Assessed/NA 4=Minimal Assistance 1=Total Assistance 5=Supervision or Setup 2=Maximal Assistance 6=Modified [place] 3=Moderate Assistance 7=Complete IndependenceSCALE: Activities may be completed with or without assistive devices. 4-Wqvhqzarlj-gbqoblk completes the activity by him/herself with no assistance from a helper. 5-Set-up or Clean-up Assistance-helper sets up or cleans up; patient completes activity. [place] assists only prior to or following the activity. 4-Supervision or Touching Assistance-helper provides verbal cues and/or touching/steadying and/or contact guard assistance as patient completes activity. Assistance may be provided throughout the activity or intermittently. 3-Partial/Moderate Assistance-helper does LESS THAN HALF the effort. [place] lifts, holds or supports trunk or limbs, but provides less than half the effort. 2-Substantial/Maximal Assistance-helper does MORE THAN HALF the effort. [place] lifts or holds trunk or limbs and provides more than half the effort. 2-Usqbikwqm-fqpkwk does ALL the effort. Patient does none of the effort to complete the activity. Or, the assistance of 2 or more helpers is required for the patient to complete the activity. If activity was not attempted, code reason: 7-Patient Refused. 9-Not Applicable-not attempted and the patient did not perform the activity before the current illness, exacerbation or injury. 10-Not Attempted due to Environmental Limitations-(lack of equipment, weather restraints, etc.). 88-Not Attempted due to Medical Conditions or Safety Concerns. Other Treatment Pt ambulated from room -> [facility] kitchen with FWW, SBA for safety. Pt completed kitchen mobility task by reaching and bending down to package pick up cones, working on activity tolerance, dynamic standing balance, functional mobility, and energy conservation strategies for functional tasks. Pt required rest breaks during tasks due to fatigue/nausea. Co-treat with PT/OT began at 0930, pt working on floor-> chair transfers due to fall concerns from pt and pts SO. Demonstration given to pt and pt's SO during instruction for proper use of gait belt, positioning, and body mechanics during transfer. Pt did not demonstrate transfer due to increased pain. Pt ambulated from gym -> lobby area with FWW, SBA. PT going over car transfers with pt, see PT notes for info. PT ambulated from lobby back to gym with FWW, SBA. Pt working on stair mobility with PT while OT working on 02 management for community mobility. Pt ambulated from gym -> room with FWW, SBA. Ended session with pt supine in bed in PTs care. All needs met. 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 2=Patient will verbalize/demonstrate understanding of assistive devices/modifications for ADL. 3=Patient will improve strength/tolerance for activity to enable patient to perform ADL's. OT Education/Plan Problem List/Assessment Assessment: Decreased Activ Tolerance, Decreased UE Strength, Impaired Funct Balance, Impaired Self-Care Skills Discharge Recommendations Plan/Recommendations: Continue POC Treatment Plan/Plan of Care Patient would benefit from OT for education, treatment and training to promote independence in ADL's, mobility, safety and/or upper extremity function for ADL's. Plan of Care: ADL Retraining, Functional Mobility, Group Exercise/Act as Ind, UE Funct Exercise/Act Treatment Duration: Mar 13, 2023 Frequency: At least 5 of 7 days/Wk (IRF) Estimated Hrs Per Day: 1.5 hours per day Agreement: Yes Rehab Potential: Good Time Start Time: 09:00 Stop Time: 10:30 DATE: Feb 26, 2023 Total Time Billed (hr/min): 90 Billed Treatment Time 1 visit- ADL (10 min) FA 5 (80 min) co-treat OT/PT ([id number]), individual ([id number]) ANETA ORELLANA Feb 26, 2023 10:44
--- NOTE | 2023-02-26 13:41 | Physical Therapy Daily Note ---
PT Daily Note-Current Subjective Pt sitting in the gym with OT upon arrival. Pt is agreeable to PT. Pt reported L hip pain at 6. PT/OT co-tx for family training ([id number]), skills of 2 clinicians required for family education, fall prevention, and improving functional mobility. PT focusing on transfers, ambulation with FWW, stair training, and activity tolerance. OT focusing on floor recovery, activity tolerance, 02 management, and fall prevention with functional tasks. Pain Numeric Pain Scale: 6 Location: Left Location Body Site: Hip Section J - Health Conditions 1. Rarely or not at all 2. Occasionally 3. Frequently 4. Almost constantly 8. Unable to answer Pain Effect on Sleep: 1 Pain Interference with Therapy: 2 Pain Interference w/Day-to-Day: 2 Mental Status Attachments: Oxygen (1.5L ) Transfers SCALE: Activities may be completed with or without assistive devices. 1-Xanntpxhtr-gklymwz completes the activity by him/herself with no assistance from a helper. 5-Set-up or Clean-up Assistance-helper sets up or cleans up; patient completes activity. [place] assists only prior to or following the activity. 4-Supervision or Touching Assistance-helper provides verbal cues and/or touching/steadying and/or contact guard assistance as patient completes activity. Assistance may be provided throughout the activity or intermittently. 3-Partial/Moderate Assistance-helper does LESS THAN HALF the effort. [place] lifts, holds or supports trunk or limbs, but provides less than half the effort. 2-Substantial/Maximal Assistance-helper does MORE THAN HALF the effort. [place] lifts or holds trunk or limbs and provides more than half the effort. 5-Cjtyekirh-gxelwd does ALL the effort. Patient does none of the effort to complete the activity. Or, the assistance of 2 or more helpers is required for the patient to complete the activity. If activity was not attempted, code reason: 7-Patient Refused. 9-Not Applicable-not attempted and the patient did not perform the activity before the current illness, exacerbation or injury. 10-Not Attempted due to Environmental Limitations-(lack of equipment, weather restraints, etc.). 88-Not Attempted due to Medical Conditions or Safety Concerns. Sit to Stand (QC): 4 Chair/Jpl-yt-Vtavj Xfer(QC): 4 Car Transfer (QC): 3 (Min A due to high surface to simulate getting into/out of truck ) Weight Bearing Right Lower Extremity: Right Weight Bearing/Tolerated Left Lower Extremity: Left Weight Bearing/Tolerated Gait Training Does the Patient Walk?: Yes Distance: 70ft x 4 Walk 10 feet (QC): 4 Walk 50 ft with 2 Turns(QC): 4 Walk 150 ft (QC): 88 (Pain/SOB ) Gait Persons Needed: 1 Gait Assistive Device: FWW Stair Training Stair Training: Handrails/: 2 handrails #of Steps: 4 1 Step (curb) (QC): 4 (CGA ) 4 Steps (QC): 4 (CGA ) 12 Steps (QC): 9 Stairs: Pattern: Step to Treatments Family training completed, with pt/SO edu. Pt working on floor recovery due to fall concerns from pt and pts SO. Demonstration given to pt and pt's SO during instruction for proper use of gait belt, positioning, and body mechanics during transfer. Pt did not demonstrate transfer due to increased pain. Pt ambulated 70ft x 4 with the FWW and CGA/SBA and assist for O2. Pt completed car transfer with Min A (due to high surface to simulate getting into/out of a truck). Pt negotiated 4 steps with B HR and CGA. Pt and SO edu on use and set-up of TENS unit on IFC mode. Pt left lying in bed upon completion of treatment with TENS unit and heat on L hip, call light in reach, SO present, and all needs met. Assessment Current Status: Good Progress Pt tolerated PT well with good effort; cont to be limited by increased pain and endurance PT Field Director Goals Field Director Goals PT Mcfp Goals Time Frame: Mar 02, 2023 Roll Left & Right (QC): 6 Sit to Lying (QC): 6 Lying-Sitting on Side/Bed(QC): 6 Sit to Stand (QC): 6 Chair/Efv-au-Kapkk Xfer(QC): 6 Toilet Transfer (QC): 6 Car Transfer (QC): 5 Does the Patient Walk: Yes Walk 10 feet (QC): 6 Walk 50ft with 2 Turns (QC): 6 Walk 150 ft (QC): 5 Walking 10ft on Uneven Surface: 6 1 Step (curb) (QC): 4 4 Steps (QC): 9 12 Steps (QC): 9 Picking up an Object (QC): 5 (with fiberglass technician) Does the Pt use WC or Scooter?: Yes Wheel 50 feet with 2 turns (QC: 6 Type: Manual Wheel 150 feet: 6 Type: Manual PT Plan Problem List Problem List: Activity Tolerance, Functional Strength, Safety, Balance, Gait, Transfer, Bed Mobility, ROM Treatment/Plan Treatment Plan: Continue Plan of Care Treatment Plan: Bed Mobility, Education, Functional Activity [place], Functional Strength, Group Therapy, Gait, Safety, Therapeutic Exercise, Transfers Treatment Duration: Mar 02, 2023 Frequency: At least 5 of 7 days/Wk (IRF) Estimated Hrs Per Day: 1.5 hours per day Patient and/or Family Agrees t: Yes Safety Risks/Education Patient Education: Gait Training, Transfer Techniques, Steps, Correct Positioning, Safety Issues Teaching Recipient: Patient, Significant Other Teaching Methods: Demonstration Response to Teaching: Verbalize Understanding, Return Demonstration, Reinforcement Needed Discharge Recommendations Therapy Discharge Recommendati: Home & Family Equpiment Recommendations-D/C: None Discharge Status/Home Program Cont per POC Barriers to Progress Increased pain; Decreased endurance Target Placement Home with family support and [facility] Time Time In: 930 Time Out: 1100 DATE: Feb 26, 2023 Total Billed Treatment Time: 90 Total Billed Treatment 90 min total from [id number]; Co-tx for 60 min from [id number] 1 visit FA x 4 GT x 2 [place] ZAFAR PT Feb 26, 2023 13:41
[2023-02-26] MEDS: PATCH REMOVAL TP SCH (19:24)
[2023-02-26 19:36] VITALS: BP 125/58
[2023-02-26 21:39] VITALS: BP 125/58
[2023-02-27] MEDS: oxyCODONE IMMEDIATE RELEASE 5 MG TABLET PO PRN ×3 (01:49→16:36)
--- NOTE | 2023-02-27 05:13 | PM&R Progress Note ---
Subjective HPI/CC On Admission Date Seen by Provider: Feb 27, 2023 Time Seen by Provider: 12:30 Subjective/Events-last exam 02/27/2023: Patient doing well Set for discharge tomorrow No falls Pain is controlled 02/26/2023: Improved overall Pain since she is moving more BM+ O2 maintained 02/25/2023: Improved overall No issues Pain is controlled Ambulating well No falls 02/24/2023: Much improved pain Ambulating around a lot better No falls Bowels are moving 02/23/2023: Doing much better BM loose now so refused Lactulose Pain improved Less urinary retention 02/22/2023: Patient doing well Much improved Pain is much improved Urinary retention likely due to pain medication also Lactulose 3 times daily scheduled 02/21/2023: Patient doing well Pain improved Working on bowels Very frail 02/20/2023: Much improved status Pain is better Increased pain medication is improved No falls 02/19/2023: Pain is an issue No other issues Slow recovery Urecholine ordered due to PVR amount 02/18/2023: No major new issues Pain is an issue since she has moving around a lot more in rehab Bowels haven't moved today so maintain bowel regimen to prevent narcotic bowel UTI treatment maintained 02/17/2023: Much improved Very tearful at times I tried to reassure Labs stable Pain is an issue UTI dx after in out cath obtained due to cloudy urine and martinez cath for 7 days Review of Systems General: Fatigue, Malaise Objective Exam Vital Signs Vital Signs Date Time Temp Pulse Resp B/P (MAP) Pulse Ox O2 Delivery O2 Flow Rate FiO2 02/27/23 20:15 36.6 83 20 110/52 (71) 91 Nasal Cannula 2.00 02/26/23 21:39 28 Capillary Refill : General Appearance: No Apparent Distress, WD/WN, Chronically ill, Thin, Other (frail) HEENT: PERRL/EOMI, Normal ENT Inspection, Pharynx Normal Neck: Full Range of Motion, Normal Inspection, Non Tender, Supple, Carotid Bruit Respiratory: Chest Non Tender, Lungs Clear, No Accessory Muscle Use, No Respiratory Distress, Decreased Breath Sounds Cardiovascular: Regular Rate, Rhythm, No Edema, No Gallop, No JVD, No Murmur, Normal Peripheral Pulses Gastrointestinal: Normal Bowel Sounds, No Organomegaly, No Pulsatile Mass, Non Tender, Soft Back: Normal Inspection, No CVA Tenderness, No Vertebral Tenderness Extremity: Normal Capillary Refill, Normal Inspection, Normal Range of Motion, Non Tender, No Calf Tenderness, No Pedal Edema Neurologic/Psychiatric: Alert, Oriented x3, area director II-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 FIM Transfers Therapy Code Descriptions/Definitions Functional [place] Measure: 0=Not Assessed/NA 4=Minimal Assistance 1=Total Assistance 5=Supervision or Setup 2=Maximal Assistance 6=Modified [place] 3=Moderate Assistance 7=Complete IndependenceSCALE: Activities may be completed with or without assistive devices. 2-Rhzzjjdudt-zttoyky completes the activity by him/herself with no assistance from a helper. 5-Set-up or Clean-up Assistance-helper sets up or cleans up; patient completes activity. [place] assists only prior to or following the activity. 4-Supervision or Touching Assistance-helper provides verbal cues and/or touching/steadying and/or contact guard assistance as patient completes activity. Assistance may be provided throughout the activity or intermittently. 3-Partial/Moderate Assistance-helper does LESS THAN HALF the effort. [place] lifts, holds or supports trunk or limbs, but provides less than half the effort. 2-Substantial/Maximal Assistance-helper does MORE THAN HALF the effort. [place] lifts or holds trunk or limbs and provides more than half the effort. 7-Mwjpzdjva-alujbe does ALL the effort. Patient does none of the effort to complete the activity. Or, the assistance of 2 or more helpers is required for the patient to complete the activity. If activity was not attempted, code reason: 7-Patient Refused. 9-Not Applicable-not attempted and the patient did not perform the activity before the current illness, exacerbation or injury. 10-Not Attempted due to Environmental Limitations-(lack of equipment, weather restraints, etc.). 88-Not Attempted due to Medical Conditions or Safety Concerns. Roll Left to Right (QC): 5 (/c bed rail) Sit to Lying (QC): 4 Sit to Stand (QC): 4 Chair/Ftr-js-Prsrx Xfer(QC): 4 Car Transfer (QC): 3 (Min A due to high surface to simulate getting into/out of truck ) Gait Training Does the Patient Walk?: Yes Distance: 70ft x 4 Walk 10 feet (QC): 4 Walk 50 ft with 2 Turns(QC): 4 Walk 150 ft (QC): 88 (Pain/SOB ) Walking 10ft/uneven surface-QC: 4 (x 4 passes including up 2" elevation /c FWW) Gait Persons Needed: 1 Gait Assistive Device: FWW Wheelchair Training Does the Pt Use a Wheelchair?: Yes Distance: 150' Wheel 50 ft with 2 turns (QC): 5 Wheel 150 ft (QC): 5 Type of Wheelchair: Manual Stair Training Stair Training: Handrails/: 2 handrails #of Steps: 4 1 Step (curb) (QC): 4 (CGA ) 4 Steps (QC): 4 (CGA ) 12 Steps (QC): 9 Stairs: Pattern: Step to Balance Picking up an Object (QC): 88 (unsafe due to high pain in standing) ADL-Treatment Eating (QC): 6 Oral Hygiene (QC): 6 (Independent standing at sink.) Bathing Location: L Arm, R Arm, L Upper Leg, R Upper Leg, L Lower Leg (including foot), R Lower Leg (including foot), Chest, Abdomen, Buttocks, Perineal Area Shower/Bathe Self (QC): 6 (Pt able to wash LE and feet w/out utilizing long handled sponge.) Upper Body Dressing (QC): 5 (Sitting in shower to don shirt, set up.) Lower Body Dressing (QC): 5 (Sitting in chair to don/doff pants/underwear, set up. Pt stood up to hike pants over hips utilizing FWW for support.) On/Off Footwear (QC): 5 (Set up for don sock. Donned/doffed socks w/out use of sock aid. 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 CAD recent CABG Sternal and flank pressure wounds Smoker HTN AF on OAC Anemia chronic disease HLP Severe constipation we will initiate suppository and soapsuds enema now resolved Severe situational depression we started Cymbalta Thursday UTI dx 02/17/23 placed on Cefdinir-Proteus on prelim culture-may be ESBL considering her lengthy hospital stays in past 6 weeks Plan: Pain control ARU PT OT Martinez Start Cymbalta Bowel regimen 02/17/2023: UTI treatment Monitor closely 02/18/2023: Monitor closely Cefdinir 02/19/2023: Await UCx sensitivity Monitor closely 02/20/2023: Treat constipation with suppository and soapsuds enema 02/21/2023: Supportive care Monitor closely 02/22/2023: Supportive care Bowel regimen 02/23/2023: Improved status ABx 02/24/2023: Supportive care Pain control 02/25/2023: Monitor closely 02/26/2023: Monitor pain Monitor BP 02/27/2023: Discharge home tomorrow (1) Pelvic fracture MELIA DAVID DO Feb 27, 2023 05:13
[2023-02-27] MEDS: THERAPEUTIC MULTIVITAMIN W/MINERALS TABLET PO SCH (05:47)
[2023-02-27] MEDS: THIAMINE 100 MG (VITAMIN B-1) TAB PO SCH (05:47)
[2023-02-27] MEDS: BETHANECHOL 25 MG TABLET PO SCH ×4 (05:47→21:20)
[2023-02-27 07:48] VITALS: BP 123/47
[2023-02-27] MEDS: LORazepam 0.5 MG TABLET PO PRN (08:18)
[2023-02-27] MEDS: MECLIZINE 25 MG TABLET PO PRN ×2 (08:19→17:11)
[2023-02-27] MEDS: DULoxetine 30 MG CAPSULE PO SCH ×2 (08:20→21:21)
[2023-02-27] MEDS: DOCUSATE SODIUM 100 MG CAPSULE PO SCH ×2 (08:20→21:23)
[2023-02-27] MEDS: VITAMIN D3 25 MCG (1,000 UNITS) TABLET PO SCH (08:20)
[2023-02-27] MEDS: APIXABAN 5 MG TABLET PO SCH ×2 (08:21→21:20)
[2023-02-27] MEDS: CLOPIDOGREL 75 MG TABLET PO SCH (08:21)
[2023-02-27] MEDS: CEFDINIR 300 MG CAPSULE PO SCH ×2 (08:21→21:20)
[2023-02-27] MEDS: AMIODARONE 200 MG TABLET PO SCH (08:21)
[2023-02-27] MEDS: amLODIPine 5 MG TABLET PO SCH (08:21)
[2023-02-27] MEDS: SENNA W/DOCUSATE TABLET PO SCH ×2 (08:21→21:21)
[2023-02-27] MEDS: LACTULOSE SYRUP 10GM/15ML 30ML UDC PO SCH ×3 (08:23→21:21)
[2023-02-27] MEDS: PHENAZOPYRIDINE 100 MG TABLET PO SCH ×3 (08:50→21:21)
[2023-02-27] MEDS: LIDOCAINE 4% PATCH TOP SCH (09:55)
[2023-02-27] MEDS: RT-Ipratropium/Albuterol NEB 3 ML VIAL INH SCH ×2 (11:06→19:40)
[2023-02-27] MEDS: RT-BUDESONIDE NEBS 0.5 MG/2ML VIAL IH SCH ×2 (11:06→19:43)
--- NOTE | 2023-02-27 11:11 | Physical Therapy Daily Note ---
PT Daily Note-Current Subjective Pt reports she is doing better today and is agreeable to PT. Pt reports she is ready to go home tomorrow. Pt reported L hip pain at 6/10. Pain Numeric Pain Scale: 6 Location: Left Location Body Site: Hip Section J - Health Conditions 1. Rarely or not at all 2. Occasionally 3. Frequently 4. Almost constantly 8. Unable to answer Pain Effect on Sleep: 1 Pain Interference with Therapy: 2 Pain Interference w/Day-to-Day: 2 Mental Status Attachments: Oxygen (2L) Transfers SCALE: Activities may be completed with or without assistive devices. 2-Ihqrrbkmmz-clwshke completes the activity by him/herself with no assistance from a helper. 5-Set-up or Clean-up Assistance-helper sets up or cleans up; patient completes activity. [place] assists only prior to or following the activity. 4-Supervision or Touching Assistance-helper provides verbal cues and/or touching/steadying and/or contact guard assistance as patient completes activity. Assistance may be provided throughout the activity or intermittently. 3-Partial/Moderate Assistance-helper does LESS THAN HALF the effort. [place] lifts, holds or supports trunk or limbs, but provides less than half the effort. 2-Substantial/Maximal Assistance-helper does MORE THAN HALF the effort. [place] lifts or holds trunk or limbs and provides more than half the effort. 5-Ebldkbkbo-enzrlm does ALL the effort. Patient does none of the effort to complete the activity. Or, the assistance of 2 or more helpers is required for the patient to complete the activity. If activity was not attempted, code reason: 7-Patient Refused. 9-Not Applicable-not attempted and the patient did not perform the activity before the current illness, exacerbation or injury. 10-Not Attempted due to Environmental Limitations-(lack of equipment, weather restraints, etc.). 88-Not Attempted due to Medical Conditions or Safety Concerns. Roll Left & Right (QC): 6 Sit to Lying (QC): 6 Lying to Sitting/Side of Bed(Q: 6 Sit to Stand (QC): 6 Chair/Qej-yl-Qyaly Xfer(QC): 6 Toilet Transfer (QC): 6 Car Transfer (QC): 6 Weight Bearing Right Lower Extremity: Right Weight Bearing/Tolerated Left Lower Extremity: Left Weight Bearing/Tolerated Gait Training Does the Patient Walk?: Yes Distance: 70ft x 4 Walk 10 feet (QC): 6 Walk 50 ft with 2 Turns(QC): 6 Walk 150 ft (QC): 88 (Unable to reach 150ft secondary to pain and SOB ) Walking 10ft/uneven surface-QC: 6 Gait Assistive Device: FWW Wheelchair Training Does the Pt Use a Wheelchair?: No Wheel 50 ft with 2 turns (QC): 6 Wheel 150 ft (QC): 6 Type of Wheelchair: Manual Stair Training Stair Training: Handrails/: 2 handrails #of Steps: 4 1 Step (curb) (QC): 6 4 Steps (QC): 6 12 Steps (QC): 9 Stairs: Pattern: Step to Balance Picking up an Object (QC): 6 (with buckler and lacer ) Treatments QCs completed on this date. Pt completed bed mobility tasks and functional transfers, including toilet and car transfer, with Mod I. Pt ambulated 70ft x 4, over even/uneven surfaces, with the FWW and Mod I. Pt unable to ambulate 150ft secondary to pain and SOB (only goal not met). Pt is able to independently pickers material handlers an object from the floor with the buckler and lacer. Pt completed 4 steps with B HR and Mod I. Pt is Ind with w/c mobility. Pt completed seated B LE Ther Ex x 15 reps each with the green Tband. Pt completed 10 min on the nu-step on level 3. Pt lying supine in bed upon completion of PT, with call light in reach and all needs met. Pt to d/c home tomorrow (02/28/23) and pt denies any questions or concerns. Assessment Current Status: Good Progress Pt tolerated PT well with good effort; pt has progressed well with PT PT Alf Goals Alf Goals PT Alf Goals Time Frame: Mar 02, 2023 Roll Left & Right (QC): 6 Sit to Lying (QC): 6 Lying-Sitting on Side/Bed(QC): 6 Sit to Stand (QC): 6 Chair/Rhw-jn-Jnjpo Xfer(QC): 6 Toilet Transfer (QC): 6 Car Transfer (QC): 5 Does the Patient Walk: Yes Walk 10 feet (QC): 6 Walk 50ft with 2 Turns (QC): 6 Walk 150 ft (QC): 5 Walking 10ft on Uneven Surface: 6 1 Step (curb) (QC): 4 4 Steps (QC): 9 12 Steps (QC): 9 Picking up an Object (QC): 5 (with buckler and lacer) Does the Pt use WC or Scooter?: Yes Wheel 50 feet with 2 turns (QC: 6 Type: Manual Wheel 150 feet: 6 Type: Manual PT Plan Problem List Problem List: Activity Tolerance, Functional Strength, Safety, Balance, Gait, Transfer, Bed Mobility, ROM Treatment/Plan Treatment Plan: Continue Plan of Care Treatment Plan: Bed Mobility, Education, Functional Activity [place], Functional Strength, Group Therapy, Gait, Safety, Therapeutic Exercise, Transfers Treatment Duration: Mar 02, 2023 Frequency: At least 5 of 7 days/Wk (IRF) Estimated Hrs Per Day: 1.5 hours per day Patient and/or Family Agrees t: Yes Safety Risks/Education Patient Education: Gait Training, Transfer Techniques, Steps, Correct Positioning, W/C Management, Safety Issues Teaching Recipient: Patient Teaching Methods: Demonstration, Discussion Response to Teaching: Verbalize Understanding, Return Demonstration Discharge Recommendations Therapy Discharge Recommendati: Home & Family, Post Acute PT Equpiment Recommendations-D/C: None Discharge Status/Home Program Cont per POC; pt planned to d/c to home with family support and outpatient PT on 02/28/23 Barriers to Progress L hip pain; decreased endurance Target Placement Home with family support and outpatient PT Time Time In: 800 Time Out: 930 DATE: Feb 27, 2023 Total Billed Treatment Time: 90 Total Billed Treatment 90 min total from [id number] 1 visit EX x 1 GT x 2 FA X 3 [place] ZAFAR PT Feb 27, 2023 11:11
--- NOTE | 2023-02-27 12:41 | Occupational Ther Daily Note ---
OT Current Status-Daily Note Subjective Pt alert, supine in bed. Pt agrees to therapy, no c/o of pain or nausea during session. Mental Status/Objective Patient Orientation: Person, Place, Time, Situation ADL-Treatment Therapy Code Descriptions/Definitions Functional Lyles Measure: 0=Not Assessed/NA 4=Minimal Assistance 1=Total Assistance 5=Supervision or Setup 2=Maximal Assistance 6=Modified Lyles 3=Moderate Assistance 7=Complete IndependenceSCALE: Activities may be completed with or without assistive devices. 7-Qiuccegtyt-khugsqj completes the activity by him/herself with no assistance from a helper. 5-Set-up or Clean-up Assistance-helper sets up or cleans up; patient completes activity. [place] assists only prior to or following the activity. 4-Supervision or Touching Assistance-helper provides verbal cues and/or touching/steadying and/or contact guard assistance as patient completes activity. Assistance may be provided throughout the activity or intermittently. 3-Partial/Moderate Assistance-helper does LESS THAN HALF the effort. [place] lifts, holds or supports trunk or limbs, but provides less than half the effort. 2-Substantial/Maximal Assistance-helper does MORE THAN HALF the effort. [place] lifts or holds trunk or limbs and provides more than half the effort. 1-Vtwoorfif-blvdba does ALL the effort. Patient does none of the effort to complete the activity. Or, the assistance of 2 or more helpers is required for the patient to complete the activity. If activity was not attempted, code reason: 7-Patient Refused. 9-Not Applicable-not attempted and the patient did not perform the activity before the current illness, exacerbation or injury. 10-Not Attempted due to Environmental Limitations-(lack of equipment, weather restraints, etc.). 88-Not Attempted due to Medical Conditions or Safety Concerns. Eating (QC): 6 (Pt has demonstrated ability to complete independently.) Oral Hygiene (QC): 6 (Pt brushed dentures seated in shower.) Bathing Location: L Arm, R Arm, L Upper Leg, R Upper Leg, L Lower Leg (including foot), R Lower Leg (including foot), Chest, Abdomen, Buttocks, Perineal Area Shower/Bathe Self (QC): 6 (Pt able to wash all areas. Utilized grab bars while standing for stability.) Upper Body Dressing (QC): 6 (Pt donned/doffed shirt independently.) Lower Body Dressing (QC): 6 (Pt donned/doffed underwear/shorts independently. Pt did not use AE.) On/Off Footwear: 6 (Pt utilized figure-four technique to don/doff socks. ) Toileting Hygiene (QC): 6 (Pt completed all hygiene independently.) Toilet Transfer (QC): 6 (Used FWW to navigate bathroom. Pt able to manipulate clothing during toileting using grab bars for steady support.) Pt able to retrieve and place clothing over FWW while ambulating to the bathroom independently. Rest breaks needed during ADLs due to fatigue. Pt educated on energy conservation techniques and fall prevention strategies. After showering, pt ambulated back to bed with FWW independently. Sitting EOB, pt completed B UE task with 2# wrist weights and balloon for 1.5 mins each hand x2. Pt working on B UE strengthening, hand-eye coordination, and activity tolerance. Pt EOB-> supine independently. Pt then completed 6 B UE exercises with theraband supine in bed. Skilled instruction given on HEP with theraband for proper positioning/ movement. Pt displayed higher activity tolerance than previous tx session, but still requires reminder to take resting breaks. Ended session with pt supine in bed with call light/phone in reach. All needs met in room. Education OT Patient Education: Correct positioning, Energy conservation Teaching Recipient: Patient Teaching Methods: Discussion Response to Teaching: Verbalize Understanding, Return Demonstration BIMS CAM BIMS Expression of Ideas and Wants: Without Difficulty Understanding Verbal Content: Understands Brief Interview/Mental Status: Yes IRF MITCHELL BIMS: IRF MITCHELL BIMS Response (Comments) Value Repitition of Three Words Three 3 Recalls Socks Yes, No Cue Required 2 Recalls Blue Yes, No Cue Required 2 Recalls Bed Yes, After Cueing 1 Year Correct 3 Month Accurate Within 5 Days 2 Day Correct 1 Total 14 Patient Normally Able to Recal: Current Session, Location of own room, Staff Names and faces, That he/she in a hsp Should Staff Asses. Mental St.: No CAM Mental Status Change/Baseline: 0 Inattention: 0 Disorganized thinkin Altered level of consciousness: 0 OT Short Term Goals Short Term Goals Time Frame: Feb 27, 2023 Toileting hygiene: 4 Upper body dressin Lower body dressin Putting on/taking off footwear: 4 OT Snf Goals Folder Seamer Automatic Goals Time Frame: Mar 13, 2023 Acute change in mental status: 0 Inattention: 0 Disorganized thinkin Altered level of consciousness: 0 Eating (QC): 6 (met) Oral Hygiene (QC): 6 (met) Toileting Hygiene (QC): 6 (met) Shower/Bathe Self (QC): 6 (met) Upper Body Dressing (QC): 6 (m) Lower Body Dressing (QC): 6 (met) On/Off Footwear (QC): 6 (met) Additional Goals: 1-Demonstrate ADL Tasks, 2-Verbalize Understanding, 3- ImproveStrength/[place] 1=Demonstrate adherence to instructed precautions during ADL tasks. 2=Patient will verbalize/demonstrate understanding of assistive devices/modifications for ADL. 3=Patient will improve strength/tolerance for activity to enable patient to perform ADL's. OT Education/Plan Problem List/Assessment Assessment: Decreased Activ Tolerance, Decreased UE Strength Discharge Recommendations Plan/Recommendations: Continue POC Treatment Plan/Plan of Care Patient would benefit from OT for education, treatment and training to promote independence in ADL's, mobility, safety and/or upper extremity function for ADL's. Plan of Care: ADL Retraining, Functional Mobility, Group Exercise/Act as Ind, UE Funct Exercise/Act Treatment Duration: Mar 13, 2023 Frequency: At least 5 of 7 days/Wk (IRF) Estimated Hrs Per Day: 1.5 hours per day Agreement: Yes Rehab Potential: Good Time Start Time: 10:30 Stop Time: 12:00 DATE: Feb 27, 2023 Total Time Billed (hr/min): 90 Billed Treatment Time 1 visit- ADL 4 (60 min) EX 2 (30 min) ANETA ORELLANA Feb 27, 2023 12:41
[2023-02-27] MEDS: CYCLOBENZAPRINE 10 MG TABLET PO PRN ×2 (16:36→21:20)
[2023-02-27] MEDS: ONDANSETRON 4 MG ORAL DISSOLVE TABLET SL PRN (18:54)
[2023-02-27 20:15] VITALS: BP 110/52
[2023-02-27] MEDS: PATCH REMOVAL TP SCH (21:21)
[2023-02-28] MEDS: ONDANSETRON 4 MG ORAL DISSOLVE TABLET SL PRN (01:09)
[2023-02-28] MEDS: THIAMINE 100 MG (VITAMIN B-1) TAB PO SCH (06:07)
[2023-02-28] MEDS: THERAPEUTIC MULTIVITAMIN W/MINERALS TABLET PO SCH (06:07)
[2023-02-28] MEDS: BETHANECHOL 25 MG TABLET PO SCH (06:07)
[2023-02-28] MEDS: MECLIZINE 25 MG TABLET PO PRN (06:11)
[2023-02-28] MEDS: CYCLOBENZAPRINE 10 MG TABLET PO PRN (06:13)
[2023-02-28] MEDS ORDERED: BETH25TA2 PO (06:49)
[2023-02-28] MEDS ORDERED: OXC5T PO (06:49)
[2023-02-28] MEDS ORDERED: LORA-404 PO (06:49)
[2023-02-28] MEDS ORDERED: PHEN-826 PO (06:49)
[2023-02-28] MEDS ORDERED: DULO30CA3 PO (06:49)
[2023-02-28] MEDS ORDERED: CYCL10TA25 PO (06:49)
[2023-02-28] MEDS ORDERED: SENN-271 PO (06:49)
--- NOTE | 2023-02-28 06:50 | Discharge Summary ---
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 CAD recent CABG Sternal and flank pressure wounds Smoker HTN AF on OAC Anemia chronic disease HLP Severe constipation we will initiate suppository and soapsuds enema now resolved Severe situational depression we started Cymbalta Thursday UTI dx 02/17/23 placed on Cefdinir-Proteus on prelim culture-may be ESBL considering her lengthy hospital stays in past 6 weeks Plan: Pain control ARU PT OT Gabriel Start Cymbalta Bowel regimen 02/17/2023: UTI treatment Monitor closely 02/18/2023: Monitor closely Cefdinir 02/19/2023: Await UCx sensitivity Monitor closely 02/20/2023: Treat constipation with suppository and soapsuds enema 02/21/2023: Supportive care Monitor closely 02/22/2023: Supportive care Bowel regimen 02/23/2023: Improved status ABx 02/24/2023: Supportive care Pain control 02/25/2023: Monitor closely 02/26/2023: Monitor pain Monitor BP 02/27/2023: Discharge home tomorrow (1) Pelvic fracture Discharge Summary Discharge Physical Examination Allergies: Coded Allergies: No Known Drug Allergies (Unverified , 03/23/17) Vitals & I&Os Vital Signs Date Time Temp Pulse Resp B/P (MAP) Pulse Ox O2 Delivery O2 Flow Rate FiO2 02/28/23 08:55 Nasal Cannula 2.00 02/28/23 08:15 36.7 82 18 125/63 (83) 95 02/26/23 21:39 28 General Appearance: Alert, Oriented X3, Cooperative Respiratory: Clear to Auscultation Cardiovascular: Regular Rate Psych/Mental Status: Mental Status NL Hospital Course Was the Problem List Reviewed?: Yes Uneventful course after moved to ARU from [address] [place] [address] after sustaining a pelvic fracture. Pain was an issue and increased pain meds helped. Bowel regimen maintained to prevent narcotic bowel. Urinary retention did occur and in out caths required once daily but improved with Urecholine. Overall she did well and regaining ambulatory function while maintained on 2L/min O2 at home dosing. She was deemed stable for DC. Labs (last 24 hrs) Laboratory Tests 02/16/23 09:45: Lab Scanned Report Referred Lab Report 02/17/23 05:15: White Blood Count 11.7H, Red Blood Count 2.98L, Hemoglobin 9.0L, Hematocrit 28L, Mean Corpuscular Volume 94, Mean Corpuscular Hemoglobin 30, Mean Corpuscular Hemoglobin Concent 32, Red Cell Distribution Width 14.8H, Platelet Count 350, Mean Platelet Volume 9.5, Immature Granulocyte % (Auto) 1, Neutrophils (%) (Auto) 73, Lymphocytes (%) (Auto) 13, Monocytes (%) (Auto) 10, Eosinophils (%) (Auto) 2, Basophils (%) (Auto) 1, Neutrophils # (Auto) 8.5H, Lymphocytes # (Aut o) 1.5, Monocytes # (Auto) 1.2H, Eosinophils # (Auto) 0.3, Basophils # (Auto) 0.1, Immature Granulocyte # (Auto) 0.1, Sodium Level 136, Potassium Level 4.2, Chloride Level 99, Carbon Dioxide Level 30, Anion Gap 7, Blood Urea Nitrogen 10, Creatinine 0.68, Estimat Glomerular Filtration Rate 98, BUN/Creatinine Ratio 15, Glucose Level 105, Calcium Level 8.7, Corrected Calcium 9.6, Total Bilirubin 0.3, Aspartate Amino Transf (AST/SGOT) 18, Alanine Aminotransferase (ALT/SGPT) 13, Alkaline Phosphatase 76, Total Protein 6.0L, Albumin 2.9L 02/17/23 12:57: Urine Color YELLOW, Urine Clarity CLEAR, Urine pH 6.5, Urine Specific [place] 1.015L, Urine Protein 2+H, Urine Glucose (UA) NEGATIVE, Urine Ketones NEGATIVE, Urine Nitrite POSITIVEH, Urine Bilirubin NEGATIVE, Urine Urobilinogen 0.2, Urine Leukocyte Esterase 3+H, Urine RBC (Auto) 1+H, Urine RBC 0-2, Urine WBC >100H, Urine Squamous Epithelial Cells RARE, Urine Crystals NONE, Urine Bacteria LARGEH , Urine Casts NONE, Urine Mucus NEGATIVE, Urine Culture Indicated YES 02/23/23 05:42: White Blood Count 7.2, Red Blood Count 3.10L, Hemoglobin 9.2L, Hematocrit 30L, Mean Corpuscular Volume 95, Mean Corpuscular Hemoglobin 30, Mean Corpuscular Hemoglobin Concent 31L, Red Cell Distribution Width 15.0H, Platelet Count 359, Mean Platelet Volume 9.6, Immature Granulocyte % (Auto) 1, Neutrophils (%) (Auto) 55, Lymphocytes (%) (Auto) 28, Monocytes (%) (Auto) 11, Eosinophils (%) (Auto) 4, Basophils (%) (Auto) 1, Neutrophils # (Auto) 4.0, Lymphocytes # (Auto) 2.0, Monocytes # (Auto) 0.8, Eosinophils # (Auto) 0.3, Basophils # (Auto) 0.1, Immature Granulocyte # (Auto) 0.1, Sodium Level 136, Potassium Level 4.0, Chloride Level 101, Carbon Dioxide Level 28, Anion Gap 7, Blood Urea Nitrogen 7, Creatinine 0.80, Estimat Glomerular Filtration Rate 83, BUN/Creatinine Ratio 9, Glucose Level 101, Calcium Level 8.6, Corrected Calcium 9.4, Total Bilirubin 0.2, Aspartate Amino Transf (AST/SGOT) 19, Alanine Aminotransferase (ALT/SGPT) 13, Alkaline Phosphatase 179H, Total Protein 6.1L, Albumin 3.0L Microbiology 02/17/23 Urine Culture - Final, Complete Escherichia coli Proteus mirabilis Pending Labs Microbiology Date/Time Source Procedure Growth Status 02/17/23 12:57 Urine Straight Cath, In/Out Urine Culture - Final Escherichia coli Proteus mirabilis Complete Laboratory Tests 02/16/23 09:45: Lab Scanned Report Referred Lab Report 02/17/23 05:15: White Blood Count 11.7, Red Blood Count 2.98, Hemoglobin 9.0, Hematocrit 28, Mean Corpuscular Volume 94, Mean Corpuscular Hemoglobin 30, Mean Corpuscular Hemoglobin Concent 32, Red Cell Distribution Width 14.8, Platelet Count 350, Mean Platelet Volume 9.5, Immature Granulocyte % (Auto) 1, Neutrophils (%) (Auto) 73, Lymphocytes (%) (Auto) 13, Monocytes (%) (Auto) 10, Eosinophils (%) (Auto) 2, Basophils (%) (Auto) 1, Neutrophils # (Auto) 8.5, Lymphocytes # (Auto) 1.5, Monocytes # (Auto) 1.2, Eosinophils # (Auto) 0.3, Basophils # (Auto) 0.1, Immature Granulocyte # (Auto) 0.1, Sodium Level 136, Potassium Level 4.2, Chloride Level 99, Carbon Dioxide Level 30, Anion Gap 7, Blood Urea Nitrogen 10, Creatinine 0.68, Estimat Glomerular Filtration Rate 98, BUN/Creatinine Ratio 15, Glucose Level 105, Calcium Level 8.7, Corrected Calcium 9.6, Total Bilirubin 0.3, Aspartate Amino Transf (AST/SGOT) 18, Alanine Aminotransferase (ALT/SGPT) 13, Alkaline Phosphatase 76, Total Protein 6.0, Albumin 2.9 02/17/23 12:57: Urine Color YELLOW, Urine Clarity CLEAR, Urine pH 6.5, Urine Specific [place] 1.015, Urine Protein 2+, Urine Glucose (UA) NEGATIVE, Urine Ketones NEGATIVE, Urine Nitrite POSITIVE, Urine Bilirubin NEGATIVE, Urine Urobilinogen 0.2, Urine Leukocyte Esterase 3+, Urine RBC (Auto) 1+, Urine RBC 0-2, Urine WBC >100, Urine Squamous Epithelial Cells RARE, Urine Crystals NONE, Urine Bacteria LARGE, Urine Casts NONE, Urine Mucus NEGATIVE, Urine Culture Indicated YES 02/23/23 05:42: White Blood Count 7.2, Red Blood Count 3.10, Hemoglobin 9.2, Hematocrit 30, Mean Corpuscular Volume 95, Mean Corpuscular Hemoglobin 30, Mean Corpuscular H emoglobin Concent 31, Red Cell Distribution Width 15.0, Platelet Count 359, Mean Platelet Volume 9.6, Immature Granulocyte % (Auto) 1, Neutrophils (%) (Auto) 55, Lymphocytes (%) (Auto) 28, Monocytes (%) (Auto) 11, Eosinophils (%) (Auto) 4, Basophils (%) (Auto) 1, Neutrophils # (Auto) 4.0, Lymphocytes # (Auto) 2.0, Monocytes # (Auto) 0.8, Eosinophils # (Auto) 0.3, Basophils # (Auto) 0.1, Immature Granulocyte # (Auto) 0.1, Sodium Level 136, Potassium Level 4.0, Chloride Level 101, Carbon Dioxide Level 28, Anion Gap 7, Blood Urea Nitrogen 7, Creatinine 0.80, Estimat Glomerular Filtration Rate 83, BUN/Creatinine Ratio 9, Glucose Level 101, Calcium Level 8.6, Corrected Calcium 9.4, Total Bilirubin 0.2, Aspartate Amino Transf (AST/SGOT) 19, Alanine Aminotransferase (ALT/SGPT) 13, Alkaline Phosphatase 179, Total Protein 6.1, Albumin 3.0 Discharge Home Medications: Active Scripts Active Phenazopyridine HCl 100 Mg Tablet 100 Mg PO TIDPC Cymbalta (Duloxetine HCl) 30 Mg Capsule.dr 30 Mg PO BID Oxyir Tablet (Oxycodone HCl) 5 Mg Tab 10 Mg PO Q4HR PRN Bethanechol Chloride 25 Mg Tablet 50 Mg PO ACHS Ativan (Lorazepam) 0.5 Mg Tablet 0.5 Mg PO TID PRN Stool Softener-Laxative Tablet (Sennosides/Docusate Sodium) 8.6 Mg-50 Mg Tablet 1 Ea PO BID Cyclobenzaprine HCl 10 Mg Tablet 10 Mg PO TID PRN Iprat-Albut 0.5-3(2.5) mg/3 ml (Ipratropium/Albuterol Sulfate) 0.5 Mg-3 Mg (2.5 Mg Base)/3 Ml Ampul.neb 3 Ml IH Q6H PRN Ondansetron Odt (Ondansetron) 4 Mg Tab.rapdis 4 Mg SL Q4H PRN Meclizine HCl 25 Mg Tablet 25 Mg PO TID PRN Budesonide 0.5 Mg/2 Ml Ampul.neb 0.5 Mg IH RTBID Tessalon Perles (Benzonatate) 100 Mg Capsule 100 Mg PO TID PRN Tramadol HCl 50 Mg Tablet 50 Mg PO Q4H PRN Amlodipine Besylate 5 Mg Tablet 5 Mg PO DAILY Amiodarone HCl 200 Mg Tablet 200 Mg PO DAILY Clopidogrel (Clopidogrel Bisulfate) 75 Mg Tablet 75 Mg PO DAILY Eliquis (Apixaban) 5 Mg Tablet 5 Mg PO BID Reported Anoro Ellipta 62.5-25 Mcg INH (Umeclidinium Brm/Vilanterol Tr) 62.5 Mcg-25 Mcg/Actuation Blst.w.dev 1 Each IH BID Vitamin B-1 (Thiamine Mononitrate) 100 Mg Tablet 100 Mg PO DAILY Tart [place] Capsule (Vit C/[place] & Celery Ex/Grp E) 30 Mg-250 Mg-75 Mg-75 Mg-20 Mg Capsule 1 Each PO BID Women's 50 Plus Multivit Tab (Mv-Mn/Folic Acid/Calcium/Vit K) 400 Mcg-500 Mg Calcium-20 Mcg Tablet 1 Each PO DAILY Vitamin D3 (Cholecalciferol (Vitamin D3)) 50 Mcg (2000 Unit) Capsule 50 Mcg PO DAILY Stress B-Complex Tablet (B&C/FA/Zinc/Copper Oxide/Vit E) 500-0.4 Mg Tablet 1 Each PO DAILY Vitamin C (Ascorbate Calcium) 500 Mg Tablet 500 Mg PO DAILY Instructions to patient/family Please see electronic discharge instructions given to patient. Diagnosis/Problems Diagnosis/Problems (1) Pelvic fracture MELIA DAVID DO Feb 28, 2023 06:50
[2023-02-28] MEDS: RT-Ipratropium/Albuterol NEB 3 ML VIAL INH SCH (07:38)
[2023-02-28] MEDS: RT-BUDESONIDE NEBS 0.5 MG/2ML VIAL IH SCH (07:38)
[2023-02-28 08:15] VITALS: BP 125/63
[2023-02-28] MEDS: APIXABAN 5 MG TABLET PO SCH (08:30)
[2023-02-28] MEDS: CLOPIDOGREL 75 MG TABLET PO SCH (08:30)
[2023-02-28] MEDS: CEFDINIR 300 MG CAPSULE PO SCH (08:30)
[2023-02-28] MEDS: DULoxetine 30 MG CAPSULE PO SCH (08:30)
[2023-02-28] MEDS: VITAMIN D3 25 MCG (1,000 UNITS) TABLET PO SCH (08:30)
[2023-02-28] MEDS: amLODIPine 5 MG TABLET PO SCH (08:30)
[2023-02-28] MEDS: LIDOCAINE 4% PATCH TOP SCH (08:30)
[2023-02-28] MEDS: AMIODARONE 200 MG TABLET PO SCH (08:30)
[2023-02-28] MEDS: DOCUSATE SODIUM 100 MG CAPSULE PO SCH (08:30)
[2023-02-28] MEDS: LACTULOSE SYRUP 10GM/15ML 30ML UDC PO SCH (08:31)
[2023-02-28] MEDS: SENNA W/DOCUSATE TABLET PO SCH (08:34)
[2023-02-28] MEDS: PHENAZOPYRIDINE 100 MG TABLET PO SCH (08:53)
[2023-02-28] MEDS: LORazepam 0.5 MG TABLET PO PRN (08:53)
[2023-02-28 11:00] VITALS: BP 125/63
--- NOTE | 2023-03-02 09:55 | Therapy Team Discharge Summary ---
Therapy Discharge Summary Discharge Recommendations Date of Discharge Feb 28, 2023 at 11:00 Physical Therapy Roll Left to Right (QC): 6 Sit to Lying (QC): 6 Lying to Sitting/Side of Bed(Q: 6 Sit to Stand (QC): 6 Chair/Vva-ky-Hgbmb Xfer(QC): 6 Toilet Transfer (QC): 6 Car Transfer (QC): 6 Does the Patient Walk: Yes Mode of Locomotion: Both Anticipated Mode of Locomotion: Both Walk 10 feet (QC): 6 Walk 50 ft with 2 Turns(QC): 6 Walk 150 ft (QC): 88 (Unable to reach 150ft secondary to pain and SOB ) Walking 10ft on uneven surface: 6 Distance: 5' Gait Assistive Device: FWW Does the Pt Use a Wheelchair: No Wheelchair Distance: 150' Wheel 50 ft with 2 turns (QC): 6 Wheel 150 ft (QC): 6 Type of Wheelchair: Manual #of Steps: 4 1 Step (curb) (QC): 6 4 Steps (QC): 6 12 Steps (QC): 9 Balance Sitting Dynamic: Fair Balance-Standing Static: Poor Picking up an Object (QC): 6 (with appraiser auditor ) Occupational Therapy Pt admitted to ARU s/p pelvic fx. At OF, pt was independent with ADLs and functional mobility using FWW. Upon initial evaluation, pt was independent with eating, required set up with oral care, SBA UE dressing, mod A showering, and total assist with LE dressing and footwear. OT tx focused on increasing BUE Strength and activity tolerance, and increasing safety and independence with ADLS and functional mobility. Pt made good progress towards goals, attaining IND level with all ADLS. Pt discharged from ARU, d/c from OT. Decreased Activ Tolerance, Decreased UE Strength Eating (QC): 6 (Pt has demonstrated ability to complete independently.) Oral Hygiene (QC): 6 (Pt brushed dentures seated in shower.) Shower/Bathe Self (QC): 6 (Pt able to wash all areas. Utilized grab bars while standing for stability.) Upper Body Dressing (QC): 6 (Pt donned/doffed shirt independently.) Lower Body Dressing (QC): 6 (Pt donned/doffed underwear/shorts independently. Pt did not use AE.) On/Off Footwear (QC): 6 (Pt utilized figure-four technique to don/doff socks. ) Toileting Hygiene (QC): 6 (Pt completed all hygiene independently.) PT Retirement Goals Retirement Goals PT Commercial Real Estate Appraiser Goals Time Frame: Mar 02, 2023 Roll Left to Right (QC): 6 Sit to Lying (QC): 6 Lying-Sitting on Side/Bed(QC): 6 Sit to Stand (QC): 6 Chair/Nol-dm-Dabow Xfer(QC): 6 Toilet/Commode Transfer (QC): 6 Car Transfer (QC): 5 Does the Patient Walk: Yes Walk 10 feet (QC): 6 Walk 10ft-Uneven Surface(QC): 6 Walk 50ft with 2 Turns (QC): 6 Walk 150 ft (QC): 5 Does the Pt use WC or Scooter?: Yes Wheel 50 feet with 2 turns (QC: 6 Type: Manual Wheel 150 feet: 6 Type: Manual 1 Step (curb) (QC): 4 4 Steps (QC): 9 12 Steps (QC): 9 Picking up an Object (QC): 5 (with appraiser auditor) OT Retirement Goals Retirement Goals Time Frame: Mar 13, 2023 Acute change in mental status: 0 Inattention: 0 Disorganized thinkin Altered level of consciousness: 0 Eating (QC): 6 (met) Oral Hygiene (QC): 6 (met) Toileting Hygiene (QC): 6 (met) Shower/Bathe Self (QC): 6 (met) Upper Body Dressing (QC): 6 (m) Lower Body Dressing (QC): 6 (met) On/Off Footwear (QC): 6 (met) Additional Goals: 1-Demonstrate ADL Tasks, 2-Verbalize Understanding, 3- ImproveStrength/[place] 1=Demonstrate adherence to instructed precautions during ADL tasks. 2=Patient will verbalize/demonstrate understanding of assistive devices/modifications for ADL. 3=Patient will improve strength/tolerance for activity to enable patient to perform ADL's. ISAAC MELARA OT Mar 02, 2023 09:55
--- NOTE | 2023-03-02 10:55 | Therapy Team Discharge Summary ---
Therapy Discharge Summary Discharge Recommendations Date of Discharge Feb 28, 2023 at 11:00 Therapy D/C Recommendations: Home w/ Family Support, Physical Therapy Outpatient Physical Therapy Pt is a 62 y/o female who fell on 02/08/23 and fractured her pelvis; Admitted to ARU on 02/16/23. At [facility], pt was Mod I with the FWW. Upon PT eval, pt was Min-Max A for bed mobility and functional transfers. Pt was only able to ambulate ~ 5ft with the FWW and Min A. Pt was set-up for w/c mobility. PT focused on pain control, strength, overall functional mobility, balance/safety, endurance, and overall Ind. Pt progressed well with PT and met all but 1 set goal, as the pts endurance and pain would not allow her to ambulate over ~ 70ft with the FWW. Pt met all other set goals. Pt d/c from ARU to home with family support and outpatient PT on 02/28/23; D/C from PT at this time. Roll Left to Right (QC): 6 Sit to Lying (QC): 6 Lying to Sitting/Side of Bed(Q: 6 Sit to Stand (QC): 6 Chair/Fqp-ev-Bgiln Xfer(QC): 6 Toilet Transfer (QC): 6 Car Transfer (QC): 6 Does the Patient Walk: Yes Mode of Locomotion: Both Anticipated Mode of Locomotion: Both Walk 10 feet (QC): 6 Walk 50 ft with 2 Turns(QC): 6 Walk 150 ft (QC): 88 (Unable to reach 150ft secondary to pain and SOB ) Walking 10ft on uneven surface: 6 Distance: 70ft Gait Assistive Device: FWW Does the Pt Use a Wheelchair: Yes Wheelchair Distance: 150' Wheel 50 ft with 2 turns (QC): 6 Wheel 150 ft (QC): 6 Type of Wheelchair: Manual #of Steps: 4 1 Step (curb) (QC): 6 4 Steps (QC): 6 12 Steps (QC): 9 Walking Assistive Device: Walker Balance Sitting Static: Normal Balance Sitting Dynamic: Good Balance-Standing Static: Fair Picking up an Object (QC): 6 (with master tax advisor ) Occupational Therapy Decreased Activ Tolerance, Decreased UE Strength Eating (QC): 6 (Pt has demonstrated ability to complete independently.) Oral Hygiene (QC): 6 (Pt brushed dentures seated in shower.) Shower/Bathe Self (QC): 6 (Pt able to wash all areas. Utilized grab bars while standing for stability.) Upper Body Dressing (QC): 6 (Pt donned/doffed shirt independently.) Lower Body Dressing (QC): 6 (Pt donned/doffed underwear/shorts independently. Pt did not use AE.) On/Off Footwear (QC): 6 (Pt utilized figure-four technique to don/doff socks. ) Toileting Hygiene (QC): 6 (Pt completed all hygiene independently.) PT Correction Goals Correction Goals PT Retail Team Leader Goals Time Frame: Mar 02, 2023 Roll Left to Right (QC): 6 Sit to Lying (QC): 6 Lying-Sitting on Side/Bed(QC): 6 Sit to Stand (QC): 6 Chair/Vve-cn-Qmwsp Xfer(QC): 6 Toilet/Commode Transfer (QC): 6 Car Transfer (QC): 5 Does the Patient Walk: Yes Walk 10 feet (QC): 6 Walk 10ft-Uneven Surface(QC): 6 Walk 50ft with 2 Turns (QC): 6 Walk 150 ft (QC): 5 Does the Pt use WC or Scooter?: Yes Wheel 50 feet with 2 turns (QC: 6 Type: Manual Wheel 150 feet: 6 Type: Manual 1 Step (curb) (QC): 4 4 Steps (QC): 9 12 Steps (QC): 9 Picking up an Object (QC): 5 (with master tax advisor) OT Correction Goals Correction Goals Time Frame: Mar 13, 2023 Acute change in mental status: 0 Inattention: 0 Disorganized thinkin Altered level of consciousness: 0 Eating (QC): 6 (met) Oral Hygiene (QC): 6 (met) Toileting Hygiene (QC): 6 (met) Shower/Bathe Self (QC): 6 (met) Upper Body Dressing (QC): 6 (m) Lower Body Dressing (QC): 6 (met) On/Off Footwear (QC): 6 (met) Additional Goals: 1-Demonstrate ADL Tasks, 2-Verbalize Understanding, 3- ImproveStrength/[place] 1=Demonstrate adherence to instructed precautions during ADL tasks. 2=Patient will verbalize/demonstrate understanding of assistive devices/modifications for ADL. 3=Patient will improve strength/tolerance for activity to enable patient to perform ADL's. CHINA ZAFAR PT Mar 02, 2023 10:55
== END 2023-02-28 11:00 | disposition home or self-care (01) | DRG 560 ==
PROVIDERS: ADMIT Internal Medicine; ATTEND Internal Medicine
DX: S32.810D Multiple fractures of pelvis with stable disruption of pelvic ring, subsequent encounter for fracture with routine healing (principal); I42.9 Cardiomyopathy, unspecified; N39.0 Urinary tract infection, site not specified; G72.89 Other specified myopathies; J43.9 Emphysema, unspecified; B96.4 Proteus (mirabilis) (morganii) as the cause of diseases classified elsewhere; B96.20 Unspecified Escherichia coli [E. coli] as the cause of diseases classified elsewhere; I25.10 Atherosclerotic heart disease of native coronary artery without angina pectoris; F43.21 Adjustment disorder with depressed mood; I48.91 Unspecified atrial fibrillation; D63.8 Anemia in other chronic diseases classified elsewhere; K59.00 Constipation, unspecified; L89.899 Pressure ulcer of other site, unspecified stage; G62.9 Polyneuropathy, unspecified; E78.5 Hyperlipidemia, unspecified; I10 Essential (primary) hypertension; K21.9 Gastro-esophageal reflux disease without esophagitis; R33.9 Retention of urine, unspecified; F17.210 Nicotine dependence, cigarettes, uncomplicated; E78.00 Pure hypercholesterolemia, unspecified; M19.90 Unspecified osteoarthritis, unspecified site; Z79.01 Long term (current) use of anticoagulants; Z95.1 Presence of aortocoronary bypass graft; Z99.81 Dependence on supplemental oxygen; Z79.899 Other long term (current) drug therapy; W18.30XD Fall on same level, unspecified, subsequent encounter; Y92.009 Unspecified place in unspecified non-institutional (private) residence as the place of occurrence of the external cause
CPT/HCPCS: 36415; 80053; 81000; 85025; 87077; 87088; 87186; 94640; 94760